=== PATIENT | female | born 1975 | race Caucasian/White ===

== ENCOUNTER → 2017-09-17 11:43 | Outpatient (CLI) | payer BC, SELFPAY ==
[2017-09-23 14:38] LABS: HPV Reflexed? NOT INDICATED
== END ==
PROVIDERS: Visit Provider Obstetrics & Gynecology
DX: Z12.4 Encounter for screening for malignant neoplasm of cervix (principal)
CPT/HCPCS: 88175; G0145

== ENCOUNTER → 2017-09-18 08:02 | Outpatient (CLI) | payer BC, SELFPAY ==
[2017-09-18 09:57] LABS: Hemoglobin A1c 5.4 % (4.2-6.3)
[2017-09-18 10:22] LABS: Estradiol < 11.0 pg/mL; Free T3 2.5 pg/mL (2.18-3.98); T4 Free Direct 0.94 ng/dL (0.76-1.46); Thyroid Stim Hormone (TSH) 1.14 uIU/mL (0.358-3.74)
[2017-09-19 11:36] LABS: Progesterone Level 0.49 ng/mL (See Comment)
== END ==
PROVIDERS: Family Provider Physician Assistant; PCP Physician Assistant; Visit Provider Obstetrics & Gynecology
DX: N95.1 Menopausal and female climacteric states (principal)
CPT/HCPCS: 36415; 82533; 82627; 82670; 83036; 84144; 84403; 84439; 84443; 84481; 82626

== ENCOUNTER → 2017-10-24 10:17 | Outpatient (CLI) | payer BC, SELFPAY ==
--- NOTE | 2017-10-24 10:37 | HPBI_ITS ---
MAMMOGRAPHY - BILATERAL SCREENING REASON FOR EXAM: Female, 42 years old. Routine annual screening examination. PERTINENT HISTORY: Non-contributory. TECHNIQUE: Digital bilateral breast cassandra (3D mammographic acquisition) in the CC and MLO projections. 2-D mediolateral oblique (MLO) and craniocaudad (CC) views of both breasts were obtained. CAD: Full Field Digital Mammography with Computer Added Detection was performed. COMPARISON: Comparison is made with prior study dated October 04, 2016 and July 12, 2015. FINDINGS: Breast Composition: The breasts are heterogeneously dense, which may obscure small masses. There are no dominant masses or suspicious calcifications. Stable bilateral benign-appearing axillary lymph nodes. No other significant abnormalities are identified. There has been no significant change since the prior study. HPBI/SCREENING MAMM (CAD), BILAT IMPRESSION: Stable bilateral screening mammogram. Yearly follow-up mammogram recommended. (A) ASSESSMENT CATEGORY: BIRADS Category 2: Benign. A letter regarding these results will be sent to the patient by the facility within 30 days. Approximately 10% of breast cancers are not detected by mammography. A normal mammogram should not delay biopsy of a clinically suspicious abnormality. [id number] Electronically Signed: Louis Anna MD at 14:10 EDT Tel [phone], Service support ,
== END ==
PROVIDERS: Family Provider Physician Assistant; PCP Physician Assistant; Visit Provider Preventive Medicine Occupational Medicine
DX: Z12.31 Encounter for screening mammogram for malignant neoplasm of breast (principal)
CPT/HCPCS: 77063; 77067

== ENCOUNTER → 2018-01-26 09:22 | Outpatient (CLI) | payer BC, SELFPAY ==
[2018-01-26 10:29] LABS: Estradiol 17.4 pg/mL
[2018-01-26 10:34] LABS: Progesterone Level 0.73 ng/mL (See Comment); Vitamin B12 502 pg/mL (211-911)
[2018-01-27 14:43] LABS: DHEA Sulfate 169.5 ug/dL (57.3-279.2)
== END ==
PROVIDERS: Visit Provider Obstetrics & Gynecology
DX: N95.1 Menopausal and female climacteric states (principal)
CPT/HCPCS: 36415; 82533; 82607; 82627; 82670; 84144; 84403; 82626

== ENCOUNTER → 2018-07-15 08:23 | Outpatient (CLI) | payer BC, SELFPAY ==
[2018-07-15 10:53] LABS: Progesterone Level 10.42 ng/mL (See Comment)
[2018-07-15 10:59] LABS: Estradiol < 11.0 pg/mL
[2018-07-16 08:34] LABS: DHEA Sulfate 201.4 ug/dL (57.3-279.2)
== END ==
PROVIDERS: Visit Provider Obstetrics & Gynecology
DX: N95.1 Menopausal and female climacteric states (principal)
CPT/HCPCS: 36415; 82533; 82627; 82670; 84144; 82626

== ENCOUNTER 2019-10-13 05:30 | Observation (INO) | payer BC, SELFPAY ==
[2019-10-13] VITALS (23 sets, daily range): BP systolic 132–156; BP diastolic 75–110; PULSE 70–117; RESP 14–20; TEMP 36.1–37.1; O2SAT 93–100; BMI 28.8; BMI 28.6; BMI 28.7
--- NOTE | 2019-10-13 05:34 | EKG12_ITS ---
Test Reason : PALPS Blood Pressure : / mmHG Vent. Rate : 108 BPM Atrial Rate : 108 BPM P-R Int : 168 ms QRS Dur : 082 ms QT Int : 354 ms P-R-T Axes : 050 051 054 degrees QTc Int : 474 ms Sinus tachycardia Otherwise normal ECG Confirmed by FRANCISCO AHUJA, SEA ([id number]), publications editor LIA LYLES ([id number]) on 10/15/2019 8:08:33 AM Referred By: Confirmed By:MITESH SINGH MD
--- NOTE | 2019-10-13 05:34 | RAD_ITS ---
STUDY: X-RAY CHEST REASON FOR EXAM: Female, 44 years old. Chest pain, epigastric pain. TECHNIQUE: AP portable chest. COMPARISON: December 17, 2018. FINDINGS: The lungs are clear and expanded. There is no demonstrated pleural abnormality. Normal size heart. Normal mediastinum and deepika. Normal visualized pulmonary arteries. Normal visualized aortic arch and descending thoracic aorta. Normal visualized thoracic spine. Normal visualized ribs, clavicles, and shoulders. There is no demonstrated abnormality of the visualized soft tissue structures of the upper abdomen. RAD/Chest 1 View (Portable) IMPRESSION: Normal x-ray examination of the chest. Electronically Signed: Denis Dean MD at 5:58 EST , Service support ,
[2019-10-13 05:49] LABS: Absolute Lymphocyte Count 1.03 X10^3/uL (0.83-4.51); Absolute Neutrophil Count 11.3 X10^3/uL (2.0-7.7); Basophil# 0.05 X10^3/uL; Basophil% 0.4 % (0-1); Eosinophil# 0.03 X10^3/uL; Eosinophils% 0.2 % (0-5); Hematocrit 42.9 % (37-47); Hemoglobin 14.4 g/dL (12.0-15.0); Lymphocyte # 1.03 X10^3/ul (4.0); Mean Corp Hgb Conc 33.6 g/dL (32-36); Mean Corpuscular Hgb 29.8 pg (27.0-32.0); Mean Corpuscular Volume 88.6 fL (81-99); Mean Platelet Vol. 9.5 fl (6.2-12.0); Monocyte# 0.43 X10^3/uL; Monocyte% 3.3 % (0-10); NRBC Flagged by Analyzer 0 % (0-5); Neutrophil # 11.33 X10^3/uL (2.7-7.7); Neutrophil % 87.8 % (47-70); Platelet Count 260 K/mm3 (150-450); RBC Distribution Width CV 11.9 % (11.6-14.6); RBC Distribution Width SD 38.2 fl (35.1-43.9); Red Blood Count 4.84 M/mm3 (4.2-5.4); White Blood Count 12.9 K/mm3 (4.4-11.0)
[2019-10-13] MEDS: Aspirin 81 MG TAB.CHEW 324 MG PO (05:52)
[2019-10-13] MEDS: Ondansetron 4 MG/2 ML Vial IV (05:54)
[2019-10-13] MEDS: Morphine 4 MG/ML Syringe IV ×4 (05:55→11:20)
--- NOTE | 2019-10-13 06:04 | ED.VISSUMM ---
- ER Visit Summary Date of Service: 10/13/19 Chief Complaint: Chest pain History of Present Illness: The patient is a 44 F presenting with chest pain. This started last night at 10pm. Complains of midsternal chest pain and epigastric pain which is 8 out of 10 that has been constant for the past 7.5 hrs. She denies nausea, vomiting, shortness of breath. She denies PE/DVT risk factors. Denies CAD risk factors. She has not had these symptoms in the past. She does not recall anything that makes this better or worse. Denies other complaints. Physical Examination: Vitals are stable. Patient is afebrile. Alert no acute distress. HEENT exam is unremarkable. Neck is supple. Lungs are clear and equal bilaterally. Heart is regular rate and rhythm. Abdomen is soft epigastric tenderness with no guarding or rebound Extremities are unremarkable. Skin is warm and dry. No focal neurologic deficit. Remainder of exam is unremarkable. Emergency Department Course and Treatment: Patient was given aspirin, morphine, Zofran IV. EKG is sinus tachycardia rate of 108 with no acute ischemic changes. Chest x-ray shows no acute process. CBC shows white count 12.9. Chemistries unremarkable. Liver, lipase are normal. Troponin is negative. On re-evaluation, patient is resting comfortably. CT abdomen pelvis is pending at this time and will be checked out to the oncoming physician. Disposition: pending Impression: Chest and abdominal pain This note was generated with Scope 5 dictation software. It may contain incorrect words, spelling, and punctuation that were not noted in review of the chart prior to signing ED Disposition - Plan for ED Patient: Referrals: Kuldip Gabriel MD [Primary Care Provider] -
[2019-10-13 06:06] LABS: Anion Gap 6 (5-15); BUN 12 mg/dL (7-18); BUN/Creat Ratio 11.2 RATIO (10-20); Calcium,Total 9.1 mg/dL (8.5-10.1); Chloride 105 mmol/L (98-107); Creatinine, Serum 1.07 mg/dL (0.55-1.02); EST Glomerular Filtration Rate 59 mL/min (>60); Est Glom Filt Rate - Afr Amer 72 mL/min (>60); Estimated Creatinine Clearance 58.54 ml/min; Glucose 144 mg/dL (74-106); Potassium 3.9 mmol/L (3.5-5.1); Sodium Level 139 mmol/L (136-145)
[2019-10-13 06:07] LABS: AST(SGOT) 24 U/L (15-37); Alanine Aminotransfer ALT/SGPT 44 U/L (13-56); Albumin, Serum 4.5 g/dL (3.2-5.0); Alkaline Phosphatase 68 U/L (45-117); Bilirubin, Direct 0.13 mg/dL (0.00-0.30); Globulin 3.5 g/dL (2.2-4.2); Lipase 131 U/L (73-393)
--- NOTE | 2019-10-13 06:27 | CT_ITS ---
STUDY: CT ABDOMEN AND PELVIS WITH CONTRAST REASON FOR EXAM: Female, 44 years old. EPIGASTRIC PAIN RADIATION DOSAGE (If Supplied By Facility): CTDIvol = ( 12.54 ) mGy, DLP = ( 623.79 ) mGycm TECHNIQUE: Transaxial images were obtained from the dome of the diaphragm to the symphysis pubis with oral contrast. Oral and IV Gastrografin and 100mL Isovue-300 was administered. Sagittal and coronal images were reconstructed. Individualized dose optimization techniques were used for this CT. COMPARISON: None. FINDINGS: The visualized lung bases are unremarkable. The visualized portions of the heart are within normal limits. Normal liver. Pericholecystic fluid worrisome for acute cholecystitis. Correlation with right upper quadrant ultrasound is recommended. Normal spleen. Normal pancreas. Normal bilateral adrenal glands. Normal right kidney. Normal left kidney. Normal visualized stomach. Normal small intestine. Normal colon. There is non-visualization of the appendix. Normal abdominal aorta. Normal inferior vena cava. Normal retroperitoneum. Normal urinary bladder. Normal abdominal wall. Normal osseous structures. CT/Abdomen/Pelvis WITH Contrast IMPRESSION: Suspect acute cholecystitis. Correlation with right upper quadrant ultrasound is recommended. Electronically Signed: Mikey Wills MD at 8:41 EST Tel , Service support ,
--- NOTE | 2019-10-13 08:59 | US_ITS ---
STUDY: ABDOMINAL ULTRASOUND - RIGHT UPPER QUADRANT REASON FOR VISIT: Female, 44 years old PERICHOLECYSTIC FLUID 0N CT- RUQ PAIN TECHNIQUE: Ultrasound evaluation of the right upper quadrant was performed with real-time and static mckeon-scale imaging. TECHNICAL QUALITY: Adequate. COMPARISON: CT earlier today FINDINGS: Liver: The liver measures 15.6 cm. There is normal echogenicity of the liver. The bile ducts are within normal limits. There is hepatic color flow. The direction of portal flow is hepatopetal. There is no demonstrated mass lesion. Gallbladder: Normal distended gallbladder. The gallbladder wall measures 6 mm. There is a positive sonographic Fortune''s sign. There is pericholecystic fluid. There are multiple echogenic structures within the gallbladder, consistent with multiple gallstones. Common Bile Duct (C.B.D.): The common bile duct measures 5 mm. Pancreas: Normal size of the head, body and tail of the pancreas. There is normal echogenicity of the pancreas. There is no demonstrated pancreatic mass or cyst. Right Kidney: Normal size of the right kidney. The right kidney measures 10.0 cm. Normal renal cortex. The right cortex measures 1.3 cm. There is no demonstrated renal mass or cyst. There is no right hydronephrosis. US/Gallbladder IMPRESSION: Cholelithiasis with acute cholecystitis. Electronically Signed: Mikey Wills MD at 9:44 EST Tel , Service support ,
--- NOTE | 2019-10-13 11:17 | HP.PCM_ITS ---
Problem List (1) Acute cholecystitis Status: Acute History of Present Illness Date of Admission: 10/13/19 Chief Complaint: Right upper quadrant pain The patient is a 44 year old F who presented tot he ED secondary to severe right upper quadrant abdominal pain. Patient stated she felt under the weather yesterday and what she thought was heartburn. Patient noted she had lack of appetite yesterday. Throughout the day the pain intensified. She tried Pepto Bismol, Pepcid and Advil without relief throughout the night. Patient stated the pain keep her up all night. At 0500 this morning she woke her up and presented to the ED. Patient describes the pain starting in the epigastric region radiating to her RUQ pain an into her back. She noted nausea due to pain. She denies vomiting. She notes a history of irritable bowel with diarrhea. She denies change in bowel habits. She notes she has had similar symptoms as above previously throughout the last several years. She notes her grandmother and mother have had their gallbladders removed. She notes having previous imaging on her gallbladder without recommendations of having the gallbladder removed. She denies chest pain, shortness of breath. She is wondering if her irritable bowel is really due to her gallbladder. Patient has had previous open appendectomy (20 years ago) and previous total hysterectomy (7-10 years ago) ( laparoscopic). Patient denies previous myocardial infarction, stroke or blood clots. She denies previous complications with anesthesia. She denies having to previously see a health care law specialist. Patient states she Vapes. Past Medical History Allergies nitrofurantoin [From Macrobid] Allergy (Verified 10/13/19 05:39) Unknown Sulfa (Sulfonamide Antibiotics) Allergy (Verified 10/13/19 05:39) Hives Home Medications: Ambulatory Orders Medication Instructions Recorded Loratadine [Claritin] 10 mg PO DAILY 12/17/16 Amitriptyline HCl 25 mg PO DAILY 10/13/19 Surgical History: appendectomy - open (20 years ago), hysterectomy - Total (laparoscopic)- 7-10 years ago Psychiatric History: No pertinent psych hx SUPPLEMENTAL MANAGER History: No pertinent SUPPLEMENTAL MANAGER history Lives: Spouse/ Significant Other Smoking Status: Light Smoker (<10/day) Tobacco Use: Vapor - *Family History Maternal History Items: - - gallbladder disease Paternal History Items: No pertinent history Review of Systems Constitutional: Reports: Anorexia HEENT: Denies: Head Aches, Sinus Congestion, Sinus Drainage Cardiovascular: Denies: Chest Pain, Palpitations Respiratory: Denies: Cough, Shortness of breath at rest, Sputum production Gastrointestinal: Reports: Abdominal Pain, Diarrhea, Nausea. Denies: Vomiting Genitourinary: Denies: Dysuria Musculoskeletal: Denies: Joint Pain, Joint Tenderness Skin: Denies: Rash, Wounds Neurological: Denies: Numbness, Tingling, Focal weakness Psychiatric: Reports: Anxiety Hematologic/ Lymphatic: Denies: Easy Bruising, Easy Bleeding VTE Information - Inpt Only VTE Present on Admission: Yes VTE Mechan Device Prophylaxis: SCD's Patient Problems: Active and Suspected Problems (Last Reviewed 01/21/18 @ 11:36 by Shabnam Campbell) Acute cholecystitis (Acute) - Physical Exam Vitals/I&O's: Vital Signs Temp Pulse Resp BP Pulse Ox 98.2 F 85 16 135/97 H 99 10/13/19 05:47 10/13/19 08:27 10/13/19 08:27 10/13/19 08:27 10/13/19 08:27 Oxygen Delivery Method Room Air Weight: 167 lb 15.876 oz Body Mass Index (BMI) 28.8 General: Alert, Oriented x3, Cooperative HEENT: Atraumatic, PERRLA, EOMI, Normocephalic Neck: Supple, No JVD, Negative Carotid Bruits Lungs: Clear to auscultation, Normal air movement Cardiovascular: Regular rate, No murmurs Abdomen: Bowel Sounds Present, Soft, Tender - epigastric/RUQ region, - - Nicely healed right lower quadrant incision and umbilical incision Extremities: No edema, Capillary Refill Less than 3 Seconds Skin: No rashes, No breakdown Musculoskeletal: No Tenderness to Palpation of Joints or Extremities Neurological: Neuro grossly intact Psych/Mental Status: Normal Affect, Appropriate Laboratory Results 10/13/19 05:40: WBC 12.9 H, RBC 4.84, Hgb 14.4, Hct 42.9, MCV 88.6, MCH 29.8, MCHC 33.6, RDW Std Deviation 38.2, RDW Coeff of Kathy 11.9, Plt Count 260, MPV 9.5, Immature Gran % (Auto) 0.300, Neut % (Auto) 87.8 H, Lymph % (Auto) 8.0 L, Iron % (Auto) 3.3, Eos % (Auto) 0.2, Baso % (Auto) 0.4, Absolute Neuts (auto) 11.3 H, Absolute Lymphs (auto) 1.03, Nucleated RBC % 0 10/13/19 05:40: Sodium 139, Potassium 3.9, Chloride 105, Carbon Dioxide 28.0, Anion Gap 6, BUN 12, Creatinine 1.07 H, Estim Creat Clear Calc 58.54, Est GFR (MDRD) Af Amer 72, Est GFR (MDRD) Non-Af 59 L, BUN/Creatinine Ratio 11.2, Glucose 144 H, Calcium 9.1, Troponin I < 0.015 10/13/19 05:40: Total Bilirubin 0.60, Direct Bilirubin 0.13, AST 24, ALT 44, Alkaline Phosphatase 68, Total Protein 8.0, Albumin 4.5, Globulin 3.5, Lipase 131 Assessment/Plan All Active Problems (Last Reviewed 01/21/18 @ 11:36 by Shabnam Campbell) Acute cholecystitis (Acute) Segmental and somatic dysfunction of pelvic region (Acute) Segmental and somatic dysfunction of lumbar region (Acute) Segmental and somatic dysfunction of cervical region (Acute) Segmental and somatic dysfunction of thoracic region (Acute) I am seeing this patient in conjunction with Dr. Maldonado. Acute cholecystitis Plan: Patient was discussed with Dr. Maldonado. Dr. Maldonado will plan to perform a laparoscopic cholecystectomy with intraoperative cholangiogram. Procedure details, risks and benefits have been explained. Patient has had the opportunity to ask and have questions answered. Patient verbally understands and agrees with the plan. Thank you for allowing us to participate in this patient's care. Code Visit Office Visits / Consults: [id number] IP Consult L3
[2019-10-13] MEDS: 0.9% Saline Lock 10 ML Syringe IV (13:42)
[2019-10-13] MEDS: Lactated Ringers 1,000 ML 100 ML IV ×3 (13:42→19:46)
[2019-10-13] MEDS: Cefazolin 2 GM in 0.9% Normal Saline 100 ML IV (15:41)
--- NOTE | 2019-10-13 15:56 | DCINST_ITS ---
Discharge Diet: Light diet - advance as tolerated - if you have questions about your diet instructions, please talk to you doctor. Discharge Activity: May Not Drive - for 1 week or while taking narcotic pain medicine. May shower in (days): 1 Lifting Restrictions: 10 pounds Call your doctor if your incision/area has: Continuous Slow Oozing, Sudden Increased Bleeding, Increased Pain/ Swelling, Increased Redness, Foul Smelling Discharge Call your doctor if you observe: Fever of 101 or Higher Suture Line Care: Avoid Pulling/Pushing, Avoid Pinching/Bending Additional Dressing/Incision Instructions:: Change or remove dressing in 4 days. Leave steri-strips in place for 1 week. Allergies/Adverse Reactions: Allergies nitrofurantoin [From Macrobid] Allergy (Verified 10/13/19 05:39) Unknown Sulfa (Sulfonamide Antibiotics) Allergy (Verified 10/13/19 05:39) Hives wheat Allergy (Verified 10/13/19 13:36) Other Medications to take at Discharge Loratadine [Claritin] 10 mg PO DAILY 12/17/16 Amitriptyline HCl 25 mg PO DAILY 10/13/19 C-Progesterone 1 applic TOPICAL QHS 10/13/19 Primary Care Physician: Kuldip Gabriel MD [Primary Care Provider] - Test Results: Test results from this visit will be discussed in further detail at your follow- up appointment, if applicable. Please Follow Up With: Herbert Maldonado MD - [phone] When: Call to make an appointment to be seen in about 10 days.
[2019-10-13] MEDS: Bupivacaine Mpf 0.5% 30 ML VIAL (16:04)
--- NOTE | 2019-10-13 16:05 | GALL_PTH ---
PATIENT: BECCA MCCLAIN LOC: MS3 U#:[id number] AGE/SX: 44/F ROOM: MT323 RE10/13/[address]: Dr. Herbert Maldonado MD : 1975 BED: 1 DIS: 10/14/2019 SPEC #: [id number] RECD: 10/13/19 17:13 STATUS: JEREMY MCGRATH #: [id number] OZZIE: 10/13/19 16:[address]: Herbert Maldonado DEPT: SURGICAL PATHOLOGY RECD BY: Sajan Sanon ENTERED: 10/14/19 08:47 SP TYPE: BERNICE ROY DR: Dr. Kuldip Gabriel MD Tissues: Gallbladder, NOS Procedures: Surgery Specimen Level III HEADER OPERATION: Laparoscopic cholecystectomy PRE-OP DIAGNOSIS: Acute cholecystitis TISSUE SUBMITTED: Gallbladder MICROSCOPIC DIAGNOSIS Gallbladder, cholecystectomy: Acute and chronic cholecystitis and cholelithiasis. SJ:annette 3/6/20 MICROSCOPIC DESCRIPTION Slides are reviewed. GROSS DESCRIPTION Received is one container labeled with the patient's name and designated gallbladder. The specimen consists of a gallbladder measuring 10 cm in length and up to 4 cm in diameter. The external surface is pink-fair, smooth and glistening for the most part. Focally it is granular, hemorrhagic and contains cautery artifact. The gallbladder contains yellow mucoid bile and multiple yellow-orange, mulberry stones measuring in aggregate 4 x 2.5 x 1.5 cm and 0.2 to 0.3 cm in diameter. The mucosa is bile-stained and without any mass lesions. The gallbladder wall measures 0.1 cm in thickness. Creative/Art Director sections from the gallbladder and the cystic duct are submitted in one cassette. / SJ:annette 10/14/19 TC:2 CPT: 66783
--- NOTE | 2019-10-13 16:54 | OP.PCM_ITS ---
Problem List (1) Acute cholecystitis Status: Acute Report of Operation Date of Procedure: 10/13/19 Pre-Operative Diagnosis: Acute cholecystitis cholelithiasis Post-Operative Diagnosis: Same Surgery/Procedure Performed:: Laparoscopic cholecystectomy Description of Surgical Findings:: Timeout and informed consent was obtained. 44-year-old female was taken operating placement table underwent general endotracheal intubation anesthesia. Ancef 2 g given intravenously preoperatively. The abdomen sterilely prepped draped. 0.5% Marcaine was used as local aesthetic. Skin sites were pre-an esthetized. A total of 30 cc was used. A vertical infraumbilical incision was created holding sutures of 0 Vicryl placed. Direct access was gained in the abdomen in 10 mm trocar inserted the abdomen was insufflated with CO2 to a pressure of 10 mmHg pressure. From a trochars in place in the epigastric right upper quadrant and right lateral upper quadrant. The gallbladder was markedly edematous and adherent to the omentum. The omental adhesions were dissected free the gallbladder was distracted blunt dissection was instituted at the infundibulum until the cystic duct cystic artery was clearly identified. The cystic artery was clipped secured twice proximally with hemo-lock clips and once distally prior to transecting it. Hem-o-lizandro clip was placed on the cystic duct incision and then cystic duct and attempt was made to place a cholangiogram catheter but this would not go due to a palpable posterior. I elected to forego the cholangiograms. 2 Hem-o-lizandro clips were placed on the cystic duct stump prior to transecting it. The gallbladder was dissected free from the liver bed a small structure that looked like a duct of Luschka that was secured with a hemo-lock clip. The gallbladder was very edematous and dissection was somewhat tedious getting the gallbladder dissected free but it was dissected free intact with no spillage. The gallbladder was placed in a retrieval bag. The right upper quadrant was irrigated and aspirated free of excess fluid. A piece of fibrillar was placed in the liver bed. Gallbladder was exited the umbilicus remaining trochars removed under visualization the abdomen was allowed to deflate the CO2 the fascia the umbilicus approximated with 0 Vicryl [id number] suture skin edges approximated opted for Monocryl subdermal stitches Steri-Strips Telfa and OpSite dressings applied sponge and instrument and needle counts were reported the surgery correct blood loss minimal Specimens gallbladder. Drains none. Blood loss minimal. The patient was taken to the recovery room in satisfactory edition without apparent complication Herbert Maldonado M.D., F.A.C.S. Type of Anesthesia:: General Anesthesiologist: Jaycob Pearson
[2019-10-13] MEDS: Ketorolac 30 MG/ML Syringe IV (17:47)
[2019-10-13] MEDS: Morphine 2 MG/ML Syringe IV ×2 (19:46→21:42)
[2019-10-13] MEDS: Amitriptyline 25 MG Tablet PO (21:34)
[2019-10-14] MEDS: Morphine 2 MG/ML Syringe IV (02:23)
[2019-10-14 05:27] VITALS: BP 126/79; PULSE 96; RESP 16; TEMP 36.9; O2SAT 98
[2019-10-14] MEDS: Lactated Ringers 1,000 ML 100 ML IV (05:33)
--- NOTE | 2019-10-14 06:25 | PCM.PN.SRG ---
Patient Problems: Active and Suspected Problems (Last Reviewed 01/21/18 @ 11:36 by Shabnam Campbell) Acute cholecystitis (Acute) Subjective: Pt feeling better, now just sore - Physical Exam Vitals/I&O's: Vital Signs Temp Pulse Resp BP Pulse Ox 98.4 F 96 16 126/79 H 98 10/14/19 05:27 10/14/19 05:27 10/14/19 05:27 10/14/19 05:27 10/14/19 05:27 Oxygen Delivery Method Room Air Weight: 167 lb 15.876 oz Body Mass Index (BMI) 28.6 Intake and Output for Last 24 Hours 10/12/19 10/13/19 10/14/19 23:59 23:59 23:59 Intake Total 1755 / 1755 1478.33 / 1478.33 Output Total 650 / 650 700 / 700 Balance 1105 / 1105 778.33 / 778.33 Abdomen: Soft, Hypoactive Bowel Sounds, Distended Current Medications Acetaminophen (Tylenol) 650 mg PO Q6H PRN PRN PRN Reason: Pain Score 1-10/10 Amitriptyline HCl (Elavil) 25 mg PO QHS [facility] Last Admin: 10/13/19 21:34 Dose: 25 mg Documented by: Sodium Chloride () 250 mls @ 15 mls/hr IV .[id number] PRN PRN Reason: Saline Flush Sodium Chloride () 250 mls @ 15 mls/hr IV .[id number] PRN PRN Reason: Additional IVPB Infusion Lactated Ringer's () 1,000 mls @ 100 mls/hr IV .Q10H [facility] Last Admin: 10/14/19 05:33 Dose: 100 mls/hr Documented by: Morphine Sulfate () 2 - 4 mg IV Q1H PRN PRN PRN Reason: Pain Score 1-10/10 Last Admin: 10/14/19 02:23 Dose: 2 mg Documented by: Morphine Sulfate () 2 - 4 mg IV Q1H PRN PRN PRN Reason: Pain Score 1-10/10 Non-Formulary Medication (C-Progesterone) 1 applic TOPICAL QHS [facility] Last Admin: 10/13/19 21:34 Dose: Not Given Documented by: Ondansetron HCl (Zofran) 4 mg IV Q8H PRN PRN PRN Reason: NAUSEA Oxycodone HCl (Oxyir) 5 mg PO Q4H PRN PRN PRN Reason: Pain Score 4-5/10 Sodium Chloride () 2 - 6 ml IV UD PRN PRN Reason: Pediatric Saline Flush Last Admin: 10/13/19 13:42 Dose: 5 ml Documented by: Medical Necessity - Tobacco Use Smoking Status: Light Smoker (<10/day) Tobacco Use: Vapor Assessment/Plan All Active Problems (Last Reviewed 01/21/18 @ 11:36 by Shabnam Campbell) Acute cholecystitis (Acute) Segmental and somatic dysfunction of pelvic region (Acute) Segmental and somatic dysfunction of lumbar region (Acute) Segmental and somatic dysfunction of cervical region (Acute) Segmental and somatic dysfunction of thoracic region (Acute) Plan discharge this a.m.
[2019-10-14] MEDS: oxyCODONE 5 MG Tablet PO (10:05)
[2019-10-14 10:13] VITALS: BP 125/85; PULSE 81; RESP 18; TEMP 36.5; O2SAT 99
== END 2019-10-14 10:35 | disposition home or self-care (01) ==
LOC: ED 10:13 → MS3 11:49
PROVIDERS: Admitting Provider Surgery; Emergency Provider Emergency Medicine; PCP Family Medicine; Visit Provider Surgery
PROC: (CPT 47610; principal; 2019-10-13 15:45)
DX: K80.12 Calculus of gallbladder with acute and chronic cholecystitis without obstruction (principal); Z79.899 Other long term (current) drug therapy; F17.290 Nicotine dependence, other tobacco product, uncomplicated; M99.01 Segmental and somatic dysfunction of cervical region; M99.03 Segmental and somatic dysfunction of lumbar region; M99.05 Segmental and somatic dysfunction of pelvic region; M99.02 Segmental and somatic dysfunction of thoracic region; K58.9 Irritable bowel syndrome, unspecified
CPT/HCPCS: 00790; 47562; 71045; 74177; 76705; 80048; 80076; 83690; 84484; 85025; 88304; 93005; 96361; 96374; 96375; 96376; 99218; 99251; 99285; 99406; J7120; Q9967; A4216; G0378; G0463; J2405

== ENCOUNTER → 2020-03-16 09:01 | Outpatient (CLI) | payer BC, SELFPAY ==
[2019-10-13 13:48] VITALS: BMI 28.6
[2020-03-16 09:52] LABS: Estradiol 12.1 pg/mL
[2020-03-16 09:53] LABS: Progesterone Level 0.59 ng/mL (See Comment)
[2020-03-17 04:27] LABS: Sex Hormone-binding Globulin 30.5 nmol/L (24.6-122.0)
== END ==
PROVIDERS: PCP Family Medicine; Referring Provider Obstetrics & Gynecology; Visit Provider Obstetrics & Gynecology
DX: N95.1 Menopausal and female climacteric states (principal)
CPT/HCPCS: 36415; 82533; 82627; 82670; 84144; 84270; 84403; 82626

== ENCOUNTER → 2021-06-04 15:27 | Outpatient (CLI) | payer BC, SELFPAY ==
--- NOTE | 2021-06-04 15:40 | BI_ITS ---
MAMMOGRAPHY - BILATERAL SCREENING REASON FOR EXAM: Female, 46 years old. Routine annual screening examination. PERTINENT HISTORY: Non-contributory. TECHNIQUE: Digital bilateral breast corazon (3D mammographic acquisition) in the CC and MLO projections. 2-D mediolateral oblique (MLO) and craniocaudad (CC) views of both breasts were obtained. CAD: Full Field Digital Mammography with Computer Added Detection was performed. COMPARISON: Comparison is made with prior study dated 10/24/2017 and 05/04/2017. FINDINGS: Breast Composition: The breasts are heterogeneously dense, which may obscure small masses. There are no dominant masses or suspicious calcifications. Stable small benign-appearing bilateral axillary lymph nodes. No other significant abnormalities are identified. There has been no significant change since the prior study. BI/SCRN MAMM (CAD)W/[place] BILAT IMPRESSION: Stable bilateral screening mammogram. Yearly follow-up mammogram recommended. (A) ASSESSMENT CATEGORY: BIRADS Category 2: Benign. A letter regarding these results will be sent to the patient by the facility within 30 days. Approximately 10% of breast cancers are not detected by mammography. A normal mammogram should not delay biopsy of a clinically suspicious abnormality. [id number] Electronically Signed: Louis Anna MD at 8:08 EDT , Service support ,
== END ==
PROVIDERS: PCP Family Medicine; Referring Provider Obstetrics & Gynecology; Visit Provider Obstetrics & Gynecology
DX: Z12.31 Encounter for screening mammogram for malignant neoplasm of breast (principal)
CPT/HCPCS: 77063; 77067

== ENCOUNTER 2021-09-12 09:54 | Outpatient (CLI) | payer BC, SELFPAY ==
--- NOTE | 2021-09-12 10:02 | US_ITS ---
STUDY: ABDOMINAL ULTRASOUND - RIGHT UPPER QUADRANT REASON FOR VISIT: Female, 46 years old prior cholecystectomy. TECHNIQUE: Ultrasound evaluation of the right upper quadrant was performed with real-time and static mckeon-scale imaging. TECHNICAL QUALITY: Adequate. COMPARISON: Comparison is made with prior study of 10/13/2019. FINDINGS: Liver: The liver measures 12.4 cm. There is normal echogenicity of the liver. The bile ducts are within normal limits. There is hepatic color flow. The direction of portal flow is hepatopetal. There is no demonstrated mass lesion. Gallbladder: The patient is status post cholecystectomy. Common Bile Duct (C.B.D.): The common bile duct measures 6 mm. Pancreas: Normal size of the head, body and tail of the pancreas. There is normal echogenicity of the pancreas. There is no demonstrated pancreatic mass or cyst. Right Kidney: Normal size of the right kidney. The right kidney measures 9.9 cm x 4.7 cm x 5.1 cm. Normal renal cortex. The right cortex measures 1.3 cm. There is no demonstrated renal mass or cyst. There is no right hydronephrosis. US/Abdomen Limited IMPRESSION: Normal right upper quadrant ultrasound examination. The patient is status post cholecystectomy. Electronically Signed: Louis Anna MD at 10:58 EST ,
== END 2021-09-12 23:59 | disposition short-term general hospital (02) ==
PROVIDERS: PCP Internal Medicine; Referring Provider Internal Medicine; Visit Provider Internal Medicine
DX: K80.20 Calculus of gallbladder without cholecystitis without obstruction (principal)
CPT/HCPCS: 76705

== ENCOUNTER 2021-10-02 11:00 | Outpatient (RCR) | payer BC, SELFPAY ==
--- NOTE | 2021-08-20 11:47 | HP.PTEVAL_ITS ---
Patient's Visit Information BECCA MCCLAIN is a 46 year old F referred to Physical Therapy by Dr. Crystal Atkins DO with a diagnosis of Lateral Epicondyle. Date of Evaluation: 08/20/21 Physical Therapist: Lisa Vallejo DPT - Visit Plan Frequency: 1x/Week Duration: 4 Weeks Plan: Follow up in 3 weeks after HEP. HEP Given IE: Education, Elbow extension stretch, ice massage, STM, activity modification - Subjective Patient reports that she was gardening this summer- she started having right elbow pain. Now it just hurts all the time. Pain is located on the lateral epicondyle. It hurts all the time- she has a hard time picking things up and s leeping. She does have some radiating pain into the triceps and forearm. This week hasn't been so bad because she is using Meloxicam. Worst: 6/10 Agg: lifting, turning jars, ping pong, anything she does with her arm. Eases: Meloxicam, compression brace Best: 0/10 just this week with the Meloxicam. Right hand dominate. Describes the pain as more sharp- at night its dull achy and throbbing. Sleep: disturbed- hard to get to sleep- all positions. No N/T in the finger. 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 No SIMS, blurred vision, dizziness or neck pain. Did not have x-rays or MRI. 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 Does have a sleeve- but has not been using it- not super comfortable. PMHx: migraines-no ortho surgeries. Meds: Amitriptyline Very active- [place]- does exercise. - Objective Posture: good throughout session. Gait: good arm swing and trunk rotation. Palpation: tender lateral epicondylitis, triceps, Brachioradialis. ROM: WFL in all planes of the cervical, shoulder, elbow and wrist. Strength: Shoulder: 4+/5 throughout, Elbow: 4+/5 with pain, Wrist: 5/5 with pain sup/pro and flexion/extn, Logistics Support: 80 on left 60 on right Pinch Strength: 15-20. Sensation: WNL - Special Tests R Elbow Valgus Stress Test - MCL Instability: Positive R Elbow Varus Stress Stest - MCL Instability: Positive R Elbow Lat Epiconylitis - as named: Positive - Balance/Special Test Scores Quick DASH Score: 38.6350 - Goals Goal 1:: Patient will be I with HEP and progression Goal Time Frame: 4-6 Weeks Goal 2:: Patient will report 75% better Goal Time Frame: 4-6 Weeks - Rehabilitation Potential Physical Therapy Diagnosis: Patient presents with hypomobility- she has decreased pain free ROM, strength and endurance leading to increased pain with ADL's. Rehabilitation Potential: Good - Anticipated Interventions Patient/Client Instruction: Educate patient on: Benefits of Fitness Program Therapeutic Exercise to Include: Strength training, Body mechanics, Postural training For the Purpose of:: To improve muscle performance and motor function Thank you for the opportunity to evaluate your patient. For Medicare and Medicare HMO plans, please review the plan of care and approve it. It will need to be FAXED BACK to us at [phone] for Medicare purposes. For Medicare only, by signing this I certify the plan of care. Please let me know if there are questions or concerns regarding this plan of care. Physician Signature: Date:
--- NOTE | 2022-01-24 14:52 | HP.PT.NRP ---
BECCA MCCLAIN was seen in my office for initial evaluation on 08/20/21. The following Plan of Care was established for this patient: Initial Frequency: 1x/Week Initial Duration: 4 Weeks Patient/Client Instruction: Educate patient on: Benefits of Fitness Program Therapeutic Exercise to Include: Strength training, Body mechanics, Postural training For the Purpose of:: To improve muscle performance and motor function This patient was last seen in our office . Pertinent comments regarding their Physical therapy will appear below: Patient has not attended PT in over 30 days- appropriate to be d/c and return to MD for further evaluation as needed. At this point I will be discontinuing this patient from physical therapy. I would be happy to see this patient again in the future if found appropriate by the physician. Thank you! Lisa Vallejo DPT Balance/Gait/Functional tests - Balance/Special Test Scores Quick DASH Score: 38.2068
== END 2021-10-02 19:00 | disposition home or self-care (01) ==
LOC: PT 11:00
PROVIDERS: PCP Internal Medicine; Referring Provider Internal Medicine; Visit Provider Internal Medicine
DX: M77.11 Lateral epicondylitis, right elbow (principal)
CPT/HCPCS: 97035; 97110; 97161

== ENCOUNTER → 2022-01-23 | Outpatient (CLI) | payer BC, SELFPAY ==
[2022-01-23 12:22] LABS: Absolute Lymphocyte Count 1.86 X10^3/uL (0.83-4.51); Absolute Neutrophil Count 3.3 X10^3/uL (2.0-7.7); Basophil# 0.05 X10^3/uL; Basophil% 0.8 % (0-1); Eosinophil# 0.26 X10^3/uL; Eosinophils% 4.4 % (0-5); Hematocrit 41.9 % (37-47); Hemoglobin 14.2 g/dL (12.0-15.0); Lymphocyte # 1.86 X10^3/ul (0.83-4.51); Lymphocyte % 31.5 % (19-41); Mean Corp Hgb Conc 33.9 g/dL (32-36); Mean Corpuscular Hgb 30.8 pg (27.0-32.0); Mean Corpuscular Volume 90.9 fL (81-99); Mean Platelet Vol. 10.7 fl (6.2-12.0); Monocyte# 0.39 X10^3/uL; Monocyte% 6.6 % (0-10); NRBC Flagged by Analyzer 0 % (0-5); Neutrophil # 3.33 X10^3/uL (2.7-7.7); Neutrophil % 56.4 % (47-70); Platelet Count 265 K/mm3 (150-450); RBC Distribution Width CV 12.1 % (11.6-14.6); Red Blood Count 4.61 M/mm3 (4.2-5.4); White Blood Count 5.9 K/mm3 (4.4-11.0)
[2022-01-23 13:06] LABS: ALB/GLOB Ratio 1.3 RATIO (0.9-2.4); AST(SGOT) 20 U/L (15-37); Alanine Aminotransfer ALT/SGPT 27 U/L (13-56); Albumin, Serum 4.2 g/dL (3.2-5.0); Alkaline Phosphatase 54 U/L (45-117); Anion Gap 8 (5-15); BUN 16 mg/dL (7-18); BUN/Creat Ratio 17.1 RATIO (10-20); Chloride 104 mmol/L (98-107); Cholesterol 292 mg/dL (200); Creatinine, Serum 0.93 mg/dL (0.55-1.02); EST Glomerular Filtration Rate 69 mL/min (>60); Est Glom Filt Rate - Afr Amer 83 mL/min (>60); Globulin 3.2 g/dL (2.2-4.2); Glucose 89 mg/dL (74-106); High Density Lipoprotein 36 mg/dL; Potassium 3.9 mmol/L (3.5-5.1); Protein, Total 7.4 g/dL (6.4-8.2); Sodium Level 138 mmol/L (136-145); Triglycerides 155 mg/dL; Very Low Density Lipoprotein 31 mg/dL (5-40)
== END | disposition home or self-care (01) ==
LOC: LAB 09:59
PROVIDERS: PCP Internal Medicine; Referring Provider Internal Medicine; Visit Provider Internal Medicine
DX: E78.5 Hyperlipidemia, unspecified (principal); R10.13 Epigastric pain
CPT/HCPCS: 36415; 80053; 80061; 85025

== ENCOUNTER 2022-05-07 10:59 | Day surgery (SDC) | payer BC, SELFPAY ==
[2022-05-07] VITALS (8 sets, daily range): BP systolic 129–157; BP diastolic 86–100; PULSE 81–115; RESP 15–16; TEMP 36.6–36.8; O2SAT 98–100; BMI 29.1
[2022-05-07] MEDS: Lactated Ringers 1,000 ML 15 ML IV (11:28)
--- NOTE | 2022-05-07 11:41 | HP.PCM_ITS ---
History and Physical Date of Admission: 05/07/22 BECCA MCCLAIN, is a 46 F who presents to the office today for desire to schedule screening colonoscopy as well as EGD. She had several years of GI issues until she had cholecystectomy by Dr Donis Maldonado in 2019. Her GI symptoms were dismissed for multiple years so she was understandably nervous for today's appt. She has intermittent heartburn. Heartburn is 90% improved on current regimen of HRT. Before the cholecystectomy she had severe heartburn, no meds helped it. Now prn H2-natalia if she eats Haitian or dairy. Occasional nausea in the morning, resolves once she gets up, lasts about 10 minutes, better with cracker, reminds her of morning sickness. No vomiting. No abdominal pain. Feels full quickly, not a new symptom. No difficulty swallowing. BM every 2-3 days. Doesn't completely evacuate. PRN miralax which is effective. A couple of episodes of explosive diarrhea since cholecystectomy which was done in 2019, like gallbladder attacks, better with hyoscyamine, less often over time. Uses Lactaid prn w/ dairy. Would like biopsy of duodenum to r/o celiac. Had negative celiac test but was off gluten x 6 mos at that time. Has been back on wheat x one month w/o issues. ROS Const Constitutional: Positive for headache(s); No fatigue, fever(s), weight change, sleep problems, abnormal sleep pattern or change in appetite ENT ENT: Positive for headache(s); No difficulty swallowing, hoarseness or sore throat Resp Respiratory: No cough, hemoptysis or shortness of breath Cardio Cardiology: No chest pain at rest or generalized swelling Gastro GI: Positive for constipation and heartburn; No abdominal pain, belching, bloating, change in bowel habits, change in stool character, coffee ground emesis, cramping, diarrhea, difficulty swallowing, feeling full early, excessive flatus, incontinent of stools, Vomiting blood/hematemesis, Blood in stool, loose stools, Black,tarry stools, nausea/dyspepsia, pain with swallowing or vomiting Musc Musculoskeletal: Positive for numbness and tingling; No joint pain, back pain or joint swelling Skin Skin: No itchy eyes or rash Neuro Neurology: Positive for headache(s), numbness and tingling; No behavioral changes or confusion Psych Psychiatric: No abnormal sleep pattern, Positive for anxiety, No behavioral changes, No change in appetite, No confusion and No depression Endo Endocrine: No cold intolerance, fatigue, heat intolerance, increased thirst/drinking or weight change Aller/Imm Allergy/Immunologic: No food intolerance or itchy eyes Angel/Lymp Hematologic/Lymphatic: No easy bleeding, easy bruising or enlarged lymph nodes Exam Const General: healthy appearing, no acute distress, well developed and well groomed Quality Reporting Tobacco Screening ([facility] 138) Smoking Status: Current every day smoker Assessment and Plan Assessment and Plan (1) Heartburn: ?Status:?Acute (2) Constipation: ?Status:?Acute ? ? ? Orders:?Orders: ? Celiac Disease Profile Today R12 ?Plan: 46 yr old female with intermittent heartburn--severe before cholecystectomy, improved on HRT. EGD to r/o Pettit's esophagus. She would also like biopsy of duodenum for celiac disease. If she wants celiac blood test once she has been consuming gluten daily x 3 mos, I placed that order. Chronic constipation--can try nightly miralax +/- kiwi supplement or aloe vera. Screening colonoscopy along with EGD. F/u 2 wks after that. I have re-examined the patient. There are no clinical changes since date of exam.
--- NOTE | 2022-05-07 12:00 | COLBX_PTH ---
PATIENT: BECCA MCCLAIN LOC: EN U#:[id number] AGE/SX: 47/F ROOM: RE05/07/[address]: Dr. Km Moreland DO : 1975 BED: DIS: 05/07/2022 SPEC #: [id number] RECD: 05/07/22 15:39 STATUS: JEREMY REJordin #: [id number] OZZIE: 05/07/22 12:[address]: Km Moreland DEPT: SURGICAL PATHOLOGY RECD BY: Earnest Harris ENTERED: 05/08/22 08:10 SP TYPE: COLON BX OTHR DR: Dr. Crystal Atkins DO Tissues: A - Duodenum, NOS B - Stomach, NOS C - Esophagus, NOS D - Cecum, NOS E - Sigmoid colon biopsy Procedures: Special Stain Group II Surgery Specimen Level IV Alcian Blue/PAS (control) HEADER OPERATION: Colonoscopy, EGD ([facility] [place] with biopsies PRE-OP DIAGNOSIS: Heartburn, constipation TISSUE SUBMITTED: A ? Duodenum biopsy, B ? Antrum biopsy for H. pylori and path, C ? Distal esophagus biopsy, D ? Ileocecal valve ulcer biopsy, E ? Sigmoid colitis biopsy MICROSCOPIC DIAGNOSIS A. Duodenum, biopsy: Fragments of duodenal mucosa with mild Mohan gland hyperplasia. B. Antrum, biopsy: Minimal gastritis. See microscopic description and comment. C. Distal esophagus, biopsy: Fragments of gastroesophageal mucosa with chronic inflammation. Intestinal metaplasia (goblet cell metaplasia) not identified. See comment. D. Ileocecal valve ulcer, biopsy: A fragment of small intestine and colonic mucosa, no pathologic diagnosis. E. Sigmoid colon, biopsy: Fragments of colonic mucosa, no pathologic diagnosis. SJ:annette 05/09/2022 COMMENT B. The results of immunohistochemistry for Helicobacter pylori will be reported separately ([id number]). C. Alcian blue/PAS stain with matched control is used in the evaluation of the specimen. MICROSCOPIC DESCRIPTION Slides are reviewed. B. The specimen shows fragments of gastric mucosa with chronic inflammatory cell infiltrates in the lamina propria consisting of lymphocytes and plasma cells, consistent with minimal chronic gastritis. GROSS DESCRIPTION A - Received in fixative is one container labeled with the patient's name and designated duodenum biopsy. The specimen consists of multiple irregular fragments of light fair soft tissue that in aggregate measure 0.8 x 0.3 x 0.1 cm. The specimen is totally submitted in one cassette. B - Received in fixative is one container labeled with the patient's name and designated antrum biopsy. The specimen consists of two irregular fragments of light fair soft tissue that in aggregate measure 0.6 x 0.5 x 0.1 cm. The specimen is totally submitted in one cassette. C - Received in fixative is one container labeled with the patient's name and designated distal esophagus biopsy. The specimen consists of two irregular fragments of light fair soft tissue that in aggregate measure 0.8 x 0.5 x 0.1 cm. The specimen is totally submitted in one cassette. D - Received in fixative is one container labeled with the patient's name and designated ileocecal valve ulcer biopsy. The specimen consists of one irregular fragment of light fair soft tissue that measures 0.3 x 0.3 x 0.1 cm. The specimen is totally submitted in one cassette. E - Received in fixative is one container labeled with the patient's name and designated sigmoid colitis biopsy. The specimen consists of multiple irregular fragments of light fair soft tissue that in aggregate measure 0.8 x 0.6 x 0.1 cm. The specimen is totally submitted in one cassette. / SJ:rg 05/08/2022 TC: 3 CPT: 77329 x5, 86376
--- NOTE | 2022-05-07 12:00 | IMM_PTH ---
PATIENT: BECCA MCCLAIN LOC: EN U#:[id number] AGE/SX: 47/F ROOM: RE05/07/[address]: Dr. Km Moreland DO : 1975 BED: DIS: 05/07/2022 SPEC #: [id number] RECD: 05/08/22 09:13 STATUS: JEREMY REQ #: [id number] OZZIE: 05/07/22 12:[address]: Km Moreland DEPT: IMMUNOHISTOCHEMISTRY RECD BY: Mamta Miguel ENTERED: 05/08/22 09:13 SP TYPE: IMMUNO OTHR DR: Dr. Crystal Atkins DO Tissues: B - Stomach, NOS Procedures: H Pylori (initial) PHYSICIAN & INSTITUTION [place] [id number] SPECIMEN INFORMATION: Tissue Source: B ? Antrum biopsy Clinical Info: Heartburn, constipation Specimen Number: [id number] CPT code: 99569 METHODOLOGY: Deparaffinized sections of prefer/formalin-fixed tissue or PAP/DQ stained slides are incubated with monoclonal/polyclonal antibodies/oligonucleotide probes. Localization is made via biotin free immunoperoxidase method. Appropriate controls are performed and reacted as expected. Results on target cell population are indicated in the following table: RESULTS: ANTIBODY / CLONE RESULT Block B H Pylori (polyclonal) negative These tests were developed and their performance characteristics determined by [facility]. They may not have been cleared or approved by the U.S. Food and Drug Administration. The FDA has determined that such clearance or approval is not necessary. The above immunohistochemical/dualISH markers are ordered and reviewed by the Pathologist. INTERPRETATION: B. Antrum, biopsy: Negative for Helicobacter pylori organisms. SJ:annette 05/09/2022
--- NOTE | 2022-05-07 12:47 | OP.EGD_ITS ---
Patient Name: Winston Osorio Procedure Date: 05/07/2022 12:02 PM Date of : 1975 Age: 47 Procedure: Upper GI endoscopy Indications: Epigastric abdominal pain, Functional Dyspepsia, Suspected esophageal reflux Providers: Km Moreland DO Medicines: Monitored Anesthesia Care Patient Profile: This is a 47 year old female. Refer to note in patient chart for documentation of history and physical. Patient has symptoms of chronic abdominal cramping, chronic abdominal distention, chronic epigastric abdominal pain and chronic dyspepsia. Complications: No immediate complications. Procedure: Pre-Anesthesia Assessment: - Prior to the procedure, a History and Physical was performed, and patient medications and allergies were reviewed. The risks and benefits of the procedure and the sedation options and risks were discussed with the patient. All questions were answered and informed consent was obtained. Patient identification and proposed procedure were verified by the physician in the pre-procedure area. Mental Status Examination: alert and oriented. Airway Examination: normal oropharyngeal airway and neck mobility. Respiratory Examination: clear to auscultation. CV Examination: normal. Prophylactic Antibiotics: The patient does not require prophylactic antibiotics. Prior Anticoagulants: The patient has taken no previous anticoagulant or antiplatelet agents. ASA Grade Assessment: II - A patient with mild systemic disease. After reviewing the risks and benefits, the patient was deemed in satisfactory condition to undergo the procedure. The anesthesia plan was to use monitored anesthesia care (MAC). Immediately prior to administration of medications, the patient was re-assessed for adequacy to receive sedatives. The heart rate, respiratory rate, oxygen saturations, blood pressure, adequacy of pulmonary ventilation, and response to care were monitored throughout the procedure. The physical status of the patient was re-assessed after the procedure. After obtaining informed consent, the endoscope was passed under direct vision. Throughout the procedure, the patient's blood pressure, pulse, and oxygen saturations were monitored continuously. The was introduced through the mouth, and advanced to the second part of duodenum. The upper GI endoscopy was accomplished without difficulty. The patient tolerated the procedure well. Scope In: 12:13:18 PM Scope Out: 12:20:45 PM Total Procedure Duration Time 0 hours 7 minutes 27 seconds Findings: LA Grade A (one or more mucosal breaks less than 5 mm, not extending between tops of 2 mucosal folds) esophagitis with no bleeding was found 37 to 39 cm from the incisors. Biopsies were taken with a cold forceps for histology. Verification of patient identification for the specimen was done. Estimated blood loss was minimal. A small hiatal hernia was present. Bilious fluid was found in the entire examined stomach. Fluid aspiration was performed through the scope suction channel. The amount of fluid collected was 100 mL. Verification of patient identification for the specimen was done. Estimated blood loss was minimal. Patchy mildly erythematous mucosa without bleeding was found in the gastric body. Biopsies were taken with a cold forceps for histology. Verification of patient identification for the specimen was done. Estimated blood loss was minimal. The second portion of the duodenum was normal. Biopsies were taken with a cold forceps for histology. Verification of patient identification for the specimen was done. Estimated blood loss was minimal. Impression: - LA Grade A reflux esophagitis. Biopsied. - Small hiatal hernia. - Bilious gastric fluid. Fluid aspiration performed. - Erythematous mucosa in the gastric body. Biopsied. - Normal second portion of the duodenum. Biopsied. Recommendation: - Discharge patient to home. - Resume previous diet. - Continue present medications. - Await pathology results. Procedure Code(s): --- Professional --- 69012, Esophagogastroduodenoscopy, flexible, transoral; with biopsy, single or multiple CPT copyright 2017 [employer]. All rights reserved. The codes documented in this report are preliminary and upon professional fee coder review may be revised to meet current compliance requirements. Km Moreland DO 05/07/2022 12:47:34 PM This report has been signed electronically. Number of Addenda: 0 Note Initiated On: 05/07/2022 12:02 PM
--- NOTE | 2022-05-07 12:48 | OP.CCLET_ITS ---
05/07/2022 Crystal Atkins Re : Upper GI endoscopy procedure for Winston Osorio Dear Wilbert This procedure was performed on Saturday, May 07, 2022. My impressions and recommendations are as follows: Impressions : - LA Grade A reflux esophagitis. Biopsied. - Small hiatal hernia. - Bilious gastric fluid. Fluid aspiration performed. - Erythematous mucosa in the gastric body. Biopsied. - Normal second portion of the duodenum. Biopsied. Recommendations : - Discharge patient to home. - Resume previous diet. - Continue present medications. - Await pathology results. My findings are described in the full procedure note, which is enclosed. If I can be of further assistance, please feel free to contact me at . Sincerely, Km Friend, 05/07/2022 12:47:34 PM This report has been signed electronically.
--- NOTE | 2022-05-07 12:51 | OP.CCLET_ITS ---
05/07/2022 Crystal Atkins Re : Colonoscopy procedure for Winston Osorio Dear Wilbert This procedure was performed on Saturday, May 07, 2022. My impressions and recommendations are as follows: Impressions : - Patchy moderate inflammation was found in the recto-sigmoid colon, in the sigmoid colon and at the ileocecal valve secondary to colitis. Biopsied. Recommendations : - Discharge patient to home. - Resume previous diet. - Continue present medications. - Await pathology results. - Repeat colonoscopy in 5 years for surveillance. My findings are described in the full procedure note, which is enclosed. If I can be of further assistance, please feel free to contact me at . Sincerely, Km Moreland, 05/07/2022 12:51:02 PM This report has been signed electronically.
--- NOTE | 2022-05-07 12:51 | OP.COLON_ITS ---
Patient Name: Winston Osorio Procedure Date: 05/07/2022 12:21 PM Date of : 1975 Age: 47 Procedure: Colonoscopy Indications: Screening for colorectal malignant neoplasm Providers: Km Moreland DO Medicines: Monitored Anesthesia Care Patient Profile: This is a 47 year old female. Refer to note in patient chart for documentation of history and physical. Patient has symptoms of chronic abdominal cramping, chronic abdominal distention, chronic epigastric abdominal pain and chronic dyspepsia. Last Colonoscopy: none. The patient's first colonoscopy is today. Complications: No immediate complications. Procedure: Pre-Anesthesia Assessment: - Prior to the procedure, a History and Physical was performed, and patient medications and allergies were reviewed. The risks and benefits of the procedure and the sedation options and risks were discussed with the patient. All questions were answered and informed consent was obtained. Patient identification and proposed procedure were verified by the physician in the pre-procedure area. Mental Status Examination: alert and oriented. Airway Examination: normal oropharyngeal airway and neck mobility. Respiratory Examination: clear to auscultation. CV Examination: normal. Prophylactic Antibiotics: The patient does not require prophylactic antibiotics. Prior Anticoagulants: The patient has taken no previous anticoagulant or antiplatelet agents. ASA Grade Assessment: II - A patient with mild systemic disease. After reviewing the risks and benefits, the patient was deemed in satisfactory condition to undergo the procedure. The anesthesia plan was to use monitored anesthesia care (MAC). Immediately prior to administration of medications, the patient was re-assessed for adequacy to receive sedatives. The heart rate, respiratory rate, oxygen saturations, blood pressure, adequacy of pulmonary ventilation, and response to care were monitored throughout the procedure. The physical status of the patient was re-assessed after the procedure. After I obtained informed consent, the scope was passed under direct vision. Throughout the procedure, the patient's blood pressure, pulse, and oxygen saturations were monitored continuously. The Colonoscope was introduced through the anus and advanced to the terminal ileum. The colonoscopy was performed without difficulty. The patient tolerated the procedure well. The quality of the bowel preparation was good. Scope In: 12:22:50 PM Scope Withdrawal Time 0 hours 12 minutes 53 seconds Scope Out: 12:39:18 PM Total Procedure Duration Time 0 hours 16 minutes 28 seconds Findings: The perianal and digital rectal examinations were normal. Patchy moderate inflammation characterized by congestion (edema), erosions and erythema was found in the recto-sigmoid colon, in the sigmoid colon and at the ileocecal valve. Biopsies were taken with a cold forceps for histology. Verification of patient identification for the specimen was done. Estimated blood loss was minimal. Impression: - Patchy moderate inflammation was found in the recto-sigmoid colon, in the sigmoid colon and at the ileocecal valve secondary to colitis. Biopsied. Recommendation: - Discharge patient to home. - Resume previous diet. - Continue present medications. - Await pathology results. - Repeat colonoscopy in 5 years for surveillance. Procedure Code(s): --- Professional --- 66206, Colonoscopy, flexible; with biopsy, single or multiple CPT copyright 2017 [employer]. All rights reserved. The codes documented in this report are preliminary and upon statistical financial analyst review may be revised to meet current compliance requirements. Km Moreland DO 05/07/2022 12:51:02 PM This report has been signed electronically. Number of Addenda: 0 Note Initiated On: 05/07/2022 12:21 PM
[2022-05-07] MEDS: Scopolamine 1mg/72hr Patch 1 PATCH TD (13:36)
== END 2022-05-07 13:47 | disposition home or self-care (01) ==
LOC: EN 11:00 → AC 11:01
PROVIDERS: PCP Internal Medicine; Referring Provider Internal Medicine; Visit Provider Internal Medicine Gastroenterology
PROC: 0DJD8ZZ Inspection of Lower Intestinal Tract, Via Natural or Artificial Opening Endoscopic (ICD-10-PCS; CPT 45378; principal; 2022-05-07 11:55)
DX: Z12.11 Encounter for screening for malignant neoplasm of colon (principal); K52.9 Noninfective gastroenteritis and colitis, unspecified; K21.00 Gastro-esophageal reflux disease with esophagitis, without bleeding; K44.9 Diaphragmatic hernia without obstruction or gangrene; F17.210 Nicotine dependence, cigarettes, uncomplicated; K90.0 Celiac disease; F41.9 Anxiety disorder, unspecified; E78.5 Hyperlipidemia, unspecified; Z79.890 Hormone replacement therapy; Z79.899 Other long term (current) drug therapy
CPT/HCPCS: 45380; 43239; 88305; 88313; 88342; J7120; J2405

== ENCOUNTER → 2022-05-21 | Outpatient (CLI) | payer BC, SELFPAY ==
[2022-05-21 11:53] LABS: AST(SGOT) 20 U/L (15-37); Alanine Aminotransfer ALT/SGPT 32 U/L (13-56); Albumin, Serum 4.1 g/dL (3.2-5.0); Alkaline Phosphatase 52 U/L (45-117); Amylase 56 U/L (25-115); Bilirubin, Direct 0.12 mg/dL (0.00-0.30); Globulin 3.6 g/dL (2.2-4.2); Lipase 109 U/L (73-393); Protein, Total 7.7 g/dL (6.4-8.2)
== END | disposition home or self-care (01) ==
LOC: LAB 10:05
PROVIDERS: PCP Internal Medicine; Referring Provider Nurse Practitioner Adult Health; Visit Provider Nurse Practitioner Adult Health
DX: R10.13 Epigastric pain (principal); R19.7 Diarrhea, unspecified; K29.60 Other gastritis without bleeding
CPT/HCPCS: 36415; 80076; 82150; 83690

== ENCOUNTER → 2022-05-31 | Outpatient (CLI) | payer BC, SELFPAY ==
[2022-06-03 17:18] LABS: Fats, Neutral Normal (.); Fats, Total Increased (.)
[2022-06-06 17:25] LABS: Pancreatic Elastase, Fecal 384 (>200)
== END | disposition home or self-care (01) ==
LOC: LABSPEC 08:26
PROVIDERS: PCP Internal Medicine; Referring Provider Nurse Practitioner Adult Health; Visit Provider Nurse Practitioner Adult Health
DX: R10.13 Epigastric pain (principal); R19.7 Diarrhea, unspecified; K29.60 Other gastritis without bleeding
CPT/HCPCS: 82653; 82705

== ENCOUNTER → 2022-06-13 | Outpatient (CLI) | payer BC, SELFPAY ==
--- NOTE | 2022-06-13 12:00 | NM_ITS ---
CLINICAL: 47-year-old female with history of clinical gastroparesis. SEMI-SOLID PHASE 99m Tc SULFUR COLLOID GASTRIC EMPTYING STUDY COMPARISON: None available FINDINGS: The patient was administered 1.0 mCi of 99m Tc sulfur colloid mixed with oatmeal and consumed per os. Image acquisitions in the anterior-posterior projections were obtained for 60 minutes. There is prompt visualization of the stomach. There is no gastroesophageal reflux identified. The T ? emptying was calculated to be 33.60 minutes, (Normal: 12-56 minutes). NM/Gastric Emptying Study IMPRESSION: 1. NORMAL 99m Tc sulfur colloid semi-solid phase (oatmeal) gastric emptying imaging examination. A. There is normal and preserved semi-solid phase gastric emptying compared to normal controls. (Alice et al, J Nucl Med Tech 38: 186, 2010). Electronically Signed: Mikey Arnold, at 21:53 EDT ,
== END | disposition home or self-care (01) ==
PROVIDERS: PCP Internal Medicine; Referring Provider Nurse Practitioner Adult Health; Visit Provider Nurse Practitioner Adult Health
DX: R10.13 Epigastric pain (principal); R19.7 Diarrhea, unspecified; K29.60 Other gastritis without bleeding
CPT/HCPCS: 78264; A9541

== ENCOUNTER → 2022-07-10 | Outpatient (CLI) | payer BC, SELFPAY ==
[2022-07-10 16:20] LABS: Erythrocyte Sedimentation Rate 2 mm/hr (0-30)
[2022-07-10 16:22] LABS: CRP < 2.90 mg/L (0.0-3.0)
[2022-07-12 14:08] LABS: Anti-Centromere B Ab 0.3 AI (0.0-0.9); Anti-Chromatin <0.2 AI (0.0-0.9); Anti-Jo <0.2 AI (0.0-0.9); Anti-Scleroderma-70 AB <0.2 AI (0.0-0.9); RNP Ab 0.7 AI (0.0-0.9); SJOGREN'S Anti-SS-A test < 0.2 AI (0.0-0.9); SJOGREN'S Anti-SS-B test < 0.2 AI (0.0-0.9); Smith Ab <0.2 AI (0.0-0.9)
[2022-07-12 16:09] LABS: Endomysial Antibody IgA Negative (Negative)
[2022-07-12 18:23] LABS: Anti-Mitochondrial AB <20.0 Units (0.0-20.0); Anti-dsDNA Ab <1 IU/mL (0-9)
[2022-07-12 18:33] LABS: Immunoglobulin A 89 mg/dL (87-352); t-Transglutaminase IgA <2 U/mL (0-3)
[2022-07-14 13:07] LABS: Cytoplasmic Ab (C-ANCA) <1:20 titer (Neg:<1:20); Immunoglobulin A 88 mg/dL (87-352); Immunoglobulin E 6 IU/mL (6-495); Immunoglobulin G 869 mg/dL (586-1602); Immunoglobulin M 88 mg/dL (26-217)
[2022-07-16 11:27] LABS: Anti-Smooth Muscle ABS 13 Units (0-19); Perinuclear Ab (P-ANCA) <1:20 titer (Neg:<1:20)
== END | disposition home or self-care (01) ==
LOC: LAB 15:22
PROVIDERS: PCP Internal Medicine; Visit Provider Nurse Practitioner Adult Health
DX: R10.13 Epigastric pain (principal); R19.7 Diarrhea, unspecified
CPT/HCPCS: 36415; 82784; 82785; 83516; 85652; 86140; 86225; 86235; 86255; 86256

== ENCOUNTER → 2022-07-17 | Outpatient (CLI) | payer BC, SELFPAY ==
--- NOTE | 2022-07-17 07:19 | MRI_ITS ---
HISTORY: epigastric pain, diarrhea, bile acid reflux. TECHNIQUE: Multiplanar and multisequence MR images of the abdomen were obtained with MRCP sequence. Three-dimensional post-processing reconstructions were performed. IV Contrast Dosage and Agent: None. 288 images. COMPARISON: US 09/12/21, CT 10/13/2019. FINDINGS: LOWER CHEST: No pleural effusion. LIVER: Homogeneous. Nonenlarged at 15.1 cm in length. GALLBLADDER AND BILIARY TREE: Cholecystectomy. Common bile duct 4-5 mm in diameter. No intrahepatic or extrahepatic biliary dilation. No choledochal filling defect. PANCREAS: Homogeneous without focal lesion or peripancreatic inflammation. No pancreatic duct dilation. SPLEEN: Homogeneous. Nonenlarged at 9 cm in length. KIDNEYS/ADRENAL GLANDS: Unremarkable. PERITONEUM: No significant ascites or focal inflammatory change. VESSELS: Abdominal aorta nondilated. MRI/MRCP Abdomen without Contrast IMPRESSION: Unremarkable examination. Cholecystectomy without evidence for biliary ductal dilation or choledocholithiasis. Electronically Signed: Chichi Medina MD at 9:28 EST ,
== END | disposition home or self-care (01) ==
LOC: MRI 07:19
PROVIDERS: PCP Internal Medicine; Referring Provider Nurse Practitioner Adult Health; Visit Provider Nurse Practitioner Adult Health
DX: R10.13 Epigastric pain (principal); R19.7 Diarrhea, unspecified; K29.60 Other gastritis without bleeding
CPT/HCPCS: 74181

== ENCOUNTER 2023-01-17 11:24 | Outpatient (CLI) | payer BC, SELFPAY ==
[2023-01-17 12:20] LABS: Hematocrit 41.6 % (37-47); Hemoglobin 14.5 g/dL (12.0-15.0); Mean Corp Hgb Conc 34.9 g/dL (32-36); Mean Corpuscular Hgb 31.3 pg (27.0-32.0); Mean Corpuscular Volume 89.8 fL (81-99); Mean Platelet Vol. 10.4 fl (6.2-12.0); Platelet Count 263 K/mm3 (150-450); RBC Distribution Width CV 11.7 % (11.6-14.6); RBC Distribution Width SD 37.6 fl (35.1-43.9); Red Blood Count 4.63 M/mm3 (4.2-5.4); White Blood Count 6.4 K/mm3 (4.4-11.0)
[2023-01-17 12:32] LABS: Vitamin B12 287 pg/mL (211-911); Vitamin D,25 Hydroxy 82.7 ng/mL
[2023-01-17 12:40] LABS: ALB/GLOB Ratio 1.4 RATIO (0.9-2.4); AST(SGOT) 22 U/L (15-37); Alanine Aminotransfer ALT/SGPT 41 U/L (13-56); Albumin, Serum 4.1 g/dL (3.2-5.0); Alkaline Phosphatase 62 U/L (45-117); Anion Gap 6 (5-15); BUN 12 mg/dL (7-18); BUN/Creat Ratio 14.7 RATIO (10-20); Chloride 108 mmol/L (98-107); Creatinine, Serum 0.82 mg/dL (0.55-1.02); EST Glomerular Filtration Rate 80 mL/min (>60); Est Glom Filt Rate - Afr Amer 96 mL/min (>60); Estradiol 50.2 pg/mL; Free T3 2.5 pg/mL (2.18-3.98); Globulin 2.9 g/dL (2.2-4.2); Glucose 94 mg/dL (74-106); Potassium 4.2 mmol/L (3.5-5.1); Sodium Level 140 mmol/L (136-145); T4 Free Direct 0.85 ng/dL (0.76-1.46); Thyroid Stim Hormone (TSH) 0.75 uIU/mL (0.358-3.74)
[2023-01-18 04:07] LABS: Thyroid Peroxidase AB < 9 IU/mL (0-34)
== END 2023-01-17 23:59 | disposition home or self-care (01) ==
LOC: LAB 11:28
PROVIDERS: PCP Internal Medicine
DX: Z00.00 Encounter for general adult medical examination without abnormal findings (principal)
CPT/HCPCS: 36415; 80053; 82306; 82607; 82670; 83001; 84403; 84439; 84443; 84481; 85027; 86376

== ENCOUNTER → 2023-06-30 | Outpatient (CLI) | payer BC, SELFPAY ==
[2023-06-30 12:55] LABS: Troponin-I HS 17 pg/mL (3.0-54.0)
== END | disposition home or self-care (01) ==
LOC: LABSPEC 12:26
PROVIDERS: PCP Internal Medicine; Referring Provider Internal Medicine; Visit Provider Internal Medicine
DX: I10 Essential (primary) hypertension (principal)
CPT/HCPCS: 84484

== ENCOUNTER 2023-07-01 10:47 | Emergency (ER) | payer BC, SELFPAY ==
[2023-07-01 10:50] VITALS: BP 198/119; PULSE 122; RESP 18; TEMP 36.3; O2SAT 100; BMI 29.6
--- NOTE | 2023-07-01 11:10 | EDS_ITS ---
HPI History of Present Illness Chief Complaint: Chest Pain Detail of Chief Complaint: Sternal chest pressure this morning that started at 0800, there is a pleuri Informant: patient and spouse/S.O. Onset/Context/Timing Onset: Today (0800) and Weeks (Planes of intermittent chest pain which was believed to be due to influenza type A that was diagnosed 2 weeks ago.) Activity at onset: sudden and rest Timing: Continuous Quality: Positive for Pressure Location: Substernal Current Severity: Mild Maximum Severity: Moderate Worsened By: Breathing; Not Worsened By Movement of Arm, Movement of Torso, Eating, Palpation or Coughing Relieved By: Nothing Associated Symptoms: Positive for Nausea, Diaphoresis, Dyspnea, Lightheadedness and Palpitations; Negative for Vomiting, Cough, Fever or Acid Reflux Narrative Narrative: Patient is a 48-year-old woman who is a smoker and recently diagnosed with hypertension. She started taking lisinopril yesterday. She does not know the dose. Over the weekend she was taking propranolol. She was prescribed propranolol for migraine headaches. This morning she felt palpitations, substernal chest pressure that radiated to the left side of the jaw with nausea, sweats and shortness of breath. She does endorse dyspnea on exertion. She denies history of VTE. She denies recent surgery. She denies leg pain, swelling or discoloration. Her and her were on a 2-week trip where they were on a short plane flight and in a vehicle for 4 to 5000 miles. She denies double vision, blurred vision or loss of vision. She does complain of head discomfort. She denies ringing or ears or decreased hearing. She denies neck pain. She denies back pain. She denies paresthesia, anesthesia or motor weakness upper or lower extremity. She denies problems with balance or coordination. She denies problems with speech or swallowing. She is on benzodiazepine for anxiety. Prior Similar Symptoms: No Recent Illness/Hospitalization: No CVD Risk Factors: Positive for Hypertension, Hypercholesterolemia and Smoking; Negative for Diabetes or Family History 1' </=55 PE Risk Factors: Positive for Recent Travel/Surgery and Recent Immobilization; Negative for Prior DVT or PE, Cancer or OCP + Smoking + >/=35 TAD Risk Factors: Positive for Hypertension; Negative for Marfan's Syndrome or Family History [facility] Medical History Acute cholecystitis Anxiety Epigastric pain Gall bladder stones History of echocardiogram History of irregular heartbeat History of steroid therapy History of stress test Hyperlipidemia Migraines Pre-eclampsia Segmental and somatic dysfunction of cervical region Segmental and somatic dysfunction of lumbar region Segmental and somatic dysfunction of pelvic region Segmental and somatic dysfunction of thoracic region Smoker Thyroid disease Home Medications amitriptyline 25 mg tablet 25 mg PO QHS 10/13/19 [History Last Taken Unknown] alprazolam 0.5 mg tablet (Xanax) 0.5 mg PO PRN PRN Anxiety 11/13/21 [History Last Taken Unknown] meloxicam 15 mg tablet 15 mg PO PRN PRN Migraine Headache 11/13/21 [History Last Taken Unknown] HRT pellet estradiol testosterone implant 12/24/21 [History Last Taken Unknown] rizatriptan 5 mg tablet See Rx Instructions PO .COMPLEX PRN MIGRAINES 12/24/21 [History Last Taken Unknown] rosuvastatin 5 mg tablet 5 mg PO QHS 05/02/22 [History Last Taken Unknown] cholestyramine (with sugar) 4 gram oral powder 4 g PO TID diarrhea #1,134 grams 05/05/23 [Rx Last Taken Unknown] dicyclomine 20 mg tablet 20 mg PO TID PRN abdominal pain #90 tabs 05/05/23 [Rx Last Taken Unknown] cholestyramine-aspartame 4 gram oral powder (Cholestyramine Light) 4 g PO TID #1,134 grams 06/03/23 [Rx Last Taken Unknown] Allergy/AdvReac Type Severity Reaction Status Date / Time nitrofurantoin Allergy Unknown Verified 07/01/23 10:49 [From Macrobid] Sulfa (Sulfonamide Allergy Hives Verified 07/01/23 10:49 Antibiotics) wheat Allergy Other Verified 07/01/23 10:49 Family History Mother Alcohol abuse Melanoma High cholesterol Bipolar 1 disorder Surgical History Hx of appendectomy Hx of hysterectomy, total Hx of wisdom tooth extraction S/P laparoscopic cholecystectomy (~10/13/19) S/P LASIK surgery of both eyes Social History (Updated 07/01/23 @ 11:[address] Logan Bolton MD) household members: spouse Smoking Status: Current every day smoker tobacco type: cigarettes alcohol intake: current ROS ROS ED Constitutional Constitutional ED: Denies chills, fever(s), subjective or sweats Eyes Eyes: Reports none ENT ENT ED: Denies ear pain, rhinorrhea or sore throat Cardiovascular Cardiovascular: Reports as per HPI, chest pain and palpitations; Denies orthop tyra or paroxysmal nocturnal dyspnea Respiratory/Chest Respiratory/Chest: Reports dyspnea and dyspnea on exertion; Denies cough, orthopnea or paroxysmal nocturnal dyspnea Gastrointestinal Gastrointestinal: Reports nausea; Denies abdominal pain, constipation, diarrhea, melena or vomiting Genitourinary Genitourinary ED: Denies dysuria, hematuria or urinary frequency Musculoskeletal Musculoskeletal: Denies arthralgias, back pain, myalgias or neck pain Integumentary Denies rash Neurologic Neurologic: Reports headache(s); Denies paresthesias or weakness Psychiatric Psychiatric: Reports anxiety Endocrine Endocrinology: Reports heat intolerance; Denies cold intolerance, polydipsia, polyphagia or polyuria Hematologic/Lymphatic Hematologic/Lymphatic: Denies easy bleeding or easy bruising EXAM Physical Exam Const Vital Signs: 07/01/23 10:50 07/01/23 11:08 07/01/23 13:21 Temperature 97.3 F L Temperature Source Temporal Pulse Rate 122 H 89 Respiratory Rate 18 14 Blood Pressure 198/119 H 144/104 H Blood Pressure Mean 145 117 Pulse Ox 100 Oxygen Delivery Method Room Air Room Air Positive well nourished and well developed General Appearance ED: well developed and NAD; Negative for pallor HEENT Reports TM's clear, moist mucous membranes and dry mucous membranes normocephalic and atraumatic Tympanic Membrane ED: Yes TM's clear Mouth ED: Yes dry mucous membranes Mouth: dry mucous membranes Eyes PERRL and EOMs intact bilaterally General Eye ED: Negative for pale conjunctiva or scleral icterus Neck no lymphadenopathy, supple and no JVD Neck Narrative: No carotid bruits. Chest Wall inspection of chest normal and palpation of chest normal Resp normal respiratory effort and clear to auscultation bilaterally Cardio regular rhythm, S1 normal heart sound, S2 normal heart sound and no murmurs Rate: tachycardic Peripheral Pulses: pulses 2+ throughout GI normal to inspection, nondistended, normoactive bowel sounds, soft to palpation, non-tender, non-distended and no masses; Negative for hepatosplenomegaly Back/Spine no CVA tenderness Extremity normal to inspection Extremity Narrative: There is no asymmetry, swelling, discoloration, leg vein distention, palpable cords or tenderness along the distribution of the deep venous system. Neuro oriented x3, CN's II-XII intact bilaterally and no sensory deficits noted Sensorium / Orientation: awake and alert Psych mental status grossly normal Skin no rashes or lesions noted and no wounds General Skin Exam: Negative for jaundice or pallor Heart Score History: Slightly/Non-Suspicious ECG: Normal Age: >45 - <65 years Risk Factors: 1 or 2 Risk Factors Troponin: </= Normal Limit Score: 2 MDM MDM MDM Narrative Medical decision making narrative: Patient diagnosis is cardiac versus noncardiac. With respect to noncardiac since she has had recent travel is tachycardic and complains of dyspnea need to evaluate for PE. D-dimer was obtained. Risk factors for cardiac are newly diagnosed hypertension, hypercholesterolemia and tobacco use. Patient has cut down to quarter pack per day. Since she has a nonfocal neurologic exam there is presently no concern for intracranial bleed. Her work-up included EKG with troponin and 2-hour troponin, D-dimer, CBC to assess H&H to assess specifically white count and rule out anemia. BMP to assess renal function in the event a CTA is needed and to evaluate for endorgan dysfunction. If patient blood pressure remains elevated will treat. The tachycardia may be in response to a PE and until that is ruled out we will not administer beta-blockers. Heart score is 2. Patient is at low risk. Therefore she was discharged to home. Lab Data Attestation: I reviewed the patient's lab results. Lab results narrative: Count is unremarkable. There is a slight shift Clinisync present neutrophils. D-dimer is less than 0.27 basic metabolic panel is unremarkable. Glucose is slightly elevated 122 with normal CO2 anion gap. Chloride is 110. There is troponin is normal at 19. 2-hour troponin is pending. Of note patient had a troponin as an outpatient yesterday and was 17. Second troponin is 16 with a delta of -3. Patient's blood pressure without treatment went from 198/119 to 144/100. And work-up indicates no evidence of endorgan dysfunction. Patient be discharged to home. Labs: Laboratory Results - last 24 hr 07/01/23 07/01/23 11:22 14:06 WBC 8.2 RBC 4.70 Hgb 14.7 Hct 43.6 MCV 92.8 MCH 31.3 MCHC 33.7 RDW Std Deviation 40.5 RDW Coeff of Kathy 11.9 Plt Count 291 MPV 9.7 Immature Gran % (Auto) 0.200 Neut % (Auto) 71.0 H Lymph % (Auto) 19.6 Bel[place] % (Auto) 5.9 Eos % (Auto) 2.7 Baso % (Auto) 0.6 Absolute Neuts (auto) 5.8 Absolute Lymphs (auto) 1.60 Nucleated RBC % 0 D-Dimer Quant (PE/DVT) < 0.27 L Sodium 141 Potassium 4.1 Chloride 110 H Carbon Dioxide 29.0 Anion Gap 2 L BUN 10 Creatinine 0.86 Estim Creat Clear Calc 69.83 Est GFR (MDRD) Af Amer 92 Est GFR (MDRD) Non-Af 76 BUN/Creatinine Ratio 11.7 Glucose 122 H Calcium 9.4 Troponin I High Sens 19 16 Radiography Chest X-Ray - ED: 2 View, Read by ED Physician (2 view chest x-ray is independently interpreted by me at 1159 as normal. Cardiac silhouette size normal. Lung parenchyma normal. Perihilar region normal. Osseous structures are unremarkable.), Normal, Heart, Lungs, Mediastinum, Bony Structures and No Acute Disease Diagnostic Testing: Clinical Impression(s) from Imaging Studies Chest X-Ray 07/01/23 11:47 IMPRESSION: No acute cardiopulmonary abnormality. Electronically Signed: Diego Maxwell MD at 12:13 EST , Discharge Plan Triage Chief Complaint: Chest Pain ED Provider: Logan Bolton Dx/Rx/DC Orders Clinical Impression: Chest pressure, Gastritis, bile acid reflux, Accelerated essential hypertension Instructions: ED High Blood Pressure Hypertension Prescriptions: No Action meloxicam 15 mg tablet 15 mg PO PRN PRN (Reason: Migraine Headache) Rx Instructions: STOPPED DUE TO PROCEDURE alprazolam [Xanax] 0.5 mg tablet 0.5 mg PO PRN PRN (Reason: Anxiety) rizatriptan 5 mg tablet See Rx Instructions PO .COMPLEX PRN (Reason: MIGRAINES) Rx Instructions: take 1 tablet at onset of headache; if no relief, may repeat 1 tablet after at least 2 hrs PO HRT pellet estradiol testosterone implant amitriptyline 25 MG tablet 25 mg PO QHS rosuvastatin 5 mg tablet 5 mg PO QHS Patient Comments: TAKE 1 TABLET BY MOUTHCEVERY EVENING WITH OR WITHOUT FOOD cholestyramine (with sugar) 4 gram powder 4 g PO TID Qty: 1134 3RF Rx Instructions: administer w/meal; avoid other meds within 1hr before or 4-6hr after dose dicyclomine 20 mg tablet 20 mg PO TID PRN (Reason: abdominal pain) Qty: 90 5RF Cholestyramine Light 4 gram powder 4 g PO TID Qty: 1134 5RF Rx Instructions: administer w/meal; avoid other meds within 1hr before or 4-6hr after dose Primary Care Provider: Crystal Atkins Referrals: Crystal Atkins, [Primary Care Provider] - 5-7 Days Disposition Disposition: Home, Self Care
[2023-07-01] MEDS: Aspirin 81 MG TAB.CHEW 324 MG PO (11:18)
[2023-07-01 11:29] LABS: Absolute Neutrophil Count 5.8 X10^3/uL (2.0-7.7); Basophil# 0.05 X10^3/uL; Basophil% 0.6 % (0-1); Eosinophil# 0.22 X10^3/uL; Eosinophils% 2.7 % (0-5); Hematocrit 43.6 % (37-47); Hemoglobin 14.7 g/dL (12.0-15.0); Lymphocyte % 19.6 % (19-41); Mean Corp Hgb Conc 33.7 g/dL (32-36); Mean Corpuscular Hgb 31.3 pg (27.0-32.0); Mean Corpuscular Volume 92.8 fL (81-99); Mean Platelet Vol. 9.7 fl (6.2-12.0); Monocyte# 0.48 X10^3/uL; Monocyte% 5.9 % (0-10); NRBC Flagged by Analyzer 0 % (0-5); Neutrophil # 5.81 X10^3/uL (2.7-7.7); Platelet Count 291 K/mm3 (150-450); RBC Distribution Width CV 11.9 % (11.6-14.6); RBC Distribution Width SD 40.5 fl (35.1-43.9); White Blood Count 8.2 K/mm3 (4.4-11.0)
[2023-07-01 11:41] LABS: D-Dimer Quantitative (DVT/PE) < 0.27 FEU/ug/m (0.27-0.49)
[2023-07-01 11:47] LABS: Anion Gap 2 (5-15); BUN 10 mg/dL (7-18); BUN/Creat Ratio 11.7 RATIO (10-20); Calcium,Total 9.4 mg/dL (8.5-10.1); Chloride 110 mmol/L (98-107); Creatinine, Serum 0.86 mg/dL (0.55-1.02); EST Glomerular Filtration Rate 76 mL/min (>60); Est Glom Filt Rate - Afr Amer 92 mL/min (>60); Estimated Creatinine Clearance 69.83 ml/min; Glucose 122 mg/dL (74-106); Potassium 4.1 mmol/L (3.5-5.1); Sodium Level 141 mmol/L (136-145); Troponin-I HS (w/2H Reflex) 19 pg/mL (3.0-54.0)
--- NOTE | 2023-07-01 11:47 | RAD_ITS ---
EXAM: XR CHEST, 2 VIEWS CLINICAL INDICATION: chest pain TECHNIQUE: Frontal and lateral views of the chest. COMPARISON: 10/13/2019. FINDINGS: LUNGS AND PLEURAL SPACES: Unremarkable. No consolidation or edema. No pneumothorax. No effusion. HEART: Unremarkable. Cardiac silhouette not enlarged. MEDIASTINUM: Central airways and mediastinal contour are unremarkable. BONES/JOINTS: Unremarkable. No acute fracture. SOFT TISSUES: Unremarkable. RAD/Chest PA and Lateral IMPRESSION: No acute cardiopulmonary abnormality. Electronically Signed: Diego Maxwell MD at 12:13 EST ,
[2023-07-01 13:21] VITALS: BP 144/104; PULSE 89; RESP 14
[2023-07-01 13:27] LABS: Reflex Troponin-HS? (from REC) Y
[2023-07-01 14:28] LABS: Troponin-I HS 16 pg/mL (3.0-54.0)
[2023-07-01 15:00] VITALS: BP 128/84; PULSE 76; RESP 16; O2SAT 96
== END 2023-07-01 15:01 | disposition home or self-care (01) ==
PROVIDERS: Emergency Provider Emergency Medicine; PCP Internal Medicine; Visit Provider Emergency Medicine
DX: R07.89 Other chest pain (principal); K21.9 Gastro-esophageal reflux disease without esophagitis; K29.70 Gastritis, unspecified, without bleeding; I10 Essential (primary) hypertension; G43.909 Migraine, unspecified, not intractable, without status migrainosus; F41.9 Anxiety disorder, unspecified; E78.00 Pure hypercholesterolemia, unspecified; F17.210 Nicotine dependence, cigarettes, uncomplicated; Z79.899 Other long term (current) drug therapy
CPT/HCPCS: 71046; 80048; 84484; 85025; 85379; 93005; 99284

== ENCOUNTER → 2023-07-15 | Outpatient (CLI) | payer BC, SELFPAY ==
--- NOTE | 2023-07-15 14:18 | NEURO ---
NCS and/or EMG Patient Report Ordering Doctor: Crystal Atkins DATE OF SERVICE: 07/15/23 Clinical Summary: This is a 48 year old female patient presenting with symptoms of numbness, tingling, and pain in the hands and both arms. Symptoms are most pronounced in the left upper extremity. This EMG/NCS was performed to evaluate for right/left carpal tunnel syndrome and cervical radiculopathy. Nerve Conduction Studies Summary: The left median-D2 SNAP distal latency was prolonged. Otherwise, nerve conduction studies of the bilateral upper extremities were normal. Needle Examination Summary: Needle examination of select muscles of the bilateral upper extremities was normal. Impression: There is electrodiagnostic evidence of the following - 1) Mild, left median mononeuropathy at the wrist (carpal tunnel syndrome), with sensory fiber demyelination There is no electrodiagnostic evidence of a right/left cervical radiculopathy. Multi Select Codes Neurology Neurology Interp Codes: 72103-75 Musc test done w/n test comp (interp) (2) and 29481-34 Nrv cndj test 13/> studies (interp)
== END | disposition home or self-care (01) ==
LOC: PSN 13:23
PROVIDERS: PCP Internal Medicine; Referring Provider Internal Medicine; Visit Provider Internal Medicine
DX: R20.2 Paresthesia of skin (principal)
CPT/HCPCS: 95886; 95913

== ENCOUNTER → 2023-11-06 | Outpatient (CLI) | payer BC, SELFPAY ==
--- NOTE | 2023-11-06 12:31 | BD_ITS ---
STUDY: DUAL ENERGY X-RAY ABSORPTIOMETRY / DXA REASON FOR EXAM: Female, 48 years old. [id number] TECHNIQUE: Bone Mineral Density (BMD) measurements of lumbar spine and bilateral hips were obtained. COMPARISON: Comparison is made with prior study dated July 12, 2015. FINDINGS: Lumbar Spine (L1-L4): g/cm2 (1.159) / T-score (1.0) / Z-score (1.6) Findings are suggestive of normal bone density with a low fracture risk. Left Femur Total: g/cm2 (1.013) / T-score (0.6) / Z-score (1.0) Left Femoral Neck: g/cm2 (0.791) / T-score (-0.5) / Z-score (0.1) Right Femur Total: g/cm2 (1.073) / T-score (1.1) / Z-score (1.5) Right Femoral Neck: g/cm2 (0.846) / T-score (0.0) / Z-score (0.5) The T-Scores on the most recent prior examination were: Lumbar Spine (L1-L4): There has been worsening of bone density since the previous examination. Left Femur Total: which represents a worsening of 3%. Right Femur Total: which represents a worsening of 0.4%. BD/Dexa Bone Density Study IMPRESSION: The patient is considered normal as outlined below according to World [place] Organization (WHO) criteria with a low fracture risk. There has been worsening of bone density since the previous examination. Reference Information: The T-score is the number of standard deviations above or below the standard which is normal for young adults at their peak bone mineral density. The World Health Organization (WHO) interprets the T-scores as follows: Above -1 Normal bone density Between -1 and -2.5 Osteopenia Equal to / or below -2.5 Osteoporosis As a practical clinical guideline, osteopenia may be graded as follows: Mild -1 through -1.5 Moderate -1.6 through -2.0 Severe -2.1 through -2.4 The Z-score is the number of standard deviations above or below age-matched controls. A Z-score of less than -1.5 would be considered abnormal. References: 1. NIH Osteoporosis and Related Bone Diseases www osteo.org 2. International Society for Clinical Densitometry www iscd.org 3. National Osteoporosis Foundation www nof.org Electronically Signed: Louis Anna MD at 14:29 EDT ,
--- NOTE | 2023-11-06 12:31 | BI_ITS ---
MAMMOGRAPHY - BILATERAL SCREENING REASON FOR EXAM: Female, 48 years old. Routine annual screening examination. PERTINENT HISTORY: Non-contributory. TECHNIQUE: Digital bilateral breast corazon (3D mammographic acquisition) in the CC and MLO projections. 2-D mediolateral oblique (MLO) and craniocaudad (CC) views of both breasts were obtained. CAD: Full Field Digital Mammography with Computer Added Detection was performed. COMPARISON: Comparison is made with prior study June 04, 2021 and October 24, 2017. FINDINGS: Breast Composition: The breasts are heterogeneously dense, which may obscure small masses. There are no dominant masses or suspicious calcifications. Stable small benign-appearing bilateral axillary lymph nodes. No other significant abnormalities are identified. There has been no significant change since the prior study. BI/SCRN MAMM (CAD)W/CORAZON BILAT IMPRESSION: Stable bilateral screening mammogram. Yearly follow-up mammogram recommended. (A) ASSESSMENT CATEGORY: BIRADS Category 2: Benign. A letter regarding these results will be sent to the patient by the facility within 30 days. Approximately 10% of breast cancers are not detected by mammography. A normal mammogram should not delay biopsy of a clinically suspicious abnormality. [id number] Electronically Signed: Louis Anna MD at 14:22 EDT ,
== END | disposition home or self-care (01) ==
PROVIDERS: PCP Internal Medicine; Referring Provider Internal Medicine; Visit Provider Internal Medicine
DX: Z12.31 Encounter for screening mammogram for malignant neoplasm of breast (principal); Z78.0 Asymptomatic menopausal state
CPT/HCPCS: 77063; 77067; 77080

== ENCOUNTER → 2023-11-20 | Outpatient (CLI) | payer BC, SELFPAY ==
--- NOTE | 2023-11-20 09:19 | US_ITS ---
STUDY: ABDOMINAL ULTRASOUND - LEFT UPPER QUADRANT REASON FOR EXAM: Female, 48 years old. Splenomegaly -- splenomegaly TECHNIQUE: Transabdominal ultrasound was performed with real-time and static mckeon scale imaging. TECHNICAL QUALITY: Adequate. COMPARISON: None. FINDINGS: Spleen: Normal size of the spleen. The spleen measures 10.1 cm x 4.8 cm x 5.3 cm. Left Kidney: Normal size of the left kidney. The left kidney measures 10.1 cm x 4.9 cm x 5.1 cm. Normal renal cortex. The left cortex measures 1.2 cm. There is no demonstrated renal mass or cyst. There is no left hydronephrosis. US/Abdomen Limited IMPRESSION: Normal left upper quadrant abdominal ultrasound examination. Electronically Signed: Louis Anna MD at 9:52 EDT ,
== END | disposition home or self-care (01) ==
LOC: US 09:17
PROVIDERS: PCP Internal Medicine; Referring Provider Internal Medicine; Visit Provider Internal Medicine
DX: R16.1 Splenomegaly, not elsewhere classified (principal)
CPT/HCPCS: 76705

== ENCOUNTER → 2023-12-02 | Outpatient (CLI) | payer BC, SELFPAY ==
--- NOTE | 2023-12-02 08:48 | RDU_ITS ---
Reason For Study: HTN Right Renal Artery Left Renal Artery Right renal artery ostium Left renal artery ostium 175.2/69.0 146.7/37.8 RSV/EDV. PSV/EDV. Right renal artery proximal Left renal artery proximal PSV/EDV 177.8/63.7 PSV/EDV. 157.0/58.6 . Right renal artery mid 203.7/66.3 Left renal artery mid 167.4/58.6 PSV/EDV. PSV/EDV . Right renal artery distal Left renal artery distal 145.6/62.7 118.1/50.8 PSV/EDV. PSV/EDV. Right RAR 2.4. Left RAR 2.0. Right Renal Parenchyma Left Renal Parenchyma Upper Pole Medula 30.6/15.0 Left upper pole medulla 22.3/10.6 PSV/EDV. PSV/EDV . Right upper pole medulla EDR .49 . Left upper pole medulla EDR .48 . Right upper pole medulla R.I. .51 . Left upper pole medulla R.I. .52 . Upper [place] Cortx 22.8/11.1 PSV/EDV. UP Cortex 26.2/10.6 PSV/EDV. Right upper pole cortex EDR .49 . Left upper pole cortex EDR .41 . Right upper pole cortex R.I. .51 . Left upper pole cortex R.I. .59 . Right lower Pole medulla 47.4/20.2 Left lower Pole medulla 28.8/13.2 PSV/EDV . PSV/EDV . Right lower pole medulla EDR .43 . Left lower pole medulla EDR .46 . Right lower pole medulla R.I. .57 . Left lower pole medulla R.I. .54 . Lower Pole Cortex 22.8/11.1 Lower Pole Cortx 21.0/11.9 PSV/EDV. PSV/EDV. Left lower pole cortex EDR .57 . Right lower pole cortex EDR .49 . Left lower pole cortex R.I. .43 . Right lower pole cortex R.I. .51 . Left Renal Hilar Right Renal Hilar LT Hilar avg 69.1/31.8 PSV/EDV . Right Hilar avg 56.5/21.5 PSV/EDV. Left hilar acceleration time 30 Right hilar acceleration time 50 m/sec. m/sec. Left Renal Dimensions Right Renal Dimensions Left kidney size 10.2 cm . Right kidney size 9.9 cm . Left cortical dimension 1.39 cm . Right cortical dimension 1.32 cm . Aorta Proximal abdominal aorta 1.59 x 1.59 cm . Proximal abdominal aorta peak systolic velocity is 86.4 cm/sec . Distal abdominal aorta 1.11 x .89 cm . Distal abdominal aorta peak systolic velocity is 69.9 cm/sec . Normal renal veins bilat. VL/Renal Artery Duplex Ultrasound Interpretation Summary Right renal artery patent with < 60% stenosis. Left renal artery patent with normal velocities and no evidence of stenosis. Right renal vein patent. Left renal vein patent. Right kidney normal in size. Left kidney normal in size. Ordering Physician: Crystal Atkins Referring Physician: Crystal Atkins Performed By: Teddy Ware RVT
== END | disposition home or self-care (01) ==
LOC: CVS 08:47
PROVIDERS: PCP Internal Medicine; Referring Provider Internal Medicine; Visit Provider Internal Medicine
DX: I10 Essential (primary) hypertension (principal)
CPT/HCPCS: 93975

== ENCOUNTER → 2024-06-28 | Outpatient (CLI) | payer BC, SELFPAY ==
--- NOTE | 2024-06-28 13:05 | US_ITS ---
STUDY: THYROID ULTRASOUND REASON FOR EXAM: Female, 49 years old. thyromegaly TECHNIQUE: Ultrasound evaluation of the thyroid was performed with real-time and static mckeon-scale imaging. COMPARISON: None. FINDINGS: RIGHT LOBE: The right lobe of the thyroid gland measures 4.6 x 1.5 x 1.5 cm. There is a homogeneous echotexture. There are no demonstrated solid, cystic or complex lesions. LEFT LOBE: The left lobe of the thyroid gland measures 4.8 x 1.7 x 1.4 cm. There is a homogeneous echotexture. Nodule 1:8 x 5 x 7 mm solid isoechoic wider than tall ill-defined margin nodule with no echogenic foci (TR 3) in the anterior left lobe consistent with an adenoma. Nodule 2:5 x 3 x 5 mm solid isoechoic wider than tall ill-defined margin nodule with no echogenic foci (TR 3) in the mid left lobe consistent with an adenoma. ISTHMUS: The isthmus measures 4 mm thick. . The regional lymph nodes are normal. US/Thyroid IMPRESSION: 2 small adenomas of the left lobe. Electronically Signed: Mikey Wills MD at 14:00 EST ,
== END | disposition home or self-care (01) ==
LOC: US 13:05
PROVIDERS: PCP Internal Medicine; Referring Provider Internal Medicine; Visit Provider Internal Medicine
DX: E01.0 Iodine-deficiency related diffuse (endemic) goiter (principal)
CPT/HCPCS: 76536

== ENCOUNTER 2024-11-14 19:11 | Emergency (ER) | payer BC, SELFPAY ==
[2024-11-14 19:11] VITALS: BP 145/91; PULSE 74; RESP 16; TEMP 36.4; O2SAT 99; BMI 29.2
--- NOTE | 2024-11-14 19:27 | EX.ED.GENINJ ---
HPI <RYAN Kruger - Last Filed: 11/14/24 20:28> History of Present Illness Chief Complaint: Laceration Narrative Narrative: Patient presenting today with a laceration to her left palm that she got this evening while making dinner. She was chopping cheese on a cutting board using both hands on the knife when the blade slipped and the point of the knife cut her left palm. She is right-handed. She denies paresthesias to her left hand, she is not on any blood thinners. Tetanus is not up-to-date. PFSH <RYAN Kruger - Last Filed: 11/14/24 20:28> [facility] Medical History Anxiety History of steroid therapy Thyroid disease Smoker History of echocardiogram History of stress test Pre-eclampsia History of irregular heartbeat Hyperlipidemia Gall bladder stones Epigastric pain Migraines Acute cholecystitis Segmental and somatic dysfunction of pelvic region Segmental and somatic dysfunction of lumbar region Segmental and somatic dysfunction of cervical region Segmental and somatic dysfunction of thoracic region Home Medications ?Medication ?Instructions ?Recorded ?Last Taken ?Type amitriptyline 25 mg tablet 25 mg PO QHS 10/13/19 Unknown History alprazolam 0.5 mg tablet (Xanax) 0.5 mg PO PRN PRN Anxiety 11/13/21 Unknown History HRT pellet estradiol testosterone implant 12/24/21 Unknown History rosuvastatin 5 mg tablet 5 mg PO QHS 05/02/22 Unknown History cholestyramine-aspartame 4 gram 4 g PO TID #1,134 grams 06/03/23 Unknown Rx oral powder (Cholestyramine Light) atenolol 50 mg tablet 50 mg PO DAILY 09/18/23 Unknown History losartan 50 mg tablet 50 mg PO BID 09/18/23 Unknown History dicyclomine 20 mg tablet 20 mg PO TID PRN abdominal pain 09/22/24 Unknown Rx #90 tabs hyoscyamine sulfate 0.125 mg tablet 0.125 mg PO BID-QID PRN dyspepsia 09/22/24 Unknown Rx #120 tabs Allergy/AdvReac Type Severity Reaction Status Date / Time nitrofurantoin (From Allergy Unknown Verified 11/14/24 19:12 Macrobid) Sulfa (Sulfonamide Allergy Hives Verified 11/14/24 19:12 Antibiotics) Family History Mother Alcohol abuse Melanoma High cholesterol Bipolar 1 disorder Surgical History Hx of wisdom tooth extraction S/P LASIK surgery of both eyes Hx of appendectomy Hx of hysterectomy, total S/P laparoscopic cholecystectomy (~10/13/19) Social History household members: spouse Smoking Status: Current every day smoker tobacco type: cigarettes alcohol intake: current ROS <RYAN Kruger - Last Filed: 11/14/24 20:28> ROS ED Constitutional Constitutional ED: Denies chills or fever(s) Cardiovascular Cardiovascular: Denies chest pain Respiratory/Chest Respiratory/Chest: Denies dyspnea Musculoskeletal Musculoskeletal: Denies arthralgias Integumentary Reports laceration Neurologic Neurologic: Denies paresthesias EXAM <RYAN Kruger - Last Filed: 11/14/24 20:28> Physical Exam Const Vital Signs: 11/14/24 19:11 Temperature 97.5 F L Temperature Source Temporal Pulse Rate 74 Respiratory Rate 16 Blood Pressure 145/91 H Blood Pressure Mean 109 Pulse Ox 99 Positive well nourished, well developed and no apparent distress General Appearance ED: well developed HEENT Reports normocephalic and head/scalp atraumatic Mouth ED: Yes moist mucous membranes normal Eyes PERRL and EOMs intact bilaterally Neck full ROM and supple Chest Wall inspection of chest normal Resp normal respiratory effort and clear to auscultation bilaterally Cardio regular rate and regular rhythm Back/Spine normal ROM and normal to inspection Extremity full ROM Extremity Narrative: 1.5 cm full-thickness linear laceration to the left medial palm that somewhat extends into the hypothenar eminence, left radial pulse 2+, good cap refill, sensation intact. Full flexion/extension at the MCP, AB, DIP joints of the left hand. Full range of motion to the left wrist. Neuro oriented x3, CN's II-XII intact bilaterally, moves all extremities, no focal motor deficits and no sensory deficits noted Sensorium / Orientation: awake and alert Psych mental status grossly normal and thought process normal Skin Skin Narrative: Aside from laceration to left palm no other rashes or lesions noted. <Sandor Walter MD - Last Filed: 11/14/24 20:35> Physical Exam Const Vital Signs: 11/14/24 19:11 Temperature 97.5 F L Temperature Source Temporal Pulse Rate 74 Respiratory Rate 16 Blood Pressure 145/91 H Blood Pressure Mean 109 Pulse Ox 99 PROC <RYAN Kruger - Last Filed: 11/14/24 20:28> Procedures Lacerations Laceration: Length: 0.59 in Depth: Sub Q Shape: Linear Prep: Chlorhexadine Laceration repair: Irrigated, Lidocaine, Skin sutures and Wound explored Number of Sutures/[place]: 3 Suture Information: Ethilon, Simple and 4-0 MDM <RYAN Kruger - Last Filed: 11/14/24 20:28> MDM MDM Narrative Medical decision making narrative: Patient presenting today with a laceration to her left palm after she was using a knife to cut cheese this evening. Her tetanus will be updated. Laceration will require suture repair. She is otherwise neurovascularly intact. She has full range of motion to her left hand and wrist. She tolerated procedure well. Wound was bandaged with bacitracin ointment. Wound care instructions were discussed with her. Recommended she have sutures removed in 7 days by her PCP. Patient discharged home in stable condition. <Sandor Walter MD - Last Filed: 11/14/24 20:35> [facility] Treatment and Re-Evaluation Narrative: Dr. Walter: I have personally performed a face to face assessment of the patient and have reviewed the PIERRE Note. I performed a substantive portion of the visit including all aspects of the following. My storm findings include: History is laceration to left hand sustained when trying to cut a piece of cheese and bearing down with both hands on top of knife. Exam is afebrile. Vital signs noted. 1.5 cm laceration noted on the volar aspect of the left hand on the hypothenar eminence. Medical Decision Making: I do not feel x-rays are indicated. Tetanus updated. Laceration repair. Informed her risk of infection and scarring and acknowledges understanding. Sutures to be removed by primary care provider or return to emergency department. Discharge. Other additions or changes: [None] Discharge Plan Triage Chief Complaint: Laceration ED Midlevel Provider: Margarita Brooks ED Provider: Sandor Walter Dx/Rx/DC Orders Clinical Impression: Hand laceration Instructions: ED Laceration, Hand: All Closures Prescriptions: No Action alprazolam [Xanax] 0.5 mg tablet 0.5 mg PO PRN PRN (Reason: Anxiety) HRT pellet estradiol testosterone implant atenolol 50 mg tablet 50 mg PO DAILY losartan 50 mg tablet 50 mg PO BID amitriptyline 25 MG tablet 25 mg PO QHS rosuvastatin 5 mg tablet 5 mg PO QHS Patient Comments: TAKE 1 TABLET BY MOUTHCEVERY EVENING WITH OR WITHOUT FOOD Cholestyramine Light 4 gram powder 4 g PO TID Qty: 1134 5RF Rx Instructions: administer w/meal; avoid other meds within 1hr before or 4-6hr after dose hyoscyamine sulfate 0.125 mg tablet 0.125 mg PO BID-QID PRN (Reason: dyspepsia) Qty: 120 0RF dicyclomine 20 mg tablet 20 mg PO TID PRN (Reason: abdominal pain) Qty: 90 5RF Primary Care Provider: Crystal Atkins Referrals: Crystal Atkins DO [Primary Care Provider] - 7 Days for suture removal Activity Restrictions/Additional Instructions: Follow-up with your PCP in 7 days have sutures removed. Return for any signs of infection. Print Language: Luxembourger Disposition Disposition: Home, Self Care Discharge Date/Time: 11/14/24 20:02
[2024-11-14] MEDS: Diphth,Pertuss(Acell),Tet Vac 0.5 ML Vial IM (19:30)
[2024-11-14] MEDS: Lidocaine 1% (20 ml mdv) 20 ML Vial 10 ML INFILT (19:31)
== END 2024-11-14 20:02 | disposition home or self-care (01) ==
PROVIDERS: Emergency Provider Emergency Medicine; PCP Internal Medicine; Referring Provider Emergency Medicine; Visit Provider Emergency Medicine
DX: S61.412A Laceration without foreign body of left hand, initial encounter (principal); W26.0XXA Contact with knife, initial encounter; Y93.G1 Activity, food preparation and clean up; F17.210 Nicotine dependence, cigarettes, uncomplicated; E78.5 Hyperlipidemia, unspecified; Z79.899 Other long term (current) drug therapy; Z23 Encounter for immunization
CPT/HCPCS: 12001; 90471; 90715; 99284

== ENCOUNTER → 2025-01-10 | Outpatient (CLI) | payer BC, SELFPAY ==
--- NOTE | 2025-01-10 15:24 | BI_ITS ---
EXAM: SCRN MAMM (CAD)W/CORAZON BILAT DATE: 01/10/2025 CLINICAL HISTORY: F, Age 49 y/o , BILAT BRST SCREEN CORAZON ADD-ON BREAST CANCER RISK ASSESSMENT: Has not been calculated. TECHNIQUE: Bilateral screening digital breast tomosynthesis with 2D and 3D images. Computer aided detection. COMPARISON: Prior exam(s) dated dated 10/29/2023 and 06/04/2021. FINDINGS: TISSUE DENSITY: The breast tissue is composed of scattered area of fibroglandular density. Bilateral Breast Mammographic Findings: There are no suspicious masses, suspicious cluster of microcalcifications, architectural distortion or secondary signs of malignancy identified in either breast. BI/SCRN MAMM (CAD)W/CORAZON BILAT IMPRESSION: OVERALL FINAL ASSESSMENT: BIRADS 1 NEGATIVE RECOMMENDATION: Routine annual follow-up in 1 Year A letter with findings and recommendations will be mailed to the patient. Reading Location: [id number]
== END | disposition home or self-care (01) ==
PROVIDERS: PCP Internal Medicine; Referring Provider Internal Medicine; Visit Provider Internal Medicine
DX: Z12.31 Encounter for screening mammogram for malignant neoplasm of breast (principal)
CPT/HCPCS: 77063; 77067

== ENCOUNTER 2025-04-06 22:51 | Emergency (ER) | payer BC, SELFPAY ==
[2025-04-06 22:51] VITALS: BP 145/90; PULSE 68; RESP 18; TEMP 36.9; O2SAT 100; BMI 27.3
--- NOTE | 2025-04-06 23:00 | EDS_ITS ---
HPI History of Present Illness Chief Complaint: Abd Pain [facility] Medical History Anxiety History of steroid therapy Thyroid disease Smoker History of echocardiogram History of stress test Pre-eclampsia History of irregular heartbeat Hyperlipidemia Gall bladder stones Epigastric pain Migraines Acute cholecystitis Segmental and somatic dysfunction of pelvic region Segmental and somatic dysfunction of lumbar region Segmental and somatic dysfunction of cervical region Segmental and somatic dysfunction of thoracic region Home Medications ?Medication ?Instructions ?Recorded ?Last Taken ?Type amitriptyline 25 mg tablet 25 mg PO QHS 10/13/19 Unkno wn History alprazolam 0.5 mg tablet (Xanax) 0.5 mg PO PRN PRN Anx iety 11/13/21 Unknown History HRT pellet estradiol testosterone implant 12/24/21 Unk nown History rosuvastatin 5 mg tablet 5 mg PO QHS 05/02/22 Unknown History atenolol 50 mg tablet 50 mg PO DAILY 09/18/23 Unkn own History losartan 50 mg tablet 50 mg PO BID 09/18/23 Unknow n History dicyclomine 20 mg tablet 20 mg PO TID PRN abdominal p ain 09/22/24 Unknown Rx #90 tabs hyoscyamine sulfate 0.125 mg tablet 0.125 mg PO BID-QI D PRN dyspepsia 11/22/24 Unknown Rx #120 tabs colestipol 1 gram tablet 1 g PO .qid 90 days #360 tab s 01/31/25 Unknown Rx ondansetron 4 mg disintegrating 4 mg PO Q8H PRN PRN Na usea #10 tabs 04/07/25 Unknown Rx tablet prednisone 50 mg tablet 50 mg PO DAILY 5 days #5 tab s 04/07/25 Unknown Rx Allergy/AdvReac Type Severity Reaction Status Date / Time nitrofurantoin (From Allergy Unknown Verified 04/06/25 22:54 Macrobid) Sulfa (Sulfonamide Allergy Hives Verified 04/06/25 22:54 Antibiotics) Family History Mother Alcohol abuse Melanoma High cholesterol Bipolar 1 disorder Surgical History Hx of wisdom tooth extraction S/P LASIK surgery of both eyes Hx of appendectomy Hx of hysterectomy, total S/P laparoscopic cholecystectomy (~10/13/19) Social History
--- NOTE | 2025-04-06 23:00 | EX.ED.DYSGE1 ---
HPI History of Present Illness Chief Complaint: Abd Pain [facility] Medical History Anxiety History of steroid therapy Thyroid disease Smoker History of echocardiogram History of stress test Pre-eclampsia History of irregular heartbeat Hyperlipidemia Gall bladder stones Epigastric pain Migraines Acute cholecystitis Segmental and somatic dysfunction of pelvic region Segmental and somatic dysfunction of lumbar region Segmental and somatic dysfunction of cervical region Segmental and somatic dysfunction of thoracic region Home Medications ?Medication ?Instructions ?Recorded ?Last Taken ?Type amitriptyline 25 mg tablet 25 mg PO QHS 10/13/19 Unknown History alprazolam 0.5 mg tablet (Xanax) 0.5 mg PO PRN PRN Anxiety 11/13/21 Unknown History HRT pellet estradiol testosterone implant 12/24/21 Unknown History rosuvastatin 5 mg tablet 5 mg PO QHS 05/02/22 Unknown History atenolol 50 mg tablet 50 mg PO DAILY 09/18/23 Unknown History losartan 50 mg tablet 50 mg PO BID 09/18/23 Unknown History dicyclomine 20 mg tablet 20 mg PO TID PRN abdominal pain 09/22/24 Unknown Rx #90 tabs hyoscyamine sulfate 0.125 mg tablet 0.125 mg PO BID-QID PRN dyspepsia 11/22/24 Unknown Rx #120 tabs colestipol 1 gram tablet 1 g PO .qid 90 days #360 tabs 01/31/25 Unknown Rx ondansetron 4 mg disintegrating 4 mg PO Q8H PRN PRN Nausea #10 tabs 04/07/25 Unknown Rx tablet prednisone 50 mg tablet 50 mg PO DAILY 5 days #5 tabs 04/07/25 Unknown Rx Allergy/AdvReac Type Severity Reaction Status Date / Time nitrofurantoin (From Allergy Unknown Verified 04/06/25 22:54 Macrobid) Sulfa (Sulfonamide Allergy Hives Verified 04/06/25 22:54 Antibiotics) Family History Mother Alcohol abuse Melanoma High cholesterol Bipolar 1 disorder Surgical History Hx of wisdom tooth extraction S/P LASIK surgery of both eyes Hx of appendectomy Hx of hysterectomy, total S/P laparoscopic cholecystectomy (~10/13/19) Social History household members: spouse Smoking Status: Current every day smoker tobacco type: cigarettes alcohol intake: current EXAM Physical Exam Const Vital Signs: 04/06/25 22:51 04/07/25 01:55 04/07/25 02:20 Temperature 98.4 F 98.2 F Temperature Source Oral Pulse Rate 68 70 Respiratory Rate 18 18 18 Blood Pressure 145/90 H 107/52 L Blood Pressure Mean 108 70 Pulse Ox 100 98 100 Oxygen Delivery Method Room Air Room Air MDM [facility] MDM Narrative Medical decision making narrative: HISTORY OF PRESENT ILLNESS: Chief complaint: Abdominal pain 49-year-old female history of sphincter of Oddi spasm, gastritis, acute cholecystitis status post laparoscopic cholecystectomy presents with upper abdominal pain. She is concerned about acute pancreatitis. Notes onset of abdominal pain this morning. Notes nausea but no vomiting. Last bowel was this morning. No melena hematochezia. No urinary symptoms. No vaginal bleeding or discharge. No falls or other trauma. Notes fever. No recent travel antibiotic use. REVIEW OF SYSTEMS: Pertinent positives: Abdominal pain Pertinent negatives: As per HPI PHYSICAL EXAM: Nursing triage notes reviewed, Vital signs reviewed Constitutional: please see [facility] HENT: MMM Eyes: Pupils equal round and reactive to light, Extraocular muscles intact Neck: No stridor, no JVD, full neck ROM Lungs: Clear to auscultation, No wheezing or rales. No increased work of breathing, no conversational dyspnea, no accessory muscle use, no nasal flaring. No respiratory distress noted Heart: Regular rate and rhythm, No murmurs, No rubs and No gallops, 2+ distal pulses (radial, femoral, posterior tibial) in all extremities Abdomen: Soft, there is no tenderness, rigidity, rebound or guarding, no obvious peritoneal signs, no palpable pulsatile abdominal masses, no auscultated abdominal bruit : No CVAT Extremities: No edema Neuro: No new focal neurological deficits, cranial nerves II through XII intact, 5/5 strength in all present extremities. Intact sensation to light touch in all present extremities, 2+ reflexes bilateral patella tendons. Skin: No rash or lesions noted MEDICAL DECISION MAKING: Chief Complaint: please see HPI External records reviewed:reviewed prior GI note from 09/14/24. Saw Dr. Moreland. Factors affecting care: As per HPI Social determinants of health: Denies alcohol History obtained from others: Significant other Consults: none [facility] Narrative: Patient was initially hemodynamically stable, afebrile and nontoxic-appearing. Exam with epigastric TTP but no obvious peritoneal signs to suggest perforation or obstruction I considered the following differential diagnosis: AAA, small bowel obstruction, abdominal perforation, appendicitis, pancreatitis, hepatobiliary pathology (acute cholecystitis), mesenteric ischemia, pathology (ie nephrolithiasis, pyelonephritis). I obtained a broad lab and imaging workup to further determine if the patient was suffering from a life-threatening etiology. Initially treat the patient with IV fluids, Zofran, Toradol and morphine. ALL IMAGES (IF OBTAINED) HAVE BEEN PERSONALLY REVIEWED AND INTERPRETED BY MYSELF. EKG with sinus bradycardia rate of 55, normal axis, normal intervals, no STEMI CBC without leukocytosis, severe anemia, no thrombocytopenia. CMP without evidence of acute kidney injury, significant electrolyte abnormality, anion gap to suggest end organ hypo-perfusion, no evidence of metabolic acidosis with a normal bicarbonate, no evidence of hepatobiliary obstructive pathology. Lipase is wnl indicating no pancreatic inflammation. Urinalysis shows no evidence of urinary inflammation suggestive of UTI CT scan abdomen pelvis showed evidence of diffuse intra-abdominal inflammation including gastritis, enteritis and colitis. Repeat abdominal exam remained benign. The synthesis of the patient's history, physical exam, labs images suggest likely gastroenteritis as a potential etiology. Will prescribe a short course of steroids and give prompt GI follow-up. No acute surgical pathology identified. Medication for hospitalization or surgical consultation at this time. The patient and/or family, caregivers express understanding. The patient and/or family, caregivers agrees with the plan. Shared decision making: I will have a discussion with the patient and or visitors regarding risk/benefits of further testing or admission. They will be made aware of of the risk/benefits inherent in this decision they will be given the opportunity to voice understanding. Total critical care time today provided was at least 0 minutes. This excludes separately billable procedures. Critical care time (if documented) is secondary to the patient having high probability of clinically significant/life threatening deterioration in the patient's condition which required my urgent intervention. Impression: 1. Acute abdominal pain 2. History of sphincter of Oddi syndrome 3. Status post cystectomy Dispo: Discharge home This note was generated with Blueseedation software. It may contain incorrect words, spelling, and punctuation that were not noted in review of the chart prior to signing. Lab Data Labs: Laboratory Results - last 24 hr 04/06/25 23:20 WBC 10.8 RBC 4.31 Hgb 13.6 Hct 39.0 MCV 90.5 MCH 31.6 MCHC 34.9 RDW Std Deviation 39.1 RDW Coeff of Kathy 11.9 Plt Count 305 MPV 9.7 Immature Gran % (Auto) 0.300 Neut % (Auto) 68.6 Lymph % (Auto) 22.4 [place] % (Auto) 6.4 Eos % (Auto) 1.9 Baso % (Auto) 0.4 Absolute Neuts (auto) 7.4 Absolute Lymphs (auto) 2.42 Nucleated RBC % 0 Sodium 137 Potassium 3.8 Chloride 100 Carbon Dioxide 25.2 Anion Gap 12 BUN 17 Creatinine 1.09 Estim Creat Clear Calc 61.55 Est GFR (MDRD) Non-Af 63 BUN/Creatinine Ratio 15.7 Glucose 96 Calcium 9.7 Total Bilirubin 0.27 AST 23 ALT 17 Alkaline Phosphatase 43 Total Protein 7.8 Albumin 5.0 Globulin 2.8 Albumin/Globulin Ratio 1.8 Lipase 30 Urine Color Yellow Urine Clarity Clear Urine pH 7.0 Ur Specific [place] 1.015 Urine Protein 30 H Urine Glucose (UA) Normal Urine Ketones Negative Urine Occult Blood Negative Urine Nitrite Negative Urine Bilirubin Negative Urine Urobilinogen Normal Ur Leukocyte Esterase Negative Urine RBC 0-5 SEEN Urine WBC 0-5 SEEN Ur Squamous Epith Cells 10-25 SEEN Urine Bacteria 2+ Urine Mucus 1+ Radiography Diagnostic Testing: Clinical Impression(s) from Imaging Studies Abdomen/Pelvis CT 04/06/25 23:55 IMPRESSION: Prior cholecystectomy. Diffuse thickening of the stomach suggestive of gastritis. Mild diffuse thickening of the bladder suggestive of mild cystitis. Mild diffuse thickening of the sigmoid colon, probably colitis. Scattered fluid-filled small bowels, possibly enteritis. Reading [facility] [id number] Discharge Plan Triage Chief Complaint: Abd Pain ED Provider: J Luis Dinero Dx/Rx/DC Orders Clinical Impression: Gastritis, bile acid reflux, Enteritis Instructions: ED Gastritis (Adult), ED Gastroenteritis, Noninfectious Prescriptions: New prednisone 50 mg tablet 50 mg PO DAILY 5 Days Qty: 5 0RF ondansetron 4 mg tablet,disintegrating 4 mg PO Q8H PRN PRN (Reason: Nausea) Qty: 10 0RF No Action alprazolam [Xanax] 0.5 mg tablet 0.5 mg PO PRN PRN (Reason: Anxiety) HRT pellet estradiol testosterone implant atenolol 50 mg tablet 50 mg PO DAILY losartan 50 mg tablet 50 mg PO BID amitriptyline 25 MG tablet 25 mg PO QHS rosuvastatin 5 mg tablet 5 mg PO QHS Patient Comments: TAKE 1 TABLET BY MOUTHCEVERY EVENING WITH OR WITHOUT FOOD dicyclomine 20 mg tablet 20 mg PO TID PRN (Reason: abdominal pain) Qty: 90 5RF hyoscyamine sulfate 0.125 mg tablet 0.125 mg PO BID-QID PRN (Reason: dyspepsia) Qty: 120 0RF colestipol 1 gram tablet 1 g PO .qid 90 Days Qty: 360 2RF Primary Care Provider: Crystal Atkins Referrals: Crystal Atkins DO [Primary Care Provider] - Km Moreland DO [Med Staff - Active Staff] - Activity Restrictions/Additional Instructions: Thank you for trusting us with your care today! Your labs are reassuring. No sign of systemic inflammation, kidney damage, pancreas damage, liver damage. No evidence of UTI. Your CT scan showed evidence of inflammation in your stomach and intestines. We called this gastroenteritis. This can be treated with steroids to use inflammation and close gastroenterology follow-up. Please take Tylenol (2 pills, 650 mg), ibuprofen (2 pills, 400 mg) every 6 hours as needed for pain and fever control. Please return to the emergency department if your symptoms change or worsen. Please follow with your primary care physician and Gastroenterology (Dr. Moreland) for further outpatient evaluation and management. Print Language: Danish Disposition Disposition: Home, Self Care Discharge Date/Time: 04/07/25 02:22
--- NOTE | 2025-04-06 23:08 | EKG12_ITS ---
Test Reason : ABD PAIN Blood Pressure : */* mmHG Vent. Rate : 55 BPM Atrial Rate : 55 BPM P-R Int : 184 ms QRS Dur : 88 ms QT Int : 462 ms P-R-T Axes : 41 39 40 degrees QTcB Int : 441 ms Sinus bradycardia Otherwise normal ECG When compared with ECG of 01-Jul-2023 10:55, Vent. rate has decreased by 54 bpm Criteria for Inferior infarct are no longer Present Nonspecific T wave abnormality no longer evident in Inferior leads Nonspecific T wave abnormality no longer evident in Lateral leads Confirmed by MATTHEW MITCHELL ([id number]), editor newspaper LIA LYLES ([id number]) on 04/08/2025 5:45:49 AM Referred By: AT Confirmed By: MATTHEW MITCHELL
[2025-04-06] MEDS: 0.9% Normal Saline (1000mL) 1,000 ML 999 ML IV (23:20)
[2025-04-06 23:30] LABS: Hematocrit 39.0 % (37-47); Hemoglobin 13.6 g/dL (12.0-15.0); Immature Granulocytes Count 0.030 X10^3/uL (0.0-0.0); Mean Corp Hgb Conc 34.9 g/dL (32-36); Mean Corpuscular Volume 90.5 fL (81-99); Mean Platelet Vol. 9.7 fl (6.2-12.0); NRBC Flagged by Analyzer 0 % (0-5); Platelet Count 305 K/mm3 (150-450); RBC Distribution Width CV 11.9 % (11.6-14.6); RBC Distribution Width SD 39.1 fl (35.1-43.9); Red Blood Count 4.31 M/mm3 (4.2-5.4); White Blood Count 10.8 K/mm3 (4.4-11.0)
[2025-04-06 23:32] LABS: Color, Urine Yellow (Yellow); Glucose, Dipstick Normal (Normal); Ketone-Dipstick Negative (Negative); Leukocyte Esterase-Dipstick Negative /ul (Negative); Nitrite-Dipstick Negative (Negative); Occult Blood-Urine Negative /ul (Negative); Protein-Dipstick 30 mg/dl (Negative); Specific Gravity, Urine 1.015 (1.002-1.030); Urine Bilirubin Dipstick Negative (Negative)
[2025-04-06 23:49] LABS: AST(SGOT) 23 U/L (<=31); Alanine Aminotransfer ALT/SGPT 17 U/L (<=34); Albumin, Serum 5.0 g/dL (3.5-5.0); Alkaline Phosphatase 43 U/L (35-104); Anion Gap 12 (5-15); BUN 17 mg/dL (4-19); BUN/Creat Ratio 15.7 RATIO (10-20); Calcium,Total 9.7 mg/dL (7.6-11.0); Carbon Dioxide 25.2 mmol/L (21.0-32.0); Chloride 100 mmol/L (98-108); Estimated Creatinine Clearance 61.55 ml/min (50-250); Globulin 2.8 g/dL (2.2-4.2); Glucose 96 mg/dL (70-99); Lipase 30 U/L (13-75); Potassium 3.8 mmol/L (3.3-5.1)
[2025-04-06 23:52] LABS: Mucous, Urine 1+ /hpf (<or=2+); Red Blood Cells-Urine 0-5 SEEN /hpf (0-5); Squamous Epithelial Cells - UA 10-25 SEEN /hpf (5-10)
--- NOTE | 2025-04-06 23:55 | CT_ITS ---
PROCEDURE: ABDOMEN/PELVIS W IV CONT ONLY 04/07/2025 REASON FOR EXAM: EPIGASTRIC ABDOMINAL PAIN RULE OUT PERFORATION TECHNIQUE: ABDOMEN/PELVIS W IV CONT ONLY Coronal and Sagittal reconstruction series were provided. CONTRAST: Isovue-350 VOLUME: 100 mL One or more dose reduction techniques were used (e.g., Automated exposure control, adjustment of the mA and/or kV according to patient size, use of iterative reconstruction technique. RADIATION DOSE SUMMARY: CTDlvol: 13.58 mGy DLP: 772 mGycm COMPARISON: Ultrasound on 11/20/2023. MRI on 07/17/2022. FINDINGS: Prior cholecystectomy. Diffuse thickening of the stomach suggestive of gastritis. Mild diffuse thickening of the bladder suggestive of mild cystitis. Mild diffuse thickening of the sigmoid colon, probably colitis. Scattered fluid-filled small bowels, possibly enteritis. The visualized lung bases are unremarkable. Normal liver. Normal extrahepatic biliary system. Normal spleen. Normal pancreas. Normal bilateral adrenal glands. Normal size of the right kidney. There is no right renal mass. There are no right renal calculi. There is no right hydronephrosis. Normal visualized right ureter. Normal size of the left kidney. There is no left renal mass. There are no left renal calculi. There is no left hydronephrosis. Normal visualized left ureter. The appendix is not visualized. There is no demonstrated peritoneal fluid. Mild calcified atheromatous plaques of the abdominal aorta. Normal inferior vena cava. Normal retroperitoneum. There is no pelvic mass lesion or lymphadenopathy. There is no pelvic fluid. Normal abdominal wall. Normal osseous structures. CT/Abdomen/Pelvis W IV Cont ONLY IMPRESSION: Prior cholecystectomy. Diffuse thickening of the stomach suggestive of gastritis. Mild diffuse thickening of the bladder suggestive of mild cystitis. Mild diffuse thickening of the sigmoid colon, probably colitis. Scattered fluid-filled small bowels, possibly enteritis. Reading [facility]
--- OUTSIDE RECORDS SUMMARY | 2025-04-06 23:57 | XMS RPT_ITS | CCD ---
Author Organization [facility] CliniSyfl Care Team Providers Care Agronomy Specialist Name Role Phone Dossi Esthela STILL Unavailable Fast DO, Juan Daniel A Unavailable [facility], [facility] Unavailable NEGRITA GONZALES CNP Unavailable Bisi Friedman CMA Unavailable Unavailable Unavailable Unavailable Katie Fortune MA Unavailable Unavailable Philipp Cordova Unavailable Friend, Dr. Barbour Unavailable [phone] Fast DO, Juan Daniel A Unavailable Wilbert, Dr. Rojas Primary Care Provider [phone] Wilbert, Dr. Rojas Referring Provider [phone] Pamella MENDES, SOCIAL SERVICES-Malcolm Anderson Attending Provider [phone] Wilbert, Dr. Rojas Primary Care Provider [phone] Wilbert, Dr. Rojas Referring Provider [phone] FriendDr. Barbour Attending Provider [phone] FriendDr. Barbour Other Provider [phone] Pamella MENDES, VAUGHN-Malcolm Anderson Attending Provider [phone] Wilbert, Dr. Rojas Primary Care Provider [phone] Wilbert, Dr. Rojas Referring Provider [phone] Km Moreland Attending Provider [phone] FriendDr. Barbour Other Provider [phone] Pamella MENDES, VAUGHN-C Yanique Anderson Attending Provider [phone] Justin Muro PA-C Primary Care Provider Fast DO, Juan Daniel A Attending Unavailable Fast DO, Juan Daniel A Referring Unavailable Fast DO, Juan Daniel A Consulting Unavailable Robb AHUJA , Julio Araujo Unavailable Fast, Dr. Rojas Primary Care Provider Fast, Dr. Rojas Referring Provider Fast, Dr. Rojas Other Provider Daisha, Dr. Grossman Attending Provider Fast DO, Juan Daniel Arenas Primary Care Provider FAST, JUAN DANIEL Arenas Referring Unavailable FAST, JUAN DANIEL Arenas Primary Care Unavailable Fast, Dr. Rojas Primary Care Provider Fast, Dr. Rojas Referring Provider Fast, Dr. Rojas Other Provider Daisha, Dr. Grossman Attending Provider Friend, Dr. Barbour Attending Provider Fast, Dr. Rojas Primary Care Provider Fast, Dr. Rojas Referring Provider Dr. Jun Cedeno Attending Provider Justin Muro PA-C Primary Care Provider Fast DO, Juan Daniel Arenas Primary Care Provider Fast DO, Dr. Rojas Primary Care Provider Fast DO, Dr. Rojas Referring Provider Friend DO, Dr. Barbour Attending Provider Sandor Walter MD Emergency Provider Rosette DO, Dr. Dietz Referring Provider Fast DO, Dr. Rojas Primary Care Provider Sandor Walter MD Attending Provider Fast DO, Dr. Rojas Attending Provider Fast DO, Dr. Rojas Referring Provider Fast, Juan Daniel Referring Unavailable Fast, Juan Daniel Attending Unavailable Fast, Juan Daniel Primary Care Unavailable Fast, Juan Daniel Attending Unavailable Fast, Juan Daniel Primary Care Unavailable Fast, Juan Daniel Referring Unavailable Rosette, J Luis Referring Unavailable ReSandor tello Attending Unavailable Fast, Juan Daniel Primary Care Unavailable Fast, Juan Daniel Primary Care Unavailable FriendKm Attending Unavailable Fast, Juan Daniel Referring Unavailable Allergies Allergy Classification Reported Allergen(s) Allergy Type Date of Onset Reaction(s) Facility (1 source) albuterol Drug Allergy 06-02-20 17 [facility] Work Phone: (18 sources) Sulfonamides (Antibiotic) Allergy to drug (finding) [facility]; [facility] Work Phone: Comment on above: had bad reaction (13 sources) Nitrofurantoin Drug Allergy 11-14-19 22 Unknown [facility] (16 sources) Sulfonamides (Antibiotic); Translations: [Sulfa (Sulfonamide Antibiotics)] Allergy to substance 05-07-20 05 Other: See Comments [facility] (11 sources) Wheat preparation Drug Allergy 11-14-19 22 Other [facility] (2 sources) Amoxicillin / Clavulanate Drug Allergy 03-19-20 10 Itching [facility] Work Phone: (2 sources) Dust Propensity to adverse reactions 11-15-19 06 [facility] (2 sources) NITROFURANTOIN, MACROCRYSTALS / Nitrofurantoin, Monohydrate Drug Allergy 05-07-20 05 [facility] Work Phone: (1 source) ALLERGIES NOT ON FILE; Translations: [ALLERGIES NOT ON FILE] Propensity to adverse reactions (disorder) [facility] 2 Repository (1 source) Nitrofurantoin Drug Allergy 11-15-19 25 [facility] Repository (1 source) Wheat preparation Drug Allergy 09-18-19 24 [facility] Repository Medications Current Medications Medication Drug Class(es) Dates Sig (Normalized) Sig (Original) ALPRAZolam 0.5 mg oral tablet (20 sources) Benzodiazepine Start: 11-13-2021 Alprazolam (Xanax) 0.5 mg tablet Active 0.5 mg PO NEEDED as needed for Anxiety November 13, 2021 12:00am take 2 tablets by [facility] once daily as needed Xanax 0.5 MG Oral Tablet qd prn (0.5 MG) Active 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 [place] 05/02 oarrs reviewedverbal ly called to [facility] pharmacy - [facility] [place] 06/03/23 amitriptyline hydrochloride 25 mg oral tablet (20 sources) Tricyclic Antidepressant Start: 020 take 1 tablet by mouth at bedtime Amitriptyline 25 MG tablet Active 25 mg PO AT BEDTIME October 13, 2019 1:00am Comment on above: Take 1 tablet by ria th daily at bedtime. atenolol 50 mg oral tablet (5 sources) beta-Adrenergic Natalia Start: 024 take 1 tablet by mouth once daily Atenolol 50 mg tablet Active 50 mg PO DAILY September 18, 2023 1:00am calcium carbonate/vitamin D2 (CALCIUM + VITAMIN D ORAL) (2 sources) calcium carbonate/vitamin D2 (CALCIUM + VITAMIN D ORAL) Take by mouth. 0 Active Comment on above: Take by mouth. Cholestyramine-Aspart fozia (Cholestyramine Light) 4 gram powder (7 sources) Start: 023 Cholestyramine-Aspar tame (Cholestyramine Light) 4 gram powder Active 4 g PO THREE TIMES A DAY 1133June 03, 2023 12:00am administer w/meal; avoid other meds within 1hr before or 4-6hr after dose Start: 06-03-2023 Cholestyramine -Aspartame (Cholestyramine Light) 4 gram powder Active 4 GM PO THREE TIMES A DAY 1133June 03, 2023 12:00am administer w/meal; avoid other meds within 1hr before or 4-6hr after dose Start: 06-03-2023 Cholestyramine -Aspartame (Cholestyramine Light) 4 gram powder Active 4 GM PO THREE TIMES A DAY 1133June 02, 2023 11:00pm administer w/meal; avoid other meds within 1hr before or 4-6hr after dose ELDERBERRY FRUIT (2 sources) elderberry fruit (ELDERBERRY ORAL) Take by mouth. 0 Active Comment on above: Take by mouth. HRT pellet estradiol testosterone (13 sources) Start: 12-24-2021 HRT pellet estradiol testosterone Active IMPLANT December 23, 2021 11:00pm Start: 12-24-2021 HRT pellet est radiol testosterone Active IMPLANT December 24, 2021 12:00am hyoscyamine sulfate 0.125 mg oral tablet (20 sources) Start: 09-14-2024 End: 11-22-2024 Hyoscyamine Sulfate 0.125 mg tablet Active 0.125 mg PO 2 to 4 times per day as needed for dyspepsia 120 November 22, 2024 1:49pm Start: 05-29-2022 take 1 tablet under the tongue three times daily as needed Hyoscyamine Sulfate 0.125 MG Sublingual Tablet Sublingual 1 (one) Tablet tid prn for 0 days Quantity: 60 {Tablet} Refills: 1 Ordered: 29-May-2022 Fast DO, Juan Daniel A Fast DO, Juan Daniel A Start : 29-May-2022 Active Start: 12-24-2021 End: 01-17-2023 Hyoscyamine Sulfate 0.125 mg tablet Discontinued 0.125 mg PO 2 to 4 times per day as needed for Cramps December 24, 2021 12:00am January 17, 2023 11:11am Start: 10-15-2021 take 1 tablet under the tongue three times daily as needed Hyoscyamine Sulfate 0.125 MG Sublingual Tablet Sublingual 1 (one) Tablet tid prn for 0 days Quantity: 60 {Tablet} Refills: 1 Ordered: 15-Oct-2021 Bisi Friedman CMA Start : 15-Oct-2021 Active Start: 10-08-2021 take 1 tablet under the tongue every four hours as needed hyoscyamine sublingual (LEVSIN SL) 0.125 mg Indications: Right upper quadrant abdominal pain , Intermittent diarrhea , Epigastric cramping Dissolve 1 tablet under the tongue every 4 hours as needed (FOR CRAMPING). 20 tablet 5 10/08/2021 Active Comment on above: Dissolve 1 tablet un ino the tongue every 4 hours as needed (FOR CRAMPING). losartan potassium 50 mg oral tablet (5 sources) Angiotensin 2 Receptor Natalia Start: 4 take 1 tablet by mouth twice daily Losartan 50 mg tablet Active 50 mg PO TWICE A DAY September 18, 2023 1:00am mv-mn/iron fum/FA/omega3,6,9#3 (WOMEN'S MULTI ORAL) (2 sources) mv-mn/iron fum/FA/omega3,6,9#3 (WOMEN'S MULTI ORAL) Take by mouth. 0 Active Comment on above: Take by mouth. Progesterone (2 sources) Progesterone Start: 0 progesterone 5 % cream (CPD) C-Progesterone Active 1 APPLIC AT BEDTIME October 13, 2019 3:11pm Apply 2 clicks at bedtime. Apply to altenating wrist, thigh, and upper chest. 0 10/13/2019 Active Comment on above: C-Progesterone Activ e 1 APPLIC AT BEDTIME October 13, 2019 3:11pm Apply 2 clicks at bedtime. Apply to altenating wrist, thigh, and upper chest. thyroid (assisted) 30 mg oral tablet (1 source) Start: 2 take 1 tablet by mouth once daily Thyroid (Pork) (Nunda Thyroid) 30 mg tablet Active 30 MG PO DAILY December 24, 2021 12:00am Completed/Discontinued Medications Medication Drug Class(es) Dates Sig (Normalized) Sig (Original) acetaminophen 325 mg / HYDROcodone bitartrate 5 mg oral tablet (20 sources) Opioid Agonist Start: 07-19-2022 End: 07-22-2022 Hydrocodone-Acetami nophen 5-325 mg tablet Discontinued 1 {tbl} PO TWICE A DAY as needed for pain 6 3 July 19, 2022 July 21, 2022 1:00am July 22, 2022 1:03am Start: 07-19-2022 End: 07-22-2022 take 1 tablet by mouth twice daily Hydrocodone-Acetaminophen Discontinued 1 TABLET PO TWICE A DAY 6 3 July 19, 2022 July 22, 2022 1:03am Start: 10-14-2019 End: 10-16-2019 Hydrocodone-Acetaminophen 1 TABLET tablet Discontinued 1 {tbl} PO EVERY 6 HOURS NEEDED as needed for Pain 5 2 October 14, 2019 October 15, 2019 1:00am October 16, 2019 1:09am Start: 10-14-2019 End: 10-16-2019 take 1 tablet by mouth every six hours as needed Hydrocodone-Acetaminophen Discontinued 1 TABLET PO EVERY 6 HOURS NEEDED 5 2 October 14, 2019 October 16, 2019 1:09am azithromycin 250 mg oral tablet (7 sources) Macrolide Antimicrobial Start: 10-18-2022 End: 10-30-2022 Zithromax 250 mg oral tablet 2 (two) tablet today then 1 qd for 4 days for 0 days Quantity: 6 {Tablet} Refills: 0 Ordered: 30-Oct-2022 Bisi Friedman CMA Start : 18-Oct-2022 End : 30-Oct-2022 Inactive C-Progesterone (11 sources) Start: 10-13-2019 End: 12-24-2021 C-Progesterone Discontinued 1 APPLIC TOPICAL AT BEDTIME October 13, 2019 12:00am December 24, 2021 2:20pm Apply 2 clicks at bedtime. Apply to altenating wrist, thigh, and upper chest. Start: 10-13-2019 End: 12-24-2021 C-Progesterone Discontinued 1 APPLIC TOPICAL AT BEDTIME October 13, 2019 1:00am December 24, 2021 3:20pm Apply 2 clicks at bedtime. Apply to altenating wrist, thigh, and upper chest. C-Progesterone 10 MG/0.25 G Cream.Appl (2 sources) Start: 10-13-2019 End: 12-24-2021 C-Progesterone 10 MG/0.25 G Cream.Appl Discontinued 1 NMA TOPICAL AT BEDTIME October 13, 2019 1:00am December 24, 2021 3:20pm Apply 2 clicks at bedtime. Apply to altenating wrist, thigh, and upper chest. c-progesterone Cream (8 sources) c-progesterone C ream 1cmg/.25 crm Inactive c-progesterone C ream 1cmg/.25 crm Active calcium carbonate 1250 mg / cholecalciferol 200 unt oral tablet (18 sources) Vitamin D Calcium 500/D 50 0-200 MG-UNIT Oral Tablet qd (500-200 MG-UNIT) Active cholestyramine resin 4000 mg powder for oral suspension (20 sources) Bile Acid Sequestrant Start: 11-21-19 End: 09-18-19 take 1 dose by mouth three times daily Cholestyramine (With Sugar) 4 gram powder Discontinued 4 g PO THREE TIMES A DAY 4 May 05, 2023 4:21pm September 18, 2023 11:04am administer w/meal; avoid other meds within 1hr before or 4-6hr after dose Start: 09-03-2022 End: 11-20-2022 take 1 dose by mouth twice daily Cholestyramine (With Sugar) 4 gram powder Discontinued 4 g PO TWICE A DAY 378 September 03, 2022 4:57pm November 20, 2022 9:09am administer w/meal; avoid other meds within 1hr before or 4-6hr after dose Start: 05-29-2022 take 2 doses by mout h twice daily cholestyramine (with sugar) 4 gram oral powder in packet 2 (two) Packet grams bid for 0 days Quantity: 120 {Packet} Refills: 0 Ordered: 18-Oct-2022 Bisi Friedman CMA Start : 29-May-2022 Active Start: 05-21-2022 End: 09-03-2022 take 1 dose by mouth twice daily Cholestyramine (With Sugar) 4 gram powder Discontinued 4 g PO TWICE A DAY 378 May 21, 2022 12:00am September 03, 2022 4:57pm administer w/meal; avoid other meds within 1hr before or 4-6hr after dose Start: 05-21-2022 End: 09-03-2022 take 1 dose by mouth twice daily Cholestyramine (With Sugar) Discontinued 4 GM PO TWICE A DAY 378 May 21, 2022 12:00am September 03, 2022 4:57pm administer w/meal; avoid other meds within 1hr before or 4-6hr after dose Start: 05-21-2022 End: 09-03-2022 take 1 dose by mouth twice daily Cholestyramine (With Sugar) Discontinued 4 GM PO TWICE A DAY 378 May 20, 2022 11:00pm September 03, 2022 3:57pm administer w/meal; avoid other meds within 1hr before or 4-6hr after dose Start: 05-21-2022 take 1 dose by mouth twice daily Cholestyramine (With Sugar) Active 4 GM PO TWICE A DAY 378 May 20, 2022 11:00pm administer w/meal; avoid other meds within 1hr before or 4-6hr after dose Start: 05-21-2022 take 1 dose by mouth twice daily Cholestyramine (With Sugar) Active 4 GM PO TWICE A DAY 378 May 21, 2022 12:00am administer w/meal; avoid other meds within 1hr before or 4-6hr after dose colestipol hydrochloride 1000 mg oral tablet (7 sources) Bile Acid Sequestrant Start: 03-05-2024 End: 11-14-2024 Colestipol 1 gram tablet Discontinued 1 g PO .qid 360 March 05, 2024 8:26am November 14, 2024 7:25pm Start: 09-18-2023 End: 03-05-2024 Colestipol 1 gram tablet Dis continued 1 g PO THREE TIMES A DAY September 18, 2023 1:00am March 05, 2024 8:30am dicyclomine hydrochloride 20 mg oral tablet (16 sources) Anticholinergic Start: 01-17-2023 End: 09-22-2024 take 1 tablet by mouth three times daily as needed for pain Dicyclomine 20 mg tablet Discontinued 20 mg PO THREE TIMES A DAY as needed for abdominal pain May 05, 2023 4:22pm September 22, 2024 1:12pm loratadine 10 mg oral tablet (15 sources) Start: 12-17-2016 End: 12-24-2021 take 1 tablet by mouth once daily as needed Loratadine 10 MG tablet Discontinued 10 mg PO DAILY as needed for Allergies December 17, 2016 12:00am December 24, 2021 3:21pm take 1 tablet by mouth once louis y Loratadine (ALAVERT) 10 mg dissolvable tablet Take 10 mg by mouth once daily. 0 Active Comment on above: Take 10 mg by mouth once daily. meloxicam 15 mg oral tablet (20 sources) Nonsteroidal Anti-inflammatory Drug Start: 10-15-2021 End: 11-14-2024 Meloxicam 15 mg tablet Discontinued 15 mg PO NEEDED as needed for Migraine Headache November 13, 2021 12:00am November 14, 2024 7:26pm STOPPED DUE TO PROCEDURE Start: 08-13-2021 take 1 tablet by ria th once daily at mealtime Meloxicam 15 MG Oral Tablet 1 (one) Tablet qd with food for 0 days Quantity: 30 {Tablet} Refills: 0 Ordered: 13-Aug-2021 Fast DO, Juan Daniel A Fast DO, Juan Daniel A Start : 13-Aug-2021 Active Multivitamin Oral Tablet (18 sources) Multivitamin Ora l Tablet qd Inactive Multivitamin Ora l Tablet qd Active omeprazole 20 mg delayed release oral capsule (20 sources) Proton Pump Inhibitor Start: 11-13-2021 End: 12-24-2021 take 1 capsule by mouth once daily Omeprazole 20 mg capsule,delayed release(DR/EC) Discontinued 20 mg PO DAILY November 13, 2021 12:00am December 24, 2021 3:20pm Start: 08-14-2020 take 2 capsules by m outh once daily before breakfast omeprazole (PRILOSEC) 20 mg capsule Take 2 capsules by mouth daily before breakfast. 1/2 hr before meal. 30 capsule 0 08/14/2020 Active Comment on above: Take 2 capsules by m outh daily before breakfast. 1/2 hr before meal. predniSONE 10 mg oral tablet (7 sources) Start: 3 End: predniSONE 10 mg oral tablet 3 (three) tablet for 3 days 2 pills for 3 days 1 pill for 3 days for 0 days Quantity: 18 {Tablet} Refills: 0 Ordered: 30-Oct-2022 Bisi Friedman CMA Start : 18-Oct-2022 End : 30-Oct-2022 Inactive Comments: take with food in am Comment on above: take with food in am rizatriptan 5 mg oral tablet (20 sources) Serotonin-1b and Serotonin-1d Receptor Agonist Start: 2 End: 5 take 1 tablet by mouth every two hours Rizatriptan 5 mg tablet Discontinued 0 PO .COMPLEX as needed for MIGRAINES December 24, 2021 12:00am November 14, 2024 7:26pm take 1 tablet at onset of headache; if no relief, may repeat 1 tablet after at least 2 hrs PO Start: 08-13-2021 take 1 tablet by ria th every two hours Rizatriptan Benzoate 5 MG Oral Tablet Disintegrating 1 (one) Tablet at onset and may repeat in 2 hours for 0 days Quantity: 10 {Tablet} Refills: 3 Ordered: 13-Aug-2021 Bisi Friedman CMA Start : 13-Aug-2021 Active rosuvastatin calcium 10 mg oral tablet (20 sources) HMG-CoA Reductase Inhibitor Start: 10-30-2022 take 1 tablet by mouth once daily in the evening rosuvastatin 10 mg oral tablet 1 (one) Tablet q evening with or without food for 0 days Quantity: 90 {Tablet} Refills: 3 Ordered: 30-Oct-2022 Fast DO, Juan Daniel A Fast DO, Juan Daniel A Start : 30-Oct-2022 Active Start: 05-02-2022 take 1 tablet by ria th at bedtime Rosuvastatin 5 mg tablet Active 5 mg PO AT BEDTIME May 02, 2022 12:00am Start: 01-29-2022 take 1 tablet by ria th once daily in the evening Rosuvastatin Calcium 5 MG Oral Tablet 1 (one) Tablet q evening with or without food for 0 days Quantity: 30 {Tablet} Refills: 6 Ordered: 29-Jan-2022 Fast DO, Juan Daniel A Fast DO, Juan Daniel A Start : 29-Jan-2022 Active Problems Active Problems Problem Classification Problem Date Documented Da te Episodic/Chronic Abdominal pain (20 sources) Epigastric pain; Translations: [Epigastric pain] 10-15-2021 Episodic Comment on above: she saw gi and they are doing upper and lower scope she saw gi now doing mrcp and gastric emptying Acute bronchitis (14 sources) Acute bronchitis; Translations: [Acute bronchitis] 10-18-2022 Episodic Anxiety disorders (20 sources) Anxiety; Translations: [Anxiety] 05-29-2022 Chronic Biliary tract disease (20 sources) Spasm of sphincter of Oddi; 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 Biliary tract disease (20 sources) Gallstone; Translations: [Gall bladder stones] Resolved: 3 08-30-2021 Episodic Disorders of lipid metabolism (20 sources) Hyperlipidemia; Translations: [Hyperlipidemia] Onset: 4 10-15-2021 Chronic Comment on above: significantly higher than lab in nov where ldl 154- talked aggressive diet and ex - if not down 3 months will start meds much improved contin ue meds diet and ex Esophageal disorders (2 sources) Gastroesophageal reflux disease; Translations: [Gastro-esophageal reflux disease without esophagitis] Onset: 7 01-01-2017 Chronic Essential hypertension (8 sources) Hypertensive disorder; Translations: [Malignant essential hypertension] Onset: 7 06-02-2017 Chronic Gastritis and duodenitis (20 sources) Bile-induced gastritis; Translations: [Other gastritis without bleeding] Episodic Headache; including migraine (2 sources) Migraine; Translations: [Periodic headache syndromes in child or adult, not intractable] Onset: 0 03-20-2020 Chronic Immunizations and screening for infectious disease (20 sources) Requires diphtheria, tetanus and pertussis vaccination; Translations: [Need for Tdap vaccination (Renamed from Need for ibcjavihhd-gxpeseg-iqy tussis (Tdap) vaccine, adult/adolescent)] Resolved: 3 10-15-2021 Episodic Nonspecific chest pain (9 sources) Chest pain; Translations: [Chest pain, unspecified] Onset: 8 10-12-2007 Episodic Open wounds of extremities (3 sources) Laceration of hand; Translations: [Laceration without foreign body of unspecified hand, initial encounter] Onset: 5 11-14-2024 Episodic Other bone disease and musculoskeletal deformities (20 sources) Segmental and somatic dysfunction; Translations: [Pelvic somatic dysfunction] Onset: 7 06-09-2017 Episodic Other connective tissue disease (20 sources) Lateral epicondylitis of right humerus; Translations: [Epicondylitis, lateral, right] 08-14-2021 Episodic Comment on above: ice rest nsaid pt Other connective tissue disease (8 sources) Ganglion of hand; Translations: [Ganglion cyst of finger] 05-25-2023 Episodic Comment on above: refer to ortho Other connective tissue disease (8 sources) Ganglion of wrist; Translations: [Ganglion of wrist] 05-23-2023 Episodic Other gastrointestinal disorders (20 sources) Non-infective diarrhea; 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-2022 Chronic Other gastrointestinal disorders (2 sources) Irritable bowel syndrome; Translations: [Irritable bowel syndrome without diarrhea] Onset: 7 01-01-2017 Chronic Other gastrointestinal disorders (13 sources) Heartburn; Translations: [Heartburn] 12-24-2021 Episodic Other gastrointestinal disorders (13 sources) Constipation; Translations: [Constipation, unspecified] 05-21-2022 Episodic Other gastrointestinal disorders (1 source) Constipation, unspecified; Translations: [Constipation, unspecified] Episodic Other gastrointestinal disorders (1 source) Heartburn; Translations: [Heartburn] Episodic Other gastrointestinal disorders (12 sources) Diarrhea; Translations: [Diarrhea, unspecified] 01-17-2023 Episodic Other gastrointestinal disorders (7 sources) Diarrhea, unspecified; Translations: [Diarrhea] Episodic Other inflammatory condition of skin (2 sources) Psoriasis; Translations: [Psoriasis, unspecified] Onset: 7 12-19-2016 Chronic Other nervous system disorders (20 sources) H/O: migraine; Translations: [History of migraine headaches] 08-14-2021 Episodic Comment on above: s/e of meds discusse d including coronary vaspospasm and what to do - first dose while at home- may repeat in 2 hours- better Other nervous system disorders (8 sources) Paresthesia of upper limb; Translations: [Paresthesia of arm] 05-25-2023 Episodic Comment on above: think may be multifa cotrial do think component of carpal tunnel so gave cock up splints and meloxciam and pending emg/ncs think need to think about thoracic outlet syndrome Other nervous system disorders (6 sources) Pain in limb - multiple; Translations: [Paresthesia and pain of both upper extremities] 05-27-2023 Episodic Comment on above: think may be multifa cotrial do think component of carpal tunnel so gave cock up splints and meloxciam and pending emg/ncs think need to think about thoracic outlet syndrome Other nutritional; endocrine; and metabolic disorders (7 sources) Body mass index 25-29 - overweight; Translations: [BMI 27.0-27.9,adult] 08-13-2021 Episodic Other nutritional; endocrine; and metabolic disorders (20 sources) Overweight in adulthood with body mass index of 25 or more but less than 30; Translations: [BMI 27.0-27.9,adult] Resolved: 3 01-29-2022 Episodic Other screening for suspected conditions (not mental disorders or infectious disease) (20 sources) Patient encounter status; Translations: [Encounter for screening mammogram for breast cancer (Renamed from Encounter for screening mammogram for malignant neoplasm of breast)] Onset: 5 05-29-2022 Episodic Other upper respiratory disease (1 source) Seasonal allergy; Translations: [Other seasonal allergic rhinitis] Onset: 7 06-02-2017 Chronic Other upper respiratory disease (2 sources) Allergic rhinitis; Translations: [Other allergic rhinitis] Onset: 7 10-18-2006 Chronic Residual codes; unclassified (20 sources) Influenza vaccination declined; Translations: [Influenza vaccination declined (Renamed from Refused influenza vaccine)] 10-15-2021 Episodic Residual codes; unclassified (12 sources) Postmenopausal state; Translations: [Postmenopausal (Renamed from Postmenopausal status)] 10-30-2022 Episodic Substance-related disorders (20 sources) Smoker; Translations: [Smoker] 08-13-2021 Chronic Comment on above: down to 3-4 cigs a d ay- she is working on quiting she is working on qu iting she is currently not smoking she is WORKING ON SW ITCHING TO VAPING- SHE IS ON LOWEST DOSE NICOTINE AND WORKING IT DOWN Thyroid disorders (1 source) Iodine-deficiency related diffuse (endemic) goiter; Translations: [Iodine-deficiency related diffuse (endemic) goiter] Onset: Chronic Unclassified (1 source) History of headache; Translations: [Personal history of other specified conditions] Onset: 7 06-02-2017 Unclassified (20 sources) Unclassified (13 sources) BMI 27.0-27.9,adult Unclassified (20 sources) History of migraine headaches Past or Other Problems Problem Classification Problem Date Documented Da te Episodic/Chronic Hypertension complicating ; childbirth and the puerperium (2 sources) Transient hypertension of - not delivered; Translations: [Gestational [-induced] hypertension without significant proteinuria, unspecified trimester] Onset: 10-18-2006 10-18-2006 Episodic Malaise and fatigue (2 sources) Malaise and fatigue; Translations: [Other malaise] Onset: 10-18-2006 10-18-2006 Episodic Residual codes; unclassified (2 sources) Past history of procedure; Translations: [Personal history of other medical treatment] Onset: 01-01-2017 01-01-2017 Episodic Unclassified (12 sources) Epicondylitis, lateral, right Unclassified (6 sources) Gall bladder stones Unclassified (20 sources) [facility]LLNESS EXAM 10-15-2021 Unclassified (4 sources) Need for Tdap vaccination (Renamed from Need for diphtheria-tetanus- pertussis (Tdap) vaccine, adult/adolescent) Unclassified (4 sources) Influenza vaccination declined (Renamed from Refused influenza vaccine) Results Test Name Value Interpretation Reference Range Facility Breast imaging reportOrdered By: Jaylin Espino on 01-10-2025 Study report [facility] Imaging Services [address] [place], [place] [address] SCRN MAMM (CAD)W/CORAZON BILAT MR#: [id number] Acct: [id number] Name: JOHNYWINSTON Rep #: [id number] : 1975 F 49 From: Carlos Espino DO PCP: Dr. Juan Daniel Rutherford DO Status: REG CLI Study:SCRN MAMM (CAD)W/CORAZON BILAT Date of Exa m: 01/10/25 Exam# [id number] Ordering Dr: Rosalina Rutherford ra, DO EXAM: SCRN MAMM (CAD)W/CORAZON BILAT DATE: 01/10/2025 CLINICAL HISTORY: F, Age 49 y/o , BILAT BRST SCREEN CORAZON ADD-ON BREAST CANCER RISK ASSESSMENT: Has not been calculated. TECHNIQUE: Bilateral screening digital breast tomosynthesis with 2D and 3D images. Computeraided detection. COMPARISON: Prior exam(s) dated dated 10/29/2023 and 06/04/2021. FINDINGS: TISSUE DENSITY: The breast tissue is composed of scattered area of fibroglandular density. Bilateral Breast Mammographic Findings: There are no suspicious masses, suspicious cluster of microcalcifications, architectural distortion or secondary signs of malignancy identified in either breast. BI/SCRN MAMM (CAD)W/CORAZON BILAT IMPRESSION: OVERALL FINAL ASSESSMENT: BIRADS 1 NEGATIVE RECOMMENDATION: Routine annual follow-up in 1 Year A letter with findings and recommendations will be mailed to the patient. Reading Location: [id number] CC: Dr. Juan Daniel Rutherford DO ~ Plc Programmer: Signed [facility] SCRN MAMM (CAD)W/CORAZON BILATo n 01-10-2025 SCRN MAMM (CAD)W/CORAZON BILAT [facility] Imaging Services [address] [place], [place] [address] SCRN MAMM (CAD)W/CORAZON BILAT MR#: [id number] Acct: [id number] Name: WINSTON OSORIO Rep #: [id number] : 1975 F 49 From: Jaylin Velez PCP: Dr. Juan Daniel Rutherford DO Status: REG CLI Study: SCRN MAMM (CAD)W/CORAZON BILAT Date of Exam: 10/05 Exam# [id number] Ordering Dr: Juan Daniel Rutherford DO EXAM: SCRN MAMM (CAD)W/CORAZON BILAT DATE: 01/10/2025 CLINICAL HISTORY: F, Age 49 y/o , BILAT BRST SCREEN CORAZON ADD-ON BREAST CANCER RISK ASSESSMENT: Has not been calculated. TECHNIQUE: Bilateral screening digital breast tomosynthesis with 2D and 3D images. Computer aided detection. COMPARISON: Prior exam(s) dated dated 10/29/2023 and 06/04/2021. FINDINGS: TISSUE DENSITY: The breast tissue is composed of scattered area of fibroglandular density. Bilateral Breast Mammographic Findings: There are no suspicious masses, suspicious cluster of microcalcifications, architectural distortion or secondary signs of malignancy identified in either breast. BI/SCRN MAMM (CAD)W/CORAZON BILAT IMPRESSION: OVERALL FINAL ASSESSMENT: BIRADS 1 NEGATIVE RECOMMENDATION: Routine annual follow-up in 1 Year A letter with findings and recommendations will be mailed to the patient. Reading Location: [id number] CC: Dr. Juan Daniel Rutherford DO Plc Programmer: Signed Normal [facility] Emergency Department Summary on 11-14-2024 Emergency Department Summary [facility] Medical Records Department [address] [place] [address] Emergency Department Summary 11/14/24 MR#: [id number] Acct: [id number] Name: WINSTON OSORIO Rep #: [id number] : 1975 49 From: Margarita DAVIS PCP: Dr. Juan Daniel Rutherford DO Status:DEP ER Location: ED HPI History of Present Illness Chief Complaint: Laceration Narrative Narrative: Patient presenting today with a laceration to her left palm that she got this evening while making dinner. She was chopping cheese on a cutting board using both hands on the knife when the blade slipped and the point of the knife cut her left palm. She is right-handed. She denies paresthesias to her left hand, she is not on any blood thinners. Tetanus is not up-to-date. [facility] Medical History Anxiety History of steroid therapy Thyroid disease Smoker History of echocardiogram History of stress test Pre-eclampsia History of irregular heartbeat Hyperlipidemia Gall bladder stones Epigastric pain Migraines Acute cholecystitis Segmental and somatic dysfunction of pelvic region Segmental and somatic dysfunction of lumbar region Segmental and somatic dysfunction of cervical region Segmental and somatic dysfunction of thoracic region Home Medications ???Medication ???Instructions ???Recorded ???Last Taken ???Type amitriptyline 25 mg tablet 25 mg PO QHS 10/13/19 Unknown Hist ory alprazolam 0.5 mg tablet (Xanax) 0.5 mg PO PRN PRN Anxiety 11/13/21 Unknown History HRT pellet estradiol testosterone implant 12/24/21 Unknown History rosuvastatin 5 mg tablet 5 mg PO QHS 05/02/22 Unknown Histo ry cholestyramine-aspart fozia 4 gram 4 g PO TID #1,134 grams 06/03/23 U nknown Rx oral powder (Cholestyramine Light) atenolol 50 mg tablet 50 mg PO DAILY 09/18/23 Unknown Hi story losartan 50 mg tablet 50 mg PO BID 09/18/23 Unknown Hist ory dicyclomine 20 mg tablet 20 mg PO TID PRN abdominal pain Unknown Rx #90 tabs hyoscyamine sulfate 0.125 mg tablet 0.125 mg PO BID-QID PRN dyspeps ia 09/22/24 Unknown Rx #120 tabs Allergy/AdvReac Type Severity Reaction Status Date / Time nitrofurantoin (From Allergy Unknown Verified 11/14/24 19:12 Macrobid) Sulfa (Sulfonamide Allergy Hives Verified 11/14/24 19:12 Antibiotics) Family History Mother Alcohol abuse Melanoma High cholesterol Bipolar 1 disorder Surgical History Hx of wisdom tooth extraction S/P LASIK surgery of both eyes Hx of appendectomy Hx of hysterectomy, total S/P laparoscopic cholecystectomy ( 10/13/19) Social History household members: spouse Smoking Status: Current every day smoker tobacco type: cigarettes alcohol intake: current ROS ROS ED Constitutional Constitutional ED: Denies chills or fever(s) Cardiovascular Cardiovascular: Denies chest pain Respiratory/Chest Respiratory/Chest: Denies dyspnea Musculoskeletal Musculoskeletal: Denies arthralgias Integumentary Reports laceration Neurologic Neurologic: Denies paresthesias EXAM Physical Exam Const Vital Signs: 11/14/24 19:11 Temperature 97.5 F L Temperature Source Temporal Pulse Rate 74 Respiratory Rate 16 Blood Pressure 145/91 H Blood Pressure Mean 109 Pulse Ox 99 Positive well nourished, well developed and no apparent distress General Appearance ED: well developed HEENT Reports normocephalic and head/scalp atraumatic Mouth ED: Yes moist mucous membranes normal Eyes PERRL and EOMs intact bilaterally Neck full ROM and supple Chest Wall inspection of chest normal Resp normal respiratory effort and clear to auscultation bilaterally Cardio regular rate and regular rhythm Back/Spine normal ROM and normal to inspection Extremity full ROM Extremity Narrative: 1.5 cm full-thickness linear laceration to the left medial palm that somewhat extends into the hypothenar eminence, left radial pulse 2+, good cap refill, sensation intact. Full flexion/extension at the MCP, AB, DIP joints of the left hand. Full range of motion to the left wrist. Neuro oriented x3, CN's II-XII intact bilaterally, moves all extremities, no focal motor deficits and no sensory deficits noted Sensorium / Orientation: awake and alert Psych mental status grossly normal and thought process normal Skin Skin Narrative: Aside from laceration to left palm no other rashes or lesions noted. Physical Exam Const Vital Signs: 11/14/24 19:11 Temperature 97.5 F L Temperature Source Temporal Pulse Rate 74 Respiratory Rate (more content not included)... Normal [facility] Gastroenterology Visit Repor ton 09-14-2024 Gastroenterology Visit Report [facility] Gastroenterology [address] [place] [address] OFFICE VISIT Date of Service: 09/14/24 MR#: [id number] Acct: [id number] Name: WINSTON OSORIO Rep #: [id number] : 1975 Provider: Km Moreland DO Age/Sex: 49/F Location: [facility] [place] Status: Signed Intake Vital Signs 07/01/23 10:50 Height 5 ft 4 in Intake Visit Reasons: 1 Y FU Allergies nitrofurantoin (From Macrobid) Allergy (Verified 09/18/23 10:04) Unknown Sulfa (Sulfonamide Antibiotics) Allergy (Verified 09/18/23 10:04) Hives wheat Allergy (Verified 09/18/23 10:04) Other Medications ???Medication ???Instructions ???Recorded ???Confirmed ???Type amitriptyline 25 mg tablet 25 mg PO QHS 10/13/19 09/14/24 His tory alprazolam 0.5 mg tablet (Xanax) 0.5 mg PO PRN PRN Anxiety 11/13/21 09/14/24 History meloxicam 15 mg tablet 15 mg PO PRN PRN Migraine Headache 11/13/21 09/14/24 History HRT pellet estradiol testosterone implant 12/24/21 09/14/24 History rizatriptan 5 mg tablet See Rx Instructions PO .COMPLEX 09/14/24 History PRN MIGRAINES rosuvastatin 5 mg tablet 5 mg PO QHS 05/02/22 09/14/24 Hist ory dicyclomine 20 mg tablet 20 mg PO TID PRN abdominal pain 09/14/24 Rx #90 tabs cholestyramine-aspart fozia 4 gram 4 g PO TID #1,134 grams 06/03/23 0 09/14/24 Rx oral powder (Cholestyramine Light) atenolol 50 mg tablet 50 mg PO DAILY 09/18/23 09/14/24 H istory losartan 50 mg tablet 50 mg PO BID 09/18/23 09/14/24 His tory colestipol 1 gram tablet 1 g PO .qid 90 days #360 tabs 02/0909/14/24 Rx hyoscyamine sulfate 0.125 mg tablet 0.125 mg PO BID-QID PRN 5 09/14/24 History PFSH Medical History Acute cholecystitis Anxiety Epigastric pain Gall bladder stones History of echocardiogram History of irregular heartbeat History of steroid therapy History of stress test Hyperlipidemia Migraines Pre-eclampsia Segmental and somatic dysfunction of cervical region Segmental and somatic dysfunction of lumbar region Segmental and somatic dysfunction of pelvic region Segmental and somatic dysfunction of thoracic region Smoker Thyroid disease Surgical History Hx of appendectomy Hx of hysterectomy, total Hx of wisdom tooth extraction S/P laparoscopic cholecystectomy ( 10/13/19) S/P LASIK surgery of both eyes Family History Mother Alcohol abuse Melanoma High cholesterol Bipolar 1 disorder Social History (Updated 07/01/23 @ 11:[address] Logan Bolton MD) household members: spouse Smoking Status: Current every day smoker tobacco type: cigarettes alcohol intake: current HPI HPI Details: WINSTON OSORIO, is a 49 F who presents to the office today for follow up. Prior workup ? Surgery 10.13.19 laparoscopic cholecystectomy ? US RUQ 2.2.22 normal liver; s/p cholecystectomy *BGI established .. with need for screening colonoscopy and difficulty with GERD (improved following cholecystectomy), nausea and constipation (BM every 2-3 days with incomplete evacuation). ? EGD and colonoscopy 05.07.22 EGD LA Grade A esophagitis; small hiatal hernia; bilious fluid of stomach; gastritis. Metaplasia, H.Pylori neg ? Colonoscopy congested mucosa. No path changes OV 05.21.22 with intermittent severe epigastric pain with loose stools. Start cholestyramine. ? Biochemical 05.21.22 LFT, gastrin, amylase, lipase without pertinent abnormality. ? Stool elastase WNL? total fats increased ? GET 06.13.22 33.60 minutes (12-56) Biochemical 07.10. ESR, CRP, GAME, MARK comp, ANCA, AMA, ASM, celiac without pertinent abnormality MRCP 12.7.22 without acute/chronic finding OV 12..22 improvement with start of cholestyramine. [place] prescribed for Sphincter of Oddi spasm. OV 6.9.23 Continue cholestyramine, start fiber. Stop hyoscyamine, start dicyclomine. OV 2.3.25 pt reports that her symptoms seem to be well managed. Pt reports that she has heartburn maybe once or twice every few months and that when she does get it, it'll happen a few days in a row. ROS Const Constitutional: Positive for fatigue; No fever(s) or weight change ENT ENT: No difficulty swallowing Gastro GI: Positive for heartburn; No abdominal pain, belching, bloating, change in bowel habits, change in stool character, coffee (more content not included)... Normal [facility] Thyroidon 06-28-2024 Thyroid [facility] Imaging Services [address] [place] [address] Thyroid MR#: [id number] Acct: [id number] Name: WINSTON OSORIO Rep #: [id number] : 1975 F 49 From: Mikey Wills MD PCP: Dr. Juan Daniel Rutherford DO Status: REG CLI Study: Thyroid Date of Exam: 06/28/24 Exam# [id number] Ordering Dr: Juan Daniel Rutherford DO [id number] STUDY: THYROID ULTRASOUND REASON FOR EXAM: Female, 49 years old. thyromegaly TECHNIQUE: Ultrasound evaluation of the thyroid was performed with real-time and static mckeon-scale imaging. COMPARISON: None. FINDINGS: RIGHT LOBE: The right lobe of the thyroid gland measures 4.6 x 1.5 x 1.5 cm. There is a homogeneous echotexture. There are no demonstrated solid, cystic or complex lesions. LEFT LOBE: The left lobe of the thyroid gland measures 4.8 x 1.7 x 1.4 cm. There is a homogeneous echotexture. Nodule 1:8 x 5 x 7 mm solid isoechoic wider than tall ill-defined margin nodule with no echogenic foci (TR 3) in the anterior left lobe consistent with an adenoma. Nodule 2:5 x 3 x 5 mm solid isoechoic wider than tall ill-defined margin nodule with no echogenic foci (TR 3) in the mid left lobe consistent with an adenoma. ISTHMUS: The isthmus measures 4 mm thick. . The regional lymph nodes are normal. US/Thyroid IMPRESSION: 2 small adenomas of the left lobe. Electronically Signed: Mikey Wills MD at 14:00 EST , CC: Dr. Juan Daniel Rutherford DO Plc Programmer: Signed Normal [facility] CT for calcium scoring WO co ntrast and CTA W contrast IV Heart and coronary arterieson 11-04-2023 1. Coronary artery calcium score of 0*. 2. Borderline splenomegaly. *Coronary artery calcium scoring may be helpful in predicting the risk for future coronary heart disease events. According to the [place] [employer] Clinical Expert Consensus Task Force, such testing provides important prognostic information in patients with more than one coronary heart disease risk factor. The coronary artery calcium score correlates with the annual risk of a non-fatal myocardial infarction or coronary heart disease . Coronary artery score Annual Risk 0-99 0.4% 100-399 1.3% >400 2.4% These three breakpoints correspond to lower, intermediate and high risk states for future coronary events. Such information should be used, along with appropriate clinical judgment, to make decisions regarding the intensity of risk factor management strategies to treat blood lipids and to modify other non-lipid coronary risk factors. Reference: Kennedy P et al. Circulation. 2007; 115:402-426 MACRO: None Signed by: Liang Celestin 11/04/2023 3:25 PM Dictation workstation: [id number] MMODAL Interpreted By: Liang Celestin, STUDY: CT CARDIAC SCORING WO IV CONTRAST; 11/03/2023 3:12 pm INDICATION: Signs/Symptoms:HYPERL IPIDEMIA. COMPARISON: None. ACCESSION NUMBER(S): [id number] ORDERING CLINICIAN: JUAN DANIEL RUTHERFORD TECHNIQUE: Using prospective ECG gating, limited CT scan of the chest for evaluation of coronary arteries was performed without intravenous contrast. Coronary calcium scoring was performed according to the method of Agatston. FINDINGS: The score and distribution of calcium in the coronary arteries is as follows: LM: 0. LAD: 0. LCx: 0. RCA: 0. Total: 0. The visualized segments of the lungs are normally expanded. The visualized mid/lower ascending thoracic aorta measures 3.5 cm in diameter. The heart is normal in size. Trace pericardial effusion is present. No gross evidence of mediastinal or hilar lymphadenopathy is identified. Borderline splenomegaly partially imaged. MMODAL Liang Celestin, DO - 11/04/2023 Interpreted By: Liang Celestin, STUDY: CT CARDIAC SCORING WO IV CONTRAST; 11/03/2023 3:12 pm INDICATION: Signs/Symptoms:HYPERL IPIDEMIA. COMPARISON: None. ACCESSION NUMBER(S): [id number] ORDERING CLINICIAN: JUAN DANIEL RUTHERFORD TECHNIQUE: Using prospective ECG gating, limited CT scan of the chest for evaluation of coronary arteries was performed without intravenous contrast. Coronary calcium scoring was performed according to the method of Agatston. FINDINGS: The score and distribution of calcium in the coronary arteries is as follows: LM: 0. LAD: 0. LCx: 0. RCA: 0. Total: 0. The visualized segments of the lungs are normally expanded. The visualized mid/lower ascending thoracic aorta measures 3.5 cm in diameter. The heart is normal in size. Trace pericardial effusion is present. No gross evidence of mediastinal or hilar lymphadenopathy is identified. Borderline splenomegaly partially imaged. IMPRESSION: 1. Coronary artery calcium score of 0*. 2. Borderline splenomegaly. *Coronary artery calcium scoring may be helpful in predicting the risk for future coronary heart disease events. According to the [place] [employer] Clinical Expert Consensus Task Force, such testing provides important prognostic information in patients with more than one coronary heart disease risk factor. The coronary artery calcium score correlates with the annual risk of a non-fatal myocardial infarction or coronary heart disease . Coronary artery score Annual Risk 0-99 0.4% 100-399 1.3% >400 2.4% These three breakpoints correspond to lower, intermediate and high risk states for future coronary events. Such information should be used, along with appropriate clinical judgment, to make decisions regarding the intensity of risk factor management strategies to treat blood lipids and to modify other non-lipid coronary risk factors. Reference: Kennedy P et al. Circulation. 2007; 115:402-426 MACRO: None Signed by: Liang Celestin 11/04/2023 3:25 PM Dictation workstation: [id number] [facility] Work Phone: CT for calcium scoring WO co ntrast and CTA W contrast IV Heart and coronary arteriesOrdered By: Liang Celestin on 11-04-2023 [facility] Work Phone: CT CARDIAC SCORING WO IV CON TRASTon 11-03-2023 CT CARDIAC SCORING WO IV CONTRAST Interpreted By: Liang Celestin, STUDY: CT CARDIAC SCORING WO IV CONTRAST; 11/03/2023 3:12 pm INDICATION: Signs/Symptoms:HYPERL IPIDEMIA. COMPARISON: None. ACCESSION NUMBER(S): [id number] ORDERING CLINICIAN: JUAN DANIEL RUTHERFORD TECHNIQUE: Using prospective ECG gating, limited CT scan of the chest for evaluation of coronary arteries was performed without intravenous contrast. Coronary calcium scoring was performed according to the method of Agatston. FINDINGS: The score and distribution of calcium in the coronary arteries is as follows: LM: 0. LAD: 0. LCx: 0. RCA: 0. Total: 0. The visualized segments of the lungs are normally expanded. The visualized mid/lower ascending thoracic aorta measures 3.5 cm in diameter. The heart is normal in size. Trace pericardial effusion is present. No gross evidence of mediastinal or hilar lymphadenopathy is identified. Borderline splenomegaly partially imaged. IMPRESSION: 1. Coronary artery calcium score of 0*. 2. Borderline splenomegaly. *Coronary artery calcium scoring may be helpful in predicting the risk for future coronary heart disease events. According to the [place] [employer] Clinical Expert Consensus Task Force, such testing provides important prognostic information in patients with more than one coronary heart disease risk factor. The coronary artery calcium score correlates with the annual risk of a non-fatal myocardial infarction or coronary heart disease . Coronary artery score Annual Risk 0-99 0.4% 100-399 1.3% >400 2.4% These three breakpoints correspond to lower, intermediate and high risk states for future coronary events. Such information should be used, along with appropriate clinical judgment, to make decisions regarding the intensity of risk factor management strategies to treat blood lipids and to modify other non-lipid coronary risk factors. Reference: Kennedy P et al. Circulation. 2007; 115:402-426 MACRO: None Signed by: Liang Celestin 11/04/2023 3:25 PM Dictation workstation: [id number] [facility] CT for calcium scoring WO co ntrast and CTA W contrast IV Heart and coronary arterieson 11-03-2023 Radiology Study observation (narrative) [facility] Work Phone: Absolute lymphocyte countOrd ered By: Logan Bolton on 07-01-2023 Lymphocytes Auto (Unsp spec) [#/Vol] 1.60 10*3/uL 0.83-4.51 [facility] Basophil percentageOrdered B y: Logan Bolton on 07-01-2023 Basophils/100 WBC (Bld) 0.6 % 0-1 [facility] Chloride [Moles/Vol] 110 mmol/L 98-107 [facility] Eosinophils/100 WBC (Bld) 2.7 % 0-5 [facility] Glucose [Mass/Vol] 122 mg/dL 74-106 [facility] Comment on above: Fasting Glucose resu lt from 100 to 125 mg/dL suggests IMPAIRED HOMEOSTASIS per A.D.A. criteria. Neutrophils (Bld) [#/Vol] 5.8 10*3/uL 2.0-7.7 [facility] Neutrophils/100 WBC (Bld) 71.0 % 47-70 [facility] Potassium [Moles/Vol] 4.1 mmol/L 3.5-5.1 [facility] Sodium [Moles/Vol] 141 mmol/L 136-145 [facility] WBC (Bld) [#/Vol] 8.2 10*3/uL 4.4-11.0 [facility] Blood erythrocytes count (nu mber/volume)Ordered By: Logan Bolton on 07-01-2023 RBC (Bld) [#/Vol] 4.70 10*6/uL 4.2-5.4 [facility] Blood hemoglobin measurement (mass/volume)Ordered By: Logan Bolton on 07-01-2023 Hemoglobin (Bld) [Mass/Vol] 14.7 g/dL 12.0-15.0 [facility] Blood lymphocytes/100 leukoc ytesOrdered By: Logan Bolton on 07-01-2023 Lymphocytes/100 WBC (Bld) 19.6 % 19-41 [facility] Blood monocytes/100 leukocyt esOrdered By: Logankatlin Bolton on 07-01-2023 Monocytes/100 WBC (Bld) 5.9 % 0-10 [facility] Blood platelet mean volumeOr dered By: Logan Bolton on 07-01-2023 Platelet mean volume (Bld) [Entitic vol] 9.7 fL 6.2-12.0 [facility] Determination of erythrocyte mean corpuscular volume (MCV)Ordered By: Logan Bolton on 07-01-2023 MCV (RBC) [Entitic vol] 92.8 fL 81-99 [facility] Hematocrit Auto (Bld) [Volum e fraction]Ordered By: [facility] on 07-01-2023 Hematocrit (Bld) [Volume fraction] 43.6 % 37-47 [facility] Laboratory - Chemistry and C hemistry - challengeOrdered By: [facility] on 07-01-2023 CO2 [Moles/Vol] 29.0 mmol/L 21.0-32.0 [facility] Urea nitrogen/Creatinine [Mass ratio] 11.7 mg/mg 10-20 [facility] Laboratory - Hematology and Cell countsOrdered By: [facility] on 07-01-2023 Erythrocyte distribution width (RBC) [Entitic vol] 40.5 fL 35.1-43.9 [facility] Erythrocyte distribution width (RBC) [Ratio] 11.9 % 11.6-14.6 [facility] Immature granulocytes/100 WBC (Bld) 0.200 % 0.0-0.9 [facility] Comment on above: IG% - Immature Granu locytes (promyelocytes, myelocytes and metamyelocytes) > 1% indicates that a LEFT SHIFT is Present. MCH (RBC) [Entitic mass] 31.3 pg 27.0-32.0 [facility] Nucleated RBC/100 WBC (Bld) [Ratio] 0 % 0-5 [facility] MCHC Auto (RBC) [Mass/Vol]Or dered By: [facility] on 07-01-2023 MCHC (RBC) [Mass/Vol] 33.7 g/dL 32-36 [facility] No Panel InformationOrdered By: [facility] on 07-01-2023 Troponin I High Sensitivity 16 pg/mL 3.0-54.0 [facility] Comment on above: Please Note: New Rachelle t Units and Gender Specific Reference Ranges. For more information see Policy Stat Procedure Dowling High Sensitivity Troponin (TNIH) and attachments. D-Dimer Quantitative (PE/DVT) < 0.27 FEU/ug/m 0.27-0.49 [facility] Comment on above: NORMAL D-Dimer level (<0.50) indicates no DVT or PE. Estimated Creatinine Clearance Calc 69.83 ml/min [facility] Estimated GFR (MDRD) Amer 92 mL/min >60 [facility] Comment on above: GFR Calc Estimated GFR (MDRD) Non-Af Amer 76 mL/min >60 [facility] Comment on above: Non- GFR Calc Platelets bldOrdered By: Logan Bolton on 07-01-2023 Platelets (Bld) [#/Vol] 291 10*3/uL 150-450 [facility] Serum or plasma calcium nicholas urement (mass/volume)Ordered By: Logan Bolton on 07-01-2023 Calcium [Mass/Vol] 9.4 mg/dL 8.5-10.1 [facility] Serum or plasma creatinine m easurement (mass/volume)Ordered By: Logankatlin Bolton on 07-01-2023 Creatinine [Mass/Vol] 0.86 mg/dL 0.55-1.02 [facility] Comment on above: The validity of the calculated GFR & GFRAA in patients over 70 years has not been determined. Clinical correlation is essential. Serum or plasma urea nitroge n measurement (mass/volume)Ordered By: Logan Bolton on 07-01-2023 Urea nitrogen [Mass/Vol] 10 mg/dL 7-18 [facility] Thin prep Papanicolaou smear with manual screeningOrdered By: Logankatlin Bolton on 07-01-2023 Thin prep Papanicolaou smear with manual screening 2 5-15 [facility] No Panel InformationOrdered By: Juan Daniel Rutherford on 06-30-2023 Troponin I High Sensitivity 17 pg/mL 3.0-54.0 [facility] Comment on above: Please Note: New Rachelle t Units and Gender Specific Reference Ranges. For more information see Policy Stat Procedure Dowling High Sensitivity Troponin (TNIH) and attachments. Atypical perinuclear antineu trophil cytoplasmic antibodies measurementon 07-10-2022 Neutrophil cytoplasmic Ab.perinuclear.atypica l IF (S) [Titer] <1:20 titer Neg:<1:20 [facility] Work Phone: Comment on above: The atypical pANCA p attern has been observed in asignificant percentage of patients with ulcerative colitis,primary sclerosing cholangitis and autoimmune hepatitis. Basophil percentageon 2021 Basophil percentage < 0.2 AI 0.0-0.9 [facility] Work Phone: Erythrocyte sedimentation ra melina 07-10-2022 ESR (Bld) [Velocity] 2 mm/h 0-[address] [facility] Work Phone: No Panel Informationon 07-10 Centromere B Antibody 0.3 AI 0.0-0.9 [facility] Work Phone: Endomysial IgA Antibody Negative Negative [facility] Work Phone: Immunoglobulin E 6 IU/mL 6-495 [facility] Work Phone: STEM ROLLER OR CRUSHER OPERATOR Antibody 0.7 AI 0.0-0.9 [facility] Work Phone: Serum DNA double strand anti body assay (units/volume)on 07-10-2022 DNA double strand Ab Qn (S) [IU]/mL 0-9 [facility] Work Phone: Comment on above: Negative <5 Equivoca l 5 - 9 Positive >9 Serum Karla-1 antibody assay (u nits/volume)on 07-10-2022 Karla-1 extractable nuclear Ab Qn (S) <0.2 AI 0.0-0.9 [facility] Work Phone: Serum Scl-70 extractable nuc lear antibody assay (units/volume)on 07-10-2022 SCL-70 extractable nuclear Ab Qn (S) <0.2 AI 0.0-0.9 [facility] Work Phone: Serum Griffith extractable nucl ear antibody detectionon 07-10-2022 Griffith extractable nuclear Ab Ql (S) <0.2 AI 0.0-0.9 [facility] Work Phone: Serum classic neutrophil cyt oplasmic antibody assay (units/volume)on 07-10-2022 Neutrophil cytoplasmic Ab.classic Qn (S) <1:20 titer Neg:<1:20 [facility] Work Phone: Serum mitochondria antibody detectionon 07-10-2022 Mitochondria Ab Ql (S) <20.0 Units 0.0-20.0 [facility] Work Phone: Comment on above: Negative 0.0 - 20.0 Equivocal 20.1 - 24.9 Positive >24.9Mitochondrial (M2) Antibodies are found in 90-96% ofpatients with primary biliary cirrhosis.Performed at: [facility] [address] [id number] Director: Chau Gómez PhD, Phone: [phone] Serum or plasma C reactive p rotein measurement (mass/volume)on 07-10-2022 CRP [Mass/Vol] mg/L 0.0-3.0 [facility] Work Phone: Comment on above: C-Reactive Protein ( CRP) provides useful information for thediagnosis, therapy and monitoring of inflammatory processesand associated diseases. For the evaluation of Relative Riskfor Cardiovascular Disease, a High Sensitivity CRP (HSCRP)should be ordered. Serum or plasma IgA measurem ent (mass/volume)on 07-10-2022 IgA [Mass/Vol] 88 mg/dL 87-352 [facility] Work Phone: Serum or plasma IgG measurem ent (mass/volume)on 07-10-2022 IgG [Mass/Vol] 869 mg/dL 586-1602 [facility] Work Phone: Serum or plasma IgM measurem ent (mass/volume)on 07-10-2022 IgM [Mass/Vol] 88 mg/dL 26-217 [facility] Work Phone: Serum or plasma actin IgG an tibody assay (units/volume)on 07-10-2022 Actin IgG Qn 13 Units 0-19 [facility] Work Phone: Comment on above: Negative 0 - 19 Weak positive 20 - 30 Moderate to strong positive >30 Actin Antibodies are found in 52-85% of patients with autoimmune hepatitis or chronic active hepatitis and in 22% of patients with primary biliary cirrhosis.Performed at: [facility] [address] [id number] Director: Chau Gómez PhD, Phone: [phone] at: [address] [id number] Director: Ever Rodríguez MD, Phone: [phone] Serum perinuclear neutrophil cytoplasmic antibody titer by immunofluorescenceon 07-10-2022 Neutrophil cytoplasmic Ab.perinuclear IF (S) [Titer] <1:20 titer Neg:<1:20 [facility] Work Phone: Comment on above: The presence of posi tive fluorescence exhibiting P-ANCA orC-ANCA patterns alone is not specific for the diagnosis ofWegener's Granulomatosis (WG) or microscopic polyangiitis.Decisions about treatment should not be based solely onANCA IFA results. The International ANCA Group Consensusrecommends follow up testing of positive sera with both NE-3 and MPO-ANCA enzyme immunoassays. As many as 5% serumsamples are positive only by EIA. Ref. AM J Clin Quschq0723;111:507-513. Serum tissue transglutaminas e IgA antibody assay (units/volume)on 07-10-2022 tTG IgA Qn (S) <2 U/mL 0-3 [facility] Work Phone: Comment on above: Negative 0 - 3 Weak Positive 4 - 10 Positive >10 Tissue Transglutaminase (tTG) has been identified as the endomysial antigen. Studies have demonstr- ated that endomysial IgA antibodies have over 99% specificity for gluten sensitive enteropathy. No Panel Informationon 05-31 Stool Neutral Fats Normal . [facility] Work Phone: Comment on above: Normal (<60 Droplets /HPF) Stool Pancreatic Elastase 384 >200 [facility] Work Phone: Comment on above: Result Units: ug Rissa st./g Severe Pancreatic Insufficiency: <100 Moderate Pancreatic Insufficiency: 100 - 200 Normal: >200Performed at: - [facility] [id number] Director: Ever Rodríguez MD, Phone: [phone] Qualitative fecal fat or lip idson 05-31-2022 Fat Ql (Stl) Increased . [facility] Work Phone: Comment on above: Normal (<100 Droplet s/HPF)Performed at: - [facility] [address] [id number] Director: Chau Gómez PhD, Phone: [phone] LIPID PANEL ([id number])Ordered B y: Correctional Medicine Physician on 05-28-2022 Cholesterol [Mass/Vol] 154 mg/dL Normal 100-199 [facility]; [facility] Work Phone: Comment on above: PATIENT WAS FASTINGP ERFORMED BY: CB [facility] [id number]Dublin [place] [id number]; appt today Cholesterol in HDL [Mass/Vol] 36 mg/dL Abnormal [facility]; [facility] Work Phone: Comment on above: PATIENT WAS FASTINGP ERFORMED BY: CB [facility] Nnedca9412 [address]Dublin [place] [id number]; appt today Triglyceride [Mass/Vol] 185 mg/dL Abnormal 0-149 [facility]; [facility] Work Phone: Comment on above: PATIENT WAS FASTINGP ERFORMED BY: CB [facility] Deecmj9798 [address]Dublin [place] [id number]; appt today LIPID PANEL ([id number]) 32 mg/dL Normal 5-40 Compr ens[facility]; [facility] Work Phone: Comment on above: PATIENT WAS FASTINGP ERFORMED BY: CB [facility] [id number]Dublin [place] [id number]; appt today LIPID PANEL ([id number]) 86 mg/dL Normal 0-99 [facility] ens[facility]; [facility] Work Phone: Comment on above: PATIENT WAS FASTINGP ERFORMED BY: CB [facility] Fdpzuh3065 [address]Dublin [place] [id number]; appt today LIPID PANEL ([id number]) 2.4 {ratio} Normal 0.0-3.2 [facility]; [facility] Work Phone: Comment on above: LDL/HDL Ratio Men Wo men 1/2 Avg.Risk 1.0 1.5 Avg.Risk 3.6 3.2 2X Avg.Risk 6.2 5.0 3X Avg.Risk 8.0 6.1 PATIENT WAS FASTINGP ERFORMED BY: CB [facility] [id number] [address]Dublin [place] [id number]; appt today METABOLIC PANEL, COMPREHENSI VE ([id number])Ordered By: Correctional Medicine Physician on 05-28-2022 Albumin [Mass/Vol] 4.8 g/dL Normal 3.8-4.[address] [facility]; [facility] Work Phone: Comment on above: PATIENT WAS FASTINGP ERFORMED BY: CB [facility] Gevmsl5581 [address]Dublin [place] [id number] Albumin/Globulin [Mass ratio] 2.2 {ratio} Normal 1.2-2.2 [facility]; [facility] Work Phone: Comment on above: PATIENT WAS FASTINGP ERFORMED BY: CB [facility] [id number] [address]Dublin [place] [id number] ALP [Catalytic activity/Vol] 54 U/L Normal 44-121 [facility]; [facility] Work Phone: Comment on above: PATIENT WAS FASTINGP ERFORMED BY: CB [facility] [id number] [address]Dublin [place] [id number] ALT [Catalytic activity/Vol] 17 U/L Normal 0-32 [facility]; [facility] Work Phone: Comment on above: PATIENT WAS FASTINGP ERFORMED BY: CB [facility] [id number] [address]Dublin [place] [id number] AST [Catalytic activity/Vol] 18 U/L Normal 0-40 [facility]; [facility] Work Phone: Comment on above: PATIENT WAS FASTINGP ERFORMED BY: CB [facility] [id number] [address]Dublin [place] [id number] Bilirubin [Mass/Vol] 0.4 mg/dL Normal 0.0-1.2 [facility]; [facility] Work Phone: Comment on above: PATIENT WAS FASTINGP ERFORMED BY: CB [facility] [id number] [address]Dublin [place] [id number] Calcium [Mass/Vol] 9.3 mg/dL Normal 8.7-10.2 Compre hensive [facility]; [facility] Work Phone: Comment on above: PATIENT WAS FASTINGP ERFORMED BY: KAREN [facility] [id number] [address]Dublin [place] [id number] Chloride [Moles/Vol] 102 mmol/L Normal 96-106 [facility] rehensive Internal Medicine; [facility] Work Phone: Comment on above: PATIENT WAS FASTINGP ERFORMED BY: CB [facility] [id number] [address]Dublin [place] [id number] CO2 [Moles/Vol] 26 mmol/L Normal 20-29 [facility] Internal [facility]; [facility] Work Phone: Comment on above: PATIENT WAS FASTINGP ERFORMED BY: KAREN [facility] [id number] [address]Dublin [place] [id number] Creatinine [Mass/Vol] 1.01 mg/dL Abnormal 0.57-1.00 [facility] Work Phone: Comment on above: PATIENT WAS FASTINGP ERFORMED BY: KAREN [facility] [id number] [address]Dublin [place] [id number] GFR/1.73 sq M.predicted among non-blacks MDRD (S/P/Bld) [Vol rate/Area] 70 mL/min/{1.73_m2} Normal Comprehensiv e [facility]; [facility] Work Phone: Comment on above: PATIENT WAS FASTINGP ERFORMED BY: KAREN [facility] [id number] [address]Dublin [place] [id number] Globulin (S) [Mass/Vol] 2.2 g/dL Normal 1.5-4.5 [facility]; [facility] Work Phone: Comment on above: PATIENT WAS FASTINGP ERFORMED BY: KAREN [facility] [id number] [address]Dublin [place] [id number] Glucose [Mass/Vol] 97 mg/dL Normal 70-99 [facility]; [facility] Work Phone: Comment on above: PATIENT WAS FASTINGP ERFORMED BY: KAREN [facility] [id number] [address]Dublin [place] [id number] Potassium [Moles/Vol] 4.4 mmol/L Normal 3.5-5.2 [facility]; [facility] Work Phone: Comment on above: PATIENT WAS FASTINGP ERFORMED BY: KAREN [facility] [id number] [facility] [id number] Protein [Mass/Vol] 7.0 g/dL Normal 6.0-8.[address] [facility] Internal [facility]; [facility] Work Phone: Comment on above: PATIENT WAS FASTINGP ERFORMED BY: [facility]6370 [facility] [id number] Sodium [Moles/Vol] 139 mmol/L Normal 134-[address] [facility]; [facility] Work Phone: Comment on above: PATIENT WAS FASTINGP ERFORMED BY: [facility] [id number] [facility] [id number] Urea nitrogen [Mass/Vol] 13 mg/dL Normal 6-24 [facility]; [facility] Work Phone: Comment on above: PATIENT WAS FASTINGP ERFORMED BY: [facility] Hyaxpt4768 [facility] [id number] Urea nitrogen/Creatinine [Mass ratio] 13 mg/mg Normal 9-23 [facility] Internal [facility]; [facility] Work Phone: Comment on above: PATIENT WAS FASTINGP ERFORMED BY: [facility]6370 [facility] [id number] Basophil percentageon 2021 Amylase [Catalytic activity/Vol] 56 U/L 25-115 [facility] Work Phone: Bilirubin [Mass/Vol] 0.60 mg/dL 0.20-1.00 [facility] Work Phone: Comment on above: For patients on eltr ombopag therapy, use of Dimension Dowling TBIL is not recommended. Protein [Mass/Vol] 7.7 g/dL 6.4-8.2 [facility] Work Phone: Direct bilirubinon 2 Bilirubin.direct [Mass/Vol] 0.12 mg/dL 0.00-0.30 [facility] Work Phone: Laboratory - Chemistry and C hemistry - challengeon 05-21-2022 ALP [Catalytic activity/Vol] 52 U/L 45-117 [facility] Work Phone: ALT [Catalytic activity/Vol] 32 U/L 13-56 [facility] Work Phone: Globulin (S) [Mass/Vol] 3.6 g/dL 2.2-4.2 [facility] Work Phone: Lipase [Catalytic activity/Vol] 109 U/L 73-393 [facility] Work Phone: Serum or plasma albumin nicholas urement (mass/volume)on 05-21-2022 Albumin [Mass/Vol] 4.1 g/dL 3.2-5.0 [facility] r [facility] Work Phone: Thin prep Papanicolaou smear with manual screeningon 05-21-2022 Thin prep Papanicolaou smear with manual screening 20 U/L 15-37 [facility] Work Phone: Absolute lymphocyte counton 01-23-2022 Lymphocytes Auto (Unsp spec) [#/Vol] 1.86 10*3/uL 0.83-4.51 [facility] Work Phone: Basophil percentageon 2021 Basophils/100 WBC (Bld) 0.8 % 0-1 [facility] Work Phone: Bilirubin [Mass/Vol] 0.40 mg/dL 0.20-1.00 [facility] Work Phone: Comment on above: For patients on eltr ombopag therapy, use of Dimension Dowling TBIL is not recommended. Chloride [Moles/Vol] 104 mmol/L 98-107 [facility] Work Phone: Cholesterol [Mass/Vol] 292 mg/dL <200 [facility] Work Phone: Comment on above: <200 mg/dL Desirable 200-240 mg/dL Borderline >240 mg/dL High Risk Eosinophils/100 WBC (Bld) 4.4 % 0-5 [facility] Work Phone: Glucose [Mass/Vol] 89 mg/dL 74-106 [facility] Work Phone: Neutrophils (Bld) [#/Vol] 3.3 10*3/uL 2.0-7.7 [facility] Work Phone: Neutrophils/100 WBC (Bld) 56.4 % 47-70 [facility] Work Phone: Potassium [Moles/Vol] 3.9 mmol/L 3.5-5.1 [facility] Work Phone: Protein [Mass/Vol] 7.4 g/dL 6.4-8.2 [facility] Work Phone: Sodium [Moles/Vol] 138 mmol/L 136-145 [facility] Work Phone: Triglyceride [Mass/Vol] 155 mg/dL <199 [facility] Work Phone: Comment on above: The drugs N-Acetylcy steine and Metamizole may falsely depress this assay.Serum Triglycerides Reference Interval Normal <150 mg/dL Borderline high 150 - 199 mg/dL High 200 - 499 mg/dL Very High > or = 500 mg/dL WBC (Bld) [#/Vol] 5.9 10*3/uL 4.4-11.0 [facility] Work Phone: Blood erythrocytes count (nu mber/volume)on 01-23-2022 RBC (Bld) [#/Vol] 4.61 10*6/uL 4.2-5.4 [facility] Work Phone: Blood hemoglobin measurement (mass/volume)on 01-23-2022 Hemoglobin (Bld) [Mass/Vol] 14.2 g/dL 12.0-15.0 [facility] Work Phone: Blood lymphocytes/100 leukoc yteson 01-23-2022 Lymphocytes/100 WBC (Bld) 31.5 % 19-41 [facility] Work Phone: Blood monocytes/100 leukocyt eson 01-23-2022 Monocytes/100 WBC (Bld) 6.6 % 0-10 [facility] Work Phone: Blood platelet mean volumeon 01-23-2022 Platelet mean volume (Bld) [Entitic vol] 10.7 fL 6.2-12.0 [facility] Work Phone: Determination of erythrocyte mean corpuscular volume (MCV)on 01-23-2022 MCV (RBC) [Entitic vol] 90.9 fL 81-99 [facility] Work Phone: Hematocrit Auto (Bld) [Volum e fraction]on 01-23-2022 Hematocrit (Bld) [Volume fraction] 41.9 % 37-47 [facility] Work Phone: Laboratory - Chemistry and C hemistry - challengeon 01-23-2022 ALP [Catalytic activity/Vol] 54 U/L 45-117 [facility] Work Phone: ALT [Catalytic activity/Vol] 27 U/L 13-56 [facility] Work Phone: CO2 [Moles/Vol] 26.0 mmol/L 21.0-32.0 [facility] Work Phone: Globulin (S) [Mass/Vol] 3.2 g/dL 2.2-4.2 [facility] Work Phone: Urea nitrogen/Creatinine [Mass ratio] 17.1 mg/mg 10-20 [facility] Work Phone: Laboratory - Hematology and Cell countson 01-23-2022 Erythrocyte distribution width (RBC) [Entitic vol] 40.0 fL 35.1-43.9 [facility] Work Phone: Erythrocyte distribution width (RBC) [Ratio] 12.1 % 11.6-14.6 [facility] Work Phone: Immature granulocytes/100 WBC (Bld) 0.300 % 0.0-0.9 [facility] Work Phone: Comment on above: IG% - Immature Granu locytes (promyelocytes, myelocytes and metamyelocytes) > 1% indicates that a LEFT SHIFT is Present. MCH (RBC) [Entitic mass] 30.8 pg 27.0-32.0 [facility] Work Phone: Nucleated RBC/100 WBC (Bld) [Ratio] 0 % 0-5 [facility] Work Phone: MCHC Auto (RBC) [Mass/Vol]on 01-23-2022 MCHC (RBC) [Mass/Vol] 33.9 g/dL 32-36 [facility] Work Phone: No Panel Informationon 01-23 Estimated GFR (MDRD) Amer 83 mL/min >60 [facility] Work Phone: Comment on above: GFR Calc Estimated GFR (MDRD) Non-Af Amer 69 mL/min >60 [facility] Work Phone: Comment on above: Non- GFR Calc Platelets bldon 01-23-2022 Platelets (Bld) [#/Vol] 265 10*3/uL 150-450 [facility] Work Phone: Serum or plasma albumin nicholas urement (mass/volume)on 01-23-2022 Albumin [Mass/Vol] 4.2 g/dL 3.2-5.0 [facility] Work Phone: Serum or plasma albumin/glob ulin mass ratioon 01-23-2022 Albumin/Globulin [Mass ratio] 1.3 {ratio} 0.9-2.4 [facility] Work Phone: Serum or plasma calcium nicholas urement (mass/volume)on 01-23-2022 Calcium [Mass/Vol] 9.0 mg/dL 8.5-10.1 [facility] Work Phone: Serum or plasma cholesterol in HDL measurement (mass/volume)on 01-23-2022 Cholesterol in HDL [Mass/Vol] 36 mg/dL >40 [facility] Work Phone: Comment on above: The drugs N-Acetylcy steine and Metamizole may falsely depress this assay. Reference Range HDL <40 mg/dL Low HDL Cholesterol HDL >or= 60 mg/dL High HDL Cholesterol Serum or plasma cholesterol in VLDL measurement (mass/volume)on 01-23-2022 Cholesterol in VLDL [Mass/Vol] 31 mg/dL 5-40 [facility] Work Phone: Serum or plasma creatinine m easurement (mass/volume)on 01-23-2022 Creatinine [Mass/Vol] 0.93 mg/dL 0.55-1.02 [facility] Work Phone: Comment on above: The validity of the calculated GFR & GFRAA in patients over 70 years has not been determined. Clinical correlation is essential. Serum or plasma low density lipoprotein (LDL) cholesterol measurement (mass/volume)on 01-23-2022 Cholesterol in LDL [Mass/Vol] 225 mg/dL 0-130 [facility] Work Phone: Serum or plasma urea nitroge n measurement (mass/volume)on 01-23-2022 Urea nitrogen [Mass/Vol] 16 mg/dL 7-18 [facility] Work Phone: Thin prep Papanicolaou smear with manual screeningon 01-23-2022 Thin prep Papanicolaou smear with manual screening 20 U/L 15-37 [facility] Work Phone: Thin prep Papanicolaou smear with manual screening 8 5-15 [facility] Work Phone: LIPASE ([id number])Ordered By: Sy stem Material Planner on 10-02-2021 Lipase [Catalytic activity/Vol] 30 U/L Normal 14-72 [facility]; [facility] Work Phone: Comment on above: PATIENT NOT FASTINGP ERFORMED BY: [facility] [id number] [facility] [id number] METABOLIC PANEL, COMPREHENSI VE ([id number])Ordered By: Correctional Medicine Physician on 10-02-2021 Albumin [Mass/Vol] 4.7 g/dL Normal 3.8-4.[address] [facility]; [facility] Work Phone: Comment on above: PATIENT NOT FASTINGP ERFORMED BY: CB [facility] [id number] [address]Dublin [place] [id number] Albumin/Globulin [Mass ratio] 2.1 {ratio} Normal 1.2-2.2 [facility]; [facility] Work Phone: Comment on above: PATIENT NOT FASTINGP ERFORMED BY: CB [facility] [id number] [address]Dublin [place] [id number] ALP [Catalytic activity/Vol] 58 U/L Normal 44-121 [facility]; [facility] Work Phone: Comment on above: PATIENT NOT FASTINGP ERFORMED BY: CB [facility] [id number] [address]Dublin [place] [id number] ALT [Catalytic activity/Vol] 23 U/L Normal 0-32 [facility]; [facility] Work Phone: Comment on above: PATIENT NOT FASTINGP ERFORMED BY: CB [facility] [id number] [address]Dublin [place] [id number] AST [Catalytic activity/Vol] 22 U/L Normal 0-40 [facility]; [facility] Work Phone: Comment on above: PATIENT NOT FASTINGP ERFORMED BY: CB [facility] [id number] [address] [place] [id number] Bilirubin [Mass/Vol] 0.3 mg/dL Normal 0.0-1.2 [facility]; [facility] Work Phone: Comment on above: PATIENT NOT FASTINGP ERFORMED BY: CB [facility] [id number] [address]Dublin [place] [id number] Calcium [Mass/Vol] 9.1 mg/dL Normal 8.7-10.[address] [facility]; [facility] Work Phone: Comment on above: PATIENT NOT FASTINGP ERFORMED BY: CB [facility] [id number] [address]Dublin [place] [id number] Chloride [Moles/Vol] 103 mmol/L Normal 96-106 Comp rehensive [facility]; [facility] Work Phone: Comment on above: PATIENT NOT FASTINGP ERFORMED BY: KAREN [id number] [facility] [id number] CO2 [Moles/Vol] 22 mmol/L Normal 20-29 [facility] Internal Medicine; [facility] Work Phone: Comment on above: PATIENT NOT FASTINGP ERFORMED BY: KAREN Carranza [id number] [facility] [id number] Creatinine [Mass/Vol] 0.88 mg/dL Normal 0.57-1.00 [facility] prehensive Internal Medicine; [facility] Work Phone: Comment on above: Effective October 08, 2021 [facility] will begin reporting the 2020 CKD-EPI creatinine equation that estimates kidney function without a race variable. PATIENT NOT FASTINGP ERFORMED BY: Dillon [id number] [facility] [id number] GFR/1.73 sq M.predicted among blacks CKD-EPI (S/P/Bld) [Vol rate/Area] 92 mL/min/1.73 Normal [facility]; [facility] Work Phone: Comment on above: In accordance with recommendations from the NKF-ASN Task force, [facility] is in the process of updating its eGFR calculation to the 2020 CKD-EPI creatinine equation that estimates kidney function without a race variable. PATIENT NOT FASTINGP ERFORMED BY: [facility]Health[facility] [id number] [facility] [id number] GFR/1.73 sq M.predicted among non-blacks CKD-EPI (S/P/Bld) [Vol rate/Area] 80 mL/min/1.73 Normal [facility]; [facility] Work Phone: Comment on above: PATIENT NOT FASTINGP ERFORMED BY: KAREN Carranza [id number] [facility] [id number] Globulin (S) [Mass/Vol] 2.2 g/dL Normal 1.5-4.5 [facility]; [facility] Work Phone: Comment on above: PATIENT NOT FASTINGP ERFORMED BY: KAREN [facility] [id number] [address]Dublin [place] [id number] Glucose [Mass/Vol] 97 mg/dL Normal 65-[address] [facility] Internal Medicine; [facility] Work Phone: Comment on above: PATIENT NOT FASTINGP ERFORMED BY: CB [facility] [id number] [address]Dublin [place] [id number] Potassium [Moles/Vol] 4.2 mmol/L Normal 3.5-5.2 [facility] Internal Medicine; [facility] Work Phone: Comment on above: PATIENT NOT FASTINGP ERFORMED BY: KAREN [facility] [id number] [address] RoadDublin [place] [id number] Protein [Mass/Vol] 6.9 g/dL Normal 6.0-8.[address] [facility] Internal Medicine; [facility] Work Phone: Comment on above: PATIENT NOT FASTINGP ERFORMED BY: CB [facility] [id number] [address] RoadDublin [place] [id number] Sodium [Moles/Vol] 139 mmol/L Normal 134-[address] [facility] Internal Medicine; [facility] Work Phone: Comment on above: PATIENT NOT FASTINGP ERFORMED BY: KAREN [facility] [id number] [address] RoadDublin [place] [id number] Urea nitrogen [Mass/Vol] 13 mg/dL Normal 6-24 [facility]; [facility] Work Phone: Comment on above: PATIENT NOT FASTINGP ERFORMED BY: CB [facility] [id number] [address]Dublin [place] [id number] Urea nitrogen/Creatinine [Mass ratio] 15 mg/mg Normal 9-23 [facility]; [facility] Work Phone: Comment on above: PATIENT NOT FASTINGP ERFORMED BY: KAREN [facility] [id number] [address]Dublin [place] [id number] Office Visit: Spine Visit- R sided hip painon 06-09-2017 Documentation of current medications (procedure) Done Invalid Interpretation Code [facility] Work Phone: Documentation of current medications (procedure) T Invalid Interpretation Code [facility] Work Phone: Office Visit: Spine Visit- N JEROMEon 06-02-2017 Alcoholism counseling (procedure) no Invalid Interpretation Code [facility] Work Phone: Tobacco use CPHS Former smoker Invalid Interpretation Code [facility] Work Phone: Vital Signs Date Time Vital Sign Value Performing Clinician Facility 11-14-2024 19:11-0400 Body height 162.[address] Juan Daniel Rutherford DO Work Phone: [facility] 11-14-2024 19:11-0400 Body mass index (BMI) [Ratio] 29.2 kg/m2 Dr. Juan Daniel Rutherford DO Work Phone: [facility] 11-14-2024 19:11-0400 Body temperature 97.5 [degF] Dr. Juan Daniel Rutherford DO Work Phone: [facility] 11-14-2024 19:11-0400 Body weight 77.[address] Juan Daniel Rutherford DO Work Phone: [facility] 11-14-2024 19:11-0400 Diastolic blood pressure 91 mm[Hg] Dr. Juan Daniel Rutherford DO Work Phone: [facility] 11-14-2024 19:11-0400 Heart rate 74 /min Dr. Juan Daniel Rutherford DO Work Phone: [facility] 11-14-2024 19:11-0400 Respiratory rate 16 /min Dr. Juan Daniel Rutherford DO Work Phone: [facility] 11-14-2024 19:11-0400 SaO2% (BldA) [Mass fraction] 99 % Dr. Juan Daniel Rutherford DO Work Phone: [facility] 11-14-2024 19:11-0400 Systolic blood pressure 145 mm[Hg] Dr. Juan Daniel Rutherford DO Work Phone: [facility] 07-01-2023 15:00-0500 Diastolic blood pressure 84 mm[Hg] [facility] 07-01-2023 15:00-0500 Heart rate 76 /min [facility] 07-01-2023 15:00-0500 Respiratory rate 16 /min [facility] 07-01-2023 15:00-0500 SaO2% (BldA) [Mass fraction] 96 % [facility] 07-01-2023 15:00-0500 Systolic blood pressure 128 mm[Hg] [facility] 07-01-2023 10:50-0500 Body height 162.56 cm [facility] 07-01-2023 10:50-0500 Body mass index (BMI) [Ratio] 29.6 kg/m2 [facility] 07-01-2023 10:50-0500 Body temperature 97.3 [degF] [facility] 07-01-2023 10:50-0500 Body weight 78.4 kg [facility] 05-23-2023 11:49-0400 Body height 165.1 cm [facility] Medicine; [facility] Work Phone: 05-23-2023 11:49-0400 Body mass index (BMI) [Ratio] 28.68 kg/m2 [facility] Medicine; [facility] Work Phone: 05-23-2023 11:49-0400 Body surface area Derived from formula 1.86 m2 [facility] Medicine; [facility] Work Phone: 05-23-2023 11:49-0400 Body temperature 98.2 [degF] [facility]; [facility] Work Phone: Comment on above: Method: Thermal Scan 05-23-2023 11:49-0400 Body weight 78.19 kg [facility] Medicine; [facility] Work Phone: 05-23-2023 11:49-0400 Diastolic blood pressure 86 mm[Hg] [facility]; [facility] Work Phone: Comment on above: Patient Position: Sitting; Cuff Location : Left Arm; Cuff Size: Standard 05-23-2023 11:49-0400 Heart rate 99 /min Bisi Friedman [facility] Internal Medicine; [facility] Work Phone: Comment on above: Pattern: Regular 05-23-2023 11:49-0400 Respiratory rate 16 /min Bisi Friedman [facility] Medicine; [facility] Work Phone: Comment on above: Pattern: Unlabored 05-23-2023 11:49-0400 Systolic blood pressure 132 mm[Hg] Bisi Friedman [facility] Medicine; [facility] Work Phone: Comment on above: Patient Position: Sitting; Cuff Location : Left Arm; Cuff Size: Standard 10-30-2022 13:25-0400 Body height 165.1 cm Bisi Friedman [facility] Internal Medicine; [facility] Work Phone: 10-30-2022 13:25-0400 Body mass index (BMI) [Ratio] 28.68 kg/m2 Bisi Friedman [facility]; [facility] Work Phone: 10-30-2022 13:25-0400 Body surface area Derived from formula 1.86 m2 Bisi Friedman [facility]; [facility] Work Phone: 10-30-2022 13:25-0400 Body temperature 98.1 [degF] Bisi Friedman [facility]; [facility] Work Phone: Comment on above: Method: Thermal Scan 10-30-2022 13:25-0400 Body weight 78.19 kg Bisi Friedman [facility]; [facility] Work Phone: 10-30-2022 13:25-0400 Diastolic blood pressure 74 mm[Hg] Bisi Friedman [facility]; [facility] Work Phone: Comment on above: Patient Position: Sitting; Cuff Location : Left Arm; Cuff Size: Standard 10-30-2022 13:25-0400 Heart rate 82 /min Bisi Friedman [facility] Medicine; [facility] Work Phone: Comment on above: Pattern: Regular 10-30-2022 13:25-0400 Respiratory rate 16 /min Bisi Friedman [facility] Medicine; [facility] Work Phone: Comment on above: Pattern: Unlabored 10-30-2022 13:25-0400 Systolic blood pressure 122 mm[Hg] Bisi Friedman [facility] Medicine; [facility] Work Phone: Comment on above: Patient Position: Sitting; Cuff Location : Left Arm; Cuff Size: Standard 10-18-2022 10:35-0500 Body height 165.1 cm Bisi Friedman [facility] Medicine; [facility] Work Phone: 10-18-2022 10:35-0500 Body mass index (BMI) [Ratio] 28.68 kg/m2 Bisi Friedman [facility] Medicine; [facility] Work Phone: 10-18-2022 10:35-0500 Body surface area Derived from formula 1.86 m2 Bisi Friedman [facility]; [facility] Work Phone: 10-18-2022 10:35-0500 Body temperature 98.9 [degF] Bisi Friedman [facility]; [facility] Work Phone: Comment on above: Method: Thermal Scan 10-18-2022 10:35-0500 Body weight 78.19 kg Bisi Friedman [facility]; [facility] Work Phone: 10-18-2022 10:35-0500 Diastolic blood pressure 74 mm[Hg] Bisi Friedamn [facility] Medicine; [facility] Work Phone: Comment on above: Patient Position: Sitting; Cuff Location : Left Arm; Cuff Size: Standard 10-18-2022 10:35-0500 Heart rate 69 /min Bisi Friedman [facility] Medicine; [facility] Work Phone: Comment on above: Pattern: Regular 10-18-2022 10:35-0500 Respiratory rate 16 /min Bisi Avilariddhi [facility] Medicine; [facility] Work Phone: Comment on above: Pattern: Unlabored 10-18-2022 10:35-0500 SaO2% (BldA) [Mass fraction] 98 % Bisi Avilariddhi [facility]; [facility] Work Phone: Comment on above: Room air 10-18-2022 10:35-0500 Systolic blood pressure 126 mm[Hg] Bisi Avilariddhi [facility]; [facility] Work Phone: Comment on above: Patient Position: Sitting; Cuff Location : Left Arm; Cuff Size: Standard 07-19-2022 10:08-0500 Body height 162.[address] Juan Daniel Rutherford Work Phone: [facility] Work Phone: 07-19-2022 10:08-0500 Body mass index (BMI) [Ratio] 29.3 kg/m2 Dr. Juan Daniel Rutherford Work Phone: [facility] Work Phone: 07-19-2022 10:08-0500 Body weight 77.[address] Juan Daniel Rutherford Work Phone: [facility] Work Phone: 07-19-2022 10:08-0500 Diastolic blood pressure 110 mm[Hg] Dr. Juan Daniel Rutherford Work Phone: [facility] Work Phone: 07-19-2022 10:08-0500 Heart rate 104 /min Dr. Juan Daniel Rutherford Work Phone: [facility] Work Phone: 07-19-2022 10:08-0500 SaO2% (BldA) [Mass fraction] 98 % Dr. Juan Daniel Rutherford Work Phone: [facility] Work Phone: 07-19-2022 10:08-0500 Systolic blood pressure 130 mm[Hg] Dr. Juan Daniel Rutherford Work Phone: [facility] Work Phone: 05-29-2022 13:27-0400 Body height 165.1 cm Bisi Friedman [facility] Internal Medicine; [facility] Work Phone: 05-29-2022 13:27-0400 Body mass index (BMI) [Ratio] 28.68 kg/m2 Bisi Friedman [facility]; [facility] Work Phone: 05-29-2022 13:27-0400 Body surface area Derived from formula 1.86 m2 Bisi Friedman [facility]; [facility] Work Phone: 05-29-2022 13:27-0400 Body temperature 98.1 [degF] Bisi Friedman [facility] Medicine; [facility] Work Phone: Comment on above: Method: Thermal Scan 05-29-2022 13:27-0400 Body weight 78.19 kg Bisi Friedman [facility] Medicine; [facility] Work Phone: 05-29-2022 13:27-0400 Diastolic blood pressure 80 mm[Hg] Bisi Friedman [facility] Medicine; [facility] Work Phone: Comment on above: Patient Position: Sitting; Cuff Location : Left Arm; Cuff Size: Standard 05-29-2022 13:27-0400 Heart rate 86 /min Bisi Friedman [facility] Internal Medicine; [facility] Work Phone: Comment on above: Pattern: Regular 05-29-2022 13:27-0400 Respiratory rate 16 /min Bisi Friedman [facility] Medicine; [facility] Work Phone: Comment on above: Pattern: Unlabored 05-29-2022 13:27-0400 Systolic blood pressure 132 mm[Hg] Bisi Friedman [facility] Medicine; [facility] Work Phone: Comment on above: Patient Position: Sitting; Cuff Location : Left Arm; Cuff Size: Standard 05-21-2022 08:55-0400 Body height 162.[address] Juan Daniel Rutherford Work Phone: [facility] Work Phone: 05-21-2022 08:55-0400 Body mass index (BMI) [Ratio] 30.2 kg/m2 Dr. Juan Daniel Rutherford Work Phone: [facility] Work Phone: 05-21-2022 08:55-0400 Body weight 79.[address] Juan Daniel Rutherford Work Phone: [facility] Work Phone: 05-21-2022 08:55-0400 Diastolic blood pressure 100 mm[Hg] Dr. Juan Daniel Rutherford Work Phone: [facility] Work Phone: 05-21-2022 08:55-0400 Heart rate 84 /min Dr. Juan Daniel Rutherford Work Phone: [facility] Work Phone: 05-21-2022 08:55-0400 SaO2% (BldA) [Mass fraction] 98 % Dr. Juan Daniel Rutherford Work Phone: [facility] Work Phone: 05-21-2022 08:55-0400 Systolic blood pressure 150 mm[Hg] Dr. Juan Daniel Rutherford Work Phone: [facility] Work Phone: 05-07-2022 13:05-0400 Body temperature 98.2 [degF] Dr. Juan Daniel Rutherford Work Phone: [facility] Work Phone: 05-07-2022 13:05-0400 Diastolic blood pressure 88 mm[Hg] Dr. Juan Daniel Rutherford Work Phone: [facility] Work Phone: 05-07-2022 13:05-0400 Heart rate 81 /min Dr. Juan Daniel Rutherford Work Phone: [facility] Work Phone: 05-07-2022 13:05-0400 Respiratory rate 16 /min Dr. Juan Daniel Rutherford Work Phone: [facility] Work Phone: 05-07-2022 13:05-0400 SaO2% (BldA) [Mass fraction] 99 % Dr. Juan Daniel Rutherford Work Phone: [facility] Work Phone: 05-07-2022 13:05-0400 Systolic blood pressure 134 mm[Hg] Dr. Juan Daniel Rutherford Work Phone: [facility] Work Phone: 05-07-2022 11:24-0400 Body height 162.[address] Juan Daniel Rutherford Work Phone: [facility] Work Phone: 05-07-2022 11:24-0400 Body mass index (BMI) [Ratio] 29.1 kg/m2 Dr. Juan Daniel Rutherford Work Phone: [facility] Work Phone: 05-07-2022 11:24-0400 Body weight [address] Juan Daniel Rutherford Work Phone: [facility] Work Phone: 01-29-2022 11:02-0400 Body height 165.1 cm Bisi Friedman CMA [facility]; [facility] Work Phone: 01-29-2022 11:02-0400 Body mass index (BMI) [Ratio] 27.35 kg/m2 Bisi Friedman CMA [facility]; [facility] Work Phone: 01-29-2022 11:02-0400 Body surface area Derived from formula 1.82 m2 Bisi Friedman CMA [facility]; [facility] Work Phone: 01-29-2022 11:02-0400 Body temperature 97.1 [degF] Bisi Friedman [facility] Medicine; [facility] Work Phone: Comment on above: Method: Thermal Scan 01-29-2022 11:02-0400 Body weight 74.56 kg Bisi Friedman [facility]; [facility] Work Phone: 01-29-2022 11:02-0400 Diastolic blood pressure 80 mm[Hg] Bisi Friedman [facility]; [facility] Work Phone: Comment on above: Patient Position: Sitting; Cuff Location : Left Arm; Cuff Size: Standard 01-29-2022 11:02-0400 Heart rate 75 /min Bisi Friedman [facility]; [facility] Work Phone: Comment on above: Pattern: Regular 01-29-2022 11:02-0400 Respiratory rate 16 /min Bisi Friedman [facility]; [facility] Work Phone: Comment on above: Pattern: Unlabored 01-29-2022 11:02-0400 Systolic blood pressure 120 mm[Hg] Bisi Friedman [facility]; [facility] Work Phone: Comment on above: Patient Position: Sitting; Cuff Location : Left Arm; Cuff Size: Standard 10-15-2021 10:01-0500 Body height 165.1 cm Bisi Friedman [facility]; [facility] Work Phone: 10-15-2021 10:01-0500 Body mass index (BMI) [Ratio] 27.79 kg/m2 [facility]; [facility] Work Phone: 10-15-2021 10:01-0500 Body surface area Derived from formula 1.83 m2 [facility]; [facility] Work Phone: 10-15-2021 10:01-0500 Body temperature 97 [degF] [facility] Medicine; [facility] Work Phone: Comment on above: Method: Thermal Scan 10-15-2021 10:01-0500 Body weight 75.75 kg Bisi Friedman [facility]; [facility] Work Phone: 10-15-2021 10:01-0500 Diastolic blood pressure 82 mm[Hg] Bisi Friedman [facility] Medicine; [facility] Work Phone: Comment on above: Patient Position: Sitting; Cuff Location : Left Arm; Cuff Size: Standard 10-15-2021 10:01-0500 Heart rate 90 /min Bisi Friedman [facility] Medicine; [facility] Work Phone: Comment on above: Pattern: Regular 10-15-2021 10:01-0500 Respiratory rate 16 /min Bisi Friedman [facility] Internal Medicine; [facility] Work Phone: Comment on above: Pattern: Unlabored 10-15-2021 10:01-0500 Systolic blood pressure 128 mm[Hg] Bisi Friedman [facility] Internal Medicine; [facility] Work Phone: Comment on above: Patient Position: Sitting; Cuff Location : Left Arm; Cuff Size: Standard 08-13-2021 11:11-0500 Body height 165.1 cm Bisi Friedman [facility]; [facility] Work Phone: 08-13-2021 11:11-0500 Body mass index (BMI) [Ratio] 27.62 kg/m2 [facility]; [facility] Work Phone: 08-13-2021 11:11-0500 Body surface area Derived from formula 1.83 m2 Bisi Friedman [facility]; [facility] Work Phone: 08-13-2021 11:11-0500 Body temperature 96.9 [degF] Bisi Friedman [facility]; [facility] Work Phone: Comment on above: Method: Thermal Scan 08-13-2021 11:11-0500 Body weight 75.3 kg Bisi Friedman [facility]; [facility] Work Phone: 08-13-2021 11:11-0500 Diastolic blood pressure 70 mm[Hg] Bisi Friedman [facility]; [facility] Work Phone: Comment on above: Patient Position: Sitting; Cuff Location : Left Arm; Cuff Size: Standard 08-13-2021 11:11-0500 Heart rate 70 /min Bisi Friedman [facility] Medicine; [facility] Work Phone: Comment on above: Pattern: Regular 08-13-2021 11:11-0500 Systolic blood pressure 132 mm[Hg] Bisi Friedman [employer] [facility]; [facility] Work Phone: Comment on above: Patient Position: Sitting; Cuff Location : Left Arm; Cuff Size: Standard 06-02-2017 09:47-0400 BMI (Body Mass Index) 26.6 kg/m2 Esthela Guido [facility] Work Phone: 06-02-2017 09:47-0400 Height 162.56 cm Esthela Guido [facility] Work Phone: 06-02-2017 09:47-0400 Pulse (Heart Rate) 81 /min Esthela Guido [facility] Work Phone: 06-02-2017 09:47-0400 Respiratory Rate 19 /min Esthela Guido [facility] Work Phone: 06-02-2017 09:47-0400 Weight 70.31 kg Esthela Guido [facility] Work Phone: Encounters Encounter Date Encounter Type Care Provider Facility Start: 01-10-2025 End: 01-10-[address] Juan Daniel Rutherford DO Work Phone: [facility] Work Phone: Start: 01-10-2025 End: 01-10-[address] Juan Daniel Rutherford DO -Outpatient Breast Imaging Work Phone: Start: 01-10-2025 End: 01-10-2025 ambulatory Juan Daniel Fast Facility:[facility] Start: 11-14-2024 End: 11-14-2024 Emergency department patient visit Dr. Juan Daniel Rutherford DO Work Phone: -Emergency Department Work Phone: Start: 09-14-2024 End: 09-14-2024 Patient encounter procedure Km Moreland DO -[facility] Work Phone: Start: 09-14-2024 End: 09-14-2024 ambulatory Juan Daniel Fast Facility:[facility] Start: 06-28-2024 End: 06-28-2024 ambulatory Juan Daniel Fast Facility:[facility] Start: 12-02-2023 Non-patient / Non-visit Dr. Juan Daniel Rutherford Work Phone: [facility] Start: 12-02-2023 End: 12-02-[address] Juan Daniel Rutherford Work Phone: [facility] Work Phone: Start: 12-02-2023 End: 12-02-[address] Juna Daniel Rutherford Work Phone: [facility]-Cardi[facility] Work Phone: Start: 11-20-2023 End: 11-20-[address] Juan Daniel Rutherford Work Phone: [facility] Work Phone: Start: 11-20-2023 End: 11-20-[address] Juan Daniel Rutherford Work Phone: [facility], [facility] Work Phone: Start: 11-13-2023 Admission to [facility] Justin RANKINC Work Phone: Ambulatory Surgery Comment on above: colorectal recall sc reening Start: 11-13-2023 ambulatory Justin villanueva PA-C Work Phone: Ambulatory Surgery Start: 11-06-2023 End: 11-06-[address] Juan Daniel Rutherford Work Phone: [facility] Work Phone: Start: 11-06-2023 End: 11-06-[address] Juan Daniel Rutherford Work Phone: [facility]-Outpatient Bone Densitometry Work Phone: Start: 11-03-2023 End: 11-04-2023 ambulatory JUAN DANIEL RUTHERFORD [facility] Start: 11-03-2023 End: 11-03-2023 Subsequent hospital visit by physician Jose Zepeda [address] [place] [address] Comment on above: Hyperlipidemia, unsp ecified Start: 09-18-2023 End: 09-18-[address] Juan Daniel Rutherford Work Phone: [facility] Gastroenterology Work Phone: Start: 07-15-2023 Non-patient / Non-visit Dr. Juan Daniel Rutherford Work Phone: [facility] Start: 07-15-2023 End: 07-15-[address] Juan Daniel Rutherford Work Phone: [facility] Work Phone: Start: 07-15-2023 End: 07-15-[address] Juan Daniel Rutherford Work Phone: [facility]-Pulmonary Services/Neurology Work Phone: Start: 07-01-2023 End: 07-01-2023 Emergency department patient visit [facility]-Emergency Department Work Phone: Start: 06-30-2023 End: 06-30-2023 Patient encounter procedure [facility]-Laboratory, Specimen Work Phone: Start: 05-27-2023 End: 05-27-2023 Phone Encounter Juan Daniel Ruthreford DO Work Phone: [facility] Start: 05-23-2023 End: 05-26-2023 Office outpatient visit 15 minutes Juan Daniel Rutherford DO Work Phone: [facility] Start: 02-12-2023 Review Juan Daniel Fast DO Work Phone: [facility] Start: 10-30-2022 ambulatory Juan Daniel A Fast DO Compre[facility] Start: 10-30-2022 Review Juan Daniel Fast DO Work Phone: [facility] Start: 10-18-2022 End: 10-21-2022 Office outpatient visit 10 minutes Juan Daniel Fast DO Work Phone: [facility] Start: 10-16-2022 End: 10-15-2022 Phone Encounter Juan Daniel Fast DO Work Phone: [facility] Start: 07-24-2022 ambulatory Justin villanueva [employer] Work Phone: Internal Medicine [facility] Start: 07-19-2022 End: 07-19-[address] Juan Daniel Rutherford Work Phone: [facility] Gastroenterology Start: 07-17-2022 End: 07-17-[address] Juan Daniel Rutherford Work Phone: [facility] Work Phone: Start: 07-17-2022 End: 07-17-[address] Juan Daniel Rutherford Work Phone: [facility] Start: 07-10-2022 End: 07-10-[address] Juan Daniel Rutherford Work Phone: [facility]-Laboratory Start: 06-13-2022 End: 06-13-[address] Juan Daniel Rutherford Work Phone: [facility] Work Phone: Start: 06-13-2022 End: 06-13-[address] Juan Daniel Rutherford Work Phone: [facility]-Nuclear Medicine, [facility] Start: 05-31-2022 End: 05-31-[address] Juan Daniel Rutherford Work Phone: [facility] Work Phone: Start: 05-31-2022 End: 05-31-[address] Juan Daniel Rutherford [facility] Start: 05-29-2022 End: 06-04-2022 Office outpatient visit 25 minutes Juan Daniel Rutherford DO Work Phone: [facility] Start: 05-21-2022 End: 05-21-[address] Juan Daniel Rutherford Work Phone: [facility] Work Phone: Start: 05-21-2022 End: 05-21-[address] Juan Daniel Rutherford [facility] Start: 05-21-2022 End: 05-21-[address] Juan Daniel Rutherford Work Phone: [facility] Gastroenterology Start: 05-07-2022 Non-patient / Non-visit Dr. Juan Daniel Rutherford Work Phone: [facility] Start: 05-07-2022 End: 05-07-2022 Admission to same day surgery center Dr. Juan Daniel Rutherford Work Phone: [facility]-Endoscopy Start: 05-07-2022 End: 05-07-[address] Juan Daniel Rutherford Work Phone: [facility] Work Phone: Start: 01-29-2022 End: 01-30-2022 Office outpatient visit 15 minutes Juan Daniel Rutherford DO Work Phone: [facility] Start: 01-23-2022 End: 01-23-[address] Juan Daniel Rutherford Work Phone: [facility]-Laboratory Start: 12-24-2021 End: 12-24-[address] Juan Daniel Rutherford Work Phone: [facility] Gastroenterology Start: 10-15-2021 End: 10-15-2021 Office outpatient visit 25 minutes Juan Daniel Rutherford DO Work Phone: [facility] Start: 10-15-2021 Review Juan Daniel Rutherford DO Work Phone: [facility] Start: 10-02-[address] Juan Daniel Rutherford Work Phone: [facility]-Physical Therapy Start: 08-30-2021 End: 08-30-2021 Annotation/Addendum Juan Daniel Rutherford DO Work Phone: [facility] Start: 08-13-2021 End: 08-14-2021 Office outpatient visit 25 minutes Juan Daniel Wilbert DO Work Phone: [facility] Start: 06-25-2021 End: 06-25-2021 Office outpatient visit 5 minutes Juan Daniel Rutherford DO Work Phone: [facility] Start: 04-20-2007 End: 04-20-2007 Patient encounter procedure Juan Daniel Rutherford DO Work Phone: [facility] Procedures Date Procedure Procedure Detail Performing Clinician Start: 01-10-[address] Juan Daniel Rutherford DO Work Phone: Start: 11-20-[address] Juan Daniel Vázquez t Work Phone: Start: 11-06-2023 Dual energy X-ray absorptiometry Dr. Juan Daniel Rutherford Work Phone: Start: 11-06-[address] Juan Daniel Rutherford Work Phone: Start: 11-03-2023 CT CARDIAC SCORING WO IV CONTRAST JUAN DANIEL RUTHERFORD Start: 11-03-2023 Ct heart no contrast quant eval coronry calcium Juan Daniel Rutherford DO Work Phone: Start: 07-01-2023 Plain chest X-ray Start: 01-17-2023 End: 01-17-2023 Gastroenterology Visit Report Procedure Note: See Note; NOTES: [facility] Gastroenterology [address] [place] [address] OFFICE VISIT Date of Service: 01/17/23 MR#: [id number] Acct: [id number] Name: WINSTON OSORIO Rep #: [id number] : 1975 Provider: HEATH Can Age/Sex: 47/F Location: [facility] Status: Signed Intake Vital Signs 01/17/23 10:47 Height 5 ft 4 in Weight: 178 lb BMI 30.5 BP 163/110 H Blood Pressure Location Rt brachial Position Sitting Pulse 88 Pulse Oximetry (%) 97 Oxygen Delivery Method room air Intake Visit Reasons: 6 MO FU Chief Complaint: abd pain, diarrhea Allergies nitrofurantoin [From Macrobid] Allergy (Verified 01/17/23 10:40) Unknown Sulfa (Sulfonamide Antibiotics) Allergy (Verified 01/17/23 10:40) Hives wheat Allergy (Verified 01/17/23 10:40) Other Medications amitriptyline 25 mg tablet 25 mg PO QHS 10/13/19 [History Confirmed 01/17/23] alprazolam 0.5 mg tablet (Xanax) 0.5 mg PO PRN PRN Anxiety 11/13/21 [History Confirmed 01/17/23] meloxicam 15 mg tablet 15 mg PO PRN PRN Migraine Headache 11/13/21 [History Confirmed 01/17/23] HRT pellet estradiol testosterone implant 12/24/21 [History Confirmed 01/17/23] rizatriptan 5 mg tablet See Rx Instructions PO .COMPLEX PRN MIGRAINES 12/24/21 [History Confirmed 01/17/23] rosuvastatin 5 mg tablet 5 mg PO QHS 05/02/22 [History Confirmed 01/17/23] cholestyramine (with sugar) 4 gram oral powder 4 g PO TID diarrhea #1,134 grams 11/20/22 [Rx Confirmed 01/17/23] dicyclomine 20 mg tablet 20 mg PO TID PRN abdominal pain #90 tabs 01/17/23 [Rx Confirmed 01/17/23] PFSH Medical History Acute cholecystitis Anxiety Epigastric pain Gall bladder stones History of echocardiogram History of irregular heartbeat History of steroid therapy History of stress test Hyperlipidemia Migraines Pre-eclampsia Segmental and somatic dysfunction of cervical region Segmental and somatic dysfunction of lumbar region Segmental and somatic dysfunction of pelvic region Segmental and somatic dysfunction of thoracic region Smoker Thyroid disease Surgical History Hx of appendectomy Hx of hysterectomy, total Hx of wisdom tooth extraction S/P laparoscopic cholecystectomy ( 10/13/19) S/P LASIK surgery of both eyes Family History Mother Alcohol abuse Melanoma High cholesterol Bipolar 1 disorder Social History Smoking Status: Current every day smoker tobacco type: cigarettes HPI HPI Chief Complaint: abd pain, diarrhea Details: WINSTON OSORIO, is a 47 F who presents to the office today for 6 month f/u bile acid reflux, SOD. She is significantly better on cholestyramine 2 packs daily, even better if she takes 2 packs but then she gets significant bloating. No longer has any significant heartburn. Only rare episodes of abdominal pain, only needed vicodin once which I had provided for her to have in case of severe pain especially while traveling. No longer needs pepto bismol or imodium which she was taking daily, didn't realize how much diarrhea she was having. Stools are still soft. No melena or hematochezia. Hyoscyamine helps with lower abdominal cramps but not the Sphincter of Oddi spasm pain. She still gets anxious when she gets that pain. She has a 10 yr hx of recurrent episodes of severe epigastric pain plus diarrhea. MRCP was normal. Normal gastric emptying study. Fecal elastase was normal. Fecal fats: neutral normal, total elevated; which can indicate malabsorption in the small bowel. Negative celiac/crohns/pbc/psc. She takes amitriptyline 25 mg daily for migraine prevention. 04/2022 EGD revealed small hiatal hernia, significant amt of bilious gastric fluid; bxs showed mild Mohan gland hyperplasia, negative H pylori, minimal gastritis, negative justin's. Colonoscopy revealed patchy moderate inflammation in colon; bxs showed no pathologic change at ileocecal valve ulcer or in sigmoid colon. ROS Const Constitutional: Positive for weight change; No fatigue ENT ENT: No difficulty swallowing Gastro GI: Positive for bloating, diarrhea, excessive flatus and nausea/dyspepsia; No abdominal pain, belching, change in bowel habits, change in stool character, coffee ground emesis, constipation, cramping, heartburn, difficulty swallowing, feeling full early, incontinent of stools, Vomiting blood/hematemesis, Blood in stool, loose stools, Black,tarry stools, pain with swallowing, vomiting or other Musc Musculoskeletal: Positive for numbness and tingling; No joint pain Skin Skin: No yellowing of the eye or itchy eyes Neuro Neurology: Positive for numbness and tingling Psych Psychiatric: Positive for anxiety and No depression Endo Endocrine: Positive for weight change; No fatigue Aller/Imm Allergy/Immunologic: No itchy eyes Angel/Lymp Hematologic/Lymphatic: No easy bleeding or easy bruising Exam Const General: cooperative, healthy appearing and comfortable Orientation: alert, awake and oriented x3 Quality Reporting Tobacco Screening (CMS 138) Smoking Status: Current every day smoker Assessment and Plan Assessment and Plan (1) Diarrhea: Status: Chronic Plan: Significantly better, no significant episodes of SOD-related pain, no longer with diarrhea Continue cholestyramine 2 packs daily, add psyllium to bulk up the stool and help with the soft stools Instead of hyoscyamine we will try dicyclomine 20 mg, can do prn for SOD pain or can take bid daily for IBS f/u few mos (2) Gastritis, bile acid reflux: Status: Chronic Plan: as above (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 Juan Daniel Rutherford, DO Juan Daniel Rutherford DO Work Phone: Start: 07-19-2022 End: 07-19-2022 Gastroenterology Visit Report Procedure Note: See Note; NOTES: [facility] Gastroenterology [address] [place] [address] OFFICE VISIT Date of Service: 07/19/22 MR#: [id number] Acct: [id number] Name: WINSTON OSORIO Rep #: [id number] : 1975 Provider: HEATH Can Age/Sex: 47/F Location: [facility] Status: Signed Intake Vital Signs 05/21/22 08:55 07/19/22 10:08 Height 5 ft 4 in 5 ft 4 in Weight: 171 lb BMI 29.3 BP 130/110 H Blood Pressure Location Rt brachial Position Sitting Pulse 104 H Pulse Oximetry (%) 98 Oxygen Delivery Method room air Intake Visit Reasons: 2 MO FU Chief Complaint: abd pain, diarrhea Allergies nitrofurantoin [From Macrobid] Allergy (Verified 07/19/22 10:07) Unknown Sulfa (Sulfonamide Antibiotics) Allergy (Verified 07/19/22 10:07) Hives wheat Allergy (Verified 07/19/22 10:07) Other Medications amitriptyline 25 mg tablet 25 mg PO QHS 10/13/19 [History Confirmed 07/19/22] alprazolam 0.5 mg tablet (Xanax) 0.5 mg PO PRN PRN Anxiety 11/13/21 [History Confirmed 07/19/22] meloxicam 15 mg tablet 15 mg PO PRN PRN Migraine Headache 11/13/21 [History Confirmed 07/19/22] HRT pellet estradiol testosterone implant 12/24/21 [History Confirmed 07/19/22] hyoscyamine sulfate 0.125 mg tablet 0.125 mg PO BID-QID PRN Cramps 12/24/21 [History Confirmed 07/19/22] rizatriptan 5 mg tablet See Rx Instructions PO .COMPLEX PRN MIGRAINES 12/24/21 [History Confirmed 07/19/22] rosuvastatin 5 mg tablet 5 mg PO QHS 05/02/22 [History Confirmed 07/19/22] cholestyramine (with sugar) 4 gram oral powder 4 g PO BID diarrhea #378 grams 05/21/22 [Rx Confirmed 07/19/22] hydrocodone-acetaminoph en 5-325mg 5mg-325mg 1 tab PO BID PRN pain 3 days #6 tabs 07/19/22 [Rx Confirmed 07/19/22] PFSH Medical History Acute cholecystitis Anxiety Epigastric pain Gall bladder stones History of echocardiogram History of irregular heartbeat History of steroid therapy History of stress test Hyperlipidemia Migraines Pre-eclampsia Segmental and somatic dysfunction of cervical region Segmental and somatic dysfunction of lumbar region Segmental and somatic dysfunction of pelvic region Segmental and somatic dysfunction of thoracic region Smoker Thyroid disease Surgical History Hx of appendectomy Hx of hysterectomy, total Hx of wisdom tooth extraction S/P laparoscopic cholecystectomy ( 10/13/19) S/P LASIK surgery of both eyes Family History Mother Alcohol abuse Melanoma High cholesterol Bipolar 1 disorder Social History Smoking Status: Current every day smoker tobacco type: cigarettes HPI HPI Chief Complaint: abd pain, diarrhea Details: WINSTON OSORIO, is a 47 F who presents to the office today for 2 month f/u epigastric pain, diarrhea. At her last visit we started cholestyramine to absorb the extra bile; on her EGD she had bilious gastric fluid. She has a 10 yr hx of recurrent episodes of severe epigastric pain plus diarrhea. MRCP was normal. Normal gastric emptying study. Fecal elastase was normal. Fecal fats: neutral normal, total elevated; which can indicate malabsorption in the small bowel. She is taking 1/2 packet of cholestyramine twice a day. When she took full packet twice a day she had nausea and bloating. Heartburn is controlled. Hasn't had any episodes of the epigastric pain with diarrhea since starting cholestyramine. Has had a few episodes of the right mid back pain that feels like gallbladder pain; this is distinct from the epigastric pain; but maybe less frequent and less severe than before--she takes 2-3 hyoscyamine pills, that prevents the pain from worsening. She takes amitriptyline 25 mg daily for migraine prevention. 04/2022 EGD revealed small hiatal hernia, significant amt of bilious gastric fluid; bxs showed mild Mohan gland hyperplasia, negative H pylori, minimal gastritis, negative justin's. Colonoscopy r evealed patchy moderate inflammation in colon; bxs showed no pathologic change at ileocecal valve ulcer or in sigmoid colon. ROS Const Constitutional: Positive for headache(s); No fatigue ENT ENT: Positive for headache(s); No difficulty swallowing Gastro GI: Positive for abdominal pain, bloating, excessive flatus and nausea/dyspepsia; No belching, change in bowel habits, change in stool character, coffee ground emesis, constipation, cramping, diarrhea, heartburn, difficulty swallowing, feeling full early, incontinent of stools, Vomiting blood/hematemesis, Blood in stool, loose stools, Black,tarry stools, pain with swallowing, vomiting or other Musc Musculoskeletal: Positive for back pain, numbness and tingling; No joint pain Skin Skin: No yellowing of the eye or itchy eyes Neuro Neurology: Positive for headache(s), numbness and tingling Psych Psychiatric: Positive for anxiety and No depression Endo Endocrine: No fatigue Aller/Imm Allergy/Immunologic: No itchy eyes Angel/Lymp Hematologic/Lymphatic: No easy bleeding or easy bruising Exam Const General: cooperative, healthy appearing and comfortable Orientation: alert, awake and oriented x3 Quality Reporting Tobacco Screening ([facility] 138) Smoking Status: Current every day smoker Assessment and Plan Assessment and Plan (1) Gastritis, bile acid reflux: Status: Acute Plan: 47 yr old female with recurrent epigastric pain associated with diarrhea, seems to be due to excess bile in the stomach and duodenum, doing better now that she is on cholestyramine 1/2 packet bid, continue that regimen. We reviewed her w/u in detail. MRCP normal. Gastric emptying study normal. Elevated total fecal fats consistent with small bowel issue, possibly excess bile/inflammation--nega tive celiac/crohns/pbc/psc. (2) Sphincter of Oddi spasm: Status: Acute Plan: Seems to be improving with addition of cholestyramine for excess bile. Use hyoscyamine prn. Already on amitriptyline for migraines. f/u 6 mos. 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 Juan Daniel Rutherford Work Phone: Start: 07-17-2022 End: 07-17-2022 MRCP Abdomen without Contrast Procedure Note: See Note; NOTES: [facility] Imaging Services [address] [place] [id number] MRCP Abdomen without Contrast MR#: [id number] Acct: [id number] Name: JOHNYWINSTONNE Rep #: [id number] : 1975 F 47 From: Chichi silva MD PCP: Dr. Juan Daniel Rutherford DO Status: REG CLI Study: MRCP Abdomen without Contrast Date of Exam: Exam# [id number] Ordering Dr: Yanique Can NP SOCIAL SERVICES-C HISTORY: epigastric pain, diarrhea, bile acid reflux. TECHNIQUE: Multiplanar and multisequence MR images of the abdomen were obtained with MRCP sequence. Three-dimensional post-processing reconstructions were performed. IV Contrast Dosage and Agent: None. 288 images. COMPARISON: US 09/12/21, CT 10/13/2019. FINDINGS: LOWER CHEST: No pleural effusion. LIVER: Homogeneous. Nonenlarged at 15.1 cm in length. GALLBLADDER AND BILIARY TREE: Cholecystectomy. Common bile duct 4-5 mm in diameter. No intrahepatic or extrahepatic biliary dilation. No choledochal filling defect. PANCREAS: Homogeneous without focal lesion or peripancreatic inflammation. No pancreatic duct dilation. SPLEEN: Homogeneous. Nonenlarged at 9 cm in length. KIDNEYS/ADRENAL GLANDS: Unremarkable. PERITONEUM: No significant ascites or focal inflammatory change. VESSELS: Abdominal aorta nondilated. MRI/MRCP Abdomen without Contrast IMPRESSION: Unremarkable examination. Cholecystectomy without evidence for biliary ductal dilation or choledocholithiasis. Electronically Signed: Chichi Medina MD at 9:28 EST , CC: SOCIAL SERVICES-C Yanique Can; Dr. Juan Daniel Rutherford DO Plc Programmer: Signed Juan Daniel Rutherford DO Work Phone: Start: 06-13-[address] empt[address] study Dr[address] Juan Daniel Rutherford Work Phone: Start: 06-13-2022 End: 06-13-2022 Gastric Emptying Study Procedure Note: See Note; NOTES: [facility] Imaging Services [address] [place] [id number] Gastric Emptying Study MR#: [id number] Acct: [id number] Name: WINSTON OSORIO Rep #: [id number] : 1975 F 47 From: Mikey Velez PCP: Dr. Juan Daniel Rutherford DO Status: REG CLI Study: Gastric Emptying Study Date of Exam: 06/13/22 Exam# [id number] Ordering Dr: Yanique Can NP SOCIAL SERVICES-C CLINICAL: 47-year-old female with history of clinical gastroparesis. SEMI-SOLID PHASE 99m Tc SULFUR COLLOID GASTRIC EMPTYING STUDY COMPARISON: None available FINDINGS: The patient was administered 1.0 mCi of 99m Tc sulfur colloid mixed with oatmeal and consumed per os. Image acquisitions in the anterior-posterior projections were obtained for 60 minutes. There is prompt visualization of the stomach. There is no gastroesophageal reflux identified. The T ? emptying was calculated to be 33.60 minutes, (Normal: 12-56 minutes). NM/Gastric Emptying Study IMPRESSION: 1. NORMAL 99m Tc sulfur colloid semi-solid phase (oatmeal) gastric emptying imaging examination. A. There is normal and preserved semi-solid phase gastric emptying compared to normal controls. (Alice et al, J Nucl Med Tech 38: 186, 2010). Electronically Signed: Mikey Arnold, at 21:53 EDT , CC: HEATH Can; Dr. Juan Daniel Rutherford DO Plc Programmer: Signed Juan Daniel Rutherford DO Work Phone: Start: 05-21-2022 End: 05-22-2022 Gastroenterology Visit Report Procedure Note: See Note; NOTES: [facility] Gastroenterology [address] [place] [address] OFFICE VISIT Date of Service: 05/21/22 MR#: [id number] Acct: [id number] Name: WINSTON OSORIO Rep #: [id number] : 1975 Provider: HEATH Can Age/Sex: 47/F Location: [facility] Status: Signed Intake Vital Signs 05/07/22 11:24 05/21/22 08:55 Height 5 ft 4 in 5 ft 4 in Weight: 176 lb BMI 30.2 BP 150/100 H Blood Pressure Location Rt brachial Position Sitting Pulse 84 Pulse Oximetry (%) 98 Oxygen Delivery Method room air Intake Visit Reasons: 2 WK FU Chief Complaint: f/u endoscopy Allergies nitrofurantoin [From Macrobid] Allergy (Verified 05/21/22 08:53) Unknown Sulfa (Sulfonamide Antibiotics) Allergy (Verified 05/21/22 08:53) Hives wheat Allergy (Verified 05/21/22 08:53) Other Medications amitriptyline 25 mg tablet 25 mg PO QHS 10/13/19 [History Confirmed 05/21/22] alprazolam 0.5 mg tablet (Xanax) 0.5 mg PO PRN PRN Anxiety 11/13/21 [History Confirmed 05/21/22] meloxicam 15 mg tablet 15 mg PO PRN PRN Migraine Headache 11/13/21 [History Confirmed 05/21/22] HRT pellet estradiol testosterone implant 12/24/21 [History Confirmed 05/21/22] hyoscyamine sulfate 0.125 mg tablet 0.125 mg PO BID-QID PRN Cramps 12/24/21 [History Confirmed 05/21/22] rizatriptan 5 mg tablet See Rx Instructions PO .COMPLEX PRN MIGRAINES 12/24/21 [History Confirmed 05/21/22] rosuvastatin 5 mg tablet 5 mg PO QHS 05/02/22 [History Confirmed 05/21/22] cholestyramine (with sugar) 4 gram oral powder 4 g PO BID diarrhea #378 grams 05/21/22 [Rx Confirmed 05/21/22] [facility] Medical History (Updated 05/21/22 @ 09:49 by Yanique Can SOCIAL SERVICES, SOCIAL SERVICES-C) Acute cholecystitis Anxiety Epigastric pain Gall bladder stones History of echocardiogram History of irregular heartbeat History of steroid therapy History of stress test Hyperlipidemia Migraines Pre-eclampsia Segmental and somatic dysfunction of cervical region Segmental and somatic dysfunction of lumbar region Segmental and somatic dysfunction of pelvic region Segmental and somatic dysfunction of thoracic region Smoker Thyroid disease Surgical History Hx of appendectomy Hx of hysterectomy, total Hx of wisdom tooth extraction S/P laparoscopic cholecystectomy ( 10/13/19) S/P LASIK surgery of both eyes Family History Mother Alcohol abuse Melanoma High cholesterol Bipolar 1 disorder Social History Smoking Status: Current every day smoker tobacco type: cigarettes HPI HPI Chief Complaint: f/u endoscopy Details: WINSTON OSORIO, is a 47 F who presents to the office today for discussion of EGD and colonoscopy results. EGD revealed small hiatal hernia, significant amt of bilious gastric fluid; bxs showed mild Mohan gland hyperplasia, negative H pylori, minimal gastritis, negative justin's. Colonoscopy revealed patchy moderate inflammation in colon; bxs showed no pathologic change at ileocecal valve ulcer or in sigmoid colon. Her main concern is severe abdominal pain, worse than post-op pain or labor. Can last all night, pain and diarrhea. This severely impacts her QOL. 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 Diarrhea is uncontrollable, has had accidents. 95% of the time these flares occur at night. Pain in epigastrium, doesn't radiate, then diarrhea occurs, no relief of pain with BM. After cholecystectomy she has had intermittent infrascapular pain, not necessarily related to the epigastric pain. On the whole she felt better after cholecystectomy, no longer had fevers. Diarrhea not controlled with 4 Imodium plus Pepto Bismol. Hyoscyamine only minimal relief of pain, but has to take more than recommended. These symptoms began 10 yrs ago, sudden onset, lost 30 lbs then. Now she has to limit her intake when this occurs, can only eat chicken and rice. Bad the past few wks, 50% of the time, occurs in clusters. Better with gluten free diet. Only gets constipation from taking the meds for diarrhea. Psoriasis can flare at same time. 05/07/22 EGD and Colonoscopy Impression: ? - LA Grade A reflux esophagitis. Biopsied. ? - Small hiatal hernia. ? - Bilious gastric fluid. Fluid aspiration ? performed. ? - Erythematous mucosa in the gastric body. ? Biopsied. ? - Normal second portion of the duodenum. ? Biopsied. Impression: ? - Patchy moderate inflammation was found in the ? recto-sigmoid colon, in the sigmoid colon and ? at the ileocecal valve secondary to colitis. ? Biopsied. MICROSCOPIC DIAGNOSIS A. Duodenum, biopsy: Fragments of duodenal mucosa with mild Mohan gland hyperplasia. B. Antrum, biopsy: Minimal gastritis. See microscopic description and comment. Negative H pylori C. Distal esophagus, biopsy: Fragments of gastroesophageal mucosa with chronic inflammation. Intestinal metaplasia (goblet cell metaplasia) not identified. See comment. D. Ileocecal valve ulcer, biopsy: A fragment of small intestine and colonic mucosa, no pathologic diagnosis. E. Sigmoid colon, biopsy: Fragments of colonic mucosa, no pathologic diagnosis. ROS Const Constitutional: Positive for fatigue and headache(s) ENT ENT: Positive for headache(s); No difficulty swallowing Gastro GI: Positive for abdominal pain, bloating, change in bowel habits, diarrhea, heartburn and nausea/dyspepsia; No belching, change in stool character, coffee ground emesis, constipation, cramping, difficulty swallowing, feeling full early, excessive flatus, incontinent of stools, Vomiting blood/hematemesis, Blood in stool, loose stools, Black,tarry stools, pain with swallowing, vomiting or other Musc Musculoskeletal: Positive for joint pain, back pain, numbness, tingling and Arthritis Skin Skin: Positive for dry skin, itchy eyes and rash; No yellowing of the eye Neuro Neurology: Positive for headache(s), numbness and tingling Psych Psychiatric: Positive for anxiety and No depression Endo Endocrine: Positive for fatigue Aller/Imm Allergy/Immunologic: Positive for itchy eyes Angel/Lymp Hematologic/Lymphatic: No easy bleeding or easy bruising Exam Const General: cooperative, comfortable and no acute distress Nutritional Appearance: overweight Orientation: alert, awake and oriented x3 Quality Reporting Tobacco Screening ([facility] 138) Smoking Status: Current every day smoker Assessment and Plan Assessment and Plan (1) Epigastric pain: Status: Acute Plan: 47 yr old female with 10 yrs of recurrent episodes of severe epigastric pain plus diarrhea. DDx includes pancreatitis, SOD, bile acid reflux Case discussed with Dr Moreland Will get MRCP Will get gastric emptying study since gastroparesis can contribute to the bile reflux Labs to eval pancreas--lipase, amylase, fecal fats and fecal elastase Start cholestyramine 2 g bid, then if tolerates it increase to 4 g bid f/u 2 mos (2) Diarrhea: Status: Acute Plan: as above (3) Gastritis, bile acid reflux: Status: Acute Plan: as above Orders: Orders Amylase 05/21/22 K29.60 - Other gastritis without bleeding, R10.13 - Epigastric pain, R19.7 - Diarrhea, unspecified Lipase 05/21/22 K29.60 - Other gastritis without bleeding, R10.13 - Epigastric pain, R19.7 - Diarrhea, unspecified Fecal Fat, Qualitative 05/21/22 K29.60 - Other gastritis without bleeding, R10.13 - Epigastric pain, R19.7 - Diarrhea, unspecified MRCP Abdomen without Contrast 05/21/22 K29.60 - Other gastritis without bleeding, R10.13 - Epigastric pain, R19.7 - Diarrhea, unspecified Gastric Emptying Study 05/21/22 K29.60 - Other gastritis without bleeding, R10.13 - Epigastric pain, R19.7 - Diarrhea, unspecified Pancreatic Elastase, Fecal 05/21/22 K29.60 - Other gastritis without bleeding, R10.13 - Epigastric pain, R19.7 - Diarrhea, unspecified Liver Profile 05/21/22 K29.60 - Other gastritis without bleeding, R10.13 - Epigastric pain, R19.7 - Diarrhea, unspecified Medications: New cholestyramine (with sugar) 4 gram administer w/meal; avoid other meds within 1hr before or 4-6hr after dose 4 grams PO BID 378 grams 2RF diarrhea Coding Level of Care Code Off vis,est,level 4 Diagnoses Epigastric pain R10.13 Diarrhea R19.7 Gastritis, bile acid reflux K29.60 05/22/22 1756 <Electronically signed by Yanique Can NP SOCIAL SERVICES-C> Date Yanique Can NP SOCIAL SERVICES-C Cosigner Signature: Date (if applicable) CC: Dr. Juan Daniel Rutherford, DO Juan Daniel Rutherford DO Work Phone: Start: 05-07-2022 End: 05-07-2022 Colonoscopy Report Procedure Note: See Note; NOTES: [facility] Medical Records Department [address] [place] [address] Colonoscopy Report MR#: [id number] Acct: [id number] Name: WINSTON OSORIO Rep #: [id number] : 1975 47 From: Km Friend DO PCP: Dr. Juan Daniel Rutherford, DO [place] [place] Patient Name: Winston Graciagayle Procedure Date: 05/07/2022 12:21 PM Date of : 1975 Age: 47 Procedure: Colonoscopy Indications: Screening for colorectal malignant neoplasm Providers: Km Moreland DO Medicines: Monitored Anesthesia Care Patient Profile: This is a 47 year old female. Refer to note in patient chart for documentation of history and physical. Patient has symptoms of chronic abdominal cramping, chronic abdominal distention, chronic epigastric abdominal pain and chronic dyspepsia. Last Colonoscopy: none. The patient's first colonoscopy is today. Complications: No immediate complications. Procedure: Pre-Anesthesia Assessment: - Prior to the procedure, a History and Physical was performed, and patient medications and allergies were reviewed. The risks and benefits of the procedure and the sedation options and risks were discussed with the patient. All questions were answered and informed consent was obtained. Patient identification and proposed procedure were verified by the physician in the pre-procedure area. Mental Status Examination: alert and oriented. Airway Examination: normal oropharyngeal airway and neck mobility. Respiratory Examination: clear to auscultation. CV Examination: normal. Prophylactic Antibiotics: The patient does not require prophylactic antibiotics. Prior Anticoagulants: The patient has taken no previous anticoagulant or antiplatelet agents. ASA Grade Assessment: II - A patient with mild systemic disease. After reviewing the risks and benefits, the patient was deemed in satisfactory condition to undergo the procedure. The anesthesia plan was to use monitored anesthesia care (MAC). Immediately prior to administration of medications, the patient was re-assessed for adequacy to receive sedatives. The heart rate, respiratory rate, oxygen saturations, blood pressure, adequacy of pulmonary ventilation, and response to care were monitored throughout the procedure. The physical status of the patient was re-assessed after the procedure. After I obtained informed consent, the scope was passed under direct vision. Throughout the procedure, the patient's blood pressure, pulse, and oxygen saturations were monitored continuously. The Colonoscope was introduced through the anus and advanced to the terminal ileum. The colonoscopy was performed without difficulty. The patient tolerated the procedure well. The quality of the bowel preparation was good. Scope In: 12:22:50 PM Scope Withdrawal Time 0 hours 12 minutes 53 seconds Scope Out: 12:39:18 PM Total Procedure Duration Time 0 hours 16 minutes 28 seconds Findings: The perianal and digital rectal examinations were normal. Patchy moderate inflammation characterized by congestion (edema), erosions and erythema was found in the recto-sigmoid colon, in the sigmoid colon and at the ileocecal valve. Biopsies were taken with a cold forceps for histology. Verification of patient identification for the specimen was done. Estimated blood loss was minimal. Impression: - Patchy moderate inflammation was found in the recto-sigmoid colon, in the sigmoid colon and at the ileocecal valve secondary to colitis. Biopsied. Recommendation: - Discharge patient to home. - Resume previous diet. - Continue present medications. - Await pathology results. - Repeat colonoscopy in 5 years for surveillance. Procedure Code(s): --- Professional --- 77357, Colonoscopy, flexible; with biopsy, single or multiple CPT copyright 2017 [employer] [employer]. All rights reserved. The codes documented in this report are preliminary and upon braille coder review may be revised to meet current compliance requirements. Km Moreland DO 05/07/2022 12:51:02 PM This report has been signed electronically. Number of Addenda: 0 Note Initiated On: 05/07/2022 12:21 PM 05/07/22 1251 Date Km Moreland DO Cosigner Signature: Date (if indicated) CC: Dr. Juan Daniel Rutherford DO; Km Moreland DO Date Dictated: 05/07/22 1221 Date Transcribed: Plc Programmer: RF Signed Juan Daniel Rutherford DO Work Phone: Start: 05-07-2022 End: 05-07-2022 EGD Report Procedure Note: See Note; NOTES: [facility] Medical Records Department [address] [place] [address] EGD Report MR#: [id number] Acct: [id number] Name: JOHNYWINSTON Rep #: [id number] : 1975 47 From: Km Moreland DO PCP: Dr. Juan Daniel Rutherford DO Status:[facility] [place] Patient Name: Winston Osorio Procedure Date: 05/07/2022 12:02 PM Date of : 1975 Age: 47 Procedure: Upper GI endoscopy Indications: Epigastric abdominal pain, Functional Dyspepsia, Suspected esophageal reflux Providers: Km Moreland DO Medicines: Monitored Anesthesia Care Patient Profile: This is a 47 year old female. Refer to note in patient chart for documentation of history and physical. Patient has symptoms of chronic abdominal cramping, chronic abdominal distention, chronic epigastric abdominal pain and chronic dyspepsia. Complications: No immediate complications. Procedure: Pre-Anesthesia Assessment: - Prior to the procedure, a History and Physical was performed, and patient medications and allergies were reviewed. The risks and benefits of the procedure and the sedation options and risks were discussed with the patient. All questions were answered and informed consent was obtained. Patient identification and proposed procedure were verified by the physician in the pre-procedure area. Mental Status Examination: alert and oriented. Airway Examination: normal oropharyngeal airway and neck mobility. Respiratory Examination: clear to auscultation. CV Examination: normal. Prophylactic Antibiotics: The patient does not require prophylactic antibiotics. Prior Anticoagulants: The patient has taken no previous anticoagulant or antiplatelet agents. ASA Grade Assessment: II - A patient with mild systemic disease. After reviewing the risks and benefits, the patient was deemed in satisfactory condition to undergo the procedure. The anesthesia plan was to use monitored anesthesia care (MAC). Immediately prior to administration of medications, the patient was re-assessed for adequacy to receive sedatives. The heart rate, respiratory rate, oxygen saturations, blood pressure, adequacy of pulmonary ventilation, and response to care were monitored throughout the procedure. The physical status of the patient was re-assessed after the procedure. After obtaining informed consent, the endoscope was passed under direct vision. Throughout the procedure, the patient's blood pressure, pulse, and oxygen saturations were monitored continuously. The was introduced through the mouth, and advanced to the second part of duodenum. The upper GI endoscopy was accomplished without difficulty. The patient tolerated the procedure well. Scope In: 12:13:18 PM Scope Out: 12:20:45 PM Total Procedure Duration Time 0 hours 7 minutes 27 seconds Findings: LA Grade A (one or more mucosal breaks less than 5 mm, not extending between tops of 2 mucosal folds) esophagitis with no bleeding was found 37 to 39 cm from the incisors. Biopsies were taken with a cold forceps for histology. Verification of patient identification for the specimen was done. Estimated blood loss was minimal. A small hiatal hernia was present. Bilious fluid was found in the entire examined stomach. Fluid aspiration was performed through the scope suction channel. The amount of fluid collected was 100 mL. Verification of patient identification for the specimen was done. Estimated blood loss was minimal. Patchy mildly erythematous mucosa without bleeding was found in the gastric body. Biopsies were taken with a cold forceps for histology. Verification of patient identification for the specimen was done. Estimated blood loss was minimal. The second portion of the duodenum was normal. Biopsies were taken with a cold forceps for histology. Verification of patient identification for the specimen was done. Estimated blood loss was minimal. Impression: - LA Grade A reflux esophagitis. Biopsied. - Small hiatal hernia. - Bilious gastric fluid. Fluid aspiration performed. - Erythematous mucosa in the gastric body. Biopsied. - Normal second portion of the duodenum. Biopsied. Recommendation: - Discharge patient to home. - Resume previous diet. - Continue present medications. - Await pathology results. Procedure Code(s): --- Professional --- 38181, Esophagogastroduodenosc opy, flexible, transoral; with biopsy, single or multiple CPT copyright 2017 [employer] [place] [employer]. All rights reserved. The codes documented in this report are preliminary and upon braille coder review may be revised to meet current compliance requirements. Km Moreland DO 05/07/2022 12:47:34 PM This report has been signed electronically. Number of Addenda: 0 Note Initiated On: 05/07/2022 12:02 PM 05/07/22 1247 Date Km Moreland DO Cosigner Signature: Date (if indicated) CC: Dr. Juan Daniel Rutherford DO; Km Moreland DO Date Dictated: 05/07/22 1202 Date Transcribed: Plc Programmer: MEGHA Signed Juan Daniel Fast DO Work Phone: Start: 05-07-2022 End: 05-07-[address] Juan Daniel Rutherford Work Phone: Start: 05-07-2022 End: 05-07-2022 History and Physical Exam Procedure Note: See Note; NOTES: [facility] Medical Records Department [address] [place] [address] History Physical Exam 05/07/22 1141 MR#: [id number] Acct: [id number] Name: WINSTON OSORIO Rep #: [id number] : 1975 47 From: Km Friend DO PCP: Dr. Juan Daniel Rutherford, DO Status:[facility] Location: [place] [address] History and Physical Date of Admission: 05/07/22 WINSTON OSORIO, is a 46 F who presents to the office today for desire to schedule screening colonoscopy as well as EGD. She had several years of GI issues until she had cholecystectomy by Dr Donis Maldonado in 2019. Her GI symptoms were dismissed for multiple years so she was understandably nervous for today's appt. She has intermittent heartburn. Heartburn is 90% improved on current regimen of HRT. Before the cholecystectomy she had severe heartburn, no meds helped it. Now prn H2-natalia if she eats Brazilian or dairy. Occasional nausea in the morning, resolves once she gets up, lasts about 10 minutes, better with cracker, reminds her of morning sickness. No vomiting. No abdominal pain. Feels full quickly, not a new symptom. No difficulty swallowing. BM every 2-3 days. Doesn't completely evacuate. PRN miralax which is effective. A couple of episodes of explosive diarrhea since cholecystectomy which was done in 2019, like gallbladder attacks, better with hyoscyamine, less often over time. Uses Lactaid prn w/ dairy. Would like biopsy of duodenum to r/o celiac. Had negative celiac test but was off gluten x 6 mos at that time. Has been back on wheat x one month w/o issues. ROS Const Constitutional: Positive for headache(s); No fatigue, fever(s), weight change, sleep problems, abnormal sleep pattern or change in appetite ENT ENT: Positive for headache(s); No difficulty swallowing, hoarseness or sore throat Resp Respiratory: No cough, hemoptysis or shortness of breath Cardio Cardiology: No chest pain at rest or generalized swelling Gastro GI: Positive for constipation and heartburn; No abdominal pain, belching, bloating, change in bowel habits, change in stool character, coffee ground emesis, cramping, diarrhea, difficulty swallowing, feeling full early, excessive flatus, incontinent of stools, Vomiting blood/hematemesis, Blood in stool, loose stools, Black,tarry stools, nausea/dyspepsia, pain with swallowing or vomiting Musc Musculoskeletal: Positive for numbness and tingling; No joint pain, back pain or joint swelling Skin Skin: No itchy eyes or rash Neuro Neurology: Positive for headache(s), numbness and tingling; No behavioral changes or confusion Psych Psychiatric: No abnormal sleep pattern, Positive for anxiety, No behavioral changes, No change in appetite, No confusion and No depression Endo Endocrine: No cold intolerance, fatigue, heat intolerance, increased thirst/drinking or weight change Aller/Imm Allergy/Immunologic: No food intolerance or itchy eyes Angel/Lymp Hematologic/Lymphatic: No easy bleeding, easy bruising or enlarged lymph nodes Exam Const General: healthy appearing, no acute distress, well developed and well groomed Quality Reporting Tobacco Screening ([facility] 138) Smoking Status: Current every day smoker Assessment and Plan Assessment and Plan (1) Heartburn: ?Status:???Acute (2) Constipation: ?Status:???Acute ? Orders:???Orders: ??? Celiac Disease Profile Today R12 ?Plan: 46 yr old female with intermittent heartburn--severe before cholecystectomy, improved on HRT. EGD to r/o Justin's esophagus. She would also like biopsy of duodenum for celiac disease. If she wants celiac blood test once she has been consuming gluten daily x 3 mos, I placed that order. Chronic constipation--can try nightly miralax +/- kiwi supplement or aloe vera. Screening colonoscopy along with EGD. F/u 2 wks after that. I have re-examined the patient. There are no clinical changes since date of exam. 05/07/22 1141 <Electronically signed by Km Moreland DO> Cosigner Signature (if applicable): CC: Dr. Juan Daniel Rutherford DO; Km Moreland DO Signed Juan Daniel Rutherford DO Work Phone: Start: 12-24-2021 End: 12-24-2021 Gastroenterology Visit Report Comments: See Note; NOTES: [facility] [address] [place] [address] OFFICE VISIT Date of Service: 12/24/21 MR#: [id number] Acct: [id number] Name: WINSTON OSORIO Rep #: [id number] : 1975 Provider: HEATH Can Age/Sex: 46/F Location: [facility] [place].[facility] Status: Signed Intake Intake Visit Reasons: Consult Allergies nitrofurantoin [From Macrobid] Allergy (Verified 11/13/21 16:26) Unknown Sulfa (Sulfonamide Antibiotics) Allergy (Verified 11/13/21 16:26) Hives wheat Allergy (Verified 11/13/21 16:26) Other Medications amitriptyline 25 mg PO QHS 10/13/19 [History Confirmed 11/13/21] alprazolam 0.5 mg tablet 0.5 mg PO DAILY 11/13/21 [History Confirmed 11/13/21] meloxicam 15 mg tablet 15 mg PO DAILY 11/13/21 [History Confirmed 11/13/21] HRT pellet estradiol testosterone IMPLANT 12/24/21 [History] hyoscyamine sulfate 0.125 mg tablet 0.125 mg PO BID-QID PRN 12/24/21 [History Confirmed 12/24/21] rizatriptan 5 mg tablet See Rx Instructions PO .COMPLEX 12/24/21 [History Confirmed 12/24/21] thyroid (pork) 30 mg tablet 30 mg PO DAILY 12/24/21 [History Confirmed 12/24/21] PFSH Medical History (Updated 12/24/21 @ 15:57 by Yanique Can SOCIAL SERVICES, SOCIAL SERVICES-C) Acute cholecystitis Epigastric pain Gall bladder stones Hyperlipidemia Migraines Segmental and somatic dysfunction of cervical region Segmental and somatic dysfunction of lumbar region Segmental and somatic dysfunction of pelvic region Segmental and somatic dysfunction of thoracic region Surgical History (Updated 11/13/21 @ 16:28 by Gladys Esqueda) Hx of appendectomy Hx of hysterectomy, total S/P laparoscopic cholecystectomy ( 10/13/19) S/P LASIK surgery of both eyes Family History (Updated 12/24/21 @ 15:53 by Yanique Can SOCIAL SERVICES, SOCIAL SERVICES-C) Mother Alcohol abuse Melanoma High cholesterol Bipolar 1 disorder Social History (Updated 11/13/21 @ 16:30 by Gladys Esqueda) Smoking Status: Current every day smoker HPI HPI Details: WINSTON OSORIO, is a 46 F who presents to the office today for desire to schedule screening colonoscopy as well as EGD. She had several years of GI issues until she had cholecystectomy by Dr Donis Maldonado in 2019. Her GI symptoms were dismissed for multiple years so she was understandably nervous for today's appt. She has intermittent heartburn. Heartburn is 90% improved on current regimen of HRT. Before the cholecystectomy she had severe heartburn, no meds helped it. Now prn H2-natalia if she eats Brazilian or dairy. Occasional nausea in the morning, resolves once she gets up, lasts about 10 minutes, better with cracker, reminds her of morning sickness. No vomiting. No abdominal pain. Feels full quickly, not a new symptom. No difficulty swallowing. BM every 2-3 days. Doesn't completely evacuate. PRN miralax which is effective. A couple of episodes of explosive diarrhea since cholecystectomy which was done in 2019, like gallbladder attacks, better with hyoscyamine, less often over time. Uses Lactaid prn w/ dairy. Would like biopsy of duodenum to r/o celiac. Had negative celiac test but was off gluten x 6 mos at that time. Has been back on wheat x one month w/o issues. ROS Const Constitutional: Positive for headache(s); No fatigue, fever(s), weight change, sleep problems, abnormal sleep pattern or change in appetite ENT ENT: Positive for headache(s); No difficulty swallowing, hoarseness or sore throat Resp Respiratory: No cough, hemoptysis or shortness of breath Cardio Cardiology: No chest pain at rest or generalized swelling Gastro GI: Positive for constipation and heartburn; No abdominal pain, belching, bloating, change in bowel habits, change in stool character, coffee ground emesis, cramping, diarrhea, difficulty swallowing, feeling full early, excessive flatus, incontinent of stools, Vomiting blood/hematemesis, Blood in stool, loose stools, Black,tarry stools, nausea/dyspepsia, pain with swallowing or vomiting Musc Musculoskeletal: Positive for numbness and tingling; No joint pain, back pain or joint swelling Skin Skin: No itchy eyes or rash Neuro Neurology: Positive for headache(s), numbness and tingling; No behavioral changes or confusion Psych Psychiatric: No abnormal sleep pattern, Positive for anxiety, No behavioral changes, No change in appetite, No confusion and No depression Endo Endocrine: No cold intolerance, fatigue, heat intolerance, increased thirst/drinking or weight change Aller/Imm Allergy/Immunologic: No food intolerance or itchy eyes Angel/Lymp Hematologic/Lymphatic: No easy bleeding, easy bruising or enlarged lymph nodes Exam Const General: healthy appearing, no acute distress, well developed and well groomed Quality Reporting Tobacco Screening ([facility] 138) Smoking Status: Current every day smoker Assessment and Plan Assessment and Plan (1) Heartburn: Status: Acute (2) Constipation: Status: Acute Orders: Orders: Celiac Disease Profile Today R12 Plan: 46 yr old female with intermittent heartburn--severe before cholecystectomy, improved on HRT. EGD to r/o Justin's esophagus. She would also like biopsy of duodenum for celiac disease. If she wants celiac blood test once she has been consuming gluten daily x 3 mos, I placed that order. Chronic constipation--can try nightly miralax +/- kiwi supplement or aloe vera. Screening colonoscopy along with EGD. F/u 2 wks after that. Coding Level of Care Code Off vis,new,level 3 Diagnoses Heartburn R12 Constipation K59.00 12/24/21 1600 <Electronically signed by Yanique Can SOCIAL SERVICES SOCIAL SERVICES-C> Date Yanique Can NP SOCIAL SERVICES-C Cosigner Signature: Date (if applicable) CC: DO Juan Daniel Burton DO Work Phone: Start: 09-12-2021 End: 09-12-2021 Abdomen Limited Comments: See Note; NOTES: [facility] Imaging Services [address] [place] [address] Abdomen Limited MR#: [id number] Acct: [id number] Name: WINSTON OSORIO Rep #: [id number] : 1975 F 46 From: Louis mcgraw MD PCP: Dr. Juan Daniel Rutherford DO Status: REG CLI Study: Abdomen Limited Date of Exam: 09/12/21 Exam# [id number] Ordering Dr: Juan Daniel Rutherford DO STUDY: ABDOMINAL ULTRASOUND - RIGHT UPPER QUADRANT REASON FOR VISIT: Female, 46 years old prior cholecystectomy. TECHNIQUE: Ultrasound evaluation of the right upper quadrant was performed with real-time and static mckeon-scale imaging. TECHNICAL QUALITY: Adequate. COMPARISON: Comparison is made with prior study of 10/13/2019. FINDINGS: Liver: The liver measures 12.4 cm. There is normal echogenicity of the liver. The bile ducts are within normal limits. There is hepatic color flow. The direction of portal flow is hepatopetal. There is no demonstrated mass lesion. Gallbladder: The patient is status post cholecystectomy. Common Bile Duct (C.B.D.): The common bile duct measures 6 mm. Pancreas: Normal size of the head, body and tail of the pancreas. There is normal echogenicity of the pancreas. There is no demonstrated pancreatic mass or cyst. Right Kidney: Normal size of the right kidney. The right kidney measures 9.9 cm x 4.7 cm x 5.1 cm. Normal renal cortex. The right cortex measures 1.3 cm. There is no demonstrated renal mass or cyst. There is no right hydronephrosis. US/Abdomen Limited IMPRESSION: Normal right upper quadrant ultrasound examination. The patient is status post cholecystectomy. Electronically Signed: Louis Anna MD at 10:58 EST , CC: Dr. Juan Daniel Rutherford DO Plc Programmer: Signed Juan Daniel Rutherford DO Work Phone: Start: 08-20-2021 End: 08-20-2021 Inital Evaluation (1) - PT Comments: See Note; NOTES: [facility] Physical Therapy [facility] [address] [place] [address] / REHABILITATION SERVICES INITIAL EVALUATION MR#: [id number] Acct: [id number] Name: WINSTON OSORIO Rep #: [id number] : 1975 46 From: Lisa Vallejo DPT Referring Dr.: Dr. Juan Daniel Rutherford DO Status: REG R CR Insurance: [employer] SELF PAY INSURANCE Patient's Visit Information WINSTON OSORIO is a 46 year old F referred to Physical Therapy by Dr. Juan Daniel Rutherford DO with a diagnosis of Lateral Epicondyle. Date of Evaluation: 08/20/21 Physical Therapist: Lisa Vallejo DPT - Visit Plan Frequency: 1x/Week Duration: 4 Weeks Plan: Follow up in 3 weeks after HEP. HEP Given IE: Education, Elbow extension stretch, ice massage, STM, activity modification - Subjective Patient reports that she was gardening this summer- she started having right elbow pain. Now it just hurts all the time. Pain is located on the lateral epicondyle. It hurts all the time- she has a hard time picking things up and sleeping. She does have some radiating pain into the triceps and forearm. This week hasn't been so bad because she is using Meloxicam. Worst: 6/10 Agg: lifting, turning jars, ping pong, anything she does with her arm. Eases: Meloxicam, compression brace Best: 0/10 just this week with the Meloxicam. Right hand dominate. Describes the pain as more sharp- at night its dull achy and throbbing. Sleep: disturbed- hard to get to sleep- all positions. No N/T in the finger. Does have decreased metal lather strength. No SIMS, blurred vision, dizziness or neck pain. Did not have x-rays or MRI. 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 Does have a sleeve- but has not been using it- not super comfortable. PMHx: migraines-no ortho surgeries. Meds: Amitriptyline Very active- [place]- does exercise. - Objective Posture: good throughout session. Gait: good arm swing and trunk rotation. Palpation: tender lateral epicondylitis, triceps, Brachioradialis. ROM: WFL in all planes of the cervical, shoulder, elbow and wrist. Strength: Shoulder: 4+/5 throughout, Elbow: 4+/5 with pain, Wrist: 5/5 with pain sup/pro and flexion/extn, Steward Racetrack: 80 on left 60 on right Pinch Strength: 15-20. Sensation: WNL - Special Tests R Elbow Valgus Stress Test - MCL Instability: Positive R Elbow Varus Stress Stest - MCL Instability: Positive R Elbow Lat Epiconylitis - as named: Positive - Balance/Special Test Scores Quick DASH Score: 38.6350 - Goals Goal 1:: Patient will be I with HEP and progression Goal Time Frame: 4-6 Weeks Goal 2:: Patient will report 75% better Goal Time Frame: 4-6 Weeks - Rehabilitation Potential Physical Therapy Diagnosis: Patient presents with hypomobility- she has decreased pain free ROM, strength and endurance leading to increased pain with ADL's. Rehabilitation Potential: Good - Anticipated Interventions Patient/Client Instruction: Educate patient on: Benefits of Fitness Program Therapeutic Exercise to Include: Strength training, Body mechanics, Postural training For the Purpose of:: To improve muscle performance and motor function Thank you for the opportunity to evaluate your patient. For Medicare and Medicare HMO plans, please review the plan of care and approve it. It will need to be FAXED BACK to us at [phone] for Medicare purposes. For Medicare only, by signing this I certify the plan of care. Please let me know if there are questions or concerns regarding this plan of care. Physician Signature: Date: <Electronically signed by Lisa Vallejo DPT> 08/20/21 1147 CC: Dr. Juan Daniel Rutherford, DO ELR Signed Juan Daniel Rutherford DO Work Phone: Start: 06-18-2021 Lipid 1996 panel - Serum or Plasma NA Muro PA-C Work Phone: Start: 06-04-2021 Mammography NA Muro PA-C Work Phone: Start: 06-09-2017 End: 06-09-2017 Appl modality 1/> areas elec stimj unattended Esthela B Dossi DC Work Phone: Start: 06-09-2017 End: 06-09-2017 Appl modality 1/> areas traction mechanical Esthela B Dossi DC Work Phone: Start: 06-09-2017 End: 06-09-2017 Chiropractic manipulative tx spinal 3-4 regions Esthela B Dossi DC Work Phone: Start: 06-03-2017 End: 06-03-2017 Appl modality 1/> areas elec stimj unattended Esthela B Dossi DC Work Phone: Start: 06-03-2017 End: 06-03-2017 Appl modality 1/> areas traction mechanical Esthela B Dossi DC Work Phone: Start: 06-03-2017 End: 06-03-2017 Chiropractic manipulative tx spinal 1-2 regions Esthela B Dossi DC Work Phone: Start: 06-02-2017 End: 06-02-2017 Appl modality 1/> areas elec stimj unattended Esthela B Dossi DC Work Phone: Start: 06-02-2017 End: 10-23-2017 Appl modality 1/> areas traction mechanical Esthela Guido DC Work Phone: Start: 06-02-2017 End: 06-02-2017 Chiropractic manipulative tx spinal 1-2 regions Esthela Guido DC Work Phone: Appendectomy Juan Daniel A Fast DO Work Phone: Appendectomy Bisi Manchak YARDAGE CONTROL OPERATOR Appendectomy Bisi Manchak YARDAGE CONTROL OPERATOR Appendectomy Bisi Manchak YARDAGE CONTROL OPERATOR Appendectomy Bisi Manchak YARDAGE CONTROL OPERATOR Appendectomy Bisi Manchak YARDAGE CONTROL OPERATOR Appendectomy Bisi Manchak YARDAGE CONTROL OPERATOR Appendectomy Bisi Manchak YARDAGE CONTROL OPERATOR Cholecystectomy Juan Daniel A Fast DO Work Phone: Cholecystectomy Juan Daniel A Fast DO Work Phone: Comment on above: 2020 Cholecystectomy Bsii Manc hak YARDAGE CONTROL OPERATOR Comment on above: 2019 Cholecystectomy Bisi Manc hak YARDAGE CONTROL OPERATOR Comment on above: 2019 Cholecystectomy Bisi Manc hak YARDAGE CONTROL OPERATOR Comment on above: 2019 Cholecystectomy Bisi Manc hak YARDAGE CONTROL OPERATOR Comment on above: 2020 Cholecystectomy Bisi Manc hak YARDAGE CONTROL OPERATOR Cholecystectomy Bisi Manc hak YARDAGE CONTROL OPERATOR Cholecystectomy Bisi Manc hak YARDAGE CONTROL OPERATOR lasik eye surgery Juan Daniel A Fa st DO Work Phone: lasik eye surgery Bisi Ma nchak YARDAGE CONTROL OPERATOR lasik eye surgery Bisi Ma nchak YARDAGE CONTROL OPERATOR lasik eye surgery Bisi Ma nchak YARDAGE CONTROL OPERATOR lasik eye surgery Bisi Ma nchak YARDAGE CONTROL OPERATOR lasik eye surgery Bisi Ma nchak YARDAGE CONTROL OPERATOR lasik eye surgery Bisi Ma nchak YARDAGE CONTROL OPERATOR lasik eye surgery Bisi Ma nchak YARDAGE CONTROL OPERATOR Total hysterectomy Juan Daniel A F ast DO Work Phone: Comment on above: bleeding- Total hysterectomy Bisi M tiffanieak YARDAGE CONTROL OPERATOR Comment on above: bleeding- Total hysterectomy Bisi M tiffanieak YARDAGE CONTROL OPERATOR Comment on above: bleeding- Total hysterectomy Bisi M anchak YARDAGE CONTROL OPERATOR Comment on above: bleeding- Total hysterectomy Bisi M anchak YARDAGE CONTROL OPERATOR Comment on above: bleeding- Total hysterectomy Juan Daniel A F ast DO Work Phone: Comment on above: bleeding- still has cervix- but no ovari es Total hysterectomy Bisi M anchak YARDAGE CONTROL OPERATOR Comment on above: bleeding- still has cervix- but no ovari es Total hysterectomy Bisi Anderson vinod PAINTER Comment on above: bleeding- still has cervix- but no ovari es wisdom teeth Juan Daniel A Fast DO Work Phone: wisdom teeth Bisi Manchak YARDAGE CONTROL OPERATOR wisdom teeth Bisi Manchak YARDAGE CONTROL OPERATOR wisdom teeth Bisi Manchak YARDAGE CONTROL OPERATOR wisdom teeth Bisi Manchak YARDAGE CONTROL OPERATOR wisdom teeth Bisi Manchak YARDAGE CONTROL OPERATOR wisdom teeth Bisi Manchak YARDAGE CONTROL OPERATOR wisdom teeth Bisi Manchak [facility] Plan of Treatment Date Care Activity Detail Author Start: 05-07-2032 Screening for malign ant neoplasm of colon [facility] Start: 06-18-2026 Lipid panel Lipid Screening [facility] Start: 06-18-2026 LIPID SCREEN LIPID SCREEN [facility] Start: 2026 Zoster Vaccines (1 o f 2) Zoster Vaccines (1 of 2) [facility] Start: 11-14-2024 [facility] Start: 11-14-2024 Simple repair scalp/neck/ax/genit/rabia nk 2.5cm/< RPR S/N/AX/GEN/TRNK 2.5CM/< [facility] Start: 06-18-2024 DIABETES SCREEN DIABETES SCREEN [facility] Start: 06-18-2024 [facility]: 04-11-2024 Influenza vaccination Influenz a Vaccine (Season Ended) [facility] Start: 08-11-2023 Behavioral Health Screening Behavioral Health Screening [facility] Start: 07-01-2023 [facility] Start: 07-01-2023 [facility] Start: 04-11-2023 Covid-19 Vaccine ( season) Covid-19 Vaccine ( season) [facility] Start: 04-11-2023 Influenza vaccination Influenza Vacc ine (#1) [facility] Start: 02-12-2023 Procedure Education Eprescribe d prescriptions (G8553) [facility] Work Phone: Start: 10-30-2022 Procedure Education Eprescribe d prescriptions (G8553) [facility] Work Phone: Start: 10-30-2022 Blood count complete auto&auto difrntl wbc CBC W/AUTO DIFF WBC (40466) [facility] Work Phone: Start: 10-30-2022 Comprehensive metabo lic panel METABOLIC PANEL, COMPREHENSIVE (74547) [facility] Work Phone: Start: 10-30-2022 Lipid panel LIPID PANEL (81163) [facility] Work Phone: Start: 10-18-2022 Procedure Education Eprescribe d prescriptions (G8553) [facility]; [facility] Work Phone: Start: 10-16-2022 CBC, PLATELETS & MAN UAL DIFF (42652) CBC, PLATELETS & MANUAL DIFF (07892) [facility] Work Phone: Start: 10-16-2022 Comprehensive metabo lic panel METABOLIC PANEL, COMPREHENSIVE (95448) [facility] Work Phone: Start: 06-04-2022 Blood count complete auto&auto difrntl wbc CBC W/AUTO DIFF WBC (09144) [facility] Work Phone: Start: 06-04-2022 Comprehensive metabo lic panel METABOLIC PANEL, COMPREHENSIVE (26989) [facility] Work Phone: Start: 06-04-2022 Mammography MAMMOGRAM [facility] Start: 06-04-2022 Screening for malign ant neoplasm of breast Mammogram Screening [facility] Start: 05-29-2022 Procedure Education Eprescribe d prescriptions (G8553) [facility] Work Phone: Start: 05-07-2022 Colonoscopy w/biopsy single/multiple COLONOSCOPY AND BIOPSY [facility] Work Phone: Start: 05-07-2022 Egd transoral biopsy single/multiple EGD BIOPSY SINGLE/MULTIPLE [facility] Work Phone: Start: 05-07-2022 [facility] Start: 04-11-2022 Influenza vaccination INFLUENZA (#1) [facility] Start: 01-29-2022 Procedure Education Eprescribe d prescriptions (G8553) [facility] Work Phone: Start: 01-29-2022 Provider Instruction s for Treatment *Cholesterol - Medication Side Effects [facility] Work Phone: Start: 01-29-2022 Comprehensive metabo lic panel METABOLIC PANEL, COMPREHENSIVE (14981) [facility] Work Phone: Start: 01-29-2022 Lipid panel LIPID PANEL (78179) [facility]; [facility] Work Phone: Start: 10-15-2021 Procedure Education Eprescribe d prescriptions (G8553) [facility] Work Phone: Start: 10-15-2021 Blood count complete auto&auto difrntl wbc CBC W/AUTO DIFF WBC (80102) [facility] Work Phone: Start: 10-15-2021 Comprehensive metabo lic panel METABOLIC PANEL, COMPREHENSIVE (13979) [facility] Work Phone: Start: 10-15-2021 Lipid panel LIPID PANEL (38164) [facility] Work Phone: Start: 08-30-2021 Comprehensive metabo lic panel METABOLIC PANEL, COMPREHENSIVE (33283) [facility] Work Phone: Start: 08-30-2021 Assay of lipase LIPASE (67643) [facility]; [facility] Work Phone: Start: 08-13-2021 Procedure Education Eprescribe d prescriptions (G8553) [facility] Work Phone: Start: 08-11-2021 DEPRESSION ASSESSMENT DEPRESSION ASS ESSMENT [facility] Start: 2021 COLOGUARD (FIT-DNA) COLOGUARD (FIT-D NA) [facility] Start: 2021 Colonoscopy COLONOSCOPY [facility] Start: 2021 COLORECTAL CANCER SCREENING COLORECTAL CANCER SCREENING [facility] Start: [address] COLONOGRAPHY [facility] Start: 2021 FECAL OCCULT BLOOD FECAL OCCULT BLOO D [facility] Start: 2021 Screening for malign ant neoplasm of colon [facility] Start: 2021 SIGMOIDOSCOPY SIGMOIDOSCOPY [facility] Start: 06-12-2017 End: 06-12-2017 Appointment [facility]ointment [facility] Work Phone: Start: 06-09-2017 End: 06-09-2017 Follow up Appt 2x/week Follow up Appt 2x/week [facility] Work Phone: Start: 06-09-2017 End: 06-09-2017 Appointment Appointment [facility] Work Phone: Start: 06-03-2017 End: 06-03-2017 Follow up Appt 2x/week Follow up Appt 2x/week [facility] Work Phone: Start: 06-02-2017 End: 06-02-2017 Follow up Appt 2x/week Follow up Appt 2x/week [facility] Work Phone: Start: 2016 Screening for malign ant neoplasm of breast Mammogram [facility] Start: 12-14-2014 HPV TESTING HPV TESTING [facility] Start: 12-14-2014 PAP TESTING PAP TESTING [facility] Start: 12-14-2014 Screening for malign ant neoplasm of cervix [facility] Start: 1998 DTaP/Tdap/Td Vaccine s (1 - Tdap) DTaP/Tdap/Td Vaccines (1 - Tdap) [facility] Start: 1997 Screening for malign ant neoplasm of cervix [facility] Start: 1995 Hepatitis B Vaccine (1 of 3 - 19+ 3-dose series) Hepatitis B Vaccine (1 of 3 - 19+ 3-dose series) [facility] Start: 1995 Urine microalbumin profile [facility] Start: 1994 Diabetes mellitus screening Diabetes Screening [facility] Start: 1994 HEPATITIS C SCREENING HEPATITIS C [facility] Start: 1994 Hepatitis C screening Hepatitis C [facility] Start: 1994 HIV SCREENING HIV SCREENING [facility] Start: 1994 HIV screening HIV Screening [facility] Start: 1977 MMR Vaccines (1 of 1 - Standard series) MMR Vaccines (1 of 1 - Standard series) [facility] Start: 1976 COVID-19 VACCINE (#1) COVID-19 VACCI NE (#1) [facility] Start: 1976 HEPATITIS B (1 of 3 - 3-dose series) HEPATITIS B (1 of 3 - 3-dose series) [facility] Start: 1976 Hepatitis B Vaccines (1 of 3 - 3-dose series) Hepatitis B Vaccines (1 of 3 - 3-dose series) [facility] Start: 1976 HIV screening HIV Screening [facility] Start: 1976 Lipid panel Lipid Panel [facility] Start: 1976 Screening for malign ant neoplasm of colon [facility] Start: 1976 Yearly Adult Physical Yearly Adult P hysical [facility] Celiac disease screen [facility] Work Phone: End: 11-03-2023 CT for calcium scoring WO contrast and CTA W contrast IV Heart and coronary arteries [facility] Service Area Work Phone: Comment on above: Once for 1 Occurrenc es starting 11/03/2023 until 11/03/2023 Elastase, pancreatic (el-1), fecal; quantitative [facility] Work Phone: Fat [Presence] in Stool [facility] Work Phone: End: 08-23-2023 THIERNO SCREENING THIERNO SCREENING Radiology Routine Encounter for screening mammogram for breast cancer 1 Occurrences starting 07/24/2022 until 08/23/2023 [facility] Work Phone: Comment on above: 1 Occurrences starti ng 07/24/2022 until 08/23/2023 MR Biliary ducts and Pancreatic duct WO contrast [facility] Work Phone: Patient Education [facility] Work Phone: Patient referral [facility] Work Phone: Radionuclide gastric emptying study [facility] Work Phone: [facility] Work Phone: [facility] Work Phone: [facility] Work Phone: [facility] Work Phone: [facility] Work Phone: [facility] Work Phone: [facility] Work Phone: [facility] Work Phone: [facility] Work Phone: Immunizations Immunization Date Immunization Notes Care Provider [facility] 11-14-2024 tetanus toxoid, redu dariela diphtheria toxoid, and acellular pertussis vaccine, adsorbed Dr. Juan Daniel Rutherford DO Work Phone: [facility] 05-14-2017 influenza virus vaccine, unspecified formulation NA Muro PA-C Work Phone: [facility] 09-21-2008 influenza virus vaccine, unspecified formulation NA Muro PA-C Work Phone: [facility] Work Phone: 07-13-2007 influenza virus vaccine, unspecified formulation NA Muro PA-C Work Phone: [facility] Work Phone: 06-16-2006 influenza virus vaccine, unspecified formulation NA Muro PA-C Work Phone: [facility] Work Phone: Payers Date Payer Category Payer Self-pay [id number] 2024 Unknown [id number] 2015 Unknown [id number] 2015 Unknown 1975 Unknown [id number] 1975 Unknown [id number] [id number] [id number] Unknown [id number] [id number] [id number] Unknown [id number] 2.16.8 [id number] Unknown [id number] 2.16.8 [id number] Unknown [id number] [id number] [id number] Social History Date Type Detail Facility Start: 05-09-2017 End: 07-17-2020 Current Household Members Current Household Members [facility] Work Phone: Comment on above: - 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 [employer] - 2 children- daughter 19 and son 16 Start: 12-24-2021 End: 09-18-2023 Tobacco smoking status WIIS Unknown if ever smoked [facility] Start: 10-13-2019 Spouse/ Signif icant Other [facility] Start: 10-14-2019 Vapor [facility] Start: 1975 Sex Assigned At Female C [facility] Start: 05-09-2017 [facility] End: 02-08-2010 History of tobacco use Current smoker [facility] End: 02-08-2010 History of tobacco use Cigarette Smoker [facility] Start: 05-09-2017 Tobacco use and exposure Smokeless tobacco non-user [facility] Start: 06-01-2021 Alcohol intake Current drinke r of alcohol (finding) [facility] Start: 03-18-2020 End: 06-01-2021 History SDOH Alcohol Frequency 2 [facility] Start: 03-18-2020 End: 06-01-2021 History SDOH Alcohol Std Drinks 1 [facility] Start: 03-18-2020 History SDOH Social Connections Phone 5 [facility] Start: 03-18-2020 History SDOH Social Connections [employer] 98 [facility] Start: 03-18-2020 History SDOH Social Connections Living 3 [facility] Start: 03-17-2020 Education 16 [facility] Start: 08-15-2016 Tobacco Comment electronic cigarette [facility] Start: 1975 Sex Assigned At Not on file [facility] Work Phone: Start: 03-17-2020 End: 07-17-2020 Gender identity Not on file [facility] Start: 10-24-2023 End: 11-03-2023 Exposure to SARS-CoV-2 (event) Not sure [facility] How often do you att end shinto or spiritism services? Patient declined [facility] Do you belong to any clubs or organizations such as shinto groups, unions, fraternal or athletic groups, or school groups? Yes [facility] Are you now , , , , never or living with a partner? [facility] How often to you hav e a drink containing alcohol? Monthly or less [facility] How many standard drinks containing alcohol do you have on a typical day? 1 or 2 [facility] How often do you hav e 6 or more drinks on 1 occasion? Never [facility] Do you feel stress - tense, restless, nervous, or anxious, or unable to sleep at night because your mind is troubled all the time - these days [OSQ] Not at all [facility] (I/We) worried wheclair er (my/our) food would run out before (I/we) got money to buy more. Never true [facility] In the past 12 month s, was there a time when you were not able to pay the mortgage or rent on time? No [facility] Start: 03-18-2020 Sexual orientation Heterosexual (edd trinh) [facility] Start: 11-14-2024 Tobacco smoking stat us WIIS Smokes tobacco daily (finding) [facility] Start: 11-14-2024 Sex Female (finding) [facility] Medical Equipment Procedure Code Equipment Code Equipment Original Text Equipment Identifier Dates Total cholecystectomy with exploration of common bile duct CLIP,HEMMYRA VALDEZ WERICKY FDA Start: 10-13-2019 Total cholecystectomy with exploration of common bile duct CLIP,HEMMYRA VALDEZ WERICKY FDA Start: 10-13-2019 Total cholecystectomy with exploration of common bile duct CLIP,HEMOLORICKY VALDEZ WECK FDA Start: 10-13-2019 Total cholecystectomy with exploration of common bile duct CLIP,HEMOLORICKY VALDEZ WECK FDA Start: 10-13-2019 Total cholecystectomy with exploration of common bile duct CLIP,HEMOLORICKY VALDEZ WECK FDA Start: 10-13-2019 Total cholecystectomy with exploration of common bile duct CLIP,HEMOLORICKY VALDEZ WERICKY FDA Start: 10-13-2019 Total cholecystectomy with exploration of common bile duct CLIP,HEMOLORICKY VALDEZ WERICKY FDA Start: 10-13-2019 Total cholecystectomy with exploration of common bile duct CLIP,HEMMYRA ROCK FDA Start: 10-13-2019 Total cholecystectomy with exploration of common bile duct CLIP,HEMOLORICKY VALDEZ WERICKY FDA Start: 10-13-2019 Total cholecystectomy with exploration of common bile duct CLIP,HEMOLORICKY VALDEZ WERICKY FDA Start: 10-13-2019 Total cholecystectomy with exploration of common bile duct CLIP,HEMOLORICKY VALDEZ WERICKY FDA Start: 10-13-2019 Total cholecystectomy with exploration of common bile duct CLIP,HEMOLORICKY VALDEZ WERICKY FDA Start: 10-13-2019 Total cholecystectomy with exploration of common bile duct CLIP,HEMMYRA VALDEZ WECK FDA Start: 10-13-2019 Total cholecystectomy with exploration of common bile duct CLIP,HEMOLORICKY VALDEZ WECK FDA Start: 10-13-2019 Total cholecystectomy with exploration of common bile duct CLIP,HEMOLORICKY VALDEZ WECK FDA Start: 10-13-2019 Total cholecystectomy with exploration of common bile duct CLIP,HEMOLORICKY VALDEZ WECK FDA Start: 10-13-2019 Total cholecystectomy with exploration of common bile duct CLIP,HEMOLORICKY VALDEZ WECK FDA Start: 10-13-2019 Total cholecystectomy with exploration of common bile duct CLIP,HEMOLORICKY VALDEZ WECK FDA Start: 10-13-2019 Total cholecystectomy with exploration of common bile duct CLIP,HEMOLORICKY VALDEZ WECK FDA Start: 10-13-2019 Total cholecystectomy with exploration of common bile duct CLIP,HEMMYRA VALDEZ WECK FDA Start: 10-13-2019 Total cholecystectomy with exploration of common bile duct CLIP,HEMMARIERICKY JOSÉ MIGUEL WECK FDA Start: 10-13-2019 Total cholecystectomy with exploration of common bile duct CLIP,HEMOLORICKY JOSÉ MIGUEL WERICKY FDA Start: 10-13-2019 Total cholecystectomy with exploration of common bile duct CLIP,HEMMARIERICKY JOSÉ MIGUEL WECK FDA Start: 10-13-2019 Total cholecystectomy with exploration of common bile duct CLIP,HEMMYRA VALDEZ WERICKY FDA Start: 10-13-2019 Total cholecystectomy with exploration of common bile duct CLIP,HEMMYRA VALDEZ WERICKY FDA Start: 10-13-2019 Total cholecystectomy with exploration of common bile duct CLIP,HEMOLORICKY JOSÉ MIGUEL PRANAV FDA Start: 10-13-2019 Total cholecystectomy with exploration of common bile duct CLIP,HEMOLORICKY ROCK FDA Start: 10-13-2019 Total cholecystectomy with exploration of common bile duct CLIP,HEMMARIERICKY JOSÉ MIGUEL PRANAV FDA Start: 10-13-2019 Total cholecystectomy with exploration of common bile duct CLIP,HEMMARIERICKY JOSÉ MIGUEL PRANAV FDA Start: 10-13-2019 Total cholecystectomy with exploration of common bile duct CLIP,MARYLU VALDEZ PRANAV FDA Start: 10-13-2019 Total cholecystectomy with exploration of common bile duct CLIP,HEMMARIERICKY JOSÉ MIGUEL PRANAV FDA Start: 10-13-2019 Total cholecystectomy with exploration of common bile duct CLIP,HEMMARIERICKY ROCK FDA Start: 10-13-2019 Total cholecystectomy with exploration of common bile duct CLIP,HEMOLORICKY JOSÉ MIGUEL PRANAV FDA Start: 10-13-2019 Total cholecystectomy with exploration of common bile duct CLIP,HEMMARIERICKY JOSÉ MIGUEL PRANAV FDA Start: 10-13-2019 Total cholecystectomy with exploration of common bile duct CLIP,HEMMARIERICKY JOSÉ MIGUEL PRANAV FDA Start: 10-13-2019 Total cholecystectomy with exploration of common bile duct CLIP,HEMOLORICKY JOSÉ MIGUEL WERICKY FDA Start: 10-13-2019 Total cholecystectomy with exploration of common bile duct CLIP,HEMOLORICKY ROCK FDA Start: 10-13-2019 Total cholecystectomy with exploration of common bile duct CLIP,HEMOLORICKY JOSÉ MIGUEL WERICKY FDA Start: 10-13-2019 Total cholecystectomy with exploration of common bile duct CLIP,HEMOLORICKY JOSÉ MIGUEL PRANAV FDA Start: 10-13-2019 Goals Date Patient Goal Desired Activity /State Mental Status Date Assessment Result Facility 07-01-2023 Cognitive function Voice/Name [facility] Work Phone: 05-07-2022 Cognitive function Voice/Name [facility] Work Phone: Clinical Notes 07-01-2023 to 09-14-2024 Note Date & Type Note Facility 09-14-2024 Evaluation note Diagnosis Onset Date Resolution Diarrhea chronic September 14, 2024 10:53am Gastritis, bile acid reflux chronic September 14 10:53am Sphincter of Oddi spasm chronic September 14 10:53am [facility] Work Phone: 1(365) 807-149805-01-2024 NoteHNO ID: [id number] Author: ?, ?, ? Service: ? Author Type: ? Type: Progress Notes Filed: 12/15/2023 03:03 Note Text: 12-09 patient stated she is no longer a patient of [facility], no seeing [facility] of Present illness Narrative* Valentina Sheth - 12/10/2023 11:16 AM EDT 12-09 patient stated she is no longer a patient of [facility], no seeing [facility] Valentina Sheth * Valentina Sheth - 11/13/2023 2:38 PM EDT 11-11..Waiting to call until colonoscopy order is placed * Chichi Santiago RN - 11/13/2023 11:23 AM EDT COLONOSCOPY PATIENT OUTREACH Action/I Colonoscopy Recall Patient identified by Name and : Yes. --- OUTREACH OUTCOME ACTION: Open Access: Telephone call: Pt is overdue for screening colonoscopy. May proceed as open access. Please call pt to schedule. Last colonoscopy noted 2016 [facility] NoteHNO ID: [id number] Author: ?, ?, ? Service: ? Author Type: ? Type: Progress Notes Filed: 12/15/2023 03:03 Note Text: 11-11..Waiting to [facility] NotePatient Outreach (ASWSTR) WINSTON OSORIO ([id number]) 1975 F Date Time Provider Department 11/13/23 Justin MURO During your visit today, we recorded the following information about you: Chichi Santiago RN 12/15/2023 3:03 AM Signed COLONOSCOPY PATIENT OUTREACH Action/ Colonoscopy Recall Patient identified by Name and : Yes. ---- OUTREACH OUTCOME ACTION: Open Access: Telephone call: Pt is overdue for screening colonoscopy. May proceed as open access. Please call pt to schedule. Last colonoscopy noted 2016 BRAD Noe Ida 12/15/2023 3:03 AM Signed 11-11..Waiting to call until colonoscopy order is placed Valentina Sheth 12/15/2023 3:03 AM Signed 12-09 patient stated she is no longer a patient of clementina [facility] Internal Medicine Valentina Sheth Allergies As of Date: 11/13/2023 Noted Allergy Reaction AUGMENTIN (AMOXICILLIN-POT CLAVUL*03/19/2010 9 - Itching Comments: Muscle aches,chills,fatigue DUST 11/14/2005 MACROBID (NITROFURANTOIN MONOHYD/*05/07/2005 SULFA (SULFONAMIDE ANTIBIOTICS) 05/07/2005 14 - Other: See Comments Comments: chills, dizzy Date Reviewed: 12/04/2020 Reviewed by: Palma Hardin (Nancy) - Fully Assessed Reason for Visit: colorectal recall screening [Other] Prescriptions as of 12/15/2023 - hyoscyamine sublingual (LEVSIN SL) 0.125 mg Dissolve 1 tablet under the tongue every 4 hours as needed (FOR CRAMPING). - amitriptyline (ELAVIL) 25 mg tablet Take 1 tablet by mouth daily at bedtime. - mv-mn/iron fum/FA/omega3,6,9#3 (WOMEN'S MULTI ORAL) Take by mouth. - calcium carbonate/vitamin D2 (CALCIUM + VITAMIN D ORAL) Take by mouth. - elderberry fruit (ELDERBERRY ORAL) Take by mouth. - progesterone 5 % cream (CPD) C-Progesterone Active 1 APPLIC AT BEDTIME October 13, 2019 3:11pm Apply 2 clicks at bedtime. Apply to altenating wrist, thigh, and upper chest. - omeprazole (PRILOSEC) 20 mg capsule Take 2 capsules by mouth daily before breakfast. 1/2 hr before meal. - Loratadine (ALAVERT) 10 mg dissolvable tablet Take 10 mg by mouth once daily. Problem List As Of Date 11/13/2023 Noted Resolved MALAISE AND FATIGUE NEC [R53.81, R53.83] 10/18/2006 HYPERTENSION TRANSIENT OF [O13.9] 10/18/2006 RHINITIS ALLERGIC, OTHER ALLERGEN [J30.89] 10/18/2006 CHEST PAIN NOS [R07.9] 10/12/2007 Gastroesophageal reflux disease [K21.9] 10/31/2016 Psoriasis [L40.9] 12/19/2016 H/O bone density study [Z92.89] 01/01/2017 IBS (irritable bowel syndrome) [K58.9] 01/01/2017 Periodic headache syndrome, not intractable [G4*03/20/2020 Encounter Status:Closed by RAJINDER WILDER on 12/15/23[facility] 11-13-2023 NoteHNO ID: [id number] Author: CHICHI SANTIAGO RN Service: ? Author Type: Registered Nurse Type: Progress Notes Filed: 12/15/2023 03:03 Note Text: COLONOSCOPY PATIENT OUTREACH Action/ Colonoscopy Recall Patient identified by Name and : Yes. --- OUTREACH OUTCOME ACTION: Open Access: Telephone call: Pt is overdue for screening colonoscopy. May proceed as open access. Please call pt to schedule. Last colonoscopy noted 2016 [facility]-22-2023 NotePatient Outreach (INTMMN) WINSTON OSORIO ([id number]) 1975 F Date Time Provider Department 07/02/23 Justin MURO INTMMN During your visit today, we recorded the following information about you: Allergies As of Date: 07/02/2023 Noted Allergy Reaction AUGMENTIN (AMOXICILLIN-POT CLAVUL*03/19/2010 9 - Itching Comments: Muscle aches,chills,fatigue DUST 11/14/2005 MACROBID (NITROFURANTOIN MONOHYD/*05/07/2005 SULFA (SULFONAMIDE ANTIBIOTICS) 05/07/2005 14 - Other: See Comments Comments: chills, dizzy Date Reviewed: 12/04/2020 Reviewed by: Palma Hardin Ma - Fully Assessed Visit Diagnosis:Encounter for screening mammogram for breast cancer [Z12.31] Order(s):[facility] [6329307] Order #: [id number] FUTURE Prescriptions as of 07/07/2023 - hyoscyamine sublingual (LEVSIN SL) 0.125 mg Dissolve 1 tablet under the tongue every 4 hours as needed (FOR CRAMPING). - amitriptyline (ELAVIL) 25 mg tablet Take 1 tablet by mouth daily at bedtime. - mv-mn/iron fum/FA/omega3,6,9#3 (WOMEN'S MULTI ORAL) Take by mouth. - calcium carbonate/vitamin D2 (CALCIUM + VITAMIN D ORAL) Take by mouth. - elderberry fruit (ELDERBERRY ORAL) Take by mouth. - progesterone 5 % cream (CPD) C-Progesterone Active 1 APPLIC AT BEDTIME October 13, 2019 3:11pm Apply 2 clicks at bedtime. Apply to altenating wrist, thigh, and upper chest. - omeprazole (PRILOSEC) 20 mg capsule Take 2 capsules by mouth daily before breakfast. 1/2 hr before meal. - Loratadine (ALAVERT) 10 mg dissolvable tablet Take 10 mg by mouth once daily. Problem List As Of Date 07/02/2023 Noted Resolved MALAISE AND FATIGUE NEC [R53.81, R53.83] 10/18/2006 HYPERTENSION TRANSIENT OF [O13.9] 10/18/2006 RHINITIS ALLERGIC, OTHER ALLERGEN [J30.89] 10/18/2006 CHEST PAIN NOS [R07.9] 10/12/2007 Gastroesophageal reflux disease [K21.9] 10/31/2016 Psoriasis [L40.9] 12/19/2016 H/O bone density study [Z92.89] 01/01/2017 IBS (irritable bowel syndrome) [K58.9] 01/01/2017 Periodic headache syndrome, not intractable [G4*03/20/2020 Encounter Status:Closed by LAST WILDERUSEDonis on 07/07/23[facility] 07-01-2023 Discharge summary Author [facility] July 01, 2023 2:52pm Note Date/Time July 01, 2023 11:19am [facility] Medical Records Department [address] [place] [address] Emergency Department Summary 07/01/23 MR#: [id number] Acct: [id number] Name: WINSTON OSORIO Rep #:[id number] : 1975 48 From: Logan Bolton MD PCP: Dr. Juan Daniel Rutherford, DO Status:REG ER Location: ED HPI History of Present Illness Chief Complaint: Chest Pain Detail of Chief Complaint: Sternal chest pressure this morning that started at 0800, there is a pleuri Informant: patient and spouse/S.O. Onset/Context/Timing Onset: Today (0800) and Weeks (Planes of intermittent chest pain which was believed to be due to influenza type A that was diagnosed 2 weeks ago.) Activity at onset: sudden and rest Timing: Continuous Quality: Positive for Pressure Location: Substernal Current Severity: Mild Maximum Severity: Moderate Worsened By: Breathing; Not Worsened By Movement of Arm, Movement of Torso, Eating, Palpation or Coughing Relieved By: Nothing Associated Symptoms: Positive for Nausea, Diaphoresis, Dyspnea, Lightheadedness and Palpitations; Negative for Vomiting, Cough, Fever or Acid Reflux Narrative Narrative: Patient is a 48-year-old woman who is a smoker and recently diagnosed with hypertension. She started taking lisinopril yesterday. She does not know the dose. Over the weekend she was taking propranolol. She was prescribed propranolol for migraine headaches. This morning she felt palpitations, substernal chest pressure that radiated to the left side of the jaw with nausea, sweats and shortness of breath. She does endorse dyspnea on exertion. She denies history of VTE. She denies recent surgery. She denies leg pain, swelling or discoloration. Her and her were on a 2-week trip where they were on a short plane flight and in a vehicle for 4 to 5000 miles. She denies double vision, blurred vision or loss of vision. She does complain of head discomfort. She denies ringing or ears or decreased hearing. She denies neck pain. She denies back pain. She denies paresthesia, anesthesia or motor weakness upper or lower extremity. She denies problems with balance or coordination. She denies problems with speech or swallowing. She is on benzodiazepine for anxiety. Prior Similar Symptoms: No Recent Illness/Hospitalization: No CVD Risk Factors: Positive for Hypertension, Hypercholesterolemia and Smoking; Negative for Diabetes or Family History 1' </=55 PE Risk Factors: Positive for Recent Travel/Surgery and Recent Immobilization; Negative for Prior DVT or PE, Cancer or OCP + Smoking + >/=35 TAD Risk Factors: Positive for Hypertension; Negative for Marfan's Syndrome or Family History PFSH PFSH Medical History Acute cholecystitis Anxiety Epigastric pain Gall bladder stones History of echocardiogram History of irregular heartbeat History of steroid therapy History of stress test Hyperlipidemia Migraines Pre-eclampsia Segmental and somatic dysfunction of cervical region Segmental and somatic dysfunction of lumbar region Segmental and somatic dysfunction of pelvic region Segmental and somatic dysfunction of thoracic region Smoker Thyroid disease Home Medications amitriptyline 25 mg tablet 25 mg PO QHS 10/13/19 [History Last Taken Unknown] alprazolam 0.5 mg tablet (Xanax) 0.5 mg PO PRN PRN Anxiety 11/13/21 [History Last Taken Unknown] meloxicam 15 mg tablet 15 mg PO PRN PRN Migraine Headache 11/13/21 [History Last Taken Unknown] HRT pellet estradiol testosterone implant 12/24/21 [History Last Taken Unknown] rizatriptan 5 mg tablet See Rx Instructions PO .COMPLEX PRN MIGRAINES 12/24/21 [History Last Taken Unknown] rosuvastatin 5 mg tablet 5 mg PO QHS 05/02/22 [History Last Taken Unknown] cholestyramine (with sugar) 4 gram oral powder 4 g PO TID diarrhea #1,134 grams 05/05/23 [Rx Last Taken Unknown] dicyclomine 20 mg tablet 20 mg PO TID PRN abdominal pain #90 tabs 05/05/23 [Rx Last Taken Unknown] cholestyramine-aspartame 4 gram oral powder (Cholestyramine Light) 4 g PO TID #1,134 grams 06/03/23 [Rx Last Taken Unknown] Allergy/AdvReac Type Severity Reaction Status Date / Time nitrofurantoin Allergy Unknown Verified 07/01/23 10:49 [From Macrobid] Sulfa (Sulfonamide Allergy Hives Verified 07/01/23 10:49 Antibiotics) wheat Allergy Other Verified 07/01/23 10:49 Family History Mother Alcohol abuse Melanoma High cholesterol Bipolar 1 disorder Surgical History Hx of appendectomy Hx of hysterectomy, total Hx of wisdom tooth extraction S/P laparoscopic cholecystectomy (~10/13/19) S/P LASIK surgery of both eyes Social History (Updated 07/01/23 @ 11:[address] Logan Bolton MD) household members: spouse Smoking Status: Current every day smoker tobacco type: cigarettes alcohol intake: current ROS ROS ED Constitutional Constitutional ED: Denies chills, fever(s), subjective or sweats Eyes Eyes: Reports none ENT ENT ED: Denies ear pain, rhinorrhea or sore throat Cardiovascular Cardiovascular: Reports as per HPI, chest pain and palpitations; Denies orthopnea or paroxysmal nocturnal dyspnea Respiratory/Chest Respiratory/Chest: Reports dyspnea and dyspnea on exertion; Denies cough, orthopnea or paroxysmal nocturnal dyspnea Gastrointestinal Gastrointestinal: Reports nausea; Denies abdominal pain, constipation, diarrhea,melena or vomiting Genitourinary Genitourinary ED: Denies dysuria, hematuria or urinary frequency Musculoskeletal Musculoskeletal: Denies arthralgias, back pain, myalgias or neck pain Integumentary Denies rash Neurologic Neurologic: Reports headache(s); Denies paresthesias or weakness Psychiatric Psychiatric: Reports anxiety Endocrine Endocrinology: Reports heat intolerance; Denies cold intolerance, polydipsia, polyphagia or polyuria Hematologic/Lymphatic Hematologic/Lymphatic: Denies easy bleeding or easy bruising EXAM Physical Exam Const Vital Signs: 07/01/23 10:50 07/01/23 11:08 07/01/23 13:21 Temperature 97.3 F L Temperature Source Temporal Pulse Rate 122 H 89 Respiratory Rate 18 14 Blood Pressure 198/119 H 144/104 H Blood Pressure Mean 145 117 Pulse Ox 100 Oxygen Delivery Method Room Air Room Air Positive well nourished and well developed General Appearance ED: well developed and NAD; Negative for pallor HEENT Reports TM's clear, moist mucous membranes and dry mucous membranes normocephalic and atraumatic Tympanic Membrane ED: Yes TM's clear Mouth ED: Yes dry mucous membranes Mouth: dry mucous membranes Eyes PERRL and EOMs intact bilaterally General Eye ED: Negative for pale conjunctiva or scleral icterus Neck no lymphadenopathy, supple and no JVD Neck Narrative: No carotid bruits. Chest Wall inspection of chest normal and palpation of chest normal Resp normal respiratory effort and clear to auscultation bilaterally Cardio regular rhythm, S1 normal heart sound, S2 normal heart sound and no murmurs Rate: tachycardic Peripheral Pulses: pulses 2+ throughout GI normal to inspection, nondistended, normoactive bowel sounds, soft to palpation,non-tender, non-distended and no masses; Negative for hepatosplenomegaly Back/Spine no CVA tenderness Extremity normal to inspection Extremity Narrative: There is no asymmetry, swelling, discoloration, leg vein distention, palpable cords or tenderness along the distribution of the deep venous system. Neuro oriented x3, CN's II-XII intact bilaterally and no sensory deficits noted Sensorium / Orientation: awake and alert Psych mental status grossly normal Skin no rashes or lesions noted and no wounds General Skin Exam: Negative for jaundice or pallor Heart Score History: Slightly/Non-Suspicious ECG: Normal Age: >45 - <65 years Risk Factors: 1 or 2 Risk Factors Troponin: </= Normal Limit Score: 2 MDM MDM MDM Narrative Medical decision making narrative: Patient diagnosis is cardiac versus noncardiac. With respect to noncardiac since she has had recent travel is tachycardic and complains of dyspnea need to evaluate for PE. D-dimer was obtained. Risk factors for cardiac are newly diagnosed hypertension, hypercholesterolemia and tobacco use. Patient has cut down to quarter pack per day. Since she has a nonfocal neurologic exam there ispresently no concern for intracranial bleed. Her work-up included EKG with troponin and 2-hour troponin, D-dimer, CBC to assess H&H to assess specifically white count and rule out anemia. BMP to assess renal function in the event a CTA is needed and to evaluate for endorgan dysfunction. If patient blood pressure remains elevated will treat. The tachycardia may be in response to a PE and until that is ruled out we will not administer beta-blockers. Heart score is 2. Patient is at low risk. Therefore she was discharged to home. Lab Data Attestation: I reviewed the patient's lab results. Lab results narrative: Count is unremarkable. There is a slight shift Clinisync present neutrophils. D- dimer is less than 0.27 basic metabolic panel is unremarkable. Glucose is slightly elevated 122 with normal CO2 anion gap. Chloride is 110. There is troponin is normal at 19. 2-hour troponin is pending. Of note patient had a troponin as an outpatient yesterday and was 17. Second troponin is 16 with a delta of -3. Patient's blood pressure without treatment went from 198/119 to 144/100. And work-up indicates no evidence of endorgan dysfunction. Patient be discharged to home. Labs: Laboratory Results - last 24 hr 07/01/23 07/01/23 11:22 14:06 WBC 8.2 RBC 4.70 Hgb 14.7 Hct 43.6 MCV 92.8 MCH 31.3 MCHC 33.7 RDW Std Deviation 40.5 RDW Coeff of Kathy 11.9 Plt Count 291 MPV 9.7 Immature Gran % (Auto) 0.200 Neut % (Auto) 71.0 H Lymph % (Auto) 19.6 [place] % (Auto) 5.9 Eos % (Auto) 2.7 Baso % (Auto) 0.6 Absolute Neuts (auto) 5.8 Absolute Lymphs (auto) 1.60 Nucleated RBC % 0 D-Dimer Quant (PE/DVT) < 0.27 L Sodium 141 Potassium 4.1 Chloride 110 H Carbon Dioxide 29.0 Anion Gap 2 L BUN 10 Creatinine 0.86 Estim Creat Clear Calc 69.83 Est GFR (MDRD) Af Amer 92 Est GFR (MDRD) Non-Af 76 BUN/Creatinine Ratio 11.7 Glucose 122 H Calcium 9.4 Troponin I High Sens 19 16 Radiography Chest X-Ray - ED: 2 View, Read by ED Physician (2 view chest x-ray is independently interpreted by me at 1159 as normal. Cardiac silhouette size normal. Lung parenchyma normal. Perihilar region normal. Osseous structures are unremarkable.), Normal, Heart, Lungs, Mediastinum, Bony Structures and No Acute Disease Diagnostic Testing: Clinical Impression(s) from Imaging Studies Chest X-Ray 07/01/23 11:47 IMPRESSION: No acute cardiopulmonary abnormality. Electronically Signed: Diego Maxwell MD at 12:13 EST , Discharge Plan Triage Chief Complaint: Chest Pain ED Provider: Logan Bolton Dx/Rx/DC Orders Clinical Impression: Chest pressure, Gastritis, bile acid reflux, Accelerated essential hypertension Instructions: ED High Blood Pressure Hypertension Prescriptions: No Action meloxicam 15 mg tablet 15 mg PO PRN PRN (Reason: Migraine Headache) Rx Instructions: STOPPED DUE TO PROCEDURE alprazolam [Xanax] 0.5 mg tablet 0.5 mg PO PRN PRN (Reason: Anxiety) rizatriptan 5 mg tablet See Rx Instructions PO .COMPLEX PRN (Reason: MIGRAINES) Rx Instructions: take 1 tablet at onset of headache; if no relief, may repeat 1 tablet after at least 2 hrs PO HRT pellet estradiol testosterone implant amitriptyline 25 MG tablet 25 mg PO QHS rosuvastatin 5 mg tablet 5 mg PO QHS Patient Comments: TAKE 1 TABLET BY MOUTHCEVERY EVENING WITH OR WITHOUT FOOD cholestyramine (with sugar) 4 gram powder 4 g PO TID Qty: 1134 3RF Rx Instructions: administer w/meal; avoid other meds within 1hr before or 4-6hr after dose dicyclomine 20 mg tablet 20 mg PO TID PRN (Reason: abdominal pain) Qty: 90 5RF Cholestyramine Light 4 gram powder 4 g PO TID Qty: 1134 5RF Rx Instructions: administer w/meal; avoid other meds within 1hr before or 4-6hr after dose Primary Care Provider: Juan Daniel Rutherford Referrals: Juan Daniel Rutherford DO [Primary Care Provider] - 5-7 Days Disposition Disposition: Home, Self Care What to do if you have Problems For any increased pain, shortness of breath, bleeding, nausea or vomiting, chestpain, or any unexpected problems, contact your Primary Care Provider. Call [facility] ([phone]) or report to the closest Emergency Room. Call 911 if necessary. 07/01/23 1448 <Electronically signed by Logan Bolton MD> Cosigner Signature (if applicable): CC: Dr. Juan Daniel Rutherford DO ~ Signed ADDENDUM by Dr. Logan Bolton MD on 07/01/23 at 1452 normal sinus rhythm with a rate of 109. There is low voltage. NE was 170 msper cures duration 80 ms. QT duration 3 and 30 ms. [place] is normal. There is no evidence of acute ischemic changes. 07/01/23 1452<Electronically signed by Logan Bolton MD> Cosigner Signature (if applicable): cc: Dr. Juan Daniel Rutherford, DO ~* Signed [facility] Work Phone: Evaluation note* Diagnosis Onset Date Resolution Status Constipation acute Heartburn acute [facility] Work Phone: Evaluation noteNo assessment information available [facility] Work Phone: Evaluation note* Diagnosis Onset Date Resolution Status Diarrhea acute Epigastric pain acute Gastritis, bile acid reflux acute [facility] Work Phone: Evaluation note* Diagnosis Onset Date Resolution Status Diarrhea acute Epigastric pain acute Gastritis, bile acid reflux acute Gastritis, bile acid reflux acute Sphincter of Oddi spasm acut e [facility] Work Phone: Evaluation note* Diagnosis [facility] for [facility] Hyperlipidemia, unspecified documented in this encounter [facility] Work Phone: Evaluation note* Diagnosis Hyperlipidemia, unspecified documented in this encounter [facility] Work Phone: Evaluation note* Diagnosis Onset Date Resolution Status Diarrhea chronic Gastritis, bile acid reflux chronic 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 Return for any signs of infection.[facility] Work Phone: Instructions* Name Dates Details Patient Instructions Indication:Epicondylitis, lateral, right Start:13-Aug-2021 Instruction Type:Provider Instructions for Treatment How to Access Health Informa tion Online using Patient Portal and [employer] Apps Indication:Epicondylitis, lateral, right Start:13-Aug-2021 Instruction Type:Patient Edu cation [facility]; [facility] Work Phone: Instructions* Name Dates Details Patient Instructions Indication:Epicondylitis, lateral, right Start:13-Aug-2021 Instruction Type:Provider Instructions for Treatment How to Access Health Informa tion Online using Patient Portal and [employer] Apps Indication:Epicondylitis, lateral, right Start:13-Aug-2021 Instruction Type:Patient Edu cation [facility]; [facility] Work Phone: instructions* Name Dates Details Patient Instructions Indication:Epicondylitis, lateral, right Start:13-Aug-2021 Instruction Type:Provider Instructions for Treatment How to Access Health Informa tion Online using Patient Portal and [employer] Apps Indication:Epicondylitis, lateral, right Start:13-Aug-2021 Instruction Type:Patient Edu cation [facility]; [facility] Work Phone: instructions* Name Dates Details Patient Instructions Indication:[facility] Start:15-Oct-2021 Instruction Type:Provider Instructions for Treatment How to Access Health Informa tion Online using Patient Portal and [employer] Apps Indication:[facility] Start:15-Oct-2021 Instruction Type:Patient Edu cation Patient Instructions Indication:Epicondylitis, lateral, right Start:13-Aug-2021 Instruction Type:Provider Instructions for Treatment How to Access Health Informa tion Online using Patient Portal and [employer] Apps Indication:Epicondylitis, lateral, right Start:13-Aug-2021 Instruction Type:Patient Edu cation [facility]; [facility] Work Phone: instructions* Name Dates Details Patient Instructions Indication:[facility] Start:15-Oct-2021 Instruction Type:Provider Instructions for Treatment How to Access Health Informa tion Online using Patient Portal and [employer] Apps Indication:[facility] Start:15-Oct-2021 Instruction Type:Patient Edu cation Patient Instructions Indication:Epicondylitis, lateral, right Start:13-Aug-2021 Instruction Type:Provider Instructions for Treatment How to Access Health Informa tion Online using Patient Portal and [employer] Apps Indication:Epicondylitis, lateral, right Start:13-Aug-2021 Instruction Type:Patient Edu cation [facility]; [facility] Work Phone: instructions* Name Dates Details Patient Instructions Indication:Hyperlipidemia Start:29-Jan-2022 Instruction Type:Provider Instructions for Treatment How to Access Health Informa tion Online using Patient Portal and [employer] Apps Indication:Hyperlipidemia Start:29-Jan-2022 Instruction Type:Patient Education Patient Instructions Indication:[facility] Start:15-Oct-2021 Instruction Type:Provider Instructions for Treatment How to Access Health Informa tion Online using Patient Portal and [employer] Apps Indication:[facility] Start:15-Oct-2021 Instruction Type:Patient Education Patient Instructions Indication:Epicondylitis, lateral, right Start:13-Aug-2021 Instruction Type:Provider Instructions for Treatment How to Access Health Informa tion Online using Patient Portal and [employer] Apps Indication:Epicondylitis, lateral, right Start:13-Aug-2021 Instruction Type:Patient Education [facility]; [facility] Work Phone: Instructions* Name Dates Details Patient Instructions Indication:Smoker Start:29-May-2022 Instruction Type:Provider Instructions for Treatment How to Access Health Informa tion Online using Patient Portal and [employer] Apps Indication:Smoker Start:29-May-2022 Instruction Type:Patient Education Patient Instructions Indication:Hyperlipidemia Start:29-Jan-2022 Instruction Type:Provider Instructions for Treatment How to Access Health Informa tion Online using Patient Portal and [employer] Apps Indication:Hyperlipidemia Start:29-Jan-2022 Instruction Type:Patient Education Patient Instructions Indication:[facility] Start:15-Oct-2021 Instruction Type:Provider Instructions for Treatment How to Access Health Informa tion Online using Patient Portal and [employer] Apps Indication:[facility] Start:15-Oct-2021 Instruction Type:Patient Education Patient Instructions Indication:Epicondylitis, lateral, right Start:13-Aug-2021 Instruction Type:Provider Instructions for Treatment How to Access Health Informa tion Online using Patient Portal and [employer] Apps Indication:Epicondylitis, lateral, right Start:13-Aug-2021 Instruction Type:Patient Education [facility]; [facility] Work Phone: Instructions* Name Dates Details Patient Instructions Indication:Smoker Start:29-May-2022 Instruction Type:Provider Instructions for Treatment How to Access Health Informa tion Online using Patient Portal and [employer] Apps Indication:Smoker Start:29-May-2022 Instruction Type:Patient Education Patient Instructions Indication:Hyperlipidemia Start:29-Jan-2022 Instruction Type:Provider Instructions for Treatment How to Access Health Informa tion Online using Patient Portal and [employer] Apps Indication:Hyperlipidemia Start:29-Jan-2022 Instruction Type:Patient Education Patient Instructions Indication:[facility] Start:15-Oct-2021 Instruction Type:Provider Instructions for Treatment How to Access Health Informa tion Online using Patient Portal and [employer] Apps Indication:[facility] Start:15-Oct-2021 Instruction Type:Patient Education Patient Instructions Indication:Epicondylitis, lateral, right Start:13-Aug-2021 Instruction Type:Provider Instructions for Treatment How to Access Health Informa tion Online using Patient Portal and [employer] Apps Indication:Epicondylitis, lateral, right Start:13-Aug-2021 Instruction Type:Patient Education [facility]; [facility] Work Phone: Instructions* Name Dates Details Patient Instructions Indication:Smoker Start:29-May-2022 Instruction Type:Provider Instructions for Treatment How to Access Health Informa tion Online using Patient Portal and [employer] Apps Indication:Smoker Start:29-May-2022 Instruction Type:Patient Education Patient Instructions Indication:Hyperlipidemia Start:29-Jan-2022 Instruction Type:Provider Instructions for Treatment How to Access Health Informa tion Online using Patient Portal and [employer] Apps Indication:Hyperlipidemia Start:29-Jan-2022 Instruction Type:Patient Education Patient Instructions Indication:[facility] Start:15-Oct-2021 Instruction Type:Provider Instructions for Treatment How to Access Health Informa tion Online using Patient Portal and [employer] Apps Indication:[facility] Start:15-Oct-2021 Instruction Type:Patient Education Patient Instructions Indication:Epicondylitis, lateral, right Start:13-Aug-2021 Instruction Type:Provider Instructions for Treatment How to Access Health Informa tion Online using Patient Portal and [employer] Apps Indication:Epicondylitis, lateral, right Start:13-Aug-2021 Instruction Type:Patient Education [facility]; [facility] Work Phone: Instructions* Name Dates Details Patient Instructions Indication:BMI 27.0-27.9,adult Start:18-Oct-2022 Instruction Type:Provider Instructions for Treatment How to Access Health Informa tion Online using Patient Portal and [employer] Apps Indication:BMI 27.0-27.9,adult Start:18-Oct-2022 Instruction Type:Patient Education Patient Instructions Indication:Smoker Start:29-May-2022 Instruction Type:Provider Instructions for Treatment How to Access Health Informa tion Online using Patient Portal and [employer] Apps Indication:Smoker Start:29-May-2022 Instruction Type:Patient Education Patient Instructions Indication:Hyperlipidemia Start:29-Jan-2022 Instruction Type:Provider Instructions for Treatment How to Access Health Informa tion Online using Patient Portal and [employer] Apps Indication:Hyperlipidemia Start:29-Jan-2022 Instruction Type:Patient Education Patient Instructions Indication:[facility] Start:15-Oct-2021 Instruction Type:Provider Instructions for Treatment How to Access Health Informa tion Online using Patient Portal and [employer] Apps Indication:[facility] Start:15-Oct-2021 Instruction Type:Patient Education Patient Instructions Indication:Epicondylitis, lateral, right Start:13-Aug-2021 Instruction Type:Provider Instructions for Treatment How to Access Health Informa tion Online using Patient Portal and [employer] Apps Indication:Epicondylitis, lateral, right Start:13-Aug-2021 Instruction Type:Patient Education [facility]; [facility] Work Phone: Instructions* Name Dates Details Patient Instructions Indication:[facility] Start:30-Oct-2022 Instruction Type:Provider Instructions for Treatment How to Access Health Informa tion Online using Patient Portal and [employer] Apps Indication:[facility] Start:30-Oct-2022 Instruction Type:Patient Education Patient Instructions Indication:BMI 27.0-27.9,adult Start:18-Oct-2022 Instruction Type:Provider Instructions for Treatment How to Access Health Informa tion Online using Patient Portal and [employer] Apps Indication:BMI 27.0-27.9,adult Start:18-Oct-2022 Instruction Type:Patient Education Patient Instructions Indication:Smoker Start:29-May-2022 Instruction Type:Provider Instructions for Treatment How to Access Health Informa tion Online using Patient Portal and [employer] Apps Indication:Smoker Start:29-May-2022 Instruction Type:Patient Education Patient Instructions Indication:Hyperlipidemia Start:29-Jan-2022 Instruction Type:Provider Instructions for Treatment How to Access Health Informa tion Online using Patient Portal and [employer] Apps Indication:Hyperlipidemia Start:29-Jan-2022 Instruction Type:Patient Education Patient Instructions Indication:[facility] Start:15-Oct-2021 Instruction Type:Provider Instructions for Treatment How to Access Health Informa tion Online using Patient Portal and [employer] Apps Indication:[facility] Start:15-Oct-2021 Instruction Type:Patient Education Patient Instructions Indication:Epicondylitis, lateral, right Start:13-Aug-2021 Instruction Type:Provider Instructions for Treatment How to Access Health Informa tion Online using Patient Portal and [employer] Apps Indication:Epicondylitis, lateral, right Start:13-Aug-2021 Instruction Type:Patient Education [facility]; [facility] Work Phone: Instructions* Name Dates Details Patient Instructions Indication:Smoker Start:12-Feb-2023 Instruction Type:Provider Instructions for Treatment How to Access Health Informa tion Online using Patient Portal and [employer] Apps Indication:Smoker Start:12-Feb-2023 Instruction Type:Patient Education Patient Instructions Indication:[facility] Start:30-Oct-2022 Instruction Type:Provider Instructions for Treatment How to Access Health Informa tion Online using Patient Portal and [employer] Apps Indication:[facility] Start:30-Oct-2022 Instruction Type:Patient Education Patient Instructions Indication:BMI 27.0-27.9,adult Start:18-Oct-2022 Instruction Type:Provider Instructions for Treatment How to Access Health Informa tion Online using Patient Portal and [employer] Apps Indication:BMI 27.0-27.9,adult Start:18-Oct-2022 Instruction Type:Patient Education Patient Instructions Indication:Smoker Start:29-May-2022 Instruction Type:Provider Instructions for Treatment How to Access Health Informa tion Online using Patient Portal and [employer] Apps Indication:Smoker Start:29-May-2022 Instruction Type:Patient Education Patient Instructions Indication:Hyperlipidemia Start:29-Jan-2022 Instruction Type:Provider Instructions for Treatment How to Access Health Informa tion Online using Patient Portal and [employer] Apps Indication:Hyperlipidemia Start:29-Jan-2022 Instruction Type:Patient Education Patient Instructions Indication:[facility] Start:15-Oct-2021 Instruction Type:Provider Instructions for Treatment How to Access Health Informa tion Online using Patient Portal and [employer] Apps Indication:[facility] Start:15-Oct-2021 Instruction Type:Patient Education Patient Instructions Indication:Epicondylitis, lateral, right Start:13-Aug-2021 Instruction Type:Provider Instructions for Treatment How to Access Health Informa tion Online using Patient Portal and [employer] Apps Indication:Epicondylitis, lateral, right Start:13-Aug-2021 Instruction Type:Patient Education [facility]; [facility] Work Phone: Instructions* Name Dates Details Patient Instructions Indication:[facility] Start:30-Oct-2022 Instruction Type:Provider Instructions for Treatment How to Access Health Informa tion Online using Patient Portal and [employer] Apps Indication:[facility] Start:30-Oct-2022 Instruction Type:Patient Education Patient Instructions Indication:BMI 27.0-27.9,adult Start:18-Oct-2022 Instruction Type:Provider Instructions for Treatment How to Access Health Informa tion Online using Patient Portal and [employer] Apps Indication:BMI 27.0-27.9,adult Start:18-Oct-2022 Instruction Type:Patient Education Patient Instructions Indication:Smoker Start:29-May-2022 Instruction Type:Provider Instructions for Treatment How to Access Health Informa tion Online using Patient Portal and [employer] Apps Indication:Smoker Start:29-May-2022 Instruction Type:Patient Education Patient Instructions Indication:Hyperlipidemia Start:29-Jan-2022 Instruction Type:Provider Instructions for Treatment How to Access Health Informa tion Online using Patient Portal and [employer] Apps Indication:Hyperlipidemia Start:29-Jan-2022 Instruction Type:Patient Education Patient Instructions Indication:[facility] Start:15-Oct-2021 Instruction Type:Provider Instructions for Treatment How to Access Health Informa tion Online using Patient Portal and [employer] Apps Indication:[facility] Start:15-Oct-2021 Instruction Type:Patient Education Patient Instructions Indication:Epicondylitis, lateral, right Start:13-Aug-2021 Instruction Type:Provider Instructions for Treatment How to Access Health Informa tion Online using Patient Portal and [employer] Apps Indication:Epicondylitis, lateral, right Start:13-Aug-2021 Instruction Type:Patient Education [facility]; [facility] Work Phone: Instructions* Name Dates Details Patient Instructions Indication:[facility] Start:30-Oct-2022 Instruction Type:Provider Instructions for Treatment How to Access Health Informa tion Online using Patient Portal and [employer] Apps Indication:[facility] Start:30-Oct-2022 Instruction Type:Patient Education Patient Instructions Indication:BMI 27.0-27.9,adult Start:18-Oct-2022 Instruction Type:Provider Instructions for Treatment How to Access Health Informa tion Online using Patient Portal and [employer] Apps Indication:BMI 27.0-27.9,adult Start:18-Oct-2022 Instruction Type:Patient Education Patient Instructions Indication:Smoker Start:29-May-2022 Instruction Type:Provider Instructions for Treatment How to Access Health Informa tion Online using Patient Portal and [employer] Apps Indication:Smoker Start:29-May-2022 Instruction Type:Patient Education Patient Instructions Indication:Hyperlipidemia Start:29-Jan-2022 Instruction Type:Provider Instructions for Treatment How to Access Health Informa tion Online using Patient Portal and [employer] Apps Indication:Hyperlipidemia Start:29-Jan-2022 Instruction Type:Patient Education Patient Instructions Indication:[facility] Start:15-Oct-2021 Instruction Type:Provider Instructions for Treatment How to Access Health Informa tion Online using Patient Portal and [employer] Apps Indication:[facility] Start:15-Oct-2021 Instruction Type:Patient Education Patient Instructions Indication:Epicondylitis, lateral, right Start:13-Aug-2021 Instruction Type:Provider Instructions for Treatment How to Access Health Informa tion Online using Patient Portal and [employer] Apps Indication:Epicondylitis, lateral, right Start:13-Aug-2021 Instruction Type:Patient Education [facility]; [facility] Work Phone: Instructions* Name Dates Details Patient Instructions Indication:[facility] Start:30-Oct-2022 Instruction Type:Provider Instructions for Treatment How to Access Health Informa tion Online using Patient Portal and [employer] Apps Indication:[facility] Start:30-Oct-2022 Instruction Type:Patient Education Patient Instructions Indication:BMI 27.0-27.9,adult Start:18-Oct-2022 Instruction Type:Provider Instructions for Treatment How to Access Health Informa tion Online using Patient Portal and [employer] Apps Indication:BMI 27.0-27.9,adult Start:18-Oct-2022 Instruction Type:Patient Education Patient Instructions Indication:Smoker Start:29-May-2022 Instruction Type:Provider Instructions for Treatment How to Access Health Informa tion Online using Patient Portal and [employer] Apps Indication:Smoker Start:29-May-2022 Instruction Type:Patient Education Patient Instructions Indication:Hyperlipidemia Start:29-Jan-2022 Instruction Type:Provider Instructions for Treatment How to Access Health Informa tion Online using Patient Portal and [employer] Apps Indication:Hyperlipidemia Start:29-Jan-2022 Instruction Type:Patient Education Patient Instructions Indication:[facility] Start:15-Oct-2021 Instruction Type:Provider Instructions for Treatment How to Access Health Informa tion Online using Patient Portal and [employer] Apps Indication:[facility] Start:15-Oct-2021 Instruction Type:Patient Education Patient Instructions Indication:Epicondylitis, lateral, right Start:13-Aug-2021 Instruction Type:Provider Instructions for Treatment How to Access Health Informa tion Online using Patient Portal and [employer] Apps Indication:Epicondylitis, lateral, right Start:13-Aug-2021 Instruction Type:Patient Education [facility]; [facility] Work Phone: reason for referral (narrative)* Diagnostic Procedure Only (Routine) - Pending Review Specialty Diagnoses / Procedures Referred By Susie sethi Referred To Contact [facility] Diagnoses Encounter for screening mammogram for breast cancer Procedures THIERNO SCREENING SCREENING MAMMOGRAPHY BI 2-VIEW BREAST INC Justin Banks PA-C [address] [place] [address] [facility] [address] [place] [address] Referral ID Status Reason Start Date Expiration Date Visits Requested Visits Authorized [id number] Pending Review Auto-Generat ed Referral 2 08/23/2023 1 1 [facility] for referral (narrative)[facility] for [facility]: Family History No Family History Records FoundUnknown Family Member Name Dates Details Brother 1 Comments:alcohol and drug is sues- tourettes sx Status:Active Father Comments:doesnt know father Status:Active Mother Comments:alcoholism,cancer ( melanoma) drug dependency, anxiety, high cholesterol. high blood pressure, bipolar Status:Active Unknown Family Member Name Dates Details Brother 1 Comments:alcohol and drug is sues- tourettes sx Status:Active Father Comments:doesnt know father Status:Active Mother Comments:alcoholism,cancer ( melanoma) drug dependency, anxiety, high cholesterol. high blood pressure, bipolar Status:Active Unknown Family Member Name Dates Details Brother 1 Comments:alcohol and drug is sues- tourettes sx Status:Active Father Comments:doesnt know father Status:Active Mother Comments:alcoholism,cancer ( melanoma) drug dependency, anxiety, high cholesterol. high blood pressure, bipolar Status:Active Unknown Family Member Name Dates Details Brother 1 Comments:alcohol and drug is sues- tourettes sx Status:Active Father Comments:doesnt know father Status:Active Mother Comments:alcoholism,cancer ( melanoma) drug dependency, anxiety, high cholesterol. high blood pressure, bipolar Status:Active Unknown Family Member Name Dates Details Brother 1 Comments:alcohol and drug is sues- tourettes sx Status:Active Father Comments:doesnt know father Status:Active Mother Comments:alcoholism,cancer ( melanoma) drug dependency, anxiety, high cholesterol. high blood pressure, bipolar Status:Active Relationship Condition Age at Onset Recorded Date/T kiley mother Alcohol abuse Unknown Malignant melanoma Unknown High blood cholesterol Unknown Bipolar I disorder Unknown Unknown Family Member Name Dates Details Brother 1 Comments:alcohol and drug is sues- tourettes sx Status:Active Father Comments:doesnt know father Status:Active Mother Comments:alcoholism,cancer ( melanoma) drug dependency, anxiety, high cholesterol. high blood pressure, bipolar Status:Active Unknown Family Member Name Dates Details Brother 1 Comments:alcohol and drug is sues- tourettes sx Status:Active Father Comments:doesnt know father Status:Active Mother Comments:alcoholism,cancer ( melanoma) drug dependency, anxiety, high cholesterol. high blood pressure, bipolar Status:Active Unknown Family Member Name Dates Details Brother 1 Comments:alcohol and drug is sues- tourettes sx Status:Active Father Comments:doesnt know father Status:Active Mother Comments:alcoholism,cancer ( melanoma) drug dependency, anxiety, high cholesterol. high blood pressure, bipolar Status:Active Unknown Family Member Name Dates Details Brother 1 Comments:alcohol and drug is sues- tourettes sx Status:Active Father Comments:doesnt know father Status:Active Mother Comments:alcoholism,cancer ( melanoma) drug dependency, anxiety, high cholesterol. high blood pressure, bipolar Status:Active Unknown Family Member Name Dates Details Brother 1 Comments:alcohol and drug is sues- tourettes sx Status:Active Father Comments:doesnt know father Status:Active Mother Comments:alcoholism,cancer ( melanoma) drug dependency, anxiety, high cholesterol. high blood pressure, bipolar Status:Active Unknown Family Member Name Dates Details Brother 1 Comments:alcohol and drug is sues- tourettes sx Status:Active Father Comments:doesnt know father Status:Active Mother Comments:alcoholism,cancer ( melanoma) drug dependency, anxiety, high cholesterol. high blood pressure, bipolar Status:Active Unknown Family Member Name Dates Details Brother 1 Comments:alcohol and drug is sues- tourettes sx Status:Active Father Comments:doesnt know father Status:Active Mother Comments:alcoholism,cancer ( melanoma) drug dependency, anxiety, high cholesterol. high blood pressure, bipolar Status:Active Unknown Family Member Name Dates Details Brother 1 Comments:alcohol and drug is sues- tourettes sx Status:Active Father Comments:doesnt know father Status:Active Mother Comments:alcoholism,cancer ( melanoma) drug dependency, anxiety, high cholesterol. high blood pressure, bipolar Status:Active Unknown Family Member Name Dates Details Brother 1 Comments:alcohol and drug is sues- tourettes sx Status:Active Father Comments:doesnt know father Status:Active Mother Comments:alcoholism,cancer ( melanoma) drug dependency, anxiety, high cholesterol. high blood pressure, bipolar Status:Active Unknown Family Member Name Dates Details Brother 1 Comments:alcohol and drug is sues- tourettes sx Status:Active Father Comments:doesnt know father Status:Active Mother Comments:alcoholism,cancer ( melanoma) drug dependency, anxiety, high cholesterol. high blood pressure, bipolar Status:Active Chief Complaint and Reason for Visit Chief Complaint LAT EPICONDYLITIS/RX HERE Consult Reason for Visit Constipation Heartburn Chief Complaint 2 WK FU E ORDERS Reason for Visit Diarrhea Epigastric pain Gastritis, bile acid reflux Chief Complaint 2 WK FU E ORDERS E ORDER Reason for Visit Diarrhea Epigastric pain Gastritis, bile acid reflux Chief Complaint 2 WK FU E ORDERS E ORDER BILE ACID REFLUX, EPIGASTRIC PAIN, DIARRHEA Reason for Visit Diarrhea Epigastric pain Gastritis, bile acid reflux Chief Complaint 2 WK FU E ORDERS E ORDER BILE ACID REFLUX, EPIGASTRIC PAIN, DIARRHEA E ORDER EPIGASTRIC PAIN, DIARRHEA, BILE ACID REFLUX 2 MO FU Reason for Visit Diarrhea Epigastric pain Gastritis, bile acid reflux Gastritis, bile acid reflux Sphincter of Oddi spasm Chief Complaint CP Chief Complaint CP R20.2 R20.2 Chief Complaint R20.2 R20.2 6 MO FU SCREENING Reason for Visit Diarrhea Gastritis, bile acid reflux Sphincter of Oddi spasm Chief Complaint 6 MO FU SCREENING SPLENOMEGALY Reason for Visit Diarrhea Gastritis, bile acid reflux Sphincter of Oddi spasm Chief Complaint 6 MO FU SCREENING SPLENOMEGALY HYPERTENSION Reason for Visit Diarrhea Gastritis, bile acid reflux Sphincter of Oddi spasm Chief Complaint Admit Date 1 Y FU September 14, 2024 1 0:53am LAC TO HAND November 14, 2024 7:11 pm Reason for Visit Admit Date Diarrhea September 14, 2024 1 0:53am Gastritis, bile acid reflux September 10:53am Sphincter of Oddi spasm September 14 10:53am Chief Complaint Admit Date LAC TO HAND November 14, 2024 7:11 pm SCREENING January 10, 2025 3:23p m Advance Directives No Advanced Directives Records Found Advance Directive Response Recorded Date/ Time Living Will Yes October 13, 2019 1:50pm Power of Cleaning Validation Consultant Yes October 12 1:50pm Advance Directive Response Recorded Date/ Time Name of Medical Power of Cleaning Validation Consultant May 02, 2022 9:39am Living Will Yes May 02, 2022 9:39am Power of Cleaning Validation Consultant Yes April 9:39am Advance Directive Response Recorded Date/ Time Name of Medical Power of Cleaning Validation Consultant May 02, 2022 8:39am Living Will Yes May 02, 2022 8:39am Power of Cleaning Validation Consultant Yes April 8:39am Advance Directive Response Recorded Date/ Time Living Will No July 01, 023 11:08am Power of Cleaning Validation Consultant No July 01, 2023 11:08am Advance Directive Response Recorded Date/ Time Living Will No July 01, 023 12:08pm Power of Cleaning Validation Consultant No July 01, 2023 12:08pm Advance Directive Response Recorded Date/ Time Living Will No July 01, 023 12:08pm Do you have a Healthcare Power of Cleaning Validation Consultant? No July 01, 2023 12:08pm Living Will No November 14, 2024 7:11pm Do you have a Healthcare Power of Cleaning Validation Consultant? No November 14, 2024 7:11pm Advance Directive Response Recorded Date/ Time Living Will No November 14, 2024 7:11pm Do you have a Healthcare Power of Cleaning Validation Consultant? No November 14, 2024 7:11pm Summary Purpose Reason for Referral Specialty Diagnoses / Procedures Referred By Contac t Referred To Contact Radiology Diagnoses Hyperlipidemia, unspecified Procedures CT cardiac scoring wo IV contrast Juan Daniel Rutherford DO [address] [facility] [address] [place] [address] Referral ID Status Reason Start Date Expiration Date Visits Requested Visits Authorized [id number] Authorized Perform Procedure 10/14/2023 10/13/2024 1 1 Additional Source Comments Source Comments (unrecognize d section and content) In the event this informatio n is protected by the Federal Confidentiality of Alcohol and Drug Abuse Patient Records regulations: The Federal rules restrict any use of the information to criminally investigate or prosecute any alcohol or drug abuse patient.[facility] the event this information is protected by the Federal Confidentiality of Alcohol and Drug Abuse Patient Records regulations: The Federal rules restrict any use of the information to criminally investigate or prosecute any alcohol or drug abuse patient.[facility] Care Teams (unrecognized sec tion and content) Team Status: Active Member Role Status Dates Dr. Juan Daniel Rutherford , DO Primary Care Provider Active Team Status: Inactive Member Role Status Dates Dr. Juan Daniel Rutherford , DO Primary Care Provider, Referring P dreadder Active Dr. Km Moreland , DO Attending Provider Active Team Status: Active Member Role Status Dates Dr. Juan Daniel Rutherford , DO Primary Care Provide r, Referring Provider, Other Provider Active Dr. Ngoc Ashton MD Attending Provider Active Team Status: Inactive Member Role Status Dates Dr. Juan Daniel Rutherford DO Primary Care Provide r, Attending Provider, Referring Provider Active Team Status: Inactive Member Role Status Dates Dr. Juan Daniel Rutherford DO Primary Care Provider Active Dr. Logan Bolton MD Attending Provider, Emergency Provi ino Active Agronomy Specialist Relationship Specialty Start Date End Date Justin Muro PA-C [address] [facility] [place], [place] [id number] PCP - General Family Medicine 08/15/16 Team Status: Inactive Member Role Status Dates Dr. Juan Daniel Rutherford DO Primary Care Provider Active Dr. Logan Bolton MD Emergency Provider Active Team Status: Active Member Role Status Dates Dr. Juan Daniel Rutherford DO Primary Care Provide r, Attending Provider, Referring Provider Active Agronomy Specialist Relationship Specialty Start Date End Date Juan Daniel Rutherford DO [address] [facility] [address] [place] [address] PCP - General Internal Medicine 10/27/23 Agronomy Specialist Relationship Specialty Start Date End Date Juan Daniel Rutherford DO [address] [facility] [address] [place] [address] PCP - General Internal Medicine 10/27/23 Team Status: Active Member Role Status Dates Dr. Juan Daniel Rutherford DO Primary Care Provider Active Dr. Jun Cedeno MD Attending Provider Active Agronomy Specialist Relationship Specialty Start Date End Date Justin Muro, JOHN [address] [facility] [place] [address] PCP - General Family Medicine 08/15/16 12/09/23 Juan Daniel Rutherford DO [address] [facility] [address] [place], [place] [address] PCP - General Internal Medicine 12/10/23 Team Status: Inactive Member Role Status Dates Dr. Juan Daniel Rutherford DO Primary Care Provider Active Start: September 14, 2024 End: September 14, 2024 Dr. Juan Daniel Rutherford DO Referring Provider Active St art: September 14, 2024 End: September 14, 2024 Dr. Km Moreland DO Attending Provider Active Start: September 14, 2024 End: September 14, 2024 Team Status: Inactive Member Role Status Dates Dr. Juan Daniel Rutherford DO Primary Care Provider Active Start: November 14, 2024 End: November 14, 2024 Sandor Walter MD Emergency Provider Active Star t: November 14, 2024 End: November 14, 2024 Dr. J Luis Dinero DO Referring Provider Active Start: November 14, 2024 End: November 14, 2024 Team Status: Inactive Member Role Status Dates Dr. Juan Daniel Rutherford DO Primary Care Provider Active Start: November 14, 2024 End: November 14, 2024 Sandor Walter MD Attending Provider Active Star t: November 14, 2024 End: November 14, 2024 Sandor Walter MD Emergency Provider Active Star t: November 14, 2024 End: November 14, 2024 Dr. J Luis Dinero DO Referring Provider Active Start: November 14, 2024 End: November 14, 2024 Team Status: Inactive Member Role Status Dates Dr. Juan Daniel Rutherford DO Primary Care Provider Active Start: January 10, 2025 End: January 10, 2025 Dr. Juan Daniel Rutherford DO Attending Provider Active St art: January 10, 2025 End: January 10, 2025 Dr. Juan Daniel Rutherford DO Referring Provider Active St art: January 10, 2025 End: January 10, 2025 INFORMATION SOURCE (unrecogn ized section and content) DATE CREATED AUTHOR 10/30/2022 [facility] DATE CREATED AUTHOR AUTHOR'S ORGANIZ ATION 11/08/2023 [facility] DATE CREATED AUTHOR AUTHOR'S ORGANIZ ATION 12/15/2023 [facility] DATE CREATED AUTHOR AUTHOR'S ORGANIZ ATION 01/15/2025 [facility] Reason for Visit (unrecogniz ed section and content) Specialty Diagnoses / Procedures Referred By Susie sethi Referred To Contact Radiology Diagnoses Hyperlipidemia, unspecified Procedures CT cardiac scoring wo IV contrast Juan Daniel Rutherford DO [address] [facility] [address] [place] [address] Referral ID Status Reason Start Date Expiration Date Visits Requested Visits Authorized [id number] Authorized Perform Procedure 10/14/2023 10/13/2024 1 1 Reason Onset Date Comments colorectal recall screening 11/13/2023 FOR RECORDS PERTAINING TO PATIENTS WHO ARE OR HAVE BEEN ENROLLED IN A CHEMICAL DEPENDENCY/SUBSTANCEABUSE PROGRAM, SOME INFORMATION MAY BE OMITTED. This clinical summary was aggregated from multiple sources. Caution should be exercised in using it in the provision of clinical care. This summary normalizes information from multiple sources, and as a consequence, information in this document may materially change the coding, format and clinical context of patient data. In addition, data may be omitted in some cases. CLINICAL DECISIONS SHOULD BE BASED ON THE PRIMARY CLINICAL RECORDS. [facility]. provides no warranty or guarantee of the accuracy or completeness of information in this document.
[2025-04-07 01:55] VITALS: RESP 18; O2SAT 98
[2025-04-07 02:20] VITALS: BP 107/52; PULSE 70; RESP 18; TEMP 36.8; O2SAT 100
== END 2025-04-07 02:22 | disposition home or self-care (01) ==
PROVIDERS: Emergency Provider Emergency Medicine; PCP Internal Medicine; Visit Provider Emergency Medicine
DX: K52.9 Noninfective gastroenteritis and colitis, unspecified (principal); Z90.710 Acquired absence of both cervix and uterus; K21.9 Gastro-esophageal reflux disease without esophagitis; F17.210 Nicotine dependence, cigarettes, uncomplicated; E78.5 Hyperlipidemia, unspecified; K29.70 Gastritis, unspecified, without bleeding; F41.9 Anxiety disorder, unspecified; Z79.899 Other long term (current) drug therapy; Z90.49 Acquired absence of other specified parts of digestive tract; R10.9 Unspecified abdominal pain; Z90.6 Acquired absence of other parts of urinary tract
CPT/HCPCS: 74177; 80053; 81001; 83690; 85025; 93005; 96361; 96374; 96375; 96376; 99283; Q9967; A4216; J2405

== ENCOUNTER → 2025-05-03 | Outpatient (CLI) | payer BC, SELFPAY ==
--- NOTE | 2025-05-03 08:05 | RAD_ITS ---
PROCEDURE: ABD INC DECUB AND/OR ERECT 05/03/2025 REASON FOR EXAM: ABDOMINAL PAIN TECHNIQUE: Procedure Code: RADABDMV Modality: DX Procedure: ABD INC DECUB AND/OR ERECT COMPARISON: None. FINDINGS: There is a nonobstructive bowel gas pattern. There are no abnormal soft tissue calcifications or radiopaque foreign bodies. There are no significant bony abnormalities. RAD/Abd Inc Decub and/or Erect IMPRESSION: No evidence of acute abdominal pathology. Reading Location: [id number]
[2025-05-03 08:57] LABS: Hematocrit 37.8 % (37-47); Hemoglobin 12.7 g/dL (12.0-15.0); Immature Granulocytes Count 0.020 X10^3/uL (0.0-0.0); Mean Corp Hgb Conc 33.6 g/dL (32-36); Mean Corpuscular Volume 93.3 fL (81-99); Mean Platelet Vol. 10.1 fl (6.2-12.0); NRBC Flagged by Analyzer 0 % (0-5); Platelet Count 309 K/mm3 (150-450); RBC Distribution Width CV 12.6 % (11.6-14.6); RBC Distribution Width SD 43.5 fl (35.1-43.9); Red Blood Count 4.05 M/mm3 (4.2-5.4); White Blood Count 6.1 K/mm3 (4.4-11.0)
[2025-05-03 09:28] LABS: AST(SGOT) 21 U/L (<=31); Alanine Aminotransfer ALT/SGPT 18 U/L (<=34); Albumin, Serum 4.6 g/dL (3.5-5.0); Alkaline Phosphatase 25 U/L (35-104); Anion Gap 10 (5-15); BUN 15 mg/dL (4-19); BUN/Creat Ratio 13.8 RATIO (10-20); Calcium,Total 9.2 mg/dL (7.6-11.0); Carbon Dioxide 26.2 mmol/L (21.0-32.0); Chloride 102 mmol/L (98-108); Globulin 2.2 g/dL (2.2-4.2); Glucose 104 mg/dL (70-99); Lipase 25 U/L (13-75); Potassium 4.0 mmol/L (3.3-5.1)
== END | disposition home or self-care (01) ==
PROVIDERS: PCP Internal Medicine; Referring Provider Nurse Practitioner Acute Care; Visit Provider Nurse Practitioner Acute Care
DX: R10.13 Epigastric pain (principal); R19.7 Diarrhea, unspecified
CPT/HCPCS: 36415; 74019; 80053; 83690; 85025

== ENCOUNTER → 2025-05-19 | Outpatient (CLI) | payer BC, SELFPAY ==
[2025-05-19 18:45] LABS: Creatinine, Urine (random) 87.90 mg/dL (28.00-217.00); Protein, Urine (Random) 7.3 mg/dL (0.0-12.0); Protein:Creat Ratio 83 mg/g CRE (0-200)
== END | disposition home or self-care (01) ==
LOC: LAB 14:57
PROVIDERS: PCP Internal Medicine; Referring Provider Internal Medicine; Visit Provider Internal Medicine
DX: R10.84 Generalized abdominal pain (principal)
CPT/HCPCS: 36415; 82570; 84156; 85652

== ENCOUNTER → 2025-05-30 | Outpatient (CLI) | payer BC, SELFPAY ==
[2025-06-02 00:07] LABS: Calprotectin, Stool 49 ug/g (0-120)
== END | disposition home or self-care (01) ==
LOC: LABSPEC 09:02
PROVIDERS: PCP Internal Medicine; Referring Provider Nurse Practitioner Acute Care; Visit Provider Nurse Practitioner Acute Care
DX: K52.9 Noninfective gastroenteritis and colitis, unspecified (principal)
CPT/HCPCS: 36415; 83993

== ENCOUNTER → 2025-06-01 | Outpatient (CLI) | payer BC, SELFPAY ==
[2025-06-01 09:58] LABS: Hematocrit 40.5 % (37-47); Hemoglobin 13.9 g/dL (12.0-15.0); Immature Granulocytes Count 0.050 X10^3/uL (0.0-0.0); Mean Corp Hgb Conc 34.3 g/dL (32-36); Mean Corpuscular Volume 93.3 fL (81-99); Mean Platelet Vol. 9.6 fl (6.2-12.0); NRBC Flagged by Analyzer 0 % (0-5); Platelet Count 348 K/mm3 (150-450); RBC Distribution Width CV 12.7 % (11.6-14.6); RBC Distribution Width SD 43.6 fl (35.1-43.9); Red Blood Count 4.34 M/mm3 (4.2-5.4); White Blood Count 10.7 K/mm3 (4.4-11.0)
[2025-06-01 10:47] LABS: AST(SGOT) 18 U/L (<=31); Alanine Aminotransfer ALT/SGPT 15 U/L (<=34); Albumin, Serum 4.5 g/dL (3.5-5.0); Alkaline Phosphatase 31 U/L (35-104); Anion Gap 9 (5-15); BUN 17 mg/dL (4-19); BUN/Creat Ratio 14.0 RATIO (10-20); Calcium,Total 9.4 mg/dL (7.6-11.0); Carbon Dioxide 27.9 mmol/L (21.0-32.0); Chloride 100 mmol/L (98-108); Cholesterol 152 mg/dL (<=200); Globulin 2.5 g/dL (2.2-4.2); Glucose 87 mg/dL (70-99); Low Density Lipoprotein Calc. 81 mg/dL; Potassium 4.2 mmol/L (3.3-5.1); Triglycerides 177 mg/dL; Very Low Density Lipoprotein 35 mg/dL (5-40); Vitamin B12 868 pg/mL (180-914); cholesterol:hdl ratio screen 3.72
[2025-06-01 10:49] LABS: CRP < 3.00 mg/L (0.0-3.0)
[2025-06-01 11:38] LABS: FOLATES,SERUM (FOLIC ACID) 35.60 ng/mL (4.60-34.80)
== END | disposition home or self-care (01) ==
LOC: LAB 09:19
PROVIDERS: PCP Internal Medicine; Referring Provider Internal Medicine; Visit Provider Internal Medicine
DX: R73.09 Other abnormal glucose (principal); R79.89 Other specified abnormal findings of blood chemistry; R10.84 Generalized abdominal pain; E78.2 Mixed hyperlipidemia
CPT/HCPCS: 36415; 80053; 80061; 82607; 82746; 83036; 85025; 86140

== ENCOUNTER 2025-06-11 19:37 | Emergency (ER) | payer BC, SELFPAY ==
[2025-06-11 19:37] VITALS: BP 133/96; PULSE 85; RESP 15; TEMP 36.3; O2SAT 100; BMI 25.9
--- NOTE | 2025-06-11 20:20 | EX.ED.DYSGE1 ---
HPI History of Present Illness Chief Complaint: Abd Pain Detail of Chief Complaint: Abdominal pain with diarrhea Informant: patient and spouse/S.O. Onset/Context/Timing Onset: Today (Started this morning) Context: Sudden Onset Timing: Continuous and Waxes and wanes Quality: Inflammatory irritating slightly crampy Location: Started upper abdomen and now is the entire abdomen Current Severity: Moderate Maximum Severity: Severe Worsened by: Diarrhea Relieved by: Nothing Associated Symptoms Associated Symptoms: watery diarrhea without blood or mucus Narrative Narrative: Patient is a 50-year-old woman. She has been seen by Dr. Moreland's nurse practitioner. She does not have an appointment to be seen until August. She is also scheduled to see another GI specialist in January 2026. Her primary care physician is Dr. Atkins. She informing Dr. Atkins believes she has inflammatory bowel disorder. She has had problems with pain and diarrhea for 10 years. She at one point was diagnosed with irritable bowel syndrome with diarrhea. She had a CAT scan that was ordered by ER physician when she was seen April 06. Impression read prior cholecystectomy. Diffuse thickening of the stomach suggestive of gastritis. There is mild diffuse thickening of the bladder suggestive of mild cystitis. And there is mild diffuse thickening of the sigmoid colon probably colitis. Scattered fluid-filled small bowel's with possibility of enteritis. Patient states when she has these episodes she is treated with prednisone and her symptoms resolved. She has never had a formal diagnosis of inflammatory bowel disorder i.e. Crohn's or ulcerative colitis. She is on Protonix 40 mg. She states there was no blood or mucus in her diarrhea. She has not been on a antibiotic in the past month. She has not been around anyone has been ill. Prior similar symptoms: Yes Recent [facility] Medical History Anxiety History of steroid therapy Thyroid disease Smoker History of echocardiogram History of stress test Pre-eclampsia History of irregular heartbeat Hyperlipidemia Gall bladder stones Epigastric pain Migraines Acute cholecystitis Segmental and somatic dysfunction of pelvic region Segmental and somatic dysfunction of lumbar region Segmental and somatic dysfunction of cervical region Segmental and somatic dysfunction of thoracic region Home Medications ?Medication ?Instructions ?Recorded ?Last Taken ?Type amitriptyline 25 mg tablet 25 mg PO QHS 10/13/19 Unknown History rosuvastatin 5 mg tablet 5 mg PO QHS 05/02/22 Unknown History Held on 06/11/25. Instructions: MD Ordered colestipol 1 gram tablet 1 g PO Q6H 04/07/25 Unknown History fenofibrate micronized 200 mg 200 mg PO QDAY 04/07/25 Unknown History capsule Held on 06/11/25. Instructions: MD Ordered losartan 25 mg tablet 25 mg PO BID 04/07/25 Unknown History atenolol 25 mg tablet 25 mg PO DAILY 06/11/25 Unknown History hydrocodone-acetaminophen 5-325mg 1 tab PO Q6H PRN PRN Pain 3 days 06/11/25 Unknown Rx 5mg-325mg #10 TABLETS hydrocodone-acetaminophen 5-325mg 1 tab PO Q8H PRN PRN pain 06/11/25 Unknown History 5mg-325mg mecobalamin (vitamin B12) 1,000 1,000 mcg PO DAILY 06/11/25 Unknown History mcg chewable tablet prednisone 20 mg tablet 60 mg (3 x 20 mg) PO DAILY #15 06/11/25 Unknown Rx TABLETS progesterone micronized 100 mg 100 mg PO QHS 06/11/25 Unknown History capsule rimegepant 75 mg disintegrating 75 mg PO QODAY PRN migraine 06/11/25 Unknown History tablet (Nurtec ODT) headache Allergy/AdvReac Type Severity Reaction Status Date / Time nitrofurantoin (From Allergy Unknown Verified 06/11/25 19:37 Macrobid) Sulfa (Sulfonamide Allergy Hives Verified 06/11/25 19:37 Antibiotics) Family History Mother Alcohol abuse Melanoma High cholesterol Bipolar 1 disorder Surgical History Hx of wisdom tooth extraction S/P LASIK surgery of both eyes Hx of appendectomy Hx of hysterectomy, total S/P laparoscopic cholecystectomy (~10/13/19) Social History household members: spouse Smoking Status: Current every day smoker tobacco type: smokeless tobacco alcohol intake: current ROS ROS ED Constitutional Constitutional ED: Reports fever(s) and other Details: Low-grade fever, 99 ; Denies chills, subjective, sweats or weight loss Eyes Eyes: Denies blurry vision or change in vision ENT ENT ED: Denies ear pain or rhinorrhea Cardiovascular Cardiovascular: Denies chest pain or palpitations Respiratory/Chest Respiratory/Chest: Denies cough, dyspnea or dyspnea on exertion Gastrointestinal Gastrointestinal: Reports abdominal pain, diarrhea and other Details: Stools been watery. She has not had 6 loose watery stools today. ; Denies constipation, melena, nausea or vomiting Genitourinary Genitourinary ED: Denies dysuria, hematuria or urinary frequency Musculoskeletal Musculoskeletal: Denies arthralgias or myalgias Integumentary Denies rash Neurologic Neurologic: Denies paresthesias or weakness Hematologic/Lymphatic Hematologic/Lymphatic: Reports systems reviewed and no addt'l complaints, except as documented EXAM Physical Exam Const Vital Signs: 06/11/25 19:37 06/11/25 21:37 Temperature 97.4 F L Temperature Source Temporal Pulse Rate 85 64 Respiratory Rate 15 18 Blood Pressure 133/96 H 130/86 H Blood Pressure Mean 108 100 Pulse Ox 100 100 Oxygen Delivery Method Room Air Room Air Positive well nourished and well developed Constitutional Narrative: Blood pressure is elevated 133/96. Patient appears ill. General Appearance ED: well developed; Negative for pallor HEENT Reports dry mucous membranes HEENT Narrative: Head is atraumatic and normocephalic. Ears normal. Nares patent. Posterior pharynx is normal. Mouth ED: Yes dry mucous membranes Mouth: dry mucous membranes Eyes PERRL and EOMs intact bilaterally General Eye ED: Negative for pale conjunctiva or scleral icterus Neck no lymphadenopathy, supple and no JVD Resp normal respiratory effort and clear to auscultation bilaterally Cardio regular rate, regular rhythm, S1 normal heart sound, S2 normal heart sound and no murmurs GI no masses; Negative for non-tender, non-distended or hepatosplenomegaly GI Narrative: There is tympany noted. Bowel sounds are slightly increased. Patient has tenderness over the epigastrium and left upper quadrant that is significantly greater than the left lower quadrant. There is no rebound tenderness. She does guard to deep palpation of left upper quadrant. Back/Spine Back/Spine Narrative: Tattoo noted midline Extremity normal to inspection General Extremety ED: Negative for edema or tenderness General Extremity: Negative for edema Neuro oriented x3 and CN's II-XII intact bilaterally Sensorium / Orientation: alert Psych mental status grossly normal Skin no rashes or lesions noted, no wounds and skin turgor normal General Skin Exam: Negative for elasticity normal, jaundice or pallor MDM MDM MDM Narrative Medical decision making narrative: Will contact Dr. Tinoco since patient will likely need to be seen sooner than August and needs a colonoscopy. Once labs are back we will contact him and discuss treatment. Suspect if he is able to see her this coming week would treat with ciprofloxacin and metronidazole and not placed on steroids. History & Record Review Additional record(s) reviewed:: Prior outpatient record, Prior ED visit and Prior labs Lab Data Attestation: I reviewed the patient's lab results. Lab results narrative: CBC is unremarkable. Comprehensive metabolic panel and lipase are unremarkable. Glucose slight elevated 124. Labs: Laboratory Results - last 24 hr 06/11/25 20:13 WBC 7.1 RBC 3.84 L Hgb 12.2 Hct 35.0 L MCV 91.1 MCH 31.8 MCHC 34.9 RDW Std Deviation 40.1 RDW Coeff of Kathy 12.0 Plt Count TNP MPV 10.4 Immature Gran % (Auto) 0.300 Neut % (Auto) 66.5 Lymph % (Auto) 24.8 Wilkin % (Auto) 5.8 Eos % (Auto) 2.0 Baso % (Auto) 0.6 Absolute Neuts (auto) 4.7 Absolute Lymphs (auto) 1.75 Nucleated RBC % 0 Differential Comment SCANNED Platelet Estimate ADEQUATE Sodium 136 Potassium 3.8 Chloride 103 Carbon Dioxide 23.5 Anion Gap 10 BUN 14 Creatinine 0.97 Estim Creat Clear Calc 66.65 Est GFR (MDRD) Non-Af 71 BUN/Creatinine Ratio 14.1 Glucose 124 H Calcium 9.2 Total Bilirubin 0.22 AST 29 ALT 18 Alkaline Phosphatase 40 Total Protein 6.9 Albumin 4.6 Globulin 2.3 Albumin/Globulin Ratio 2.0 Lipase 30 Management Discussion w/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 Moreland. He will see patient this coming week. Prior to leaving patient had a schedule appointment for June 13 at 1130.) Treatment and Re-Evaluation :: Patient was reassessed at 2200. Patient feels better. She states she only has a slight discomfort. She was informed I did speak with Dr. Moreland. She will receive a dose of prednisone in department. Since she has no urge to urinate after first liter of normal saline second liter has been added. Comments:: Plan is to discharge after second liter of normal saline has infused. Discharge Plan Triage Chief Complaint: Abd Pain ED Provider: Logan Bolton Dx/Rx/DC Orders Clinical Impression: Diarrhea, Inflammatory bowel disease, Abdominal pain, Acute dehydration Instructions: ED Diarrhea, Unknown Cause Prescriptions: New hydrocodone-acetaminophen 5-325 mg tablet 1 tab PO Q6H PRN PRN (Reason: Pain) 3 Days Qty: 10 0RF prednisone 20 mg tablet 60 mg PO DAILY Qty: 15 0RF No Action losartan 25 mg tablet 25 mg PO BID fenofibrate micronized 200 mg capsule 200 mg PO QDAY colestipol 1 gram tablet 1 g PO Q6H amitriptyline 25 MG tablet 25 mg PO QHS rosuvastatin 5 mg tablet 5 mg PO QHS Patient Comments: TAKE 1 TABLET BY MOUTHCEVERY EVENING WITH OR WITHOUT FOOD mecobalamin (vitamin B12) 1,000 mcg tablet,chewable 1,000 mcg PO DAILY progesterone micronized 100 mg capsule 100 mg PO QHS Nurtec ODT 75 mg tablet,disintegrating 75 mg PO QODAY PRN (Reason: migraine headache) hydrocodone-acetaminophen 5-325 mg tablet 1 tab PO Q8H PRN PRN (Reason: pain) atenolol 25 mg tablet 25 mg PO DAILY Primary Care Provider: Crystal Atkins Referrals: Crystal Atkins DO [Primary Care Provider, Internal Medicine] FriendKm DO [Med Staff - Active Staff, Gastroenterology] - 06/13/25 11:30 am Print Language: Turkish Disposition Disposition: Home, Self Care
[2025-06-11] MEDS: 0.9% Normal Saline (1000mL) 1,000 ML 1000 ML IV ×2 (20:25→22:25)
[2025-06-11 20:36] LABS: Hematocrit 35.0 % (37-47); Hemoglobin 12.2 g/dL (12.0-15.0); Immature Granulocytes Count 0.020 X10^3/uL (0.0-0.0); Mean Corp Hgb Conc 34.9 g/dL (32-36); Mean Corpuscular Volume 91.1 fL (81-99); Mean Platelet Vol. 10.4 fl (6.2-12.0); NRBC Flagged by Analyzer 0 % (0-5); POSITIVE COUNT YES; RBC Distribution Width CV 12.0 % (11.6-14.6); RBC Distribution Width SD 40.1 fl (35.1-43.9); Red Blood Count 3.84 M/mm3 (4.2-5.4); White Blood Count 7.1 K/mm3 (4.4-11.0)
[2025-06-11 20:42] LABS: Lipase 30 U/L (13-75)
[2025-06-11 20:46] LABS: AST(SGOT) 29 U/L (<=31); Alanine Aminotransfer ALT/SGPT 18 U/L (<=34); Albumin, Serum 4.6 g/dL (3.5-5.0); Alkaline Phosphatase 40 U/L (35-104); Anion Gap 10 (5-15); BUN 14 mg/dL (4-19); BUN/Creat Ratio 14.1 RATIO (10-20); Calcium,Total 9.2 mg/dL (7.6-11.0); Carbon Dioxide 23.5 mmol/L (21.0-32.0); Chloride 103 mmol/L (98-108); Estimated Creatinine Clearance 66.65 ml/min (50-250); Globulin 2.3 g/dL (2.2-4.2); Glucose 124 mg/dL (70-99); Potassium 3.8 mmol/L (3.3-5.1)
[2025-06-11 21:06] LABS: Differential Indicated SCAN CRITERIA MET
[2025-06-11 21:07] LABS: Differential Comment SCANNED
[2025-06-11 21:37] VITALS: BP 130/86; PULSE 64; RESP 18; O2SAT 100
[2025-06-11 22:54] VITALS: BP 118/81; PULSE 70; RESP 18; TEMP 36.5; O2SAT 100
[2025-06-11 23:00] VITALS: O2SAT 99
== END 2025-06-11 23:48 | disposition home or self-care (01) ==
PROVIDERS: Emergency Provider Emergency Medicine; PCP Internal Medicine; Visit Provider Emergency Medicine
DX: R10.10 Upper abdominal pain, unspecified (principal); Z79.899 Other long term (current) drug therapy; E86.0 Dehydration; E78.5 Hyperlipidemia, unspecified; Z90.49 Acquired absence of other specified parts of digestive tract; Z90.710 Acquired absence of both cervix and uterus; F17.220 Nicotine dependence, chewing tobacco, uncomplicated; K52.9 Noninfective gastroenteritis and colitis, unspecified
CPT/HCPCS: 80053; 83690; 85025; 96361; 96374; 96375; 99282; A4216; J2405

== ENCOUNTER 2025-06-15 08:21 | Day surgery (SDC) | payer BC, SELFPAY ==
[2025-06-15] VITALS (8 sets, daily range): BP systolic 99–137; BP diastolic 73–94; PULSE 58–74; RESP 16; TEMP 36.3–36.9; O2SAT 100; BMI 25.3
[2025-06-15] MEDS: Lactated Ringers 1,000 ML 15 ML IV (08:30)
--- NOTE | 2025-06-15 08:59 | HP.PCM_ITS ---
HPI - General General Date of Admission: 06/15/25 Date of Service: 06/15/25 Chief Complaint: Abdominal pain and diarrhea HPI Narrative BECCA MCCLAIN, is a 50 F who presents [HPI Chief Complaint: follow up diarrhea/gastritis Details: IBD serologies negative in 2021 B12 normal 06/01/2025 CRP normal 07/10/2022 and 06/01/2025 ESR normal 07/10/2022 and 05/19/2025 Celiac serologies negative 07/10/2022 Fecal Elastase normal 05/31/2022 Stool Qualitative normal, total Fat elevated 05/31/2022 - post CCX - with normal fecal elastase and quaitative fat; fat malabsorption is more likely due to a non-pancreatic cause such as small intestinal mucosal disease or bile acid malabsorption. EGD 05/07/2022 negative for Pettit's, minimal gastritis, negative for H. pylori and celiac sprue COLON 05/07/2022 IC and sigmoid biopsies unremarkable, no inflammation noted CT 04/06/2025 in ER Diffuse thickening of the stomach suggestive of gastritis. Mild diffuse thickening of the bladder suggestive of mild cystitis. Mild diffuse thickening of the sigmoid colon, probably colitis. Scattered fluid-filled small bowels, possibly enteritis. - prescribed PREDNISONE 50mg daily x5 days OV 04/07/2025 49-year-old female presents for sudden onset RUQ abdominal pain which radiates through to her back and up into the shoulder blade. She reports this is her classic CCX pain which she experiences intermittently post cholecystectomy performed in 2019. She routinely takes colestipol 3 times daily and hyoscyamine as needed. Yesterday with onset of pain in addition to her routine medications she also took 4 Pepto-Bismol tablets, 2 Imodium, and hydrocodone 5/325 mg without relief. She presented to the emergency room last evening. Labs were not revealing for leukocytosis, anemia, transaminitis, or elevated lipase. CT scan revealed gastritis, cystitis, sigmoid colitis, and probable enteritis. This presentation is consistent with acute gastroenteritis, other than CT findings of mild cystitis. She was prescribed prednisone 50 mg daily x 5 days and discharged. She presents today for follow-up and reports resolution of severe abdominal pain, but is continuing to experience mild generalized abdominal aching with nausea. If she does indeed have SOD, it would be Type III as she does not have biliary dilation on imaging or transaminitis. I have ordered stool testing (P4Dx) and she will complete prednisone taper as prescribed. I do not recommend hydrocodone for the treatment of acute gastroenteritis pain and I have asked her to follow-up with or office next week via portal. FECAL CALPROTECTIN 04/13/2025 borderline 150 GIPCR 04/13/2025 negative OV 05/03/2025 50-year-old female with a history of episodic abdominal pain and IBS presenting with persistent abdominal pain and diarrhea. The patient's clinical presentation is consistent with irritable bowel syndrome (IBS), characterized by long- standing recurrent abdominal pain, which is non-radiating and associated with diarrhea. The patient's diarrhea and abdominal pain may also be influenced by dietary factors, stress, or underlying GI motility issues. Physical evaluation today and proposed diagnostic tests will aim to exclude other differential diagnoses. We have discussed her symptoms are not classic for SOD. She un derstands it is inappropriate and we will not be refilling hydrocodone for management of intermittent abdominal pain. LABS 05/03/2025 CBC unremarkable, glucose 104, transaminases normal, Lipase 25 --- Early/MID MAY reports PCP prescribed 12d prednisone taper for abdominal pain before traveling Fecal Calprotectin 05/30/2025 normal at 50 per patient " I was on the last day of a 12 day round of prednisone at the time of collection." Portal Discussion 05/19/2025 - 05/23/2025 Patient: On 05/19/25 @ 17:30 BECCA MCCLAIN (Regarding Self) Wrote To Friend,Km I just wanted to mention that the colonoscopy/endoscopy was not during a flare, which makes the findings even more concerning, especially with evidence of erosions and involvement at the ileocecal valve — a classic location for Crohn’s disease. The patchy pattern and mucosal damage are inconsistent with IBS and point toward a possible IBD. Additionally, I wanted to clarify that the CT scan showing thickening and inflammation in the sigmoid colon, stomach, and bladder was performed within days of an active flare, which supports that these are true inflammatory changes and not incidental findings. Given this combination of: Biopsy-proven inflammation Objective imaging during a flare Severe, disabling symptoms And a co-existing autoimmune condition (psoriasis), …I remain highly concerned that this is not IBS (as was put into my health chart previously by the FRIT COATER that saw me for the follow up of my ER visit) , and that we are potentially dealing with an inflammatory or autoimmune bowel disease. I understand scheduling may be limited, but I would really appreciate any flexibility or guidance on how to get better evaluated while symptomatic and also pain management options while figuring this out as the hyoscyamine and ibuprofen that was suggested by the FRIT COATER does not help at all for the flare ups/extreme abdominal pain. 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 VAUGHN Niño: I saw you in the office on 05/03/2025, this was an urgent work-in appointment. Your labs were unremarkable when seen in the emergency department in March during a flare and on 05/03 during a flare. I did not recommend you take Ibuprofen, this is never a medication I recommend for gastrointestinal symptoms. Your fecal calprotectin was previously mildly elevated to 150, this is not consistent with IBD, but none the less elevated. I wanted you to repeat stool testing in 4-6 weeks from last testing, that should be due about now. Please have this completed this week. You are correct inflammation is not typical for IBS; however, IBD is not the only cause for inflammation. A viral gastroenteritis can also cause an elevated calprotectin. We ruled out an infectious cause with stool testing. Ibuprofen use can cause intestinal inflammation causing an elevated fecal calprotectin. You are correct the colonoscopy report noted some inflammation on exam; however, the pathology was negative. Ruling out IBD. Sigmoid biopsies were also unremarkable. Biopsy proven inflammation was negative. IBD as well as several other pathologies can contribute to a B12 deficiency. You were previously tested for celiac disease and this was negative (duodenal biopsy gold standard for diagnosis). Previous gastric biopsies were negative for atrophic gastritis. I did not diagnose you with sphincter of Oddi (SOD) this was a diagnosis you presented to me with. I understand you were previously told SOD was cause of your symptoms. However, now that you have done extensuive research, you understand why I do not feel your symptoms are SOD. As your symptoms and CT findings do not clinically align with a diagnosis of SOD. If you are still having symptoms, we can repeat the CT scan now with oral and IV contrast to better assess and forgo the Gastrograffin enema that was ordered 2 weeks ago. If your fecal calprotectin remains elevated and CT shows ongoing inflammation, I recommend repeating a colonoscopy and possibly an EGD. Please update me on your symptoms. She was seen in the emergency department on 06/11/2025 Patient is a 50-year-old woman. She has been seen by Dr. Moreland's nurse practitioner. She does not have an appointment to be seen until August. She is also scheduled to see another GI specialist in January 2026. Her primary care physician is Dr. Atkins. She informing Dr. Atkins believes she has inflammatory bowel disorder. She has had problems with pain and diarrhea for 10 years. She at one point was diagnosed with irritable bowel syndrome with diarrhea. She had a CAT scan that was ordered by ER physician when she was seen April 06. Impression read prior cholecystectomy. Diffuse thickening of the stomach suggestive of gastritis. There is mild diffuse thickening of the bladder suggestive of mild cystitis. And there is mild diffuse thickening of the sigmoid colon probably colitis. Scattered fluid-filled small bowel's with possibility of enteritis. Patient states when she has these episodes she is treated with prednisone and her symptoms resolved. She has never had a formal diagnosis of inflammatory bowel disorder i.e. Crohn's or ulcerative colitis. She is on Protonix 40 mg. She states there was no blood or mucus in her diarrhea. She has not been on a antibiotic in the past month. She has not been around anyone has been ill. LABS 06/11/2025 CBC unremarkable, glucose 124, Lipase 30 - Patient was reassessed at 2200. Patient feels better. She states she only has a slight discomfort. She was informed I did speak with Dr. Moreland. She will receive a dose of prednisone in department. Since she has no urge to urinate after first liter of normal saline second liter has been added. Comments:: Plan is to discharge after second liter of normal saline has infused. Prescriptions: New hydrocodone-acetaminophen 5-325 mg tablet 1 tab PO Q6H PRN PRN (Reason: Pain) 3 Days Qty: 10 0RF prednisone 20 mg tablet 60 mg PO DAILY Qty: 15 0RF - seen in office today with her - pain is better since Friday- now 3 - pain medication 1/2 tablet at a time - little diarrhea - symptom onset of severe pain sudden onset - nausea and vomiting late March - none since then - fevers low 99 - denies any NSAIDS - Colestipol 3-4x a day with meals - weight loss of 30lbs in the past 3 months - amitriptyline 25mg at HS - weight today 151lbs - she was on a 12d prednisone taper, prescribed by Dr. Atkins for abdominal pain mid May [facility] Medical History High cholesterol Smokeless tobacco use Non-smoker PONV (postoperative nausea and vomiting) Anxiety History of steroid therapy Thyroid disease Smoker History of echocardiogram History of stress test Pre-eclampsia History of irregular heartbeat Hyperlipidemia Gall bladder stones Epigastric pain Migraines Acute cholecystitis Segmental and somatic dysfunction of pelvic region Segmental and somatic dysfunction of lumbar region Segmental and somatic dysfunction of cervical region Segmental and somatic dysfunction of thoracic region Home Medications Medication Instructions Recorded Last Taken Type amitriptyline 25 mg tablet 25 mg PO QHS 10/13/19 Unkno wn History rosuvastatin 5 mg tablet 5 mg PO QHS 05/02/22 5 History Held on 06/11/25. Instructions: Ordered colestipol 1 gram tablet 1 g PO Q6H 04/07/25 06/13/25 History fenofibrate micronized 200 mg 200 mg PO QDAY 04/07/25 06/06/25 History capsule losartan 25 mg tablet 25 mg PO BID 04/07/25 Unknow n History atenolol 25 mg tablet 25 mg PO QHS 06/11/25 Unknow n History hydrocodone-acetaminophen 5-325mg 1 tab PO Q6H PRN PRN Pain 3 days 06/11/25 06/13/25 Rx 5mg-325mg #10 TABLETS mecobalamin (vitamin B12) 1,000 1,000 mcg PO DAILY 09/04 Unknown History mcg chewable tablet prednisone 20 mg tablet 60 mg (3 x 20 mg) PO DAILY # 15 06/11/25 Unknown Rx TABLETS progesterone micronized 100 mg 100 mg PO QHS 06/11/25 Unknown History capsule rimegepant 75 mg disintegrating 75 mg PO QODAY PRN kavita mcdaniele 06/11/25 06/07/25 History tablet (Nurtec ODT) headache finasteride 1 mg tablet 1 mg PO QHS 06/14/25 Unknown History thyroid (pork) 30 mg tablet ([employer] 30 mg PO QHS 06/14/25 Unknown History Thyroid) Allergy/AdvReac Type Severity Reaction Status Date / Time nitrofurantoin (From Allergy Unknown Verified 06/14/25 08:44 Macrobid) Sulfa (Sulfonamide Allergy Hives Verified 06/14/25 08:44 Antibiotics) Family History Mother Alcohol abuse Melanoma High cholesterol Bipolar 1 disorder Surgical History History of esophagogastroduodenoscopy (EGD) History of colonoscopy Hx of wisdom tooth extraction S/P LASIK surgery of both eyes Hx of appendectomy Hx of hysterectomy, total S/P laparoscopic cholecystectomy (~10/13/19) Social History household members: spouse Smoking Status: Current every day smoker tobacco type: smokeless tobacco alcohol intake: current ROS Constitutional Constitutional: Denies fatigue, fever(s), poor appetite, weight gain or weight loss Gastrointestinal Gastrointestinal: Denies belching, bloating, change in bowel habits, change in stool character, chewing difficulty, coffee ground emesis, constipation, cramping, diarrhea, dyspepsia, dysphagia, early satiety, excessive flatus, fecal incontinence, heartburn, hematemesis, hematochezia, hemorrhoids, loose stools, melena, nausea, odynophagia, rectal bleeding, tenesmus, vomiting or weight changes Vital Signs Vital Signs Vital Signs: 06/15/25 08:42 06/15/25 08:42 Temperature 98.5 F Temperature Source Temporal Pulse Rate 74 Respiratory Rate 16 Respiratory Pattern Normal Blood Pressure Source Monitor Blood Pressure Position Semi-Fowlers Blood Pressure Location Right Arm Pulse Ox 100 Oxygen Delivery Method Room Air Weight Weight: 147 lb 11.355 oz Body Mass Index (BMI) 25.3 Physical Exam Const alert, oriented x3, no apparent distress and healthy appearing General Appearance: cooperative GI normal to inspection, nondistended, normoactive bowel sounds, soft to palpation, non-tender and non-distended Percussion: normal to percussion Rectal Exam: deferred Assessment & Plan Assessment/Plan (1) Abdominal pain: (2) Inflammatory bowel disease: (3) Diarrhea: PLAN: Assessment and Plan Assessment and Plan (1) Abdominal pain: Status: Acute Orders: Orders EGD Today Colonoscopy Today R10.9 - Unspecified abdominal pain, R19.7 - Diarrhea, unspecified Plan 50y/o female with 15-year history of recurrent, severe, episodic right upper quadrant and generalized abdominal pain associated with diarrhea, worsened by eating, and partially responsive to bile acid sequestrants and short steroid courses. She has a history of cholecystectomy with persistent symptoms postoperatively. Extensive prior workup including EGD, colonoscopy with biopsies, celiac serologies, fecal elastase, and imaging has been unrevealing for structural, inflammatory, or pancreatic disease. Laboratory studies, including CBC, CRP, ESR, and B12, have remained normal. Fecal calprotectin has been borderline or normal, and stool studies show elevated fat with normal elastase, suggesting non-pancreatic fat malabsorption, most likely due to bile acid diarrhea or small intestinal mucosal disease. The clinical picture is most consistent with diarrhea-predominant irritable bowel syndrome (IBS-D) and/or bile acid diarrhea, with previously negative workup, and partial response to bile acid sequestrants. Microscopic colitis and SIBO remain in the differential, though prior biopsies were unremarkable and there is no evidence of vitamin deficiencies. The patient has had significant improvement in pain with short courses of prednisone and hydrocodone, but these are not recommended for long- term management due to risk of adverse effects and lack of disease-modifying benefit. I have scheduled her for bidirectional endoscopies this week to reassess for microscopic colitis or other mucosal pathology. Continue non-opioid symptom management, including antispasmodics and bile acid sequestrants as tolerated. Avoid further opioid use. We will reassess diagnosis and management following endoscopic evaluation. I have reviewed imaging, symptoms and previous suspected diagnosis of SOD with Dr. Moreland after seeing patient on 04/07/2025 and 05/03/2025 as well as reviewed KUB findings. I have advised patient/ today, in discussions with Dr. Moreland he has not recommended continued use of narcotic pain medication. RADHA Patel was present for duration of visit. Patient Instructions: Colon & EGD - Miralax per patient request Continue prednisone as prescribed by ER ]
--- NOTE | 2025-06-15 09:15 | COLBX_PTH ---
PATIENT: BECCA MCCLAIN LOC: EN U#:[id number] AGE/SX: 50/F ROOM: RE06/15/[address]: Dr. Km Moreland DO : 1975 BED: DIS: 06/15/2025 SPEC #: [id number] RECD: 06/15/25 10:14 STATUS: JEREMY REJordin #: [id number] OZZIE: 06/15/25 09:[address]: Km Moreland DEPT: SURGICAL PATHOLOGY RECD BY: Kenny Moeller ENTERED: 06/15/25 14:14 SP TYPE: COLON BX OTHR DR: Dr. Crystal Atkins DO Tissues: A - Duodenum, NOS B - Gastric mucous membrane C - Esophagus, NOS D - Ileum, NOS E - COLON BIOPSY F - Transverse colon G - COLON BIOPSY H - Sigmoid colon biopsy I - Rectum, NOS Procedures: Immunohistochemical Stains Surgery Specimen Level IV HEADER OPERATION: Colonoscopy with biopsy, EGD with biopsy PRE-OP DIAGNOSIS: Abdominal pain, inflammatory bowel disease, diarrhea TISSUE SUBMITTED: A- Duodenum biopsy, B- Gastric body biopsy, C- Distal esophagus biopsy, D- Terminal ileum biopsy, E- Right side colon biopsy, F- Transverse colon biopsy, G- Left side colon biopsy, H- Sigmoid colon biopsy, I- Rectal colon biopsy MICROSCOPIC DIAGNOSIS A. Duodenum, biopsy: - Normal villous architecture, Mohan gland hyperplasia. - Negative for increased intraepithelial lymphocytes. B. Gastric body, biopsy: - Oxyntic mucosa with features of reactive gastropathy. - IHC negative for H. pylori organisms. C. Distal esophagus, biopsy: - Columnar mucosa negative for goblet cell metaplasia. - No squamous mucosa observed. D. Terminal ileum, biopsy: - No specific pathologic change. E. Colon, right, biopsy: - No specific pathologic change. F. Transverse colon, biopsy: - No specific pathologic change. G. Colon, left, biopsy: - No specific pathologic change. H. Sigmoid colon, biopsy: - No specific pathologic change. I. Rectum, biopsy: - No specific pathologic change. MICROSCOPIC DESCRIPTION Slides are reviewed. All matched controls reacted appropriately. These tests were developed and their performance characteristics determined by [facility]. They may not have been cleared or approved by the U.S. Food and Drug Administration. The FDA has determined that such clearance or approval is not necessary. The above immunohistochemical markers are viewed by the Pathologist. GROSS DESCRIPTION A. Received in fixative is one container labeled with the patient's name and designated "Duodenum biopsy." The specimen consists of multiple irregular fragments of fair tissue that in aggregate measure 1.4 x 0.5 x 0.1 cm. The specimen is totally submitted in one cassette. B. Received in fixative is one container labeled with the patient's name and designated "Gastric body biopsy." The specimen consists of multiple irregular fragments of fair tissue that in aggregate measure 0.9 x 0.8 x 0.1 cm. The specimen is totally submitted in one cassette. C. Received in fixative is one container labeled with the patient's name and designated "Distal esophagus biopsy." The specimen consists of two irregular fragments of fair tissue, each measuring 0.3 cm. The specimen is totally submitted in one cassette. D. Received in fixative is one container labeled with the patient's name and designated "Terminal ileum biopsy." The specimen consists of two irregular fragments of fair tissue that measure 0.6 and 0.7 cm. The specimen is totally submitted in one cassette. E. Received in fixative is one container labeled with the patient's name and designated "Right side colon biopsy." The specimen consists of multiple irregular fragments of fair tissue that in aggregate measure 0.8 x 0.6 x 0.1 cm. The specimen is totally submitted in one cassette. F. Received in fixative is one container labeled with the patient's name and designated "Transverse colon biopsy." The specimen consists of multiple irregular fragments of fair tissue that in aggregate measure 1.2 x 0.6 x 0.1 cm. The specimen is totally submitted in one cassette. G. Received in fixative is one container labeled with the patient's name and designated "Left side colon biopsy." The specimen consists of multiple irregular fragments of fair tissue that in aggregate measure 1.2 x 0.5 x 0.1 cm. The specimen is totally submitted in one cassette. H. Received in fixative is one container labeled with the patient's name and designated "Sigmoid colon biopsy." The specimen consists of one irregular fragment of fair tissue that measures 0.4 cm. The specimen is totally submitted in one cassette. I. Received in fixative is one container labeled with the patient's name and designated "Rectal biopsy." The specimen consists of one irregular fragment of fair tissue that measures 0.6 cm. The specimen is totally submitted in one cassette. [place] 06/15/2025 CPT:01120q5,62646
--- NOTE | 2025-06-15 09:15 | PCM.PRE.AN2 ---
ASA Classification* ASA Classification ASA Classification: 2 Assessment & Plan Anesthesia* Anesthesia Assessment Anesthesia Assessment: Discussed sedation and/or anesthesia options, risks, benefits, and alternatives with patient/parents/legal guardian/POA. Questions invited. The patient/parents/legal guardian/POA seems to understand and agrees to proceed with anesthesia plan. Reviewed the physical assessment, medical history, allergy history and patient home medications list prior to surgery/procedure/anesthetic and documented any changes. Performed airway and anesthesia risk assessments. Anesthesia Type Anesthesia Type: MAC History Source History Obtained from:: Patient and Chart Anesthesia Focused Assessment* Temperature: 98.5 F Pulse Rate: 74 Respiratory Rate: 16 Pulse Ox: 100 Oxygen Delivery Method: Room Air Airway Assessment Mouth opens: >3 cm Mallampati Score: II Teeth Condition: Intact Neck Range of motion (ROM): Full ROM Labs Anesthesia Preop lab: CBC WBC, (4.4-11.0) 7.1 K/mm3 06/11/25, 20:13 RBC, (4.2-5.4) 3.84 M/mm3 L 06/11/25, 20:13 Hgb, (12.0-15.0) 12.2 g/dL 06/11/25, 20:13 Hct, (37-47) 35.0 % L 06/11/25, 20:13 Plt Count TNP 06/11/25, 20:13 CHEMISTRY Potassium, (3.3-5.1) 3.8 mmol/L 06/11/25, 20:13 Sodium, (133-145) 136 mmol/L 06/11/25, 20:13 BUN, (4-19) 14 mg/dL 06/11/25, 20:13 Creatinine, (0.70-1.20) 0.97 mg/dL 06/11/25, 20:13 Glucose, (70-99) 124 mg/dL H 06/11/25, 20:13 TSH, (0.358-3.74) 0.75 uIU/mL 01/17/23, 11:30 COAG Pre-Assessment Diagnosis/Proposed Procedure Planned Operative Procedure(s): EGD, CSCOPE Anesthesia History Anesthesia History - business support coordinator: Anesthesia History - business support coordinator Hx Hospitalization No 06/14/25 08:50 Any Problems With Anesthesia Yes: SLOW TO AWAKEN 06/14/25 08:50 Cholinesterase deficiency No 06/14/25 08:50 You/Your Family Experience No 06/14/25 08:50 fever (hyperthermia) with Relationship Recent Exposure to Contagious No 06/15/25 08:42 Disease Does patient have nerve No 06/14/25 08:50 stimulator Patient instructed to have device shut off --Does patient have Pacemaker No 06/15/25 08:42 or ICD? When Was Last Pacemaker Check QUESTION #4 FULL TEXT: You/Your Family Experience fever (hyperthermia) with Anesthesia Last Oral Intake Last Oral intake: Last Oral Intake NPO since 00:00 06/15/25 08:42 Meds taken in AM with sips of Yes 06/15/25 08:42 water? Meds patient instructed to 0600 gas x 06/15/25 08:42 take am of surgery 0600 prep finished PONV PONV - business support coordinator: PONV - business support coordinator Female Yes 06/14/25 08:50 HX of Motion Sickness Yes 06/14/25 08:50 HX of N/V After Surgery Yes 06/14/25 08:50 Non-Smoker Yes 06/14/25 08:50 Duration of Surgery greater No 06/14/25 08:50 than 60 minutes Number of Risk Factors 4 06/14/25 08:50 PONV Score Severe Risk 06/14/25 08:50 Height & Weight Height & Weight: Anesthesia: Height & Weight Height 5 ft 4 in 06/15/25 08:42 Weight: 67 kg 06/15/25 08:42 Body Mass Index (BMI) 25.3 06/15/25 08:42 Respiratory Assessment Respiratory Assessment - business support coordinator: Respiratory Tract Infection Hx - business support coordinator Hx Respiratory Tract Infection No 06/14/25 08:50 STOP Sleep Apnea STOP Sleep Apnea - business support coordinator: STOP Sleep Apnea - business support coordinator Hx Hypertension Yes: CONTROLLED WITH MED 06/14/25 08:50 Hx Sleep Apnea No 06/14/25 08:50 CPAP No 05/07/22 12:45 BIPAP No 10/13/19 13:48 Do you snore loudly (louder No 06/14/25 08:50 than talking or can be heard Do you often feel tired/ No 06/14/25 08:50 fatigued/ sleepy during daytime? Has anyone observed you stop No 06/14/25 08:50 breathing during sleep? STOP Results Negative 06/14/25 08:50 QUESTION #5 FULL TEXT : Do you snore loudly (louder than talking or can be heard through closed doors)? Tobacco Use History Tobacco Use History - business support coordinator: Tobacco Use History - business support coordinator Tobacco Use Smoking Status Current every day smoker 06/14/25 08:50 Hx Tobacco Use Yes 06/14/25 08:50 Years Smoking Packs Smoked per Day Smoking Cessation Date was within the last 15 years Hx Smoking Cessation Date Hx Smoking Cessation Counseling Hematologic Medial History Hematologic Hx - business support coordinator: Hematologic Medical Hx - slubber hand Hx of Blood Transfusion No 06/14/25 08:50 Hx of Transfusion in last 3 No 06/14/25 08:50 Months Date of Last Transfusion (if within last 3 months) Ever experience any problems No 06/14/25 08:50 with transfusion(s)? Specify any problems Hx of Preganancy in last 3 N/A 06/14/25 08:50 Months Nurse Filling Out Transfusion NBUCHER 06/14/25 08:50 & Questions: Date: 06/14/25 06/14/25 08:50 Time: 08:51 06/14/25 08:50 Patient unable to answer at this time (ie. confused, unrespo /Reproduction History /Reproductive History - business support coordinator: /Reproductive Hx- business support coordinator Hx Now No 06/14/25 08:50 Gestational Age (in weeks): EDC: Hx Hx Para Hx Section SAB No 06/14/25 08:50 Active Medications Active Medications: Current Medications Generic Name Dose Route Start Last Admin Trade Name Freq PRN Reason Stop Dose Admin Lactated Ringer's 1,000 mls @ 15 mls/hr 06/15/25 08:30 IV .Q48H ZACKERY PFSH Medical History High cholesterol Smokeless tobacco use Non-smoker PONV (postoperative nausea and vomiting) Anxiety History of steroid therapy Thyroid disease Smoker History of echocardiogram History of stress test Pre-eclampsia History of irregular heartbeat Hyperlipidemia Gall bladder stones Epigastric pain Migraines Acute cholecystitis Segmental and somatic dysfunction of pelvic region Segmental and somatic dysfunction of lumbar region Segmental and somatic dysfunction of cervical region Segmental and somatic dysfunction of thoracic region Home Medications Medication Instructions Recorded Last Taken Type amitriptyline 25 mg tablet 25 mg PO QHS 10/13/19 Unknown History rosuvastatin 5 mg tablet 5 mg PO QHS 05/02/22 06/07/25 History Held on 06/11/25. Instructions: Ordered colestipol 1 gram tablet 1 g PO Q6H 04/07/25 06/13/25 History fenofibrate micronized 200 mg 200 mg PO QDAY 04/07/25 06/06/25 History capsule losartan 25 mg tablet 25 mg PO BID 04/07/25 Unknown History atenolol 25 mg tablet 25 mg PO QHS 06/11/25 Unknown History hydrocodone-acetaminophen 5-325mg 1 tab PO Q6H PRN PRN Pain 3 days 06/11/25 06/13/25 Rx 5mg-325mg #10 TABLETS mecobalamin (vitamin B12) 1,000 1,000 mcg PO DAILY 06/11/25 Unknown History mcg chewable tablet prednisone 20 mg tablet 60 mg (3 x 20 mg) PO DAILY #15 06/11/25 Unknown Rx TABLETS progesterone micronized 100 mg 100 mg PO QHS 06/11/25 Unknown History capsule rimegepant 75 mg disintegrating 75 mg PO QODAY PRN migraine 06/11/25 06/07/25 History tablet (Nurtec ODT) headache finasteride 1 mg tablet 1 mg PO QHS 06/14/25 Unknown History thyroid (pork) 30 mg tablet (MARKET ASSET PROTECTION MANAGER 30 mg PO QHS 06/14/25 Unknown History Thyroid) Allergy/AdvReac Type Severity Reaction Status Date / Time nitrofurantoin (From Allergy Unknown Verified 06/14/25 08:44 Macrobid) Sulfa (Sulfonamide Allergy Hives Verified 06/14/25 08:44 Antibiotics) Family History Mother Alcohol abuse Melanoma High cholesterol Bipolar 1 disorder Surgical History History of esophagogastroduodenoscopy (EGD) History of colonoscopy Hx of wisdom tooth extraction S/P LASIK surgery of both eyes Hx of appendectomy Hx of hysterectomy, total S/P laparoscopic cholecystectomy (~10/13/19) Social History household members: spouse Smoking Status: Current every day smoker tobacco type: smokeless tobacco alcohol intake: current Review of Systems (Anesthesia) ROS Narrative System reviewed and no additional complaints, except as documented.
[2025-06-15] MEDS: Lidocaine 1% (5 ml sdv) 5 ML Vial 8 ML IV (09:32)
--- NOTE | 2025-06-15 10:12 | PCM.POST.ANE ---
Anesthesia: Postop Eval I Current Vital Signs Temperature: 97.8 F Pulse Rate: 68 Blood Pressure: 99/76 Respiratory Rate: 16 Pulse Ox: 100 Oxygen Delivery Method: Room Air Assessment Airway patent: Yes Spontaneous unlabored respirations: Yes Mental status: Awake and Calm nausea: No Vomiting: No Anesthesia Complication: No Fluid Hydration Crystalloid volume administer (ml): 400 Total IV fluid infused: 400 Progress Note Anesthesia document: Postop Eval 1 completed: Yes
--- NOTE | 2025-06-15 10:15 | OP.PROVAT_ITS ---
06/15/2025 Crystal Atkins Re : Upper GI endoscopy procedure for Winston Osorio Dear Wilbert This procedure was performed on Sunday, June 15, 2025. My impressions and recommendations are as follows: Impressions : - LA Grade B reflux esophagitis with no bleeding. Biopsied. - Acute gastritis. Biopsied. - Erythematous duodenopathy. Recommendations : - Discharge patient to home. - Resume previous diet. - Continue present medications. - Await pathology results. My findings are described in the full procedure note, which is enclosed. If I can be of further assistance, please feel free to contact me at . Sincerely, Km Moreland, 06/15/2025 10:15:05 AM This report has been signed electronically.
--- NOTE | 2025-06-15 10:15 | OP.EGD_ITS ---
Patient Name: Winston Osorio Procedure Date: 06/15/2025 9:05 AM Date of : 1975 Age: 50 Procedure: Upper GI endoscopy Indications: Epigastric abdominal pain, Abdominal pain in the right upper quadrant, Functional Dyspepsia, Indigestion, Failure to respond to medical treatment Providers: Km Moreland DO Referring MD: Crystal Atkins Medicines: Monitored Anesthesia Care Complications: No immediate complications. Procedure: Pre-Anesthesia Assessment: - Prior to the procedure, a History and Physical was performed, and patient medications and allergies were reviewed. The patient is competent. The risks and benefits of the procedure and the sedation options and risks were discussed with the patient. All questions were answered and informed consent was obtained. Patient identification and proposed procedure were verified by the physician in the pre-procedure area. Mental Status Examination: alert and oriented. Airway Examination: normal oropharyngeal airway and neck mobility. Respiratory Examination: clear to auscultation. CV Examination: normal. ASA Grade Assessment: II - A patient with mild systemic disease. After reviewing the risks and benefits, the patient was deemed in satisfactory condition to undergo the procedure. The anesthesia plan was to use moderate sedation / analgesia (conscious sedation). Immediately prior to administration of medications, the patient was re-assessed for adequacy to receive sedatives. The heart rate, respiratory rate, oxygen saturations, blood pressure, adequacy of pulmonary ventilation, and response to care were monitored throughout the procedure. The physical status of the patient was re-assessed after the procedure. After obtaining informed consent, the endoscope was passed under direct vision. Throughout the procedure, the patient's blood pressure, pulse, and oxygen saturations were monitored continuously. The colonoscope was introduced through the mouth, and advanced to the fourth part of the duodenum. Small bowel enteroscopy was deemed necessary. Scope In: 9:37:27 AM Scope Out: 9:45:13 AM Total Procedure Duration Time 0 hours 7 minutes 46 seconds Findings: LA Grade B (one or more mucosal breaks greater than 5 mm, not extending between the tops of two mucosal folds) esophagitis with no bleeding was found 35 to 39 cm from the incisors. Biopsies were taken with a cold forceps for histology. Verification of patient identification for the specimen was done. Estimated blood loss was minimal. Biopsies were taken with a cold forceps for histology. Verification of patient identification for the specimen was done. Estimated blood loss was minimal. Patchy moderate inflammation characterized by congestion (edema) and erythema was found in the gastric body. Biopsies were taken with a cold forceps for histology. Verification of patient identification for the specimen was done. Biopsies were taken with a cold forceps for Helicobacter pylori testing. Verification of patient identification for the specimen was done. Estimated blood loss was minimal. Patchy mildly erythematous mucosa without active bleeding and with no stigmata of bleeding was found in the duodenal bulb and in the second portion of the duodenum. Impression: - LA Grade B reflux esophagitis with no bleeding. Biopsied. - Acute gastritis. Biopsied. - Erythematous duodenopathy. Recommendation: - Discharge patient to home. - Resume previous diet. - Continue present medications. - Await pathology results. Procedure Code(s): --- Professional --- 21363, Small intestinal endoscopy, enteroscopy beyond second portion of duodenum, not including ileum; with biopsy, single or multiple CPT copyright 2021 [employer]. All rights reserved. The codes documented in this report are preliminary and upon fixture relamper review may be revised to meet current compliance requirements. Km Moreland DO 06/15/2025 10:15:05 AM This report has been signed electronically. Number of Addenda: 0 Note Initiated On: 06/15/2025 9:05 AM
--- NOTE | 2025-06-15 10:18 | OP.PROVAT_ITS ---
06/15/2025 Crystal Atkins Re : Colonoscopy procedure for Winston Osorio Dear Wilbert This procedure was performed on Sunday, June 15, 2025. My impressions and recommendations are as follows: Impressions : - Patchy mild inflammation was found in the recto-sigmoid colon, in the sigmoid colon, in the descending colon and at the splenic flexure secondary to colitis. Biopsied. Recommendations : - Discharge patient to home. - Resume previous diet. - Continue present medications. - Await pathology results. - Repeat colonoscopy in 5 years for surveillance. My findings are described in the full procedure note, which is enclosed. If I can be of further assistance, please feel free to contact me at . Sincerely, Km Moreland, 06/15/2025 10:18:07 AM This report has been signed electronically.
--- NOTE | 2025-06-15 10:18 | OP.COLON_ITS ---
Patient Name: Winston Osorio Procedure Date: 06/15/2025 9:45 AM Date of : 1975 Age: 50 Procedure: Colonoscopy Indications: Generalized abdominal pain, Clinically significant diarrhea of unexplained origin Providers: Km Moreland DO Referring MD: Crystal Atkins Medicines: Monitored Anesthesia Care Patient Profile: This is a 50 year old female. Refer to note in patient chart for documentation of history and physical. Last Colonoscopy: several years ago. Complications: No immediate complications. Procedure: Pre-Anesthesia Assessment: - Prior to the procedure, a History and Physical was performed, and patient medications and allergies were reviewed. The patient is competent. The risks and benefits of the procedure and the sedation options and risks were discussed with the patient. All questions were answered and informed consent was obtained. Patient identification and proposed procedure were verified by the physician in the pre-procedure area. Mental Status Examination: alert and oriented. Airway Examination: normal oropharyngeal airway and neck mobility. Respiratory Examination: clear to auscultation. CV Examination: normal. ASA Grade Assessment: II - A patient with mild systemic disease. After reviewing the risks and benefits, the patient was deemed in satisfactory condition to undergo the procedure. The anesthesia plan was to use moderate sedation / analgesia (conscious sedation). Immediately prior to administration of medications, the patient was re-assessed for adequacy to receive sedatives. The heart rate, respiratory rate, oxygen saturations, blood pressure, adequacy of pulmonary ventilation, and response to care were monitored throughout the procedure. The physical status of the patient was re-assessed after the procedure. After I obtained informed consent, the scope was passed under direct vision. Throughout the procedure, the patient's blood pressure, pulse, and oxygen saturations were monitored continuously. The colonoscope was introduced through the anus and advanced to the terminal ileum. The colonoscopy was performed without difficulty. The patient tolerated the procedure well. The quality of the bowel preparation was adequate. The terminal ileum, ileocecal valve, appendiceal orifice, and rectum were photographed. Scope In: 9:47:06 AM Scope Withdrawal Time 0 hours 10 minutes 36 seconds Scope Out: 10:04:07 AM Total Procedure Duration Time 0 hours 17 minutes 1 second Findings: The perianal and digital rectal examinations were normal. Patchy mild inflammation characterized by congestion (edema) and erythema was found in the recto-sigmoid colon, in the sigmoid colon, in the descending colon and at the splenic flexure. Biopsies were taken with a cold forceps for histology. Verification of patient identification for the specimen was done. Estimated blood loss was minimal. Impression: - Patchy mild inflammation was found in the recto-sigmoid colon, in the sigmoid colon, in the descending colon and at the splenic flexure secondary to colitis. Biopsied. Recommendation: - Discharge patient to home. - Resume previous diet. - Continue present medications. - Await pathology results. - Repeat colonoscopy in 5 years for surveillance. Km Moreland DO 06/15/2025 10:18:07 AM This report has been signed electronically. Number of Addenda: 0 Note Initiated On: 06/15/2025 9:45 AM
--- NOTE | 2025-06-15 10:19 | POSTOPAN2_ITS ---
Anesthesia Postop Eval I Sum Postop Eval Completion status Anesthesia document: Postop Eval 1 completed: Yes Anesthesia Postop Eval I Summary Anesthesia Postop Eval I Summary: Anesthesia Postop Eval I: Assessment Summary Airway patent Yes 06/15/25 10:13 INFORMATION CONSULTANT.[email or web address] Spontaneous unlabored Yes 06/15/25 10:13 INFORMATION CONSULTANT.GDOTT respirations Mental status Awake,Calm 06/15/25 10:13 INFORMATION CONSULTANT.GDOTT nausea No 06/15/25 10:13 INFORMATION CONSULTANT.GDOTT Vomiting No 06/15/25 10:13 INFORMATION CONSULTANT.GDOTT Anesthesia Postop Eval I: Fluid Summary Crystalloid volume administer 400 06/15/25 10:13 INFORMATION CONSULTANT.GDOTT (ml) Colloids volume administered ( ml) Blood Product volume administered (ml) Total IV fluid infused 400 06/15/25 10:13 INFORMATION CONSULTANT.GDOTT Anesthesia Postop Eval I: Summary Notes Anesthesia Complication No 06/15/25 10:13 INFORMATION CONSULTANT.GDOTT Anesthesia Complication Comment: Post-operative progress note Anesthesia: Postop Eval II Evaluation Mental status: Awake Pain Level: 0 nausea: No Vomiting: No Complications Anesthesia Complication: No
--- NOTE | 2025-06-15 10:19 | PCM.POSTANE2 ---
Anesthesia Postop Eval I Sum Postop Eval Completion status Anesthesia document: Postop Eval 1 completed: Yes Anesthesia Postop Eval I Summary Anesthesia Postop Eval I Summary: Anesthesia Postop Eval I: Assessment Summary Airway patent Yes 06/15/25 10:13 CLINICAL SYSTEMS EDUCATOR.GDOTT Spontaneous unlabored Yes 06/15/25 10:13 CLINICAL SYSTEMS EDUCATOR.GDOTT respirations Mental status Awake,Calm 06/15/25 10:13 CLINICAL SYSTEMS EDUCATOR.GDOTT nausea No 06/15/25 10:13 CLINICAL SYSTEMS EDUCATOR.GDOTT Vomiting No 06/15/25 10:13 CLINICAL SYSTEMS EDUCATOR.GDOTT Anesthesia Postop Eval I: Fluid Summary Crystalloid volume administer 400 06/15/25 10:13 CLINICAL SYSTEMS EDUCATOR.GDOTT (ml) Colloids volume administered ( ml) Blood Product volume administered (ml) Total IV fluid infused 400 06/15/25 10:13 CLINICAL SYSTEMS EDUCATOR.GDOTT Anesthesia Postop Eval I: Summary Notes Anesthesia Complication No 06/15/25 10:13 CLINICAL SYSTEMS EDUCATOR.GDOTT Anesthesia Complication Comment: Post-operative progress note Anesthesia: Postop Eval II Evaluation Mental status: Awake Pain Level: 0 nausea: No Vomiting: No Complications Anesthesia Complication: No
== END 2025-06-15 10:53 | disposition home or self-care (01) ==
LOC: EN 08:27 → AC 08:29
PROVIDERS: PCP Internal Medicine; Referring Provider Internal Medicine; Visit Provider Internal Medicine Gastroenterology
DX: K52.9 Noninfective gastroenteritis and colitis, unspecified (principal); K29.00 Acute gastritis without bleeding; E78.00 Pure hypercholesterolemia, unspecified; K21.00 Gastro-esophageal reflux disease with esophagitis, without bleeding; R10.11 Right upper quadrant pain; Z90.49 Acquired absence of other specified parts of digestive tract; Z79.899 Other long term (current) drug therapy; F41.9 Anxiety disorder, unspecified; Z90.710 Acquired absence of both cervix and uterus; F17.220 Nicotine dependence, chewing tobacco, uncomplicated; K31.89 Other diseases of stomach and duodenum
CPT/HCPCS: 44361; 45380; 87493; 87506; 88305; 88342; J2405